=== PATIENT | female | born 1955 | race Caucasian/White ===

== ENCOUNTER 2023-02-06 11:29 | Outpatient (REF) | payer MEDICARE, MEDICAID, SELFPAY | END 2023-02-06 11:30 | disposition home or self-care (01) | LOC: HO.HHCLNP 11:29 | PROVIDERS: Visit Provider Emergency Medicine | DX: R32 Unspecified urinary incontinence (principal) | CPT/HCPCS: 87086 ==

== ENCOUNTER 2023-03-11 18:56 | Inpatient (IN) | payer MEDICARE, MEDICAID, SELFPAY ==
--- OUTSIDE RECORDS SUMMARY | 2023-03-11 18:58 | XMS_ITS | Continuity of Care Document ---
Author Name Unknown Organization [facility] ter Address [address] [place] [id number]- Care Team Providers Care Manager Therapy Name Role Phone Jyoti Paris MD Primary Care Physician Encounter [facility] Date(s): 10/23/19 - 10/23/[address] [address]- [facility] Encounter Diagnosis Diarrhea(Final) - 10/23/19 N&V (nausea and vomiting)(Final) - 10/23/19 Hyponatremia(Final) - 10/23/19 Discharge Disposition: A-D/C Home Attending Physician: Anthony Mejia DO Admitting Physician: Anthony Mejia DO Referring Physician: Not on Staff, Referring MD Allergies, Adverse Reactions, Alerts Substance Reaction Severity Status Dilantin INFLAME LIVER Active Reglan VIOLENCE Active Immunizations Given and Recorded Vaccine Date Status Refusal Reason tetanus/diphtheria/pertussis, acel(Tdap) 05/28/12 Given tetanus/diphtheria/pertussis, acel(Tdap) 08/04/09 Given pneumococcal 23-valent vaccine 1 06/02/09 Given 1Result Comment: [id number] Medications Advair Diskus 250 mcg-50 mcg inhalation powder 1, puffs, Inhalation, 2 times a day, # 1 each, Refills 0, Tot. Refills 0, Maintenance, 07/14/19 10:24:00 EST, Inhaler, Route to Pharmacy Electronically, [id number], [facility] #[id number], 155, cm, 07/14/19 7:33:00 EST,... Start Date: 07/14/19 Status: Ordered chlorproMAZINE 100 mg oral tablet 1 tablet = 100 mg, By Mouth, 2 times a day, # 60 tablet, 0 Refills, Maintenance, 07/14/19 10:27:00 EST, Tablet, [facility] #[id number], 155, cm, 07/14/19 7:33:00 EST, Height, 82, kg, 07/05/19 11:52:00 EST, Dry Weight Start Date: 07/14/19 Status: Ordered Colace sodium 100 mg oral capsule 200 mg, 2, capsule, By Mouth, 2 times a day, PRN, # 20 capsule, Refills 0, Maintenance, for constipation, 07/06/19 15:22:00 EST Start Date: 07/06/19 Status: Ordered D 1000 IU oral tablet 1 tablet = 1,000 International_Units, By Mouth, Daily, # 30 tablet, 0 Refills, Maintenance, 07/14/19 10:27:00 EST, Tablet, [facility] #[id number], 155, cm, 07/14/19 7:33:00 EST, Height, 82, kg, 07/05/19 11:52:00 EST, Dry Weight Start Date: 07/14/19 Status: Ordered famotidine 20 mg oral tablet 20 mg, 1, tablet, By Mouth, 2 times a day, # 60 tablet, Refills 0, Tot. Refills 0, Maintenance, 07/14/19 10:27:00 EST, Route to Pharmacy Electronically, [facility] #[id number], 155, cm, 207:33:00 EST, Height, 82, kg, 07/05/19 11:52:00 EST,... Start Date: 07/14/19 Status: Ordered fenofibrate 48 mg oral tablet 1 capsule = 48 mg, By Mouth, Daily, # 30 capsule, 0 Refills, Maintenance, 07/14/19 10:24:00 EST, Tablet, [facility] #[id number], 155, cm, 07/14/19 7:33:00 EST, Height, 82, kg, 07/05/19 11:52:00 EST, Dry Weight Start Date: 07/14/19 Status: Ordered Glucose Tablets 4 Gm, By Mouth, PRN, # 100 tablet, Refills 5, Maintenance, glucose <70, 07/06/19 15:25:00 EST, Compound Start Date: 07/06/19 Stop Date: 08/05/19 Status: Ordered hydrochlorothiazide 12.5 mg oral tablet 1 tablet = 12.5 mg, By Mouth, Daily, # 30 tablet, 0 Refills, Maintenance, 07/14/19 10:27:00 EST, Tablet, [facility] #[id number], 155, cm, 07/14/19 7:33:00 EST, Height, 82, kg, 07/05/19 11:52:00 EST, Dry Weight Start Date: 07/14/19 Status: Ordered insulin glargine 100 units/mL subcutaneous solution 0.6 mL = 60 units, Subcutaneous Injection, Daily at bedtime, 60 units at bed time, # 18 mL, 0 Refills, Maintenance, 07/14/19 11:13:00 EST, Injection, [facility] #[id number], PLEASE DISREGARD previous Glargine script (55u BID) and use this one ins... Start Date: 07/14/19 Status: Ordered insulin lispro 100 u/ml subcutaneous injection 4-16 units, Subcutaneous Injection, 3 times a day before meals, << Sliding Scale Comments >> 80 - 129 4 units 130 - 179 6 units 180 - 229 8 units 230 - 279 10 units 280 - 329 12 units 330- 379 14 units 380 - 429 16 units <... Start Date: 07/14/19 Status: Ordered Keppra 250 mg oral tablet 1 tablet = 250 mg, By Mouth, 2 times a day, # 60 tablet, 0 Refills, Maintenance, 07/14/19 10:29:00 EST, Tablet, [facility] #[id number], 155, cm, 07/14/19 7:33:00 EST, Height, 82, kg, 07/05/19 11:52:00 EST, Dry Weight Start Date: 07/14/19 Status: Ordered lamotrigine 200 mg oral tablet 1 tablet = 200 mg, By Mouth, Daily at bedtime, # 30 tablet, 0 Refills, Maintenance, 07/14/19 10:29:00 EST, Tablet, [facility] #[id number], 155, cm, 07/14/19 7:33:00 EST, Height, 82, kg, 07/05/1911:52:00 EST, Dry Weight Start Date: 07/14/19 Status: Ordered lisinopril 5 mg oral tablet 5 mg, 1, tablet, By Mouth, Daily, # 30 tablet, Refills 0, Tot. Refills 0, Maintenance, 07/14/19 10:29:00 EST, Route to Pharmacy Electronically, [facility] #[id number], 155, cm, 07/14/19 7:33:00 EST, Height, 82, kg, 07/05/19 11:52:00 EST, Dry Weight Start Date: 07/14/19 Status: Ordered Melatonin Tablet Daily at bedtime, 0 Refills, Maintenance, 10/23/19 17:41:00 EDT Start Date: 10/23/19 Status: Ordered ondansetron 4 mg oral tablet 1 tablet = 4 mg, By Mouth, Every 8 hours, PRN Nausea & Vomiting, # 10 tablet, 0 Refills, Maintenance, 10/23/19 20:05:00 EDT, Tablet, [facility] #[id number], 153, cm, 10/23/19 18:10:00 EDT, Height, 74, kg, 10/23/19 18:10:00 EDT, Dry Weight Start Date: 10/23/19 Status: Ordered prazosin 1 mg oral capsule 1 mg, 1, capsule, By Mouth, Daily at bedtime, # 30 capsule, Refills 0, Tot. Refills 0, Maintenance,07/14/19 10:29:00 EST, Route to Pharmacy Electronically, [facility] #[id number], 155, cm, 07/14/19 7:33:00 EST, Height, 82, kg, 07/05/19 11:52:00... Start Date: 07/14/19 Status: Ordered Senna 8.6 mg oral tablet 17.2 mg, 2, tablet, By Mouth, Daily at bedtime, PRN, # 100 tablet, Refills 0, Maintenance, for constipation, 07/06/19 15:24:00 EST, Tablet Start Date: 07/06/19 Status: Ordered Spiriva HandiHaler 18 mcg inhalation capsule 1 capsule = 18 mcg, Inhalation, Daily, # 30 capsule, 0 Refills, Maintenance, 07/14/19 10:26:00 EST,[facility] #[id number], 155, cm, 07/14/19 7:33:00 EST, Height, 82, kg, 07/05/19 11:52:00 EST, Dry Weight Start Date: 07/14/19 Status: Ordered traZODone 100 mg oral tablet 100 mg, 1, tablet, By Mouth, Daily at bedtime, # 30 tablet, Refills 0, Tot. Refills 0, Maintenance,07/14/19 10:29:00 EST, Route to Pharmacy Electronically, [facility] #[id number], 155, cm, 07/14/19 7:33:00 EST, Height, 82, kg, 07/05/19 11:52:00... Start Date: 07/14/19 Status: Ordered venlafaxine 37.5 mg oral capsule, extended release 37.5 mg, 1, capsule, By Mouth, Daily, # 30 capsule, Refills 0, Tot. Refills 0, Maintenance, 07/14/19 11:21:00 EST, Route to Pharmacy Electronically, [facility] #[id number], 155, cm, 07/14/19 7:33:00 EST, Height, 82, kg, 07/05/19 11:52:00 EST, Dry... Start Date: 07/14/19 Status: Ordered Problem List Condition Effective Dates Status Health Status Inform ant Depression(Confirmed) Active Diabetes mellitus type II(Confirmed) Active GERD - Gastro-esophageal ref lux disease(Confirmed) Active Menopause(Confirmed) Active Post traumatic stress disord er (PTSD)(Confirmed) Active Major depressive disorder, r ecurrent episode, moderate with anxious distress(Confirmed) Active Major depressive disorder, r ecurrent episode, severe, with psychosis(Confirmed) Active Vital Signs Most recent to oldest [Reference Range]: 1 Height 153 cm (10/23/19 5:38 PM) Weight 74 kg (10/23/19 5:38 PM) Oxygen Saturation [94-100 %] 99 % (10/23/19 5:53 PM) Pulse Rate [55-90 bpm] 82 bpm (10/23/19 5:53 PM) Blood Pressure [90-138/55-84 mm Hg] 135/ 73mm Hg (10/23/19 5:53 PM) Respiratory Rate [16-30 br/min] 16 br/mi n (10/23/19 5:53 PM) Temperature [96.8-100.4 DegF] 97.7 DegF (10/23/19 5:53 PM) Mode of Delivery (Oxygen) Room air (10/23/19 5:53 PM) Blood pressure sites Arm, right (10/23/19 5:53 PM) Temperature Route Oral (10/23/19 5:53 PM) Dry Weight 74 kg (10/23/19 5:38 PM) Social History Social History Type Response Smoking Status Current every day yonny jernigan; Other: 5 cigarettes a day, 12 years; entered on: 02/16/15 Sex
[2023-03-11 19:30] VITALS: BP 150/70; PULSE 86; RESP 18; TEMP 36.4; O2SAT 96
[2023-03-11 19:41] LABS: Glucose, Whole Blood 243 mg/dL (60-115)
[2023-03-11 21:30] VITALS: BMI 40.2
--- NOTE | 2023-03-11 22:40 | PC.ADMIT ---
(pt arrived 191403-11-23 transfer from [facility] [place]- pt is entirely Thai speaking. therefore kinyarwanda highwood interpretter Tal is utilized for the admission process. pt is pleasant. she does not know where she is. she is able to recite her name and birthday without difficulty. she knows the year and month. she states that she has had memory problems and has been acting strangely. her son glo stated that she has been wandering in the streets naked. has hx IDDM/ASTHMA/EPILEPSY) pt states she was hospitalized over the summer [facility] for high blood sugars in the s. pt deneies si/hi and feels safe. she ambulates independly with steady gait. visible skin surfaces intact. pt states she smokes 3 cigarettes a day. she is requesting NRT. hx of asthma. pt can become spontaneously SOB. resp effort is regular unlabored. pt denies dysuria. pt signed CV. dr reddy was notified of admission via tiger text.
[2023-03-11] MEDS: traZODone HCL 100 MG TABLET 400 MG PO (23:05)
[2023-03-11] MEDS: chlorproMAZINE HCl 100 MG TABLET PO (23:05)
[2023-03-11] MEDS: QUEtiapine Fumarate 25 MG TABLET PO (23:06)
[2023-03-11] MEDS: Prazosin HCL 1 MG CAPSULE PO (23:06)
[2023-03-11] MEDS: Famotidine 20 MG TABLET PO (23:07)
[2023-03-11] MEDS: Acetaminophen 325 MG TABLET 650 MG PO (23:07)
[2023-03-11] MEDS: levETIRAcetam 250 MG TABLET PO (23:08)
[2023-03-11] MEDS: lamoTRIgine 100 MG TABLET 200 MG PO (23:08)
[2023-03-11] MEDS: Insulin Glargine,Hum.rec.anlog 100 UNIT/ML 10 ML VIAL 60 UNIT SUBCUT (23:09)
[2023-03-12] MEDS: Omeprazole 20 MG CAPSULE.DR PO (06:24)
[2023-03-12 06:30] LABS: Glucose, Whole Blood 156 mg/dL (60-115)
[2023-03-12 08:15] VITALS: BP 106/52; PULSE 73; RESP 16; TEMP 36.1; O2SAT 96
[2023-03-12 08:23] LABS: Alanine Aminotransferase 35 U/L (0-31); Albumin Level 4.1 g/dL (3.5-5.0); Alkaline Phosphatase 125 U/L (39-117); Anion Gap 14 (12-20); Aspartate Amino Transferase 26 U/L (5-31); Bilirubin Total 0.4 mg/dL (0.0-1.0); Blood Urea Nitrogen 17 mg/dL (9-16); Calcium 10.1 mg/dL (8.4-10.2); Carbon Dioxide 26 mmol/L (22-29); Chloride 106 mmol/L (96-108); Cholesterol 232 mg/dL (<200); Creatinine Clr Calc Pharmacy 36.7; Estimated Glomerular Filt Rate 44; Glucose Fasting 146 mg/dL (60-99); HDL Cholesterol 39 mg/dL (>40); LDL Cholesterol Calculated 162 mg/dL (<100); Potassium 4.2 mmol/L (3.3-5.1); Sodium 142 mmol/L (135-145); Total Protein 7.6 g/dL (6.5-8.0); Triglycerides 159 mg/dL (<150)
[2023-03-12 08:38] LABS: Free T4 (Free Thyroxine) 0.88 ng/dL (0.71-1.85); Thyroid Stimulating Hormone 1.45 uIU/mL (0.32-4.0)
[2023-03-12 08:53] LABS: Estimated Average Glucose 177 mg/dL; Hemoglobin A1c % 7.8 % (<6.0)
[2023-03-12 08:56] LABS: Folate 12.1 ng/mL (> or = 4.0); Vitamin B12 467 pg/mL (200-900)
[2023-03-12] MEDS: levETIRAcetam 250 MG TABLET PO ×2 (09:09→20:39)
[2023-03-12] MEDS: chlorproMAZINE HCl 100 MG TABLET PO ×2 (09:09→20:39)
[2023-03-12] MEDS: SITagliptin Phosphate 50 MG TABLET PO (09:09)
[2023-03-12] MEDS: hydroCHLOROthiazide 12.5 MG TABLET PO (09:09)
[2023-03-12] MEDS: Fenofibrate 54 MG TABLET PO (09:09)
[2023-03-12] MEDS: Famotidine 20 MG TABLET PO ×2 (09:10→20:39)
[2023-03-12] MEDS: Cholecalciferol (Vitamin D3) 25 MCG TABLET PO (09:10)
[2023-03-12] MEDS: Venlafaxine HCL 25 MG TABLET 37.5 MG PO (09:10)
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
--- NOTE | 2023-03-12 11:19 | P.CONHOSP_ITS ---
History of Present Illness Data of Consult Service Date: 03/12/23 Primary Care Provider: Unknown Physician HPI Reason for consult: Admission H&P Pt is a 67-year-old [place] African-speaking female with a PMH significant for?unspecified dementia, HTN, HLD, insulin-dependent diabetes type 2, seizure disorder, COPD, and bipolar mixed type with psychotic features who is admitted to [facility] psych unit for increasing depression with visual and auditory hallucinations. Patient apparently had delusions that her stabbed and killed her. Medical consult for admission H&P. ?Patient is [place] African-speaking only; medical claims specialist services utilized. Pt is alert to self, time, and situation, not to place. Patient complains of chronic SOB at baseline, but otherwise has no acute medical complaints at this time. Vital signs stable. Labs reviewed, significant for POC 146. A1C 7.8, mild hyperlipidemia and triglyceridemia. UA from [facility] negative for UTI. Review of Systems 2 Review of Systems: Chronic shortness of breath at baseline Otherwise patient has no acute medical complaints at this time [facility] Social History Household Members: None Housing: Apartment Do you presently have visiting nurse or other home services: Yes Patient Tobacco Use Status: Current everyday Tobacco user Tobacco use type: Cigarette Cigarettes Per Day: 3 Smoked in Last 30 Days: Yes Patient Interested in Nicotine Replacement: Yes Patient Given Instructions on How to Stop Smoking: Yes Date Education Initiated: 03/11/23 Second Hand Smoke Exposure: No Use of substances other than those prescribed or required for medical reasons: No Currently Displaying Signs/Symptoms of Drug Intoxication Withdrawal: No Any prior treatment program specific to substance use: No Have you been hit, kicked, punched, or otherwise hurt by someone within the past year? If so, by whom?: No Do you feel safe in your current relationship?: No Current Relationship Is there a partner from a previous relationship who is making you feel unsafe now?: No Are you made to feel afraid or neglected: No Advance Directives: No Advance Directives Information Provided: Yes Do you have thoughts of harming others: None Do you have a plan to hurt others: No Plan Recently lost weight without trying: No How much weight loss: Not applicable Eating poorly because of decreased appetite: No Nutrition screen score: 0 Patient : No : No service: No Sexual orientation: Straight/Heterosexual Meds Allergies Allergy/AdvReac Type Severity Reaction Status Date / Time metoclopramide [From Reglan] AdvReac Confusion Verified 03/11/23 21:26 phenytoin [From Dilantin] AdvReac Gastrointestinal Verified 03/11/23 21:30 Upset Active Medications: Current Medications Acetaminophen (Acetaminophen 325 Mg Tablet) 650 mg PO Q6H PRN PRN Reason: Headache/Pain Mild Scale (1-3) Last Admin: 03/11/23 23:07 Dose: 650 mg Al Hydroxide/Mg Hydroxide (Magnesium Hydrox/Alum Hydrox 30 Ml Oral.Susp) 30 ml PO Q6H PRN PRN Reason: Heartburn/Nausea Chlorpromazine HCl (Chlorpromazine Hcl 100 Mg Tablet) 100 mg PO BID [facility] Last Admin: 03/12/23 09:09 Dose: 100 mg Docusate Sodium (Docusate Sodium 100 Mg Capsule) 100 mg PO BID PRN PRN Reason: constipation Famotidine (Famotidine 20 Mg Tablet) 20 mg PO BID [facility] Last Admin: 03/12/23 09:10 Dose: 20 mg Fenofibrate (Fenofibrate 54 Mg Tablet) 54 mg PO DAILY [facility] Last Admin: 03/12/23 09:09 Dose: 54 mg Hydrochlorothiazide (Hydrochlorothiazide 12.5 Mg Tablet) 12.5 mg PO DAILY [facility]; Protocol Last Admin: 03/12/23 09:09 Dose: 12.5 mg Insulin Glargine (Insulin Glargine,Hum.Rec.Anlog 100 Unit/Ml 10 Ml Vial) 60 unit SUBCUT BEDTIME [facility] Last Admin: 03/11/23 23:09 Dose: 60 unit Lamotrigine (Lamotrigine 100 Mg Tablet) 200 mg PO BEDTIME [facility] Last Admin: 03/11/23 23:08 Dose: 200 mg Levetiracetam (Levetiracetam 250 Mg Tablet) 250 mg PO BID [facility] Last Admin: 03/12/23 09:09 Dose: 250 mg Magnesium Hydroxide (Milk Of Magnesia 30 Ml Oral.Susp) 30 ml PO DAILY PRN PRN Reason: Constipation Melatonin (Melatonin 3 Mg Tablet) 6 mg PO BEDTIME [facility] Nicotine Polacrilex (Nicotine Polacrilex Lozenge 2 Mg Lozenge) 2 mg BUCCAL Q2H PRN PRN Reason: Nicotine Cravings Omeprazole (Omeprazole 20 Mg Capsule.) 20 mg PO DAILY@0630 [facility] Last Admin: 03/12/23 06:24 Dose: 20 mg Prazosin HCl (Prazosin Hcl 1 Mg Capsule) 1 mg PO BEDTIME [facility]; Protocol Last Admin: 03/11/23 23:06 Dose: 1 mg Quetiapine Fumarate (Quetiapine Fumarate 25 Mg Tablet) 25 mg PO BEDTIME [facility] Last Admin: 03/11/23 23:06 Dose: 25 mg Sitagliptin Phosphate (Sitagliptin Phosphate 50 Mg Tablet) 50 mg PO DAILY [facility] Last Admin: 03/12/23 09:09 Dose: 50 mg Tiotropium [place] (Tiotropium [place] 2.5 Mcg Inhaler) 2 puff INHALE DAILY [facility] Last Admin: 03/12/23 09:08 Dose: 2 puff Trazodone HCl (Trazodone Hcl 100 Mg Tablet) 400 mg PO BEDTIME [facility] Last Admin: 03/11/23 23:05 Dose: 400 mg Venlafaxine HCl (Venlafaxine Hcl 25 Mg Tablet) 37.5 mg PO DAILY [facility] Last Admin: 03/12/23 09:10 Dose: 37.5 mg Vitamin D (Cholecalciferol (Vitamin D3) 25 Mcg Tablet) 25 mcg PO DAILY [facility] Last Admin: 03/12/23 09:10 Dose: 25 mcg Home Medications Medication Instructions Recorded Confirmed Last Taken Type chlorpromazine 100 mg tablet 100 mg PO BID 03/11/23 03/11/23 Unknown History cholecalciferol (vitamin D3) 25 25 mcg PO DAILY 03/11/23 03/11/23 Unknown History mcg (1,000 unit) tablet docusate sodium 100 mg capsule 100 mg PO BID PRN constipation 03/11/23 03/11/23 Unknown History famotidine 20 mg tablet 20 mg PO BID 03/11/23 03/11/23 Unknown History fenofibrate nanocrystallized 48 mg 48 mg PO DAILY 03/11/23 03/11/23 Unknown History tablet hydrochlorothiazide 12.5 mg tablet 12.5 mg PO DAILY 03/11/23 03/11/23 Unknown History insulin glargine 100 unit/mL (3 60 unit subcut BEDTIME 03/11/23 03/11/23 Unknown History mL) subcutaneous pen (Lantus Solostar U-100 Insulin) insulin lispro 100 unit/mL 4 - 16 unit subcut TID 03/11/23 03/11/23 Unknown History subcutaneous pen (Humalog KwikPen (U-100) Insulin) lamotrigine 200 mg tablet 200 mg PO BEDTIME depressive 03/11/23 03/11/23 Unknown History disorder levetiracetam 250 mg tablet 250 mg PO BID 03/11/23 03/11/23 Unknown History melatonin 5 mg tablet 5 mg PO BEDTIME 03/11/23 03/11/23 Unknown History pantoprazole 20 mg tablet,delayed 20 mg PO DAILY 03/11/23 03/11/23 Unknown History release prazosin 1 mg capsule 1 mg PO BEDTIME nightmares 03/11/23 03/11/23 Unknown History quetiapine 25 mg tablet 25 mg PO BEDTIME 03/11/23 03/11/23 Unknown History sitagliptin phosphate 50 mg tablet 50 mg PO DAILY 03/11/23 03/11/23 Unknown History (Januvia) trazodone 100 mg tablet 400 mg PO BEDTIME 03/11/23 03/11/23 Unknown History umeclidinium 62.5 mcg/actuation 1 inh inhalation DAILY 03/11/23 03/11/23 Unknown History blister powder for inhalation (Incruse Ellipta) venlafaxine 37.5 mg tablet 37.5 mg PO DAILY 03/11/23 03/11/23 Unknown History Physical Exam 2 Vital Signs and Narrative: Vital Signs: Last Vital Signs Temp 97 F 03/12/23 08:15 Pulse 73 03/12/23 08:15 Resp 16 03/12/23 08:15 BP 106/52 L 03/12/23 08:15 Pulse Ox 96 03/12/23 08:15 O2 Del Method Room Air 03/12/23 08:15 BMI result Body Mass Index 40.2 General: Alert and oriented to self, time, and situation, not to place. In no acute distress Resp: CTA bilaterally CVS: S1, S2, RRR GI: +BS, NT, no distention Skin: No rash Neuro: Cranial nerves II-XII grossly intact bilaterally. Motor grossly intact bilaterally. Extremities: No edema Psych: Appropriate affect Results Labs 03/12/23 07:57 Labs: Laboratory Results - last 24 hr 03/11/23 03/12/23 03/12/23 19:36 06:25 07:57 Anion Gap 14 Estim Creat Clear Calc 36.7 Estimated GFR 44 POC Glucose 243 H 156 H Fasting Glucose 146 H Estimat Average Glucose Hemoglobin A1c % Calcium 10.1 Total Bilirubin 0.4 AST 26 ALT 35 H Alkaline Phosphatase 125 H Total Protein 7.6 Albumin 4.1 Triglycerides 159 H Cholesterol 232 H LDL Cholesterol, Calc 162 H HDL Cholesterol 39 L Vitamin B12 Folate TSH 1.45 Free T4 0.88 03/12/23 03/12/23 07:57 07:57 Anion Gap Estim Creat Clear Calc Estimated GFR POC Glucose Fasting Glucose Estimat Average Glucose 177 Hemoglobin A1c % 7.8 H Calcium Total Bilirubin AST ALT Alkaline Phosphatase Total Protein Albumin Triglycerides Cholesterol LDL Cholesterol, Calc HDL Cholesterol Vitamin B12 467 Folate 12.1 TSH Free T4 Assessment and Plan (1) Routine history and physical examination of adult: Status: Acute Plan Pt is a 67-year-old [place] African-speaking female with a PMH significant for?unspecified dementia, HTN, HLD, insulin-dependent diabetes type 2, seizure disorder, COPD, and bipolar mixed type with psychotic features who is admitted to [facility] unit for increasing depression with visual and auditory hallucinations. Patient apparently had delusions that her stabbed and killed her. Medical consult for admission H&P. Mood disorder Plan as per psychiatry Insulin-dependent diabetes type 2 Continue home meds, insulin Will place on sliding scale Diabetic diet Seizure disorder Continue levetiracetam HLD Continue home meds HTN Continue home meds GERD Thank you for allowing us to participate in the care of this patient. Signing off at this time. Please let us know if there are any acute complaints or questions. Time Spent With Patient Time: Total time managing care of this patient today ____ minutes.
[2023-03-12 11:36] LABS: Glucose, Whole Blood 215 mg/dL (60-115)
[2023-03-12 16:36] LABS: Glucose, Whole Blood 166 mg/dL (60-115)
[2023-03-12] MEDS: Insulin Lispro 100 UNIT/ML 3 ML VIAL SUBCUT (17:01)
[2023-03-12 19:30] VITALS: BP 106/53; PULSE 82; RESP 16; TEMP 36.2; O2SAT 97
[2023-03-12 20:00] LABS: Glucose, Whole Blood 142 mg/dL (60-115)
[2023-03-12] MEDS: Insulin Glargine,Hum.rec.anlog 100 UNIT/ML 10 ML VIAL 60 UNIT SUBCUT (20:37)
[2023-03-12] MEDS: lamoTRIgine 100 MG TABLET 200 MG PO (20:38)
[2023-03-12] MEDS: Prazosin HCL 1 MG CAPSULE PO (20:38)
[2023-03-12] MEDS: Melatonin 3 MG TABLET 6 MG PO (20:38)
[2023-03-12] MEDS: QUEtiapine Fumarate 25 MG TABLET PO (20:39)
[2023-03-12] MEDS: traZODone HCL 100 MG TABLET 400 MG PO (20:40)
[2023-03-13] MEDS: Omeprazole 20 MG CAPSULE.DR PO (06:18)
[2023-03-13 07:00] VITALS: BMI 39.8
[2023-03-13 07:40] LABS: Glucose, Whole Blood 118 mg/dL (60-115)
[2023-03-13 07:45] VITALS: BP 120/59; PULSE 92; RESP 16; TEMP 36.1; O2SAT 95
[2023-03-13] MEDS: Nicotine 7 MG PATCH.TD24 TRANSDERMA (08:17)
[2023-03-13] MEDS: Venlafaxine HCL 25 MG TABLET 37.5 MG PO (08:17)
[2023-03-13] MEDS: Famotidine 20 MG TABLET PO ×2 (08:18→20:51)
[2023-03-13] MEDS: levETIRAcetam 250 MG TABLET PO ×2 (08:18→20:51)
[2023-03-13] MEDS: chlorproMAZINE HCl 100 MG TABLET PO ×2 (08:18→20:50)
[2023-03-13] MEDS: hydroCHLOROthiazide 12.5 MG TABLET PO (08:18)
[2023-03-13] MEDS: SITagliptin Phosphate 50 MG TABLET PO (08:18)
[2023-03-13] MEDS: Cholecalciferol (Vitamin D3) 25 MCG TABLET PO (08:18)
[2023-03-13] MEDS: Fenofibrate 54 MG TABLET PO (08:18)
[2023-03-13 11:28] LABS: Glucose, Whole Blood 271 mg/dL (60-115)
[2023-03-13] MEDS: Insulin Lispro 100 UNIT/ML 3 ML VIAL SUBCUT ×2 (11:39→20:51)
--- NOTE | 2023-03-13 14:08 | HO.PSYCHPN ---
Subjective Subjective Date of Service: 03/13/23 Reason For Visit: Bipolar I D/O Mixed W/Psychotic Features PTSD Etc Subjective Notes: Conditional Voluntary Interim History: The nursing staff reported that the patient had been compliant with meals and medications, she accepted the flu shot ordered yesterday, no behavioral disturbances noticed since she was admitted. She slept well last night. As per the record she scored 5/30 on her MOCA 5 years ago and she looks pleasantly confused. On interview in Korean, she denied new symptoms, pleasant but very confused. Mental Status Exam Mental Status Exam Patient Appearance: Appropriate Patient Orientation: Person and Situation Level of Consciousness: Awake and Appropriate Patient Behavior: Guarded and Passive Mood Description: Withdrawn Affect Description: Constricted Patient Cognition Impaired: Yes Ability to Follow Directions: Fair Speech Pattern: Clear Hallucinations: None Delusions: Not Present Thought Process: Distracted and Slowed Thinking Thought Content: positive for [place] and positive for Poverty of Content Judgement: Fair Diagnostics Vital Signs (24Hr): Vital Signs - 24 hr 03/12/23 19:30 03/13/23 07:45 Temperature 97.2 F 97 F Pulse Rate 82 92 Respiratory Rate 16 16 Blood Pressure 106/53 L 120/59 L Pulse Oximetry 97 95 Oxygen Delivery Method Room Air Room Air BMI result Body Mass Index 39.8 Labs 03/12/23 07:57 Labs: Laboratory Results - last 48 hr 03/11/23 03/12/23 03/12/23 19:36 06:25 07:57 Sodium 142 Potassium 4.2 Chloride 106 Carbon Dioxide 26 Anion Gap 14 BUN 17 H Creatinine 1.23 Estim Creat Clear Calc 36.7 Estimated GFR 44 POC Glucose 243 H 156 H Fasting Glucose 146 H Estimat Average Glucose 177 Hemoglobin A1c % 7.8 H Calcium 10.1 Total Bilirubin 0.4 AST 26 ALT 35 H Alkaline Phosphatase 125 H Total Protein 7.6 Albumin 4.1 Triglycerides 159 H Cholesterol 232 H LDL Cholesterol, Calc 162 H HDL Cholesterol 39 L Vitamin B12 467 Folate 12.1 TSH 1.45 Free T4 0.88 03/12/23 03/12/23 03/12/23 11:31 16:31 19:52 Sodium Potassium Chloride Carbon Dioxide Anion Gap BUN Creatinine Estim Creat Clear Calc Estimated GFR POC Glucose 215 H 166 H 142 H Fasting Glucose Estimat Average Glucose Hemoglobin A1c % Calcium Total Bilirubin AST ALT Alkaline Phosphatase Total Protein Albumin Triglycerides Cholesterol LDL Cholesterol, Calc HDL Cholesterol Vitamin B12 Folate TSH Free T4 03/13/23 03/13/23 07:36 11:22 Sodium Potassium Chloride Carbon Dioxide Anion Gap BUN Creatinine Estim Creat Clear Calc Estimated GFR POC Glucose 118 H 271 H Fasting Glucose Estimat Average Glucose Hemoglobin A1c % Calcium Total Bilirubin AST ALT Alkaline Phosphatase Total Protein Albumin Triglycerides Cholesterol LDL Cholesterol, Calc HDL Cholesterol Vitamin B12 Folate TSH Free T4 Medications Medications Current Medications Acetaminophen (Acetaminophen 325 Mg Tablet) 650 mg PO Q6H PRN PRN Reason: Headache/Pain Mild Scale (1-3) Last Admin: 03/11/23 23:07 Dose: 650 mg Al Hydroxide/Mg Hydroxide (Magnesium Hydrox/Alum Hydrox 30 Ml Oral.Susp) 30 ml PO Q6H PRN PRN Reason: Heartburn/Nausea Chlorpromazine HCl (Chlorpromazine Hcl 100 Mg Tablet) 100 mg PO BID [facility] Last Admin: 03/13/23 08:18 Dose: 100 mg Dextrose (Dextrose 50 % 25 Gm/50 Ml Syringe) 25 gm IVPUSH Q15M PRN; Protocol PRN Reason: per Hypoglycemia Standing Ord. Docusate Sodium (Docusate Sodium 100 Mg Capsule) 100 mg PO BID PRN PRN Reason: constipation Famotidine (Famotidine 20 Mg Tablet) 20 mg PO BID [facility] Last Admin: 03/13/23 08:18 Dose: 20 mg Fenofibrate (Fenofibrate 54 Mg Tablet) 54 mg PO DAILY [facility] Last Admin: 03/13/23 08:18 Dose: 54 mg Glucose (Glucose Gel 15 Gm Gel..Gram.) 15 gm PO Q15M PRN; Protocol PRN Reason: per Hypoglycemia Standing Ord. Hydrochlorothiazide (Hydrochlorothiazide 12.5 Mg Tablet) 12.5 mg PO DAILY [facility]; Protocol Last Admin: 03/13/23 08:18 Dose: 12.5 mg Insulin Glargine (Insulin Glargine,Hum.Rec.Anlog 100 Unit/Ml 10 Ml Vial) 60 unit SUBCUT BEDTIME [facility] Last Admin: 03/12/23 20:37 Dose: 60 unit Insulin Human Lispro (Insulin Lispro 100 Unit/Ml 3 Ml Vial) 0 unit SUBCUT QIDACHS [facility]; Protocol Last Admin: 03/13/23 11:39 Dose: 6 unit Lamotrigine (Lamotrigine 100 Mg Tablet) 200 mg PO BEDTIME [facility] Last Admin: 03/12/23 20:38 Dose: 200 mg Levetiracetam (Levetiracetam 250 Mg Tablet) 250 mg PO BID [facility] Last Admin: 03/13/23 08:18 Dose: 250 mg Magnesium Hydroxide (Milk Of Magnesia 30 Ml Oral.Susp) 30 ml PO DAILY PRN PRN Reason: Constipation Melatonin (Melatonin 3 Mg Tablet) 6 mg PO BEDTIME [facility] Last Admin: 03/12/23 20:38 Dose: 6 mg Nicotine (Nicotine 7 Mg Patch.Td24) 7 mg TRANSDERMA DAILY [facility] Last Admin: 03/13/23 08:17 Dose: 7 mg Nicotine Polacrilex (Nicotine Polacrilex Lozenge 2 Mg Lozenge) 2 mg BUCCAL Q2H PRN PRN Reason: Nicotine Cravings Omeprazole (Omeprazole 20 Mg Capsule.Dr) 20 mg PO DAILY@0630 [facility] Last Admin: 03/13/23 06:18 Dose: 20 mg Prazosin HCl (Prazosin Hcl 1 Mg Capsule) 1 mg PO BEDTIME [facility]; Protocol Last Admin: 03/12/23 20:38 Dose: 1 mg Quetiapine Fumarate (Quetiapine Fumarate 25 Mg Tablet) 25 mg PO BEDTIME [facility] Last Admin: 03/12/23 20:39 Dose: 25 mg Sitagliptin Phosphate (Sitagliptin Phosphate 50 Mg Tablet) 50 mg PO DAILY [facility] Last Admin: 03/13/23 08:18 Dose: 50 mg Tiotropium [place] (Tiotropium [place] 2.5 Mcg Inhaler) 2 puff INHALE DAILY [facility] Last Admin: 03/13/23 08:18 Dose: 2 puff Trazodone HCl (Trazodone Hcl 100 Mg Tablet) 400 mg PO BEDTIME [facility] Last Admin: 03/12/23 20:40 Dose: 400 mg Venlafaxine HCl (Venlafaxine Hcl 25 Mg Tablet) 37.5 mg PO DAILY [facility] Last Admin: 03/13/23 08:17 Dose: 37.5 mg Vitamin D (Cholecalciferol (Vitamin D3) 25 Mcg Tablet) 25 mcg PO DAILY [facility] Last Admin: 03/13/23 08:18 Dose: 25 mcg Allergies Allergies Allergy/AdvReac Type Severity Reaction Status Date / Time metoclopramide [From Reglan] AdvReac Confusion Verified 03/11/23 21:26 phenytoin [From Dilantin] AdvReac Gastrointestinal Verified 03/11/23 21:30 Upset Assessment & Plan Assessment & Plan (1) Bipolar disorder: Status: Acute Code(s): F31.9 - Bipolar disorder, unspecified (2) Dementia: Status: Acute Code(s): F03.90 - Unspecified dementia, unspecified severity, without behavioral disturbance, psychotic disturbance, mood disturbance, and anxiety (3) Tardive dyskinesia: Status: Acute Code(s): G24.01 - Drug induced subacute dyskinesia (4) Delirium: Status: Acute Code(s): R41.0 - Disorientation, unspecified Plan The patient is an elderly [place] female with a past history of bipolar disorder, seizure disorder, diabetes, high blood pressure and dementia admitted for an episode of delirium with disorganized behavior in the context of a UTI most likely. She was brought from the emergency room since she was found in the street naked and confused. Plan 1. Gather collateral information the patient is a very poor historian but she gave us permission to contact her family. 2. Continue regular medications as per med reconciliation form. 3. Continue with medical workout. 4. At this moment we are not going to increasing antipsychotics and we will try to avoid the use of benzodiazepines to prevent worsening delirium. 5. 15 minute checks Reason for continued inpatient stay Substantial Risk for: inability to function, rapid decompensation and med/psych decompensation Time Spent With Patient Time: Total time managing care of this patient today __20__ minutes.
[2023-03-13 16:40] LABS: Glucose, Whole Blood 131 mg/dL (60-115)
[2023-03-13 18:00] VITALS: BP 105/55; PULSE 82; RESP 18; TEMP 36.9; O2SAT 100
[2023-03-13 20:05] LABS: Glucose, Whole Blood 262 mg/dL (60-115)
[2023-03-13] MEDS: Melatonin 3 MG TABLET 6 MG PO (20:50)
[2023-03-13] MEDS: traZODone HCL 100 MG TABLET 400 MG PO (20:50)
[2023-03-13] MEDS: lamoTRIgine 100 MG TABLET 200 MG PO (20:50)
[2023-03-13] MEDS: QUEtiapine Fumarate 25 MG TABLET PO (20:51)
[2023-03-13] MEDS: Prazosin HCL 1 MG CAPSULE PO (20:51)
[2023-03-13] MEDS: Insulin Glargine,Hum.rec.anlog 100 UNIT/ML 10 ML VIAL 60 UNIT SUBCUT (20:52)
[2023-03-14] MEDS: Omeprazole 20 MG CAPSULE.DR PO (06:31)
[2023-03-14 06:38] LABS: Glucose, Whole Blood 147 mg/dL (60-115)
[2023-03-14 08:00] VITALS: BP 97/57; PULSE 78; RESP 17; TEMP 36.4; O2SAT 97
[2023-03-14] MEDS: SITagliptin Phosphate 50 MG TABLET PO (08:09)
[2023-03-14] MEDS: Fenofibrate 54 MG TABLET PO (08:09)
[2023-03-14] MEDS: chlorproMAZINE HCl 100 MG TABLET PO ×2 (08:09→20:36)
[2023-03-14] MEDS: levETIRAcetam 250 MG TABLET PO ×2 (08:09→20:35)
[2023-03-14] MEDS: Cholecalciferol (Vitamin D3) 25 MCG TABLET PO (08:10)
[2023-03-14] MEDS: Famotidine 20 MG TABLET PO ×2 (08:10→20:36)
[2023-03-14] MEDS: Nicotine 7 MG PATCH.TD24 TRANSDERMA (08:11)
[2023-03-14] MEDS: Venlafaxine HCL 25 MG TABLET 37.5 MG PO (08:20)
[2023-03-14] MEDS: Acetaminophen 325 MG TABLET 650 MG PO (11:04)
--- NOTE | 2023-03-14 11:14 | P.PNPSI_ITS ---
Subjective Subjective Date of Service: 03/14/23 Reason For Visit: Bipolar I D/O Mixed W/Psychotic Features PTSD Etc Subjective Notes: Conditional Voluntary Interim History: The nursing staff reported the patient had been pleasantly confused, easily redirectable cooperative with care compliant with her medications. She slept well last night. The social media director reported that she have called the family and left messages. On interview the patient denies new symptoms she states most of the time in her room no side effects besides her chronic tardive dyskinesia. Mental Status Exam Mental Status Exam Patient Appearance: Appropriate Patient Orientation: Person and Situation Level of Consciousness: Awake and Appropriate Patient Behavior: Guarded and Passive Mood Description: Withdrawn Affect Description: Constricted Patient Cognition Impaired: Yes Ability to Follow Directions: Good Speech Pattern: Clear Hallucinations: None Delusions: Not Present Thought Process: Distracted, Evasive and Slowed Thinking Thought Content: positive for [place], positive for Poverty of Content and positive for Thought Blocking Judgement: Poor Diagnostics Vital Signs (24Hr): Vital Signs - 24 hr 03/13/23 18:00 03/14/23 08:00 Temperature 98.5 F 97.6 F Pulse Rate 82 78 Respiratory Rate 18 17 Blood Pressure 105/55 L 97/57 L Pulse Oximetry 100 97 Oxygen Delivery Method Room Air Room Air BMI result Body Mass Index 39.8 Labs 03/12/23 07:57 Labs: Laboratory Results - last 48 hr 03/12/23 03/12/23 03/12/23 11:31 16:31 19:52 POC Glucose 215 H 166 H 142 H 03/13/23 03/13/23 03/13/23 07:36 11:22 16:31 POC Glucose 118 H 271 H 131 H 03/13/23 03/14/23 19:38 06:33 POC Glucose 262 H 147 H Medications Medications Current Medications Acetaminophen (Acetaminophen 325 Mg Tablet) 650 mg PO Q6H PRN PRN Reason: Headache/Pain Mild Scale (1-3) Last Admin: 03/14/23 11:04 Dose: 650 mg Al Hydroxide/Mg Hydroxide (Magnesium Hydrox/Alum Hydrox 30 Ml Oral.Susp) 30 ml PO Q6H PRN PRN Reason: Heartburn/Nausea Chlorpromazine HCl (Chlorpromazine Hcl 100 Mg Tablet) 100 mg PO BID [facility] Last Admin: 03/14/23 08:09 Dose: 100 mg Dextrose (Dextrose 50 % 25 Gm/50 Ml Syringe) 25 gm IVPUSH Q15M PRN; Protocol PRN Reason: per Hypoglycemia Standing Ord. Docusate Sodium (Docusate Sodium 100 Mg Capsule) 100 mg PO BID PRN PRN Reason: constipation Famotidine (Famotidine 20 Mg Tablet) 20 mg PO BID [facility] Last Admin: 03/14/23 08:10 Dose: 20 mg Fenofibrate (Fenofibrate 54 Mg Tablet) 54 mg PO DAILY [facility] Last Admin: 03/14/23 08:09 Dose: 54 mg Glucose (Glucose Gel 15 Gm Gel..Gram.) 15 gm PO Q15M PRN; Protocol PRN Reason: per Hypoglycemia Standing Ord. Hydrochlorothiazide (Hydrochlorothiazide 12.5 Mg Tablet) 12.5 mg PO DAILY [facility]; Protocol Last Admin: 03/14/23 08:15 Dose: Not Given Insulin Glargine (Insulin Glargine,Hum.Rec.Anlog 100 Unit/Ml 10 Ml Vial) 60 unit SUBCUT BEDTIME [facility] Last Admin: 03/13/23 20:52 Dose: 60 unit Insulin Human Lispro (Insulin Lispro 100 Unit/Ml 3 Ml Vial) 0 unit SUBCUT QIDACHS [facility]; Protocol Last Admin: 03/14/23 08:14 Dose: Not Given Lamotrigine (Lamotrigine 100 Mg Tablet) 200 mg PO BEDTIME [facility] Last Admin: 03/13/23 20:50 Dose: 200 mg Levetiracetam (Levetiracetam 250 Mg Tablet) 250 mg PO BID [facility] Last Admin: 03/14/23 08:09 Dose: 250 mg Magnesium Hydroxide (Milk Of Magnesia 30 Ml Oral.Susp) 30 ml PO DAILY PRN PRN Reason: Constipation Melatonin (Melatonin 3 Mg Tablet) 6 mg PO BEDTIME [facility] Last Admin: 03/13/23 20:50 Dose: 6 mg Nicotine (Nicotine 7 Mg Patch.Td24) 7 mg TRANSDERMA DAILY [facility] Last Admin: 03/14/23 08:11 Dose: 7 mg Nicotine Polacrilex (Nicotine Polacrilex Lozenge 2 Mg Lozenge) 2 mg BUCCAL Q2H PRN PRN Reason: Nicotine Cravings Omeprazole (Omeprazole 20 Mg Capsule.Dr) 20 mg PO DAILY@0630 [facility] Last Admin: 03/14/23 06:31 Dose: 20 mg Prazosin HCl (Prazosin Hcl 1 Mg Capsule) 1 mg PO BEDTIME [facility]; Protocol Last Admin: 03/13/23 20:51 Dose: 1 mg Quetiapine Fumarate (Quetiapine Fumarate 25 Mg Tablet) 25 mg PO BEDTIME [facility] Last Admin: 03/13/23 20:51 Dose: 25 mg Sitagliptin Phosphate (Sitagliptin Phosphate 50 Mg Tablet) 50 mg PO DAILY [facility] Last Admin: 03/14/23 08:09 Dose: 50 mg Tiotropium [place] (Tiotropium [place] 2.5 Mcg Inhaler) 2 puff INHALE DAILY [facility] Last Admin: 03/14/23 08:08 Dose: 2 puff Trazodone HCl (Trazodone Hcl 100 Mg Tablet) 400 mg PO BEDTIME [facility] Last Admin: 03/13/23 20:50 Dose: 400 mg Venlafaxine HCl (Venlafaxine Hcl 25 Mg Tablet) 37.5 mg PO DAILY [facility] Last Admin: 03/14/23 08:20 Dose: 37.5 mg Vitamin D (Cholecalciferol (Vitamin D3) 25 Mcg Tablet) 25 mcg PO DAILY [facility] Last Admin: 03/14/23 08:10 Dose: 25 mcg Allergies Allergies Allergy/AdvReac Type Severity Reaction Status Date / Time metoclopramide [From Reglan] AdvReac Confusion Verified 03/11/23 21:26 phenytoin [From Dilantin] AdvReac Gastrointestinal Verified 03/11/23 21:30 Upset Assessment & Plan Assessment & Plan (1) Bipolar disorder: Status: Acute Code(s): F31.9 - Bipolar disorder, unspecified (2) Dementia: Status: Acute Code(s): F03.90 - Unspecified dementia, unspecified severity, without behavioral disturbance, psychotic disturbance, mood disturbance, and anxiety (3) Tardive dyskinesia: Status: Acute Code(s): G24.01 - Drug induced subacute dyskinesia (4) Delirium: Status: Acute Code(s): R41.0 - Disorientation, unspecified Plan The patient is an elderly [place] female with a past history of bipolar disorder, seizure disorder, diabetes, high blood pressure and dementia admitted for an episode of delirium with disorganized behavior in the context of a UTI most likely. She was brought from the emergency room since she was found in the street naked and confused. Plan 1. Gather collateral information the patient is a very poor historian but she gave us permission to contact her family. 2. Continue regular medications as per med reconciliation form. 3. Continue with medical workout. 4. At this moment we are not going to increasing antipsychotics and we will try to avoid the use of benzodiazepines to prevent worsening delirium. 5. 15 minute checks Reason for continued inpatient stay Substantial Risk for: inability to function, rapid decompensation and med/psych decompensation Time Spent With Patient Time: Total time managing care of this patient today __20__ minutes.
[2023-03-14 11:40] LABS: Glucose, Whole Blood 209 mg/dL (60-115)
[2023-03-14] MEDS: Insulin Lispro 100 UNIT/ML 3 ML VIAL SUBCUT ×3 (11:41→20:35)
[2023-03-14 19:35] VITALS: BP 111/57; PULSE 81; RESP 18; TEMP 36.3; O2SAT 96
[2023-03-14 20:32] LABS: Glucose, Whole Blood 262 mg/dL (60-115)
[2023-03-14] MEDS: Insulin Glargine,Hum.rec.anlog 100 UNIT/ML 10 ML VIAL 60 UNIT SUBCUT (20:35)
[2023-03-14] MEDS: QUEtiapine Fumarate 25 MG TABLET PO (20:35)
[2023-03-14] MEDS: Prazosin HCL 1 MG CAPSULE PO (20:36)
[2023-03-14] MEDS: lamoTRIgine 100 MG TABLET 200 MG PO (20:36)
[2023-03-14] MEDS: traZODone HCL 100 MG TABLET 400 MG PO (20:36)
[2023-03-14] MEDS: Melatonin 3 MG TABLET 6 MG PO (20:36)
[2023-03-15] MEDS: Omeprazole 20 MG CAPSULE.DR PO (06:02)
[2023-03-15 06:52] LABS: Glucose, Whole Blood 103 mg/dL (60-115)
[2023-03-15 07:58] VITALS: BP 96/53; PULSE 71; RESP 18; TEMP 36; O2SAT 97
[2023-03-15 08:54] VITALS: BP 100/57
[2023-03-15] MEDS: levETIRAcetam 250 MG TABLET PO ×2 (09:12→20:24)
[2023-03-15] MEDS: Fenofibrate 54 MG TABLET PO (09:12)
[2023-03-15] MEDS: chlorproMAZINE HCl 100 MG TABLET PO ×2 (09:12→20:23)
[2023-03-15] MEDS: Famotidine 20 MG TABLET PO ×2 (09:12→20:23)
[2023-03-15] MEDS: SITagliptin Phosphate 50 MG TABLET PO (09:12)
[2023-03-15] MEDS: Cholecalciferol (Vitamin D3) 25 MCG TABLET PO (09:12)
[2023-03-15] MEDS: Nicotine 7 MG PATCH.TD24 TRANSDERMA (09:13)
[2023-03-15] MEDS: Venlafaxine HCL 25 MG TABLET 37.5 MG PO (09:13)
--- NOTE | 2023-03-15 09:56 | PC.NURSE ---
Morning blood pressure 96/53 and Maria Esther asymptomatic. She was provided with ice water. Recheck of bp approximately an hour later 100/57 and Maria Esther continued to be asymptomatic. [address] Rosa notified.
[2023-03-15 11:29] LABS: Glucose, Whole Blood 287 mg/dL (60-115)
[2023-03-15] MEDS: Insulin Lispro 100 UNIT/ML 3 ML VIAL SUBCUT ×3 (11:40→21:06)
--- NOTE | 2023-03-15 15:15 | HO.PSYCHPN ---
Subjective Subjective Date of Service: 03/15/23 Reason For Visit: Bipolar I D/O Mixed W/Psychotic Features PTSD Etc Subjective Notes: Conditional Voluntary Interim History: met with patient. Discussed with Nursing. Utilized [employer]-speaking staff for interview. Slept better last night. A little more withdrawn today. Is alert and oriented. Reports having nightmares of her father killing her. However feels safe in the hospital. Does endorse feeling depressed. Denies suicidal thoughts. Sleep has been broken. Blood pressure has been on the lower side and hydrochlorothiazide therefore being held. Has had no symptoms of low blood pressure. Medication Compliance: Yes Side effects from medications: No Attending Groups: Intermittent Review of Systems Acute medical concerns: No Medical Review of Systems: changed (Blood pressure has been on the lower side and hydrochlorothiazide therefore being held. Has had no symptoms of low blood pressure) Mental Status Exam Mental Status Exam Patient Appearance: Appropriate Patient Orientation: Person and Situation Level of Consciousness: Awake and Appropriate Patient Behavior: Guarded and Passive Mood Description: Withdrawn Affect Description: Constricted Patient Cognition Impaired: Yes Ability to Follow Directions: Good Speech Pattern: Clear Hallucinations: None Delusions: Not Present Thought Process: Distracted, Evasive and Slowed Thinking Thought Content: positive for [place], positive for [place] of Content and positive for Thought Blocking Judgement: Poor Diagnostics Vital Signs (24Hr): Vital Signs - 24 hr 03/14/23 19:35 03/15/23 07:58 03/15/23 08:54 Temperature 97.4 F 96.8 F Pulse Rate 81 71 Respiratory Rate 18 18 Blood Pressure 111/57 L 96/53 L 100/57 L Pulse Oximetry 96 97 Oxygen Delivery Method Room Air Room Air BMI result Body Mass Index 39.8 Labs 03/12/23 07:57 Labs: Laboratory Results - last 48 hr 03/13/23 03/13/23 03/14/23 16:31 19:38 06:33 POC Glucose 131 H 262 H 147 H 03/14/23 03/14/23 03/15/23 11:32 20:26 06:37 POC Glucose 209 H 262 H 103 03/15/23 11:24 POC Glucose 287 H Medications Medications Current Medications Acetaminophen (Acetaminophen 325 Mg Tablet) 650 mg PO Q6H PRN PRN Reason: Headache/Pain Mild Scale (1-3) Last Admin: 03/14/23 11:04 Dose: 650 mg Al Hydroxide/Mg Hydroxide (Magnesium Hydrox/Alum Hydrox 30 Ml Oral.Susp) 30 ml PO Q6H PRN PRN Reason: Heartburn/Nausea Chlorpromazine HCl (Chlorpromazine Hcl 100 Mg Tablet) 100 mg PO BID [facility] Last Admin: 03/15/23 09:12 Dose: 100 mg Dextrose (Dextrose 50 % 25 Gm/50 Ml Syringe) 25 gm IVPUSH Q15M PRN; Protocol PRN Reason: per Hypoglycemia Standing Ord. Docusate Sodium (Docusate Sodium 100 Mg Capsule) 100 mg PO BID PRN PRN Reason: constipation Famotidine (Famotidine 20 Mg Tablet) 20 mg PO BID [facility] Last Admin: 03/15/23 09:12 Dose: 20 mg Fenofibrate (Fenofibrate 54 Mg Tablet) 54 mg PO DAILY [facility] Last Admin: 03/15/23 09:12 Dose: 54 mg Glucose (Glucose Gel 15 Gm Gel..Gram.) 15 gm PO Q15M PRN; Protocol PRN Reason: per Hypoglycemia Standing Ord. Hydrochlorothiazide (Hydrochlorothiazide 12.5 Mg Tablet) 12.5 mg PO DAILY [facility]; Protocol Last Admin: 03/15/23 09:18 Dose: Not Given Insulin Glargine (Insulin Glargine,Hum.Rec.Anlog 100 Unit/Ml 10 Ml Vial) 60 unit SUBCUT BEDTIME [facility] Last Admin: 03/14/23 20:35 Dose: 60 unit Insulin Human Lispro (Insulin Lispro 100 Unit/Ml 3 Ml Vial) 0 unit SUBCUT QIDACHS [facility]; Protocol Last Admin: 03/15/23 11:40 Dose: 6 unit Lamotrigine (Lamotrigine 100 Mg Tablet) 200 mg PO BEDTIME [facility] Last Admin: 03/14/23 20:36 Dose: 200 mg Levetiracetam (Levetiracetam 250 Mg Tablet) 250 mg PO BID [facility] Last Admin: 03/15/23 09:12 Dose: 250 mg Magnesium Hydroxide (Milk Of Magnesia 30 Ml Oral.Susp) 30 ml PO DAILY PRN PRN Reason: Constipation Melatonin (Melatonin 3 Mg Tablet) 6 mg PO BEDTIME [facility] Last Admin: 03/14/23 20:36 Dose: 6 mg Nicotine (Nicotine 7 Mg Patch.Td24) 7 mg TRANSDERMA DAILY [facility] Last Admin: 03/15/23 09:13 Dose: 7 mg Nicotine Polacrilex (Nicotine Polacrilex Lozenge 2 Mg Lozenge) 2 mg BUCCAL Q2H PRN PRN Reason: Nicotine Cravings Omeprazole (Omeprazole 20 Mg Capsule.Dr) 20 mg PO DAILY@0630 [facility] Last Admin: 03/15/23 06:02 Dose: 20 mg Prazosin HCl (Prazosin Hcl 1 Mg Capsule) 1 mg PO BEDTIME [facility]; Protocol Last Admin: 03/14/23 20:36 Dose: 1 mg Quetiapine Fumarate (Quetiapine Fumarate 25 Mg Tablet) 25 mg PO BEDTIME [facility] Last Admin: 03/14/23 20:35 Dose: 25 mg Sitagliptin Phosphate (Sitagliptin Phosphate 50 Mg Tablet) 50 mg PO DAILY [facility] Last Admin: 03/15/23 09:12 Dose: 50 mg Tiotropium [place] (Tiotropium [place] 2.5 Mcg Inhaler) 2 puff INHALE DAILY [facility] Last Admin: 03/15/23 09:14 Dose: 2 puff Trazodone HCl (Trazodone Hcl 100 Mg Tablet) 400 mg PO BEDTIME [facility] Last Admin: 03/14/23 20:36 Dose: 400 mg Venlafaxine HCl (Venlafaxine Hcl 25 Mg Tablet) 37.5 mg PO DAILY [facility] Last Admin: 03/15/23 09:13 Dose: 37.5 mg Vitamin D (Cholecalciferol (Vitamin D3) 25 Mcg Tablet) 25 mcg PO DAILY [facility] Last Admin: 03/15/23 09:12 Dose: 25 mcg Allergies Allergies Allergy/AdvReac Type Severity Reaction Status Date / Time metoclopramide [From Reglan] AdvReac Confusion Verified 03/11/23 21:26 phenytoin [From Dilantin] AdvReac Gastrointestinal Verified 03/11/23 21:30 Upset Assessment & Plan Assessment & Plan (1) Bipolar disorder: Status: Acute Code(s): F31.9 - Bipolar disorder, unspecified (2) Dementia: Status: Acute Code(s): F03.90 - Unspecified dementia, unspecified severity, without behavioral disturbance, psychotic disturbance, mood disturbance, and anxiety (3) Tardive dyskinesia: Status: Acute Code(s): G24.01 - Drug induced subacute dyskinesia (4) Delirium: Status: Acute Code(s): R41.0 - Disorientation, unspecified Plan The patient is an elderly Citizen Of [place] female with a past history of bipolar disorder, seizure disorder, diabetes, high blood pressure and dementia admitted for an episode of delirium with disorganized behavior in the context of a UTI most likely. She was brought from the emergency room since she was found in the street naked and confused. Plan 1. Gather collateral information the patient is a very poor historian but she gave us permission to contact her family. 2. Continue regular medications as per med reconciliation form. 3. Continue with medical workout. 4. At this moment we are not going to increasing antipsychotics and we will try to avoid the use of benzodiazepines to prevent worsening delirium. 5. 15 minute checks 03/15/2023: Will increase nighttime Seroquel to 50 mg for poor sleep Reason for continued inpatient stay Substantial Risk for: rapid decompensation Time Spent With Patient Time: Total time managing care of this patient today ____ minutes.
[2023-03-15 16:25] LABS: Glucose, Whole Blood 170 mg/dL (60-115)
[2023-03-15 18:00] VITALS: BP 101/55; PULSE 69; RESP 20; TEMP 36.5; O2SAT 99
[2023-03-15] MEDS: lamoTRIgine 100 MG TABLET 200 MG PO (20:23)
[2023-03-15] MEDS: Melatonin 3 MG TABLET 6 MG PO (20:24)
[2023-03-15] MEDS: Prazosin HCL 1 MG CAPSULE PO (20:24)
[2023-03-15] MEDS: QUEtiapine Fumarate 50 MG TABLET PO (20:25)
[2023-03-15] MEDS: traZODone HCL 100 MG TABLET 400 MG PO (20:25)
[2023-03-15] MEDS: Acetaminophen 325 MG TABLET 650 MG PO (20:26)
[2023-03-15 20:32] LABS: Glucose, Whole Blood 294 mg/dL (60-115)
[2023-03-15] MEDS: Insulin Glargine,Hum.rec.anlog 100 UNIT/ML 10 ML VIAL 60 UNIT SUBCUT (21:03)
[2023-03-16] MEDS: Omeprazole 20 MG CAPSULE.DR PO (06:25)
[2023-03-16 06:34] LABS: Glucose, Whole Blood 135 mg/dL (60-115)
[2023-03-16 08:01] VITALS: BP 101/50; PULSE 71; RESP 16; TEMP 36.2; O2SAT 100
[2023-03-16] MEDS: Nicotine 7 MG PATCH.TD24 TRANSDERMA (09:02)
[2023-03-16] MEDS: chlorproMAZINE HCl 100 MG TABLET PO ×2 (09:03→20:53)
[2023-03-16] MEDS: Famotidine 20 MG TABLET PO ×2 (09:03→20:53)
[2023-03-16] MEDS: levETIRAcetam 250 MG TABLET PO ×2 (09:03→20:54)
[2023-03-16] MEDS: Venlafaxine HCL 25 MG TABLET 37.5 MG PO (09:03)
[2023-03-16] MEDS: SITagliptin Phosphate 50 MG TABLET PO (09:03)
[2023-03-16] MEDS: Fenofibrate 54 MG TABLET PO (09:03)
[2023-03-16] MEDS: Cholecalciferol (Vitamin D3) 25 MCG TABLET PO (09:03)
--- NOTE | 2023-03-16 11:20 | PC.NURSE ---
BP 101/50 at 0801 and Maria Esther was asymptomatic. [address] Rosa notified.
[2023-03-16 11:29] LABS: Glucose, Whole Blood 140 mg/dL (60-115)
--- NOTE | 2023-03-16 15:39 | HO.PSYCHPN ---
Subjective Subjective Date of Service: 03/16/23 Reason For Visit: Bipolar I D/O Mixed W/Psychotic Features PTSD Etc Interim History: In room a lot today sleeping. Feeling depressed. No suicidal thoughts. Feels safe. No agitation. No medication concerns Medication Compliance: Yes Side effects from medications: No Attending Groups: No Review of Systems Acute medical concerns: No Review of Systems Review of Systems unremarkable Mental Status Exam Mental Status Exam Patient Appearance: Appropriate Patient Orientation: Person and Situation Level of Consciousness: Awake and Appropriate Patient Behavior: Guarded and Passive Mood Description: Withdrawn Affect Description: Constricted Patient Cognition Impaired: Yes Ability to Follow Directions: Good Speech Pattern: Clear Diagnostics Vital Signs (24Hr): Vital Signs - 24 hr 03/15/23 18:00 03/16/23 08:01 Temperature 97.7 F 97.1 F Pulse Rate 69 71 Respiratory Rate 20 16 Blood Pressure 101/55 L 101/50 L Pulse Oximetry 99 100 Oxygen Delivery Method Room Air Room Air BMI result Body Mass Index 39.8 Labs 03/12/23 07:57 Labs: Laboratory Results - last 48 hr 03/14/23 03/15/23 03/15/23 20:26 06:37 11:24 POC Glucose 262 H 103 287 H 03/15/23 03/15/23 03/16/23 16:18 20:22 06:24 POC Glucose 170 H 294 H 135 H 03/16/23 11:25 POC Glucose 140 H Medications Medications Current Medications Acetaminophen (Acetaminophen 325 Mg Tablet) 650 mg PO Q6H PRN PRN Reason: Headache/Pain Mild Scale (1-3) Last Admin: 03/15/23 20:26 Dose: 650 mg Al Hydroxide/Mg Hydroxide (Magnesium Hydrox/Alum Hydrox 30 Ml Oral.Susp) 30 ml PO Q6H PRN PRN Reason: Heartburn/Nausea Chlorpromazine HCl (Chlorpromazine Hcl 100 Mg Tablet) 100 mg PO BID [facility] Last Admin: 03/16/23 09:03 Dose: 100 mg Dextrose (Dextrose 50 % 25 Gm/50 Ml Syringe) 25 gm IVPUSH Q15M PRN; Protocol PRN Reason: per Hypoglycemia Standing Ord. Docusate Sodium (Docusate Sodium 100 Mg Capsule) 100 mg PO BID PRN PRN Reason: constipation Famotidine (Famotidine 20 Mg Tablet) 20 mg PO BID [facility] Last Admin: 03/16/23 09:03 Dose: 20 mg Fenofibrate (Fenofibrate 54 Mg Tablet) 54 mg PO DAILY [facility] Last Admin: 03/16/23 09:03 Dose: 54 mg Glucose (Glucose Gel 15 Gm Gel..Gram.) 15 gm PO Q15M PRN; Protocol PRN Reason: per Hypoglycemia Standing Ord. Hydrochlorothiazide (Hydrochlorothiazide 12.5 Mg Tablet) 12.5 mg PO DAILY [facility]; Protocol Last Admin: 03/16/23 09:06 Dose: Not Given Insulin Glargine (Insulin Glargine,Hum.Rec.Anlog 100 Unit/Ml 10 Ml Vial) 60 unit SUBCUT BEDTIME [facility] Last Admin: 03/15/23 21:03 Dose: 60 unit Insulin Human Lispro (Insulin Lispro 100 Unit/Ml 3 Ml Vial) 0 unit SUBCUT QIDACHS [facility]; Protocol Last Admin: 03/16/23 11:27 Dose: Not Given Lamotrigine (Lamotrigine 100 Mg Tablet) 200 mg PO BEDTIME [facility] Last Admin: 03/15/23 20:23 Dose: 200 mg Levetiracetam (Levetiracetam 250 Mg Tablet) 250 mg PO BID [facility] Last Admin: 03/16/23 09:03 Dose: 250 mg Magnesium Hydroxide (Milk Of Magnesia 30 Ml Oral.Susp) 30 ml PO DAILY PRN PRN Reason: Constipation Melatonin (Melatonin 3 Mg Tablet) 6 mg PO BEDTIME [facility] Last Admin: 03/15/23 20:24 Dose: 6 mg Nicotine (Nicotine 7 Mg Patch.Td24) 7 mg TRANSDERMA DAILY [facility] Last Admin: 03/16/23 09:02 Dose: 7 mg Nicotine Polacrilex (Nicotine Polacrilex Lozenge 2 Mg Lozenge) 2 mg BUCCAL Q2H PRN PRN Reason: Nicotine Cravings Omeprazole (Omeprazole 20 Mg Capsule.Dr) 20 mg PO DAILY@0630 [facility] Last Admin: 03/16/23 06:25 Dose: 20 mg Prazosin HCl (Prazosin Hcl 1 Mg Capsule) 1 mg PO BEDTIME [facility]; Protocol Last Admin: 03/15/23 20:24 Dose: 1 mg Quetiapine Fumarate (Quetiapine Fumarate 50 Mg Tablet) 50 mg PO BEDTIME [facility] Last Admin: 03/15/23 20:25 Dose: 50 mg Sitagliptin Phosphate (Sitagliptin Phosphate 50 Mg Tablet) 50 mg PO DAILY [facility] Last Admin: 03/16/23 09:03 Dose: 50 mg Tiotropium [place] (Tiotropium [place] 2.5 Mcg Inhaler) 2 puff INHALE DAILY [facility] Last Admin: 03/16/23 09:02 Dose: 2 puff Trazodone HCl (Trazodone Hcl 100 Mg Tablet) 400 mg PO BEDTIME [facility] Last Admin: 03/15/23 20:25 Dose: 400 mg Venlafaxine HCl (Venlafaxine Hcl 25 Mg Tablet) 37.5 mg PO DAILY [facility] Last Admin: 03/16/23 09:03 Dose: 37.5 mg Vitamin D (Cholecalciferol (Vitamin D3) 25 Mcg Tablet) 25 mcg PO DAILY [facility] Last Admin: 03/16/23 09:03 Dose: 25 mcg Allergies Allergies Allergy/AdvReac Type Severity Reaction Status Date / Time metoclopramide [From Reglan] AdvReac Confusion Verified 03/11/23 21:26 phenytoin [From Dilantin] AdvReac Gastrointestinal Verified 03/11/23 21:30 Upset Assessment & Plan Assessment & Plan (1) Bipolar disorder: Status: Acute Code(s): F31.9 - Bipolar disorder, unspecified (2) Dementia: Status: Acute Code(s): F03.90 - Unspecified dementia, unspecified severity, without behavioral disturbance, psychotic disturbance, mood disturbance, and anxiety (3) Tardive dyskinesia: Status: Acute Code(s): G24.01 - Drug induced subacute dyskinesia (4) Delirium: Status: Acute Code(s): R41.0 - Disorientation, unspecified Plan The patient is an elderly [place] female with a past history of bipolar disorder, seizure disorder, diabetes, high blood pressure and dementia admitted for an episode of delirium with disorganized behavior in the context of a UTI most likely. She was brought from the emergency room since she was found in the street naked and confused. Plan 1. Gather collateral information the patient is a very poor historian but she gave us permission to contact her family. 2. Continue regular medications as per med reconciliation form. 3. Continue with medical workout. 4. At this moment we are not going to increasing antipsychotics and we will try to avoid the use of benzodiazepines to prevent worsening delirium. 5. 15 minute checks 03/15/2023: Will increase nighttime Seroquel to 50 mg for poor sleep 91/0/23: increase nighttime Seroquel to 75 mg Reason for continued inpatient stay Substantial Risk for: inability to function Time Spent With Patient Time: Total time managing care of this patient today ____ minutes.
[2023-03-16 16:39] LABS: Glucose, Whole Blood 112 mg/dL (60-115)
[2023-03-16 18:00] VITALS: BP 103/80; PULSE 77; RESP 17; TEMP 35.9; O2SAT 99
[2023-03-16] MEDS: Acetaminophen 325 MG TABLET 650 MG PO (18:45)
--- NOTE | 2023-03-16 18:47 | PC.NURSE ---
Patient medicated with Tylenol 650 mg at 1847 for headache 04/15.
[2023-03-16] MEDS: lamoTRIgine 100 MG TABLET 200 MG PO (20:53)
[2023-03-16] MEDS: Melatonin 3 MG TABLET 6 MG PO (20:54)
[2023-03-16] MEDS: QUEtiapine Fumarate 25 MG TABLET 75 MG PO (20:55)
[2023-03-16] MEDS: traZODone HCL 100 MG TABLET 400 MG PO (20:55)
[2023-03-16] MEDS: Prazosin HCL 1 MG CAPSULE PO (20:56)
[2023-03-16 21:06] LABS: Glucose, Whole Blood 127 mg/dL (60-115)
[2023-03-16] MEDS: Insulin Glargine,Hum.rec.anlog 100 UNIT/ML 10 ML VIAL 60 UNIT SUBCUT (21:11)
[2023-03-17] MEDS: Omeprazole 20 MG CAPSULE.DR PO (06:39)
[2023-03-17] MEDS: Venlafaxine HCL 25 MG TABLET 37.5 MG PO (08:24)
[2023-03-17 08:25] VITALS: BP 91/52; PULSE 75; RESP 20; TEMP 36.7; O2SAT 95
[2023-03-17] MEDS: Cholecalciferol (Vitamin D3) 25 MCG TABLET PO (08:25)
[2023-03-17] MEDS: Fenofibrate 54 MG TABLET PO (08:26)
[2023-03-17] MEDS: SITagliptin Phosphate 50 MG TABLET PO (08:26)
[2023-03-17] MEDS: Famotidine 20 MG TABLET PO ×2 (08:26→20:20)
[2023-03-17] MEDS: levETIRAcetam 250 MG TABLET PO ×2 (08:26→20:20)
[2023-03-17] MEDS: chlorproMAZINE HCl 100 MG TABLET PO ×2 (08:27→20:20)
[2023-03-17] MEDS: Nicotine 7 MG PATCH.TD24 TRANSDERMA (08:28)
[2023-03-17 11:13] LABS: Glucose, Whole Blood 152 mg/dL (60-115)
[2023-03-17 11:13] LABS: Glucose, Whole Blood 104 mg/dL (60-115)
[2023-03-17] MEDS: Insulin Lispro 100 UNIT/ML 3 ML VIAL SUBCUT ×3 (11:17→20:20)
--- NOTE | 2023-03-17 15:14 | P.PNPSI_ITS ---
Subjective Subjective Date of Service: 03/17/23 Reason For Visit: Bipolar I D/O Mixed W/Psychotic Features PTSD Etc Subjective Notes: Conditional Voluntary Interim History: The nursing staff reported the patient had been common cooperative, quiet. Yesterday her some visited her she has been with a flat affect and slept well. On interview the patient had been on her bed denies new symptoms hypoactive. The social psychologist reported that most likely she could be discharged next week Mental Status Exam Mental Status Exam Patient Appearance: Well Grooomed and Appropriate Patient Orientation: Person and Situation Level of Consciousness: Awake and Appropriate Patient Behavior: Guarded and Passive Mood Description: Withdrawn Affect Description: Constricted Patient Cognition Impaired: Yes Ability to Follow Directions: Good Speech Pattern: Clear Hallucinations: None Delusions: Not Present Thought Process: Distracted and Slowed Thinking Thought Content: positive for [place] and positive for Poverty of Content Judgement: Fair Diagnostics Vital Signs (24Hr): Vital Signs - 24 hr 03/16/23 18:00 03/17/23 08:25 Temperature 96.7 F L 98.1 F Pulse Rate 77 75 Respiratory Rate 17 20 Blood Pressure 103/80 91/52 L Pulse Oximetry 99 95 Oxygen Delivery Method Room Air Room Air BMI result Body Mass Index 39.8 Labs 03/12/23 07:57 Labs: Laboratory Results - last 48 hr 03/15/23 03/15/23 03/16/23 16:18 20:22 06:24 POC Glucose 170 H 294 H 135 H 03/16/23 03/16/23 03/16/23 11:25 16:35 20:50 POC Glucose 140 H 112 127 H 03/17/23 03/17/23 06:44 11:08 POC Glucose 104 152 H Medications Medications Current Medications Acetaminophen (Acetaminophen 325 Mg Tablet) 650 mg PO Q6H PRN PRN Reason: Headache/Pain Mild Scale (1-3) Last Admin: 03/16/23 18:45 Dose: 650 mg Al Hydroxide/Mg Hydroxide (Magnesium Hydrox/Alum Hydrox 30 Ml Oral.Susp) 30 ml PO Q6H PRN PRN Reason: Heartburn/Nausea Chlorpromazine HCl (Chlorpromazine Hcl 100 Mg Tablet) 100 mg PO BID [facility] Last Admin: 03/17/23 08:27 Dose: 100 mg Dextrose (Dextrose 50 % 25 Gm/50 Ml Syringe) 25 gm IVPUSH Q15M PRN; Protocol PRN Reason: per Hypoglycemia Standing Ord. Docusate Sodium (Docusate Sodium 100 Mg Capsule) 100 mg PO BID PRN PRN Reason: constipation Famotidine (Famotidine 20 Mg Tablet) 20 mg PO BID [facility] Last Admin: 03/17/23 08:26 Dose: 20 mg Fenofibrate (Fenofibrate 54 Mg Tablet) 54 mg PO DAILY [facility] Last Admin: 03/17/23 08:26 Dose: 54 mg Glucose (Glucose Gel 15 Gm Gel..Gram.) 15 gm PO Q15M PRN; Protocol PRN Reason: per Hypoglycemia Standing Ord. Hydrochlorothiazide (Hydrochlorothiazide 12.5 Mg Tablet) 12.5 mg PO DAILY [facility]; Protocol Last Admin: 03/17/23 08:27 Dose: Not Given Insulin Glargine (Insulin Glargine,Hum.Rec.Anlog 100 Unit/Ml 10 Ml Vial) 60 unit SUBCUT BEDTIME [facility] Last Admin: 03/16/23 21:11 Dose: 60 unit Insulin Human Lispro (Insulin Lispro 100 Unit/Ml 3 Ml Vial) 0 unit SUBCUT QIDACHS [facility]; Protocol Last Admin: 03/17/23 11:17 Dose: 2 unit Lamotrigine (Lamotrigine 100 Mg Tablet) 200 mg PO BEDTIME [facility] Last Admin: 03/16/23 20:53 Dose: 200 mg Levetiracetam (Levetiracetam 250 Mg Tablet) 250 mg PO BID [facility] Last Admin: 03/17/23 08:26 Dose: 250 mg Magnesium Hydroxide (Milk Of Magnesia 30 Ml Oral.Susp) 30 ml PO DAILY PRN PRN Reason: Constipation Melatonin (Melatonin 3 Mg Tablet) 6 mg PO BEDTIME [facility] Last Admin: 03/16/23 20:54 Dose: 6 mg Nicotine (Nicotine 7 Mg Patch.Td24) 7 mg TRANSDERMA DAILY [facility] Last Admin: 03/17/23 08:28 Dose: 7 mg Nicotine Polacrilex (Nicotine Polacrilex Lozenge 2 Mg Lozenge) 2 mg BUCCAL Q2H PRN PRN Reason: Nicotine Cravings Omeprazole (Omeprazole 20 Mg Capsule.Dr) 20 mg PO DAILY@0630 [facility] Last Admin: 03/17/23 06:39 Dose: 20 mg Prazosin HCl (Prazosin Hcl 1 Mg Capsule) 1 mg PO BEDTIME [facility]; Protocol Last Admin: 03/16/23 20:56 Dose: 1 mg Quetiapine Fumarate (Quetiapine Fumarate 25 Mg Tablet) 75 mg PO BEDTIME [facility] Last Admin: 03/16/23 20:55 Dose: 75 mg Sitagliptin Phosphate (Sitagliptin Phosphate 50 Mg Tablet) 50 mg PO DAILY [facility] Last Admin: 03/17/23 08:26 Dose: 50 mg Tiotropium [place] (Tiotropium [place] 2.5 Mcg Inhaler) 2 puff INHALE DAILY [facility] Last Admin: 03/17/23 08:28 Dose: 2 puff Trazodone HCl (Trazodone Hcl 100 Mg Tablet) 400 mg PO BEDTIME [facility] Last Admin: 03/16/23 20:55 Dose: 400 mg Venlafaxine HCl (Venlafaxine Hcl 25 Mg Tablet) 37.5 mg PO DAILY [facility] Last Admin: 03/17/23 08:24 Dose: 37.5 mg Vitamin D (Cholecalciferol (Vitamin D3) 25 Mcg Tablet) 25 mcg PO DAILY [facility] Last Admin: 03/17/23 08:25 Dose: 25 mcg Allergies Allergies Allergy/AdvReac Type Severity Reaction Status Date / Time metoclopramide [From Reglan] AdvReac Confusion Verified 03/11/23 21:26 phenytoin [From Dilantin] AdvReac Gastrointestinal Verified 03/11/23 21:30 Upset Assessment & Plan Assessment & Plan (1) Bipolar disorder: Status: Acute Code(s): F31.9 - Bipolar disorder, unspecified (2) Dementia: Status: Acute Code(s): F03.90 - Unspecified dementia, unspecified severity, without behavioral disturbance, psychotic disturbance, mood disturbance, and anxiety (3) Tardive dyskinesia: Status: Acute Code(s): G24.01 - Drug induced subacute dyskinesia (4) Delirium: Status: Acute Code(s): R41.0 - Disorientation, unspecified Plan The patient is an elderly [place] female with a past history of bipolar disorder, seizure disorder, diabetes, high blood pressure and dementia admitted for an episode of delirium with disorganized behavior in the context of a UTI most likely. She was brought from the emergency room since she was found in the street naked and confused. Plan 1. Gather collateral information the patient is a very poor historian but she gave us permission to contact her family. 2. Continue regular medications as per med reconciliation form. 3. Continue with medical workout. 4. At this moment we are not going to increasing antipsychotics and we will try to avoid the use of benzodiazepines to prevent worsening delirium. 5. 15 minute checks 6. Seroquel was increased up to 50 mg at night due to poor sleep Reason for continued inpatient stay Substantial Risk for: inability to function, rapid decompensation and med/psych decompensation Time Spent With Patient Time: Total time managing care of this patient today __20__ minutes.
[2023-03-17 16:32] LABS: Glucose, Whole Blood 166 mg/dL (60-115)
[2023-03-17 18:00] VITALS: BP 122/58; PULSE 63; RESP 18; TEMP 36.4; O2SAT 100
[2023-03-17] MEDS: Melatonin 3 MG TABLET 6 MG PO (20:20)
[2023-03-17] MEDS: QUEtiapine Fumarate 25 MG TABLET 75 MG PO (20:20)
[2023-03-17] MEDS: lamoTRIgine 100 MG TABLET 200 MG PO (20:20)
[2023-03-17] MEDS: Prazosin HCL 1 MG CAPSULE PO (20:20)
[2023-03-17] MEDS: traZODone HCL 100 MG TABLET 400 MG PO (20:20)
[2023-03-17] MEDS: Insulin Glargine,Hum.rec.anlog 100 UNIT/ML 10 ML VIAL 60 UNIT SUBCUT (20:21)
[2023-03-18 00:12] LABS: Glucose, Whole Blood 191 mg/dL (60-115)
[2023-03-18] MEDS: Omeprazole 20 MG CAPSULE.DR PO (06:26)
[2023-03-18 06:34] LABS: Glucose, Whole Blood 116 mg/dL (60-115)
[2023-03-18 08:00] VITALS: BP 131/68; PULSE 68; RESP 18; TEMP 36.4; O2SAT 100
[2023-03-18] MEDS: Nicotine 7 MG PATCH.TD24 TRANSDERMA (08:45)
[2023-03-18] MEDS: hydroCHLOROthiazide 12.5 MG TABLET PO (08:47)
[2023-03-18] MEDS: Fenofibrate 54 MG TABLET PO (08:47)
[2023-03-18] MEDS: SITagliptin Phosphate 50 MG TABLET PO (08:47)
[2023-03-18] MEDS: Famotidine 20 MG TABLET PO ×2 (08:47→21:40)
[2023-03-18] MEDS: Cholecalciferol (Vitamin D3) 25 MCG TABLET PO (08:47)
[2023-03-18] MEDS: Venlafaxine HCL 25 MG TABLET 37.5 MG PO (08:47)
[2023-03-18] MEDS: levETIRAcetam 250 MG TABLET PO ×2 (08:47→21:59)
[2023-03-18] MEDS: chlorproMAZINE HCl 100 MG TABLET PO ×2 (08:50→21:39)
[2023-03-18 11:27] LABS: Glucose, Whole Blood 186 mg/dL (60-115)
[2023-03-18] MEDS: Insulin Lispro 100 UNIT/ML 3 ML VIAL SUBCUT ×3 (11:30→21:41)
--- NOTE | 2023-03-18 11:46 | HO.PSYCHPN ---
Subjective Subjective Date of Service: 03/18/23 Reason For Visit: Bipolar I D/O Mixed W/Psychotic Features PTSD Etc Subjective Notes: Conditional Voluntary Interim History: The nursing staff reported the patient stated that she was feeling depressed and anxious 04/15 but later on she could not remember that she complained of depression. She reported nightmares and visual hallucinations but later on she did not remember that she complained of that. The health care social worker has already, acted [facility] and a brother who wants her back with more services. On interview the patient is pleasantly confused, easily redirectable denies active hallucinations she is on treatment for nightmares with prazosin. Mental Status Exam Mental Status Exam Patient Appearance: Appropriate Patient Orientation: Person and Situation Level of Consciousness: Awake and Appropriate Patient Behavior: Appropriate, Guarded and Passive Mood Description: Calm Affect Description: Blunted Patient Cognition Impaired: Yes Ability to Follow Directions: Good Speech Pattern: Clear Hallucinations: None Delusions: Not Present Thought Process: Linear Thought Content: positive for [place] and positive for Circumstantial Judgement: Fair Diagnostics Vital Signs (24Hr): Vital Signs - 24 hr 03/17/23 18:00 03/18/23 08:00 Temperature 97.6 F 97.6 F Pulse Rate 63 68 Respiratory Rate 18 18 Blood Pressure 122/58 L 131/68 Pulse Oximetry 100 100 Oxygen Delivery Method Room Air Room Air BMI result Body Mass Index 39.8 Labs 03/12/23 07:57 Labs: Laboratory Results - last 48 hr 03/16/23 03/16/23 03/17/23 16:35 20:50 06:44 POC Glucose 112 127 H 104 03/17/23 03/17/23 03/17/23 11:08 16:14 19:30 POC Glucose 152 H 166 H 191 H 03/18/23 03/18/23 06:28 11:23 POC Glucose 116 H 186 H Medications Medications Current Medications Acetaminophen (Acetaminophen 325 Mg Tablet) 650 mg PO Q6H PRN PRN Reason: Headache/Pain Mild Scale (1-3) Last Admin: 03/16/23 18:45 Dose: 650 mg Al Hydroxide/Mg Hydroxide (Magnesium Hydrox/Alum Hydrox 30 Ml Oral.Susp) 30 ml PO Q6H PRN PRN Reason: Heartburn/Nausea Chlorpromazine HCl (Chlorpromazine Hcl 100 Mg Tablet) 100 mg PO BID [facility] Last Admin: 03/18/23 08:50 Dose: 100 mg Dextrose (Dextrose 50 % 25 Gm/50 Ml Syringe) 25 gm IVPUSH Q15M PRN; Protocol PRN Reason: per Hypoglycemia Standing Ord. Docusate Sodium (Docusate Sodium 100 Mg Capsule) 100 mg PO BID PRN PRN Reason: constipation Famotidine (Famotidine 20 Mg Tablet) 20 mg PO BID [facility] Last Admin: 03/18/23 08:47 Dose: 20 mg Fenofibrate (Fenofibrate 54 Mg Tablet) 54 mg PO DAILY [facility] Last Admin: 03/18/23 08:47 Dose: 54 mg Glucose (Glucose Gel 15 Gm Gel..Gram.) 15 gm PO Q15M PRN; Protocol PRN Reason: per Hypoglycemia Standing Ord. Hydrochlorothiazide (Hydrochlorothiazide 12.5 Mg Tablet) 12.5 mg PO DAILY [facility]; Protocol Last Admin: 03/18/23 08:47 Dose: 12.5 mg Insulin Glargine (Insulin Glargine,Hum.Rec.Anlog 100 Unit/Ml 10 Ml Vial) 60 unit SUBCUT BEDTIME [facility] Last Admin: 03/17/23 20:21 Dose: 60 unit Insulin Human Lispro (Insulin Lispro 100 Unit/Ml 3 Ml Vial) 0 unit SUBCUT QIDACHS [facility]; Protocol Last Admin: 03/18/23 11:30 Dose: 2 unit Lamotrigine (Lamotrigine 100 Mg Tablet) 200 mg PO BEDTIME [facility] Last Admin: 03/17/23 20:20 Dose: 200 mg Levetiracetam (Levetiracetam 250 Mg Tablet) 250 mg PO BID [facility] Last Admin: 03/18/23 08:47 Dose: 250 mg Magnesium Hydroxide (Milk Of Magnesia 30 Ml Oral.Susp) 30 ml PO DAILY PRN PRN Reason: Constipation Melatonin (Melatonin 3 Mg Tablet) 6 mg PO BEDTIME [facility] Last Admin: 03/17/23 20:20 Dose: 6 mg Nicotine (Nicotine 7 Mg Patch.Td24) 7 mg TRANSDERMA DAILY [facility] Last Admin: 03/18/23 08:45 Dose: 7 mg Nicotine Polacrilex (Nicotine Polacrilex Lozenge 2 Mg Lozenge) 2 mg BUCCAL Q2H PRN PRN Reason: Nicotine Cravings Omeprazole (Omeprazole 20 Mg Capsule.Dr) 20 mg PO DAILY@0630 [facility] Last Admin: 03/18/23 06:26 Dose: 20 mg Prazosin HCl (Prazosin Hcl 1 Mg Capsule) 1 mg PO BEDTIME [facility]; Protocol Last Admin: 03/17/23 20:20 Dose: 1 mg Quetiapine Fumarate (Quetiapine Fumarate 25 Mg Tablet) 75 mg PO BEDTIME [facility] Last Admin: 03/17/23 20:20 Dose: 75 mg Sitagliptin Phosphate (Sitagliptin Phosphate 50 Mg Tablet) 50 mg PO DAILY [facility] Last Admin: 03/18/23 08:47 Dose: 50 mg Tiotropium [place] (Tiotropium [place] 2.5 Mcg Inhaler) 2 puff INHALE DAILY [facility] Last Admin: 03/18/23 08:46 Dose: 2 puff Trazodone HCl (Trazodone Hcl 100 Mg Tablet) 400 mg PO BEDTIME [facility] Last Admin: 03/17/23 20:20 Dose: 400 mg Venlafaxine HCl (Venlafaxine Hcl 25 Mg Tablet) 37.5 mg PO DAILY [facility] Last Admin: 03/18/23 08:47 Dose: 37.5 mg Vitamin D (Cholecalciferol (Vitamin D3) 25 Mcg Tablet) 25 mcg PO DAILY [facility] Last Admin: 03/18/23 08:47 Dose: 25 mcg Allergies Allergies Allergy/AdvReac Type Severity Reaction Status Date / Time metoclopramide [From Reglan] AdvReac Confusion Verified 03/11/23 21:26 phenytoin [From Dilantin] AdvReac Gastrointestinal Verified 03/11/23 21:30 Upset Assessment & Plan Assessment & Plan (1) Bipolar disorder: Status: Acute Code(s): F31.9 - Bipolar disorder, unspecified (2) Dementia: Status: Acute Code(s): F03.90 - Unspecified dementia, unspecified severity, without behavioral disturbance, psychotic disturbance, mood disturbance, and anxiety (3) Tardive dyskinesia: Status: Acute Code(s): G24.01 - Drug induced subacute dyskinesia (4) Delirium: Status: Acute Code(s): R41.0 - Disorientation, unspecified Plan The patient is an elderly [place] female with a past history of bipolar disorder, seizure disorder, diabetes, high blood pressure and dementia admitted for an episode of delirium with disorganized behavior in the context of a UTI most likely. She was brought from the emergency room since she was found in the street naked and confused. Plan 1. Gather collateral information the patient is a very poor historian but she gave us permission to contact her family. 2. Continue regular medications as per med reconciliation form. 3. Continue with medical workout. 4. At this moment we are not going to increasing antipsychotics and we will try to avoid the use of benzodiazepines to prevent worsening delirium. 5. 15 minute checks 6. Seroquel was increased up to 50 mg at night due to poor sleep Reason for continued inpatient stay Substantial Risk for: inability to function, rapid decompensation and med/psych decompensation Time Spent With Patient Time: Total time managing care of this patient today __20__ minutes.
[2023-03-18 16:30] LABS: Glucose, Whole Blood 190 mg/dL (60-115)
[2023-03-18 18:00] VITALS: BP 120/59; PULSE 78; RESP 16; TEMP 36.4; O2SAT 95
[2023-03-18 21:04] LABS: Glucose, Whole Blood 210 mg/dL (60-115)
[2023-03-18] MEDS: Melatonin 3 MG TABLET 6 MG PO (21:39)
[2023-03-18] MEDS: lamoTRIgine 100 MG TABLET 200 MG PO (21:40)
[2023-03-18] MEDS: QUEtiapine Fumarate 25 MG TABLET 75 MG PO (21:40)
[2023-03-18] MEDS: Prazosin HCL 1 MG CAPSULE PO (21:41)
[2023-03-18] MEDS: traZODone HCL 100 MG TABLET 400 MG PO (21:41)
[2023-03-18] MEDS: Insulin Glargine,Hum.rec.anlog 100 UNIT/ML 10 ML VIAL 60 UNIT SUBCUT (21:42)
[2023-03-19] MEDS: Omeprazole 20 MG CAPSULE.DR PO (06:03)
[2023-03-19] MEDS: Acetaminophen 325 MG TABLET 650 MG PO (06:04)
[2023-03-19 06:40] LABS: Glucose, Whole Blood 121 mg/dL (60-115)
[2023-03-19 08:52] VITALS: BP 120/62; PULSE 80; RESP 16; TEMP 36.1; O2SAT 98
[2023-03-19] MEDS: Nicotine 7 MG PATCH.TD24 TRANSDERMA (08:59)
[2023-03-19] MEDS: Cholecalciferol (Vitamin D3) 25 MCG TABLET PO (09:00)
[2023-03-19] MEDS: chlorproMAZINE HCl 100 MG TABLET PO ×2 (09:00→20:32)
[2023-03-19] MEDS: Famotidine 20 MG TABLET PO ×2 (09:00→20:31)
[2023-03-19] MEDS: SITagliptin Phosphate 50 MG TABLET PO (09:00)
[2023-03-19] MEDS: hydroCHLOROthiazide 12.5 MG TABLET PO (09:00)
[2023-03-19] MEDS: levETIRAcetam 250 MG TABLET PO ×2 (09:00→20:31)
[2023-03-19] MEDS: Venlafaxine HCL 25 MG TABLET 37.5 MG PO (09:01)
[2023-03-19] MEDS: Fenofibrate 54 MG TABLET PO (09:01)
[2023-03-19 11:34] LABS: Glucose, Whole Blood 196 mg/dL (60-115)
[2023-03-19] MEDS: Insulin Lispro 100 UNIT/ML 3 ML VIAL SUBCUT ×3 (11:46→20:33)
--- NOTE | 2023-03-19 14:49 | P.PNPSI_ITS ---
Subjective Subjective Date of Service: 03/19/23 Reason For Visit: Bipolar I D/O Mixed W/Psychotic Features PTSD Etc Subjective Notes: Conditional Voluntary Interim History: The nursing staff reported the patient had been compliant with treatment, she was staying in her room most of the time and paranoid but easily redirectable. The social worker assistant reported that she had been enrolled on [facility] and she will have several ancillary services in the community. On interview the patient denies new symptoms she is happy that she is going to be discharged this week. No new symptoms. Mental Status Exam Mental Status Exam Patient Appearance: Appropriate Patient Orientation: Person and Situation Level of Consciousness: Awake Patient Behavior: Guarded and Passive Mood Description: Withdrawn Affect Description: Constricted Patient Cognition Impaired: Yes Ability to Follow Directions: Good Speech Pattern: Clear Hallucinations: None Delusions: Not Present Thought Process: Distracted and Slowed Thinking Thought Content: positive for [place] and positive for Thought Blocking Judgement: Fair Diagnostics Vital Signs (24Hr): Vital Signs - 24 hr 03/18/23 18:00 03/19/23 08:52 Temperature 97.5 F 96.9 F Pulse Rate 78 80 Respiratory Rate 16 16 Blood Pressure 120/59 L 120/62 Pulse Oximetry 95 98 Oxygen Delivery Method Room Air Room Air BMI result Body Mass Index 39.8 Labs 03/12/23 07:57 Labs: Laboratory Results - last 48 hr 03/17/23 03/17/23 03/18/23 16:14 19:30 06:28 POC Glucose 166 H 191 H 116 H 03/18/23 03/18/23 03/18/23 11:23 16:23 20:55 POC Glucose 186 H 190 H 210 H 03/19/23 03/19/23 06:26 11:26 POC Glucose 121 H 196 H Medications Medications Current Medications Acetaminophen (Acetaminophen 325 Mg Tablet) 650 mg PO Q6H PRN PRN Reason: Headache/Pain Mild Scale (1-3) Last Admin: 03/19/23 06:04 Dose: 650 mg Al Hydroxide/Mg Hydroxide (Magnesium Hydrox/Alum Hydrox 30 Ml Oral.Susp) 30 ml PO Q6H PRN PRN Reason: Heartburn/Nausea Chlorpromazine HCl (Chlorpromazine Hcl 100 Mg Tablet) 100 mg PO BID [facility] Last Admin: 03/19/23 09:00 Dose: 100 mg Dextrose (Dextrose 50 % 25 Gm/50 Ml Syringe) 25 gm IVPUSH Q15M PRN; Protocol PRN Reason: per Hypoglycemia Standing Ord. Docusate Sodium (Docusate Sodium 100 Mg Capsule) 100 mg PO BID PRN PRN Reason: constipation Famotidine (Famotidine 20 Mg Tablet) 20 mg PO BID [facility] Last Admin: 03/19/23 09:00 Dose: 20 mg Fenofibrate (Fenofibrate 54 Mg Tablet) 54 mg PO DAILY [facility] Last Admin: 03/19/23 09:01 Dose: 54 mg Glucose (Glucose Gel 15 Gm Gel..Gram.) 15 gm PO Q15M PRN; Protocol PRN Reason: per Hypoglycemia Standing Ord. Hydrochlorothiazide (Hydrochlorothiazide 12.5 Mg Tablet) 12.5 mg PO DAILY [facility]; Protocol Last Admin: 03/19/23 09:00 Dose: 12.5 mg Insulin Glargine (Insulin Glargine,Hum.Rec.Anlog 100 Unit/Ml 10 Ml Vial) 60 unit SUBCUT BEDTIME [facility] Last Admin: 03/18/23 21:42 Dose: 60 unit Insulin Human Lispro (Insulin Lispro 100 Unit/Ml 3 Ml Vial) 0 unit SUBCUT QIDACHS [facility]; Protocol Last Admin: 03/19/23 11:46 Dose: 2 unit Lamotrigine (Lamotrigine 100 Mg Tablet) 200 mg PO BEDTIME [facility] Last Admin: 03/18/23 21:40 Dose: 200 mg Levetiracetam (Levetiracetam 250 Mg Tablet) 250 mg PO BID [facility] Last Admin: 03/19/23 09:00 Dose: 250 mg Magnesium Hydroxide (Milk Of Magnesia 30 Ml Oral.Susp) 30 ml PO DAILY PRN PRN Reason: Constipation Melatonin (Melatonin 3 Mg Tablet) 6 mg PO BEDTIME [facility] Last Admin: 03/18/23 21:39 Dose: 6 mg Nicotine (Nicotine 7 Mg Patch.Td24) 7 mg TRANSDERMA DAILY [facility] Last Admin: 03/19/23 08:59 Dose: 7 mg Nicotine Polacrilex (Nicotine Polacrilex Lozenge 2 Mg Lozenge) 2 mg BUCCAL Q2H PRN PRN Reason: Nicotine Cravings Omeprazole (Omeprazole 20 Mg Capsule.Dr) 20 mg PO DAILY@0630 [facility] Last Admin: 03/19/23 06:03 Dose: 20 mg Prazosin HCl (Prazosin Hcl 1 Mg Capsule) 1 mg PO BEDTIME [facility]; Protocol Last Admin: 03/18/23 21:41 Dose: 1 mg Quetiapine Fumarate (Quetiapine Fumarate 25 Mg Tablet) 75 mg PO BEDTIME [facility] Last Admin: 03/18/23 21:40 Dose: 75 mg Sitagliptin Phosphate (Sitagliptin Phosphate 50 Mg Tablet) 50 mg PO DAILY [facility] Last Admin: 03/19/23 09:00 Dose: 50 mg Tiotropium [place] (Tiotropium [place] 2.5 Mcg Inhaler) 2 puff INHALE DAILY [facility] Last Admin: 03/19/23 08:58 Dose: 2 puff Trazodone HCl (Trazodone Hcl 100 Mg Tablet) 400 mg PO BEDTIME [facility] Last Admin: 03/18/23 21:41 Dose: 400 mg Venlafaxine HCl (Venlafaxine Hcl 25 Mg Tablet) 37.5 mg PO DAILY [facility] Last Admin: 03/19/23 09:01 Dose: 37.5 mg Vitamin D (Cholecalciferol (Vitamin D3) 25 Mcg Tablet) 25 mcg PO DAILY [facility] Last Admin: 03/19/23 09:00 Dose: 25 mcg Allergies Allergies Allergy/AdvReac Type Severity Reaction Status Date / Time metoclopramide [From Reglan] AdvReac Confusion Verified 03/11/23 21:26 phenytoin [From Dilantin] AdvReac Gastrointestinal Verified 03/11/23 21:30 Upset Assessment & Plan Assessment & Plan (1) Bipolar disorder: Status: Acute Code(s): F31.9 - Bipolar disorder, unspecified (2) Dementia: Status: Acute Code(s): F03.90 - Unspecified dementia, unspecified severity, without behavioral disturbance, psychotic disturbance, mood disturbance, and anxiety (3) Tardive dyskinesia: Status: Acute Code(s): G24.01 - Drug induced subacute dyskinesia (4) Delirium: Status: Acute Code(s): R41.0 - Disorientation, unspecified Plan The patient is an elderly [place] female with a past history of bipolar disorder, seizure disorder, diabetes, high blood pressure and dementia admitted for an episode of delirium with disorganized behavior in the context of a UTI most likely. She was brought from the emergency room since she was found in the street naked and confused. Plan 1. Gather collateral information the patient is a very poor historian but she gave us permission to contact her family. 2. Continue regular medications as per med reconciliation form. 3. Continue with medical workout. 4. At this moment we are not going to increasing antipsychotics and we will try to avoid the use of benzodiazepines to prevent worsening delirium. 5. 15 minute checks 6. Seroquel was increased up to 50 mg at night due to poor sleep 7. Start discharge planning, she will be referred to [facility] program with ancillary services in the community. Reason for continued inpatient stay Substantial Risk for: inability to function, rapid decompensation and med/psych decompensation Time Spent With Patient Time: Total time managing care of this patient today __20__ minutes.
[2023-03-19 16:39] LABS: Glucose, Whole Blood 205 mg/dL (60-115)
[2023-03-19 19:35] VITALS: BP 114/59; PULSE 81; RESP 17; TEMP 36; O2SAT 99
[2023-03-19 19:58] LABS: Glucose, Whole Blood 170 mg/dL (60-115)
[2023-03-19] MEDS: lamoTRIgine 100 MG TABLET 200 MG PO (20:31)
[2023-03-19] MEDS: QUEtiapine Fumarate 25 MG TABLET 75 MG PO (20:31)
[2023-03-19] MEDS: Melatonin 3 MG TABLET 6 MG PO (20:31)
[2023-03-19] MEDS: traZODone HCL 100 MG TABLET 400 MG PO (20:32)
[2023-03-19] MEDS: Prazosin HCL 1 MG CAPSULE PO (20:32)
[2023-03-19] MEDS: Insulin Glargine,Hum.rec.anlog 100 UNIT/ML 10 ML VIAL 60 UNIT SUBCUT (20:33)
[2023-03-20] MEDS: Omeprazole 20 MG CAPSULE.DR PO (06:24)
[2023-03-20 06:39] LABS: Glucose, Whole Blood 130 mg/dL (60-115)
[2023-03-20 07:00] VITALS: BMI 39.7
[2023-03-20 07:49] VITALS: BP 128/63; PULSE 93; RESP 18; TEMP 35.9; O2SAT 95
[2023-03-20] MEDS: Acetaminophen 325 MG TABLET 650 MG PO (08:44)
[2023-03-20] MEDS: Cholecalciferol (Vitamin D3) 25 MCG TABLET PO (08:44)
[2023-03-20] MEDS: levETIRAcetam 250 MG TABLET PO ×2 (08:44→20:48)
[2023-03-20] MEDS: chlorproMAZINE HCl 100 MG TABLET PO ×2 (08:44→20:45)
[2023-03-20] MEDS: SITagliptin Phosphate 50 MG TABLET PO (08:44)
[2023-03-20] MEDS: Venlafaxine HCL 25 MG TABLET 37.5 MG PO (08:44)
[2023-03-20] MEDS: Famotidine 20 MG TABLET PO ×2 (08:44→20:45)
[2023-03-20] MEDS: Fenofibrate 54 MG TABLET PO (08:44)
[2023-03-20] MEDS: hydroCHLOROthiazide 12.5 MG TABLET PO (08:44)
[2023-03-20] MEDS: Nicotine 7 MG PATCH.TD24 TRANSDERMA (08:45)
[2023-03-20 11:16] LABS: Glucose, Whole Blood 164 mg/dL (60-115)
--- NOTE | 2023-03-20 11:34 | P.PNPSI_ITS ---
Subjective Subjective Date of Service: 03/20/23 Reason For Visit: Bipolar I D/O Mixed W/Psychotic Features PTSD Etc Subjective Notes: Conditional Voluntary Interim History: The nursing staff reported the patient had been compliant with treatment, she slept poorly last night and needed p.r.n.. She has been pleasant and cooperative, confused. On interview the patient denies new symptoms she is aware that she is going to be discharged tomorrow to her daughter's care. No safety concerns at this moment Mental Status Exam Mental Status Exam Patient Appearance: Well Grooomed and Appropriate Patient Orientation: Person and Situation Level of Consciousness: Awake and Appropriate Patient Behavior: Guarded and Passive Mood Description: Calm Affect Description: Calm Patient Cognition Impaired: Yes Ability to Follow Directions: Good Speech Pattern: Clear Hallucinations: None Delusions: Not Present Thought Process: Distracted Thought Content: positive for [place] and positive for Circumstantial Judgement: Fair Diagnostics Vital Signs (24Hr): Vital Signs - 24 hr 03/19/23 19:35 03/20/23 07:49 Temperature 96.8 F 96.6 F L Pulse Rate 81 93 Respiratory Rate 17 18 Blood Pressure 114/59 L 128/63 Pulse Oximetry 99 95 Oxygen Delivery Method Room Air Room Air BMI result Body Mass Index 39.8 Labs 03/12/23 07:57 Labs: Laboratory Results - last 48 hr 03/18/23 03/18/23 03/19/23 16:23 20:55 06:26 POC Glucose 190 H 210 H 121 H 03/19/23 03/19/23 03/19/23 11:26 16:27 19:51 POC Glucose 196 H 205 H 170 H 03/20/23 03/20/23 06:26 11:08 POC Glucose 130 H 164 H Medications Medications Current Medications Acetaminophen (Acetaminophen 325 Mg Tablet) 650 mg PO Q6H PRN PRN Reason: Headache/Pain Mild Scale (1-3) Last Admin: 03/20/23 08:44 Dose: 650 mg Al Hydroxide/Mg Hydroxide (Magnesium Hydrox/Alum Hydrox 30 Ml Oral.Susp) 30 ml PO Q6H PRN PRN Reason: Heartburn/Nausea Chlorpromazine HCl (Chlorpromazine Hcl 100 Mg Tablet) 100 mg PO BID [facility] Last Admin: 03/20/23 08:44 Dose: 100 mg Dextrose (Dextrose 50 % 25 Gm/50 Ml Syringe) 25 gm IVPUSH Q15M PRN; Protocol PRN Reason: per Hypoglycemia Standing Ord. Docusate Sodium (Docusate Sodium 100 Mg Capsule) 100 mg PO BID PRN PRN Reason: constipation Famotidine (Famotidine 20 Mg Tablet) 20 mg PO BID [facility] Last Admin: 03/20/23 08:44 Dose: 20 mg Fenofibrate (Fenofibrate 54 Mg Tablet) 54 mg PO DAILY [facility] Last Admin: 03/20/23 08:44 Dose: 54 mg Glucose (Glucose Gel 15 Gm Gel..Gram.) 15 gm PO Q15M PRN; Protocol PRN Reason: per Hypoglycemia Standing Ord. Hydrochlorothiazide (Hydrochlorothiazide 12.5 Mg Tablet) 12.5 mg PO DAILY [facility]; Protocol Last Admin: 03/20/23 08:44 Dose: 12.5 mg Insulin Glargine (Insulin Glargine,Hum.Rec.Anlog 100 Unit/Ml 10 Ml Vial) 60 unit SUBCUT BEDTIME [facility] Last Admin: 03/19/23 20:33 Dose: 60 unit Insulin Human Lispro (Insulin Lispro 100 Unit/Ml 3 Ml Vial) 0 unit SUBCUT QIDACHS [facility]; Protocol Last Admin: 03/20/23 07:47 Dose: Not Given Lamotrigine (Lamotrigine 100 Mg Tablet) 200 mg PO BEDTIME [facility] Last Admin: 03/19/23 20:31 Dose: 200 mg Levetiracetam (Levetiracetam 250 Mg Tablet) 250 mg PO BID [facility] Last Admin: 03/20/23 08:44 Dose: 250 mg Magnesium Hydroxide (Milk Of Magnesia 30 Ml Oral.Susp) 30 ml PO DAILY PRN PRN Reason: Constipation Melatonin (Melatonin 3 Mg Tablet) 6 mg PO BEDTIME [facility] Last Admin: 03/19/23 20:31 Dose: 6 mg Nicotine (Nicotine 7 Mg Patch.Td24) 7 mg TRANSDERMA DAILY [facility] Last Admin: 03/20/23 08:45 Dose: 7 mg Nicotine Polacrilex (Nicotine Polacrilex Lozenge 2 Mg Lozenge) 2 mg BUCCAL Q2H PRN PRN Reason: Nicotine Cravings Omeprazole (Omeprazole 20 Mg Capsule.Dr) 20 mg PO DAILY@0630 [facility] Last Admin: 03/20/23 06:24 Dose: 20 mg Prazosin HCl (Prazosin Hcl 1 Mg Capsule) 1 mg PO BEDTIME [facility]; Protocol Last Admin: 03/19/23 20:32 Dose: 1 mg Quetiapine Fumarate (Quetiapine Fumarate 25 Mg Tablet) 75 mg PO BEDTIME [facility] Last Admin: 03/19/23 20:31 Dose: 75 mg Sitagliptin Phosphate (Sitagliptin Phosphate 50 Mg Tablet) 50 mg PO DAILY [facility] Last Admin: 03/20/23 08:44 Dose: 50 mg Tiotropium [place] (Tiotropium [place] 2.5 Mcg Inhaler) 2 puff INHALE DAILY [facility] Last Admin: 03/20/23 08:45 Dose: 2 puff Trazodone HCl (Trazodone Hcl 100 Mg Tablet) 400 mg PO BEDTIME [facility] Last Admin: 03/19/23 20:32 Dose: 400 mg Venlafaxine HCl (Venlafaxine Hcl 25 Mg Tablet) 37.5 mg PO DAILY [facility] Last Admin: 03/20/23 08:44 Dose: 37.5 mg Vitamin D (Cholecalciferol (Vitamin D3) 25 Mcg Tablet) 25 mcg PO DAILY [facility] Last Admin: 03/20/23 08:44 Dose: 25 mcg Allergies Allergies Allergy/AdvReac Type Severity Reaction Status Date / Time metoclopramide [From Reglan] AdvReac Confusion Verified 03/11/23 21:26 phenytoin [From Dilantin] AdvReac Gastrointestinal Verified 03/11/23 21:30 Upset Assessment & Plan Assessment & Plan (1) Bipolar disorder: Status: Acute Code(s): F31.9 - Bipolar disorder, unspecified (2) Dementia: Status: Acute Code(s): F03.90 - Unspecified dementia, unspecified severity, without behavioral disturbance, psychotic disturbance, mood disturbance, and anxiety (3) Tardive dyskinesia: Status: Acute Code(s): G24.01 - Drug induced subacute dyskinesia (4) Delirium: Status: Acute Code(s): R41.0 - Disorientation, unspecified Plan The patient is an elderly [place] female with a past history of bipolar disorder, seizure disorder, diabetes, high blood pressure and dementia admitted for an episode of delirium with disorganized behavior in the context of a UTI most likely. She was brought from the emergency room since she was found in the street naked and confused. Plan 1. Gather collateral information the patient is a very poor historian but she gave us permission to contact her family. 2. Continue regular medications as per med reconciliation form. 3. Continue with medical workout. 4. At this moment we are not going to increasing antipsychotics and we will try to avoid the use of benzodiazepines to prevent worsening delirium. 5. 15 minute checks 6. Seroquel was increased up to 50 mg at night due to poor sleep 7. Start discharge planning, she will be referred to [facility] program with ancillary services in the community. Reason for continued inpatient stay Substantial Risk for: inability to function, rapid decompensation and med/psych decompensation Time Spent With Patient Time: Total time managing care of this patient today __20__ minutes.
[2023-03-20] MEDS: Insulin Lispro 100 UNIT/ML 3 ML VIAL SUBCUT (11:40)
[2023-03-20 16:34] LABS: Glucose, Whole Blood 131 mg/dL (60-115)
[2023-03-20 18:00] VITALS: BP 132/64; PULSE 77; RESP 17; TEMP 36.7; O2SAT 99
[2023-03-20] MEDS: Melatonin 3 MG TABLET 6 MG PO (20:45)
[2023-03-20] MEDS: QUEtiapine Fumarate 25 MG TABLET 75 MG PO (20:46)
[2023-03-20] MEDS: Prazosin HCL 1 MG CAPSULE PO (20:47)
[2023-03-20] MEDS: lamoTRIgine 100 MG TABLET 200 MG PO (20:47)
[2023-03-20] MEDS: traZODone HCL 100 MG TABLET 400 MG PO (20:47)
[2023-03-20] MEDS: Insulin Glargine,Hum.rec.anlog 100 UNIT/ML 10 ML VIAL 60 UNIT SUBCUT (20:48)
[2023-03-20 21:06] LABS: Glucose, Whole Blood 173 mg/dL (60-115)
[2023-03-21] MEDS: Omeprazole 20 MG CAPSULE.DR PO (06:35)
[2023-03-21 06:42] LABS: Glucose, Whole Blood 104 mg/dL (60-115)
[2023-03-21 08:20] VITALS: BP 97/56; PULSE 81; RESP 18; TEMP 36.1; O2SAT 100
[2023-03-21] MEDS: SITagliptin Phosphate 50 MG TABLET PO (08:54)
[2023-03-21] MEDS: Fenofibrate 54 MG TABLET PO (08:54)
[2023-03-21] MEDS: Venlafaxine HCL 25 MG TABLET 37.5 MG PO (08:54)
[2023-03-21] MEDS: levETIRAcetam 250 MG TABLET PO (08:54)
[2023-03-21] MEDS: chlorproMAZINE HCl 100 MG TABLET PO (08:54)
[2023-03-21] MEDS: Cholecalciferol (Vitamin D3) 25 MCG TABLET PO (08:54)
[2023-03-21] MEDS: Acetaminophen 325 MG TABLET 650 MG PO (08:55)
[2023-03-21] MEDS: Nicotine 7 MG PATCH.TD24 TRANSDERMA (08:55)
[2023-03-21] MEDS: Famotidine 20 MG TABLET PO (08:55)
[2023-03-21 11:35] LABS: Glucose, Whole Blood 166 mg/dL (60-115)
[2023-03-21] MEDS: Insulin Lispro 100 UNIT/ML 3 ML VIAL SUBCUT (11:44)
--- NOTE | 2023-03-21 13:37 | P.DS_ITS ---
DS: Providers Provider Date of Service: 03/21/23 Date of admission: 03/11/23 18:56 Date of discharge: 03/21/23 Primary care physician: Unknown Physician Consults: 03/11/23 22:15 Consult to Hospitalist Routine Comment: Consulting Provider: Hospitalist Reason For Exam: OSH admission Attending physician on discharge: Kevin Fan DS: Diagnosis Discharge Diagnosis (1) Bipolar disorder: Status: Acute (2) Dementia: Status: Acute (3) Tardive dyskinesia: Status: Acute (4) Delirium: Status: Acute DS: Medications Discharge Medications Home Medications: Home Medications Medication Instructions Recorded Confirmed chlorpromazine 100 mg tablet 100 mg PO BID 03/11/23 03/11/23 cholecalciferol (vitamin D3) 25 25 mcg PO DAILY 03/11/23 03/11/23 mcg (1,000 unit) tablet docusate sodium 100 mg capsule 100 mg PO BID PRN constipation 03/11/23 03/11/23 famotidine 20 mg tablet 20 mg PO BID 03/11/23 03/11/23 fenofibrate nanocrystallized 48 mg 48 mg PO DAILY 03/11/23 03/11/23 tablet hydrochlorothiazide 12.5 mg tablet 12.5 mg PO DAILY 03/11/23 03/11/23 insulin glargine 100 unit/mL (3 60 unit subcut BEDTIME 03/11/23 03/11/23 mL) subcutaneous pen (Lantus Solostar U-100 Insulin) insulin lispro 100 unit/mL 4 - 16 unit subcut TID 03/11/23 03/11/23 subcutaneous pen (Humalog KwikPen (U-100) Insulin) lamotrigine 200 mg tablet 200 mg PO BEDTIME depressive 03/11/23 03/11/23 disorder levetiracetam 250 mg tablet 250 mg PO BID 03/11/23 03/11/23 melatonin 5 mg tablet 5 mg PO BEDTIME 03/11/23 03/11/23 pantoprazole 20 mg tablet,delayed 20 mg PO DAILY 03/11/23 03/11/23 release prazosin 1 mg capsule 1 mg PO BEDTIME nightmares 03/11/23 03/11/23 quetiapine 25 mg tablet 25 mg PO BEDTIME 03/11/23 03/11/23 sitagliptin phosphate 50 mg tablet 50 mg PO DAILY 03/11/23 03/11/23 (Januvia) trazodone 100 mg tablet 400 mg PO BEDTIME 03/11/23 03/11/23 umeclidinium 62.5 mcg/actuation 1 inh inhalation DAILY 03/11/23 03/11/23 blister powder for inhalation (Incruse Ellipta) venlafaxine 37.5 mg tablet 37.5 mg PO DAILY 03/11/23 03/11/23 Mental Status Exam Mental Status Exam Patient Appearance: Well Grooomed and Appropriate Patient Orientation: Person and Situation Level of Consciousness: Awake and Appropriate Patient Behavior: Guarded and Passive Mood Description: Withdrawn Affect Description: Constricted Patient Cognition Impaired: Yes Ability to Follow Directions: Good Speech Pattern: Clear Hallucinations: None Delusions: Not Present Thought Process: Distracted and Slowed Thinking Thought Content: positive for [place] and positive for Poverty of Content Judgement: Fair Data Data Completed and Pending Completed studies during hospitalization [Text1]: 03/14/23 03/15/23 03/15/23 20:26 06:37 11:24 POC Glucose 262 H 103 287 H 03/15/23 03/15/23 03/16/23 16:18 20:22 06:24 POC Glucose 170 H 294 H 135 H 03/16/23 03/16/23 03/16/23 11:25 16:35 20:50 POC Glucose 140 H 112 127 H 03/17/23 03/17/23 03/17/23 06:44 11:08 16:14 POC Glucose 104 152 H 166 H 03/17/23 03/18/23 03/18/23 19:30 06:28 11:23 POC Glucose 191 H 116 H 186 H 03/18/23 03/18/23 03/19/23 16:23 20:55 06:26 POC Glucose 190 H 210 H 121 H 03/19/23 03/19/23 03/19/23 11:26 16:27 19:51 POC Glucose 196 H 205 H 170 H 03/20/23 03/20/23 03/20/23 06:26 11:08 16:30 POC Glucose 130 H 164 H 131 H 03/20/23 03/21/23 03/21/23 20:51 06:36 11:31 POC Glucose 173 H 104 166 H DS: Summary Hospital Course Hospital Course: The patient is a 67-year-old [place] female, only Lebanese speaking, with a prior history of schizoaffective disorder, dementia and other medical comorbidities referred from another emergency room for exacerbation of psychosis and disorganized behavior. The patient was seen in the street naked confused, unable to take care of herself, referred to the emergency room, assessed by crisis and transferring to this facility for psychiatric stabilization. Please see the HPI of the admission note for further details. On admission, the patient reported on Lebanese that she has dementia and she does not remember very well. Apparently on the emergency room she was diagnosed with a UTI and treated with antibiotics. On admission, she agreed to restart her regular medications. The patient remains most of the time in her room, pleasant, cooperative but confused. She had been very easily redirectable and she had been fully compliant with treatment. She adamantly denies exacerbation of psychotic symptoms or mood disorder. We had several family meetings and the social work faculty member arranged another several ancillary services for discharge. Since the patient did not have any medical problems, safety concerns or exacerbation of psychiatric symptoms, discharge planning was discussed Status at Discharge Cognitive/behavioral status at discharge: Severely impaired at baseline Functional status at discharge: independent ambulation Overall status at discharge: patient is back to baseline Time Spent with Patient Time attestation: Total time managing care of this patient today __20__ minutes. Time spent: Less than 30 minutes Discharge Plan Discharge Anticipated Discharge Date/Time: 03/21/23 16:00 Patient Disposition: Home, Self-Care Discharge Diagnosis: Bipolar disorder Dementia Delirium resolved Referrals: [facility] [Other] - 04/09/23 2:00 pm (You next appointment with Dr Tejeda for psyvchiatry is schedulef for 04/09/23 at 2pm. ) [facility] [Other] - 1 Week (You've been referred to enroll in [facility] program to be eligible for increase in services at home and a day program. [facility] to follow up with you following discharge and will schedule home visit. RN to call to schedule home visit for next week. ) Tahira GOVEA [Other] - 03/22/23 (Your RN visits for twice a day visits for medication and disease warehouse distribution manager to resume at time of discharge. ) Dr Paris [Other] - 1 Week Discharge Medications: New quetiapine 25 mg Tablet 75 mg PO BEDTIME 30 Days Qty: 90 0RF acetaminophen 325 mg Tablet 650 mg PO Q6H PRN (Reason: Headache/Pain Mild Scale (1-3)) Qty: 60 0RF Continued lamotrigine 200 mg tablet 200 mg PO BEDTIME 30 Days Qty: 30 0RF chlorpromazine 100 mg tablet 100 mg PO BID 30 Days Qty: 60 0RF prazosin 1 mg capsule 1 mg PO BEDTIME 30 Days Qty: 30 0RF pantoprazole 20 mg tablet,delayed release (DR/EC) 20 mg PO DAILY 30 Days Qty: 30 0RF famotidine 20 mg tablet 20 mg PO BID 30 Days Qty: 60 0RF levetiracetam 250 mg tablet 250 mg PO BID 30 Days Qty: 60 0RF trazodone 100 mg tablet 400 mg PO BEDTIME 30 Days Qty: 120 0RF venlafaxine 37.5 mg tablet 37.5 mg PO DAILY 30 Days Qty: 30 0RF docusate sodium 100 mg capsule 100 mg PO BID PRN (Reason: constipation) Qty: 60 0RF insulin lispro [Humalog KwikPen Insulin] 100 unit/mL insulin pen 4 - 16 unit subcut TID Qty: 15 0RF fenofibrate nanocrystallized 48 mg tablet 48 mg PO DAILY 30 Days Qty: 30 0RF cholecalciferol (vitamin D3) 25 mcg (1,000 unit) tablet 25 mcg PO DAILY Qty: 30 0RF Januvia 50 mg tablet 50 mg PO DAILY Qty: 30 0RF hydrochlorothiazide 12.5 mg tablet 12.5 mg PO DAILY 30 Days Qty: 30 0RF insulin glargine [Lantus Solostar U-100 Insulin] 100 unit/mL (3 mL) insulin pen 60 unit subcut BEDTIME Qty: 15 0RF melatonin 5 mg tablet 5 mg PO BEDTIME Qty: 30 0RF Incruse Ellipta 62.5 mcg/actuation blister with device 1 inh INHALATION DAILY Qty: 30 0RF Discontinued quetiapine 25 mg tablet 25 mg PO BEDTIME Discharge Orders: Discharge Order (Routine); Ordered 03/21/23 Ordered By: Kevin Fan Diet: Advance to usual diet Activity on Discharge: As tolerated Stand Alone Forms: Patient Portal Discharge page Care Plan Goals: Care plan goals achieved in this admission Health Concerns: Continue treatment with primary care physician and other outpatient providers. Plan of Treatment: Continue medication management again there a clinic. Assessment: The patient is an elderly [place] female, only Lebanese-speaking with a long history of bipolar disorder, dementia, RET dyskinesia and other medical comorbidities admitted for an episode of delirium that resolved. At this moment the patient is at her baseline ready to go back to her home. No safety concerns.
== END 2023-03-21 16:18 | disposition home or self-care (01) | DRG 885 ==
PROVIDERS: Psychiatry & Neurology Psychiatry; Admitting Provider Psychiatry & Neurology Psychiatry; Visit Provider Psychiatry & Neurology Psychiatry
DX: F31.9 Bipolar disorder, unspecified (principal); F05 Delirium due to known physiological condition; F43.10 Post-traumatic stress disorder, unspecified; G24.01 Drug induced subacute dyskinesia; F17.210 Nicotine dependence, cigarettes, uncomplicated; F03.90 Unspecified dementia, unspecified severity, without behavioral disturbance, psychotic disturbance, mood disturbance, and anxiety; I10 Essential (primary) hypertension; E11.9 Type 2 diabetes mellitus without complications; G40.909 Epilepsy, unspecified, not intractable, without status epilepticus; Z23 Encounter for immunization; Z71.6 Tobacco abuse counseling; Z79.4 Long term (current) use of insulin; Z79.899 Other long term (current) drug therapy
CPT/HCPCS: 36415; 80053; 80061; 82607; 82746; 82947; 83036; 84439; 84443; 90686

== ENCOUNTER → 2023-03-11 18:56 | Outpatient (BNV) | payer MEDICARE, MEDICAID, SELFPAY | PROVIDERS: Admitting Provider Psychiatry & Neurology Psychiatry; Visit Provider Student in an Organized Health Care Education/Training Program | DX: R06.02 Shortness of breath (principal); E11.9 Type 2 diabetes mellitus without complications; I10 Essential (primary) hypertension | CPT/HCPCS: 99222 ==

== ENCOUNTER → 2023-03-11 18:56 | Outpatient (BNV) | payer MEDICARE, MEDICAID, SELFPAY | PROVIDERS: Admitting Provider Psychiatry & Neurology Psychiatry; Visit Provider Psychiatry & Neurology Psychiatry | DX: F31.64 Bipolar disorder, current episode mixed, severe, with psychotic features (principal); F03.90 Unspecified dementia, unspecified severity, without behavioral disturbance, psychotic disturbance, mood disturbance, and anxiety; G24.01 Drug induced subacute dyskinesia; R41.0 Disorientation, unspecified | CPT/HCPCS: 90792; 99231; 99232; 99238 ==

== ENCOUNTER 2023-08-11 14:04 | Outpatient (REF) | payer MEDICARE, MEDICAID, SELFPAY ==
[2023-08-11 15:42] LABS: Anion Gap 16 (12-20); Blood Urea Nitrogen 17 mg/dL (9-16); Calcium 10.3 mg/dL (8.4-10.2); Carbon Dioxide 24 mmol/L (22-29); Chloride 102 mmol/L (96-108); Cholesterol 249 mg/dL (<200); Estimated Glomerular Filt Rate 40; Glucose Random 199 mg/dL (60-115); HDL Cholesterol 37 mg/dL (>40); LDL Cholesterol Calculated 175 mg/dL (<100); Potassium 4.2 mmol/L (3.3-5.1); Sodium 138 mmol/L (135-145); Triglycerides 185 mg/dL (<150)
== END 2023-08-11 14:05 | disposition home or self-care (01) ==
LOC: HO.CHCLDS 14:04
PROVIDERS: Visit Provider Internal Medicine
DX: I10 Essential (primary) hypertension (principal); E78.00 Pure hypercholesterolemia, unspecified; N17.9 Acute kidney failure, unspecified
CPT/HCPCS: 36415; 80048; 80061

== ENCOUNTER 2024-08-06 10:47 | Outpatient (REF) | payer MEDICARE, MEDICAID, SELFPAY | END 2024-08-06 10:48 | disposition home or self-care (01) | LOC: HO.LAB 10:47 | PROVIDERS: Visit Provider Nurse Practitioner Adult Health | DX: Z13.1 Encounter for screening for diabetes mellitus (principal); E11.9 Type 2 diabetes mellitus without complications | CPT/HCPCS: 82947; 83036; 99202 ==

== ENCOUNTER 2024-09-03 11:39 | Outpatient (AMB) | payer MEDICARE, MEDICAID, SELFPAY ==
--- NOTE | 2024-09-03 08:54 | A.OFFVIS_ITS ---
Vital Signs 09/03/24 11:46 Height 5 ft Weight 180 lb 12.465 oz BMI 35.3 BP 118/60 Blood Pressure Location Rt brachial Position Sitting Pulse 97 Pulse Source Pulse Oximeter Pulse Oximetry (%) 98 Oxygen Delivery Method Room Air Intake Visit Reasons: T2DM Intake Note: Patient presents today for a follow-up Type 2 Diabetes Mellitus: Last Diabetic eye exam was on: DUE Last Podiatry exam was on: Patient does not see a Color Consultant Most recent HbA1c: 10.2%, 08/06/2024 Random Glucose- 246 mg/dL, Today Robotics Engineer Required: Yes Robotics Engineer Language: Transit Vehicle Inspector Services: Robotics Engineer Offered & Declined Accompanied by: staff Allergies metoclopramide [From Reglan] Adverse Reaction (Verified 08/06/24 11:12) Confusion phenytoin [From Dilantin] Adverse Reaction (Verified 08/06/24 11:12) Gastrointestinal Upset HPI Comments Details: 68 YO female who is seen in for T2DM followup. She was seen as an initial consultation 08/06/2024 at which time a freestyle Jordan 3+ sensor was ordered. She lives in a memory care unit at [facility]. A1C 10.2% 08/06/2024 Initially diagnosed with T2DM: date unknown Current regimen: Lantus 13 units in the am Lantus 46 units at bedtime Januvia 50mg Humalog 12 units tid plus scale 150-199 4 units 200-249 6 units 250-299 8 units 300-349 12 units 350-399 14 units 400-450 16 units metformin xr 500mg daily Checks sugars times per day. Recently many glucose readings in the am have been 100-180 readings later in the day are varied. No readings available at the time of the appt. Will request glucose logs and send patient for blood work. Will contact [facility] to find out progress ingetting FS jordan 3 for this patient Has eyes checked yearly, last eye exam years ago cataract surgery, denies retinopathy. had cataract surgery Has neuropathy, some tingling no pain or cramping has podiatry every 6 months Has nephropathy not on george-arb Last microalbumin 01/2019 <5 eGFR 08/11/23 40 Has HLD, on fenofibrate Last LDL 175 as measured 2018 Denies CAD. Diet: lunch cream of wheat banana lunch ham & cheese sandwich with mashed pot supper sandwich no veg snacks on chocalate cookie Weight: same [facility] Medical History Seizure disorder HTN (hypertension) COPD (chronic obstructive pulmonary disease) Type 2 diabetes mellitus Social History Household Members: None Housing: Apartment Do you presently have visiting nurse or other home services: Yes Patient Tobacco Use Status: Current everyday Tobacco user Tobacco use type: Cigarette Cigarettes Per Day: 3 Second Hand Smoke Exposure: No service: No Sexual orientation: Straight/Heterosexual Physical Exam Vital Signs: Last Vital Signs Pulse 97 09/03/24 11:46 BP 118/60 09/03/24 11:46 Pulse Ox 98 09/03/24 11:46 Oxygen Delivery Method Room Air 09/03/24 11:46 BMI result Body Mass Index 35.3 Const Other: Absence of Cushingoid features. Absence of acromegalic features. Neck exam reveals nl size thyroid about 15 gms. No thyroid nodules palpable. . Heart S1 S2, Reg R/R. No M/R G. Skin exam reveals absence of vitiligo or acanthosis nigricans. No edema Visual exam of foot performed. No ulcerations or open lesions. No inter digit maceration or fissuring. No onychomycosis, no callouses. Sensation intact to monofilament exam. Vibratory sensation is normal with 128 Hz tuning fork. Results Reviewed Results Reviewed: Laboratory Last Values Glucose (Clinic) 246 mg/dL (60-115) H 09/03/24 11:48 Assessment & Plan Assessment & Plan (1) Type 2 diabetes mellitus: Code(s): E11.9 - Type 2 diabetes mellitus without complications Category: Medical Plan: Type 2 diabetic. We will contact [facility] for adjustment of insulin once I receive glucose log. Freestyle Jordan 3 has been ordered for patient. Once freestyle started can assess need to change to Tresiba insulin. Patient does get foot care periodic podiatry at [facility] and staff check feet. Orders: Orders Albumin Level 09/03/24 E11.9 - Type 2 diabetes mellitus without complications Parathyroid Hormone Intact 09/03/24 E11.9 - Type 2 diabetes mellitus without complications Lipid Panel 09/03/24 E11.9 - Type 2 diabetes mellitus without complications Microalbumin, Random (w Creat) 09/03/24 E11.9 - Type 2 diabetes mellitus without complications Creatinine Urine 09/03/24 E11.9 - Type 2 diabetes mellitus without complications Calcium 09/03/24 E11.9 - Type 2 diabetes mellitus without complications Coding Level of Care Code Est Pt Level 4 (86657) Complex EM visit Add On G2211 Diagnoses Type 2 diabetes mellitus E11.9 Time Spent (min) 30 Comment Time spent reviewing labs/provider notes, face to face, chart doc
[2024-09-03 11:46] VITALS: BP 118/60; PULSE 97; O2SAT 98; BMI 35.3
[2024-09-03 11:55] LABS: Glucose, Whole Blood 246 mg/dL (60-115)
--- OUTSIDE RECORDS SUMMARY | 2024-09-03 13:59 | XMS_ITS | Encounter Summary ---
Author Organization [facility] Address [address] [place] [address] Care Team Providers Care Newspaper Publisher Name Role Phone Jyoti Paris MD Primary Care Provider [phone] Reason for Visit * Reason Onset Date Comments Nurse Triage 10/07/2023 Encounter Details Date Type Department Care Team ([facility] st Contact Info) Description 10/07/2023 Telephone [facility] [address], [place] [phone] Jyoti Paris MD [address] [place] [address] Nurse Triage Social History Tobacco Use Types Packs/Day Years Used Date Smoking Tobacco: Every Day Cigarettes Passive Smoke Exposure: Current Smokeless Tobacco: Never Alcohol Use Standard Drinks/Week Comments Defer 0 (1 standard drink = 0.6 oz pur e alcohol) Depression Answer Date Recorded Patient Health Questionnaire-9 Score 0 08/06/2022 Housing Stability Answer Date Recorded What is your housing situation today? Not on genaro e 05/05/[address] you li ve. Do you have problems with any of the following? None of the above 05/05/2023 Food Insecurity Answer Date Recorded Within the past 12 months, y ou worried that your food would run out before you got money to buy more: Sometimes True 2022 Within the past 12 months,th e food you bought just didn't last and you didn't have enough money to get more: Sometimes True 05/05/2023 Transportation Answer Date Recorded In the past 12 months, has l ack of transportation kept you from medical appts, meetings, work or from getting things needed for daily living? No 05/05/2023 Utilities Answer Date Recorded In the past 12 months, has t he electric, gas, oil or water company threatened to shut off services in your home? No 05/05/2023 Depression Answer Date Recorded Patient Health Questionnaire-2 Score 0 08/06/2022 Comments Unknown Sex and Gender Information Value Date Recorded Sex Assigned at Female 05/06/2022 10:17 AM EDT Legal Sex Female 10:17 AM EDT Gender Identity Choose not to disclose 10:17 AM EDT Sexual Orientation Choose not to disclose 2021 10:17 AM EDT documented as of this encounter Miscellaneous Notes * Telephone Encounter - Carol Rachel LPN - 10/07/2023 10:19 AM EDT Telephone call returned to Janae GOVEA who is calling to report consistent elevated BG readings. Per Janae she has received a call prior to triage call from Michelle GAONA Nurse educator who told [facility] that she would review patient and brainstorm for further interventions and call RN back. Team tasked to update PCP on patient status per request of [facility]NA AM and PM BG are elevated daily 292,320. Please follow with Janae at [phone]. Protocol Used: Information Only Call - No Triage (Adult) Protocol-Based Disposition: See in Office or Video Visit within 2 Weeks Override (Final) Disposition: Discuss with PCP and Callback by Nurse Today Override Reason: Nurse judgment Override Notes: Per [facility] managing patient BG Positive Triage Question: * Requesting regular office appointment and adult stable (no new symptoms, not worsening) * All higher-acuity triage questions were negative * Telephone Encounter - Marielle Carlson - 10/07/2023 9:02 AM EDT Symptom: High Blood Sugar of 292 - Caller Reports Outcome: Schedule an urgent appointment (within 1 hour) or talk to a nurse or provider soon Reason: Getting worse The caller accepted this outcome JEFERSON Cardoso would like a call back [phone]. documented in this encounter Plan of Treatment Not on file documented as of this encounter Visit Diagnoses Not on filedocumented in this encounter Additional Health Concerns Assessment Noted Time PHQ-9 Depression Total Score: 0 08/06/19 23 1:19 PM EST documented as of this encounter Care Teams Newspaper Publisher Relationship Specialty Start Date End Date Jyoti Paris MD [address] [place] [id number] PCP - General Internal Medicine 09/12/15 documented as of this encounter
--- OUTSIDE RECORDS SUMMARY | 2024-09-03 13:59 | XMS_ITS | Encounter Summary ---
Author Organization [employer] [facility] Address [address] [facility] [address] [facility] [address] [place] [address] Care Team Providers Care Manager Gift Name Role Phone Jyoti Paris MD Primary Care Provider [phone] Reason for Visit * Reason Onset Date Comments Appointment Request 07/15/2022 Encounter Details Date Type Department Care Team (Late st Contact Info) Description 07/15/2022 Telephone [facility] [address] [place] [address] Jyoti Paris MD [address] [place] [phone] Appointment Request Social History Tobacco Use Types Packs/Day Years Used Date Smoking Tobacco: Never Assessed Comments Unknown Sex and Gender Information Value Date Recorded Sex Assigned at Female 05/06/2022 10:17 AM EDT Legal Sex Female 10:17 AM EDT Gender Identity Choose not to disclose 10:17 AM EDT Sexual Orientation Choose not to disclose 2021 10:17 AM EDT documented as of this encounter Miscellaneous Notes * Telephone Encounter - Loy Adams - 07/15/2022 10:11 AM EST Tc from son requesting to r/s appt 07/15/22 1:45 pm (KOLTON SAMS 06/22[birth year]07[birth year]01. Pneumonia/ Discharge summary in chart.) Please contact son at [phone] documented in this encounter Plan of Treatment Not on file documented as of this encounter Visit Diagnoses Not on filedocumented in this encounter Care Teams Manager Gift Relationship Specialty Start Date End Date Jyoti Paris MD [address] [place] [id number] PCP - General Internal Medicine 09/12/15 documented as of this encounter
--- OUTSIDE RECORDS SUMMARY | 2024-09-03 13:59 | XMS_ITS | Encounter Summary ---
Author Organization [employer] Address [address] [facility] 7t [place] [address] Care Team Providers Care Senior Accounting Specialist Name Role Phone Jyoti Paris MD Primary Care Provider [phone] Encounter Details Date Type Department Care Team (Late st Contact Info) Description 09/06/2022 Orders Only [facility] MED & PEDS [address] [place], [place] [phone] Jyoti Paris MD [address] [place], [place] [phone] Type 2 diabetes mellitus with hyperglycemia, with long-term current use of insulin (CMS/[facility]) Social History Tobacco Use Types Packs/Day Years Used Date Smoking Tobacco: Former Cigarettes Smokeless Tobacco: Never Depression Answer Date Recorded Patient Health Questionnaire-9 Score 0 08/06/2022 Depression Answer Date Recorded Patient Health Questionnaire-2 Score 0 08/06/2022 Comments Unknown Sex and Gender Information Value Date Recorded Sex Assigned at Female 05/06/2022 10:17 AM EDT Legal Sex Female 10:17 AM EDT Gender Identity Choose not to disclose 10:17 AM EDT Sexual Orientation Choose not to disclose 2021 10:17 AM EDT documented as of this encounter Plan of Treatment Not on file documented as of this encounter Procedures Procedure Name Priority Date/Time Associated Diagnosis Comments CULTURE, URINE, ROUTINE Routine 02/06/2023 6:29 AM EDT Type 2 diabetes mellitus with hyperglycemia, with long-term current use of insulin (CMS/HCC) documented in this encounter Results * Culture, Urine, Routine (02/06/2023 6:29 AM EDT) Urine specimen obtained by clean catch procedure / Unknown 02/06/2023 6:29 AM EDT 02/06/2023 11:41 AM EDT Comment:[facility] Narrative [facility] - 02/07/2023 12:58 PM EDT Urine Culture Report Result Urine Culture < 10,000 cfu/ml Specimen Source: Urine clean catch [facility] MICROBIOLOGY - GENERAL ORD ERABLES Final Result [facility] [address] [place] [phone] documented in this encounter Visit Diagnoses Diagnosis Type 2 diabetes mellitus with hyperglycemia, with long-term current use of insulin ([facility]) documented in this encounter Additional Health Concerns Assessment Noted Time PHQ-9 Depression Total Score: 0 08/06/19 23 1:19 PM EST documented as of this encounter Care Teams Senior Accounting Specialist Relationship Specialty Start Date End Date Jyoti Paris MD [address] [place] [phone] PCP - General Internal Medicine 09/12/15 documented as of this encounter
--- OUTSIDE RECORDS SUMMARY | 2024-09-03 13:59 | XMS_ITS | Encounter Summary ---
Author Organization [employer] Address [address] [facility] 7[address] [place] [address] Care Team Providers Care Front Office Attendant Name Role Phone Jyoti Paris MD Primary Care Provider [phone] Encounter Details Date Type Department Care Team ([facility] st Contact Info) Description 09/18/2023 Orders Only [facility] CHC MED & PEDS [address] [place], [place] [phone] Jyoti Paris MD [address] [place], [place] [phone] Simple chronic bronchitis (CMS/HCC) (Primary Dx) Social History Tobacco Use Types Packs/Day Years Used Date Smoking Tobacco: Former Cigarettes Passive Smoke Exposure: Current Smokeless Tobacco: [...] documented as of this encounter Visit Diagnoses Diagnosis Simple chronic bronchitis (CMS/HCC)- Primary Simple chronic bronchitis documented in this encounter Additional Health Concerns Assessment Noted Time PHQ-9 Depression Total Score: 0 08/06/19 23 1:19 PM EST documented as of this encounter Care Teams Front Office Attendant Relationship Specialty Start Date End Date Jyoti Paris MD [address] [place] [phone] PCP - General Internal Medicine 09/12/15 documented as of this encounter
--- OUTSIDE RECORDS SUMMARY | 2024-09-03 13:59 | XMS_ITS | Clinical Summary ---
Author Organization [facility], Address [address] [place] [address] [place] [address] Phone Care Team Providers Care Vice President Of Brand Management Name Role Phone Jyoti Paris MD Primary Care Provider Allergies Active Allergy Reactions Criticality Noted Date Comments Phenytoin 11/22/2021 Medications chlorproPAMIDE (DIABENESE) 100 MG tablet Take 100 mg by mouth 1 (one) time each day with breakfast Active docusate sodium (COLACE) 100 MG capsule Take 100 mg by mouth in the morning and 100 mg in the evening. Active doxycycline (DORYX) 100 MG EC tablet Take 100 mg by mouth in the morning and 100 mg in the evening. Do not crush or chew. Take with a full glass of water and do not lie down for at least 30 minutes after.. Active venlafaxine (EFFEXOR) 37.5 MG tablet Take 37.5 mg by mouth in the morning and 37.5 mg in the evening. Active famotidine (PEPCID) 20 MG tablet Take 20 mg by mouth in the morning and 20 mg in the evening. Active lisinopril 5 MG tablet Take 5 mg by mouth 1 (one) time each day Active prazosin (MINIPRESS) 1 MG capsule Take 1 mg by mouth every night Active Active Problems Problem Noted Date Diagnosed Date Hypertension 11/22/2021 Type 2 diabetes mellitus 11/22/2021 Hyperlipidemia 11/22/2021 Chronic obstructive pulmonary disease 11/22/2021 Stage 3a chronic kidney disease 11/22/2021 Social History Tobacco Use Types Packs/Day Years Used Date Smoking Tobacco: Never Assessed Comments Unknown Sex and Gender Information Value Date Recorded Sex Assigned at Not on file Legal Sex Female 3:03 PM EDT Gender Identity Not on file Sexual Orientation Not on file Plan of Treatment Health Maintenance Due Date Last Done Comments Breast Cancer Screening 1955 Pneumococcal Vaccine: 65+ Ye ars (1 of 2 - PCV) 1962 Colorectal Cancer Screening: Annual FOBT 2005 Colorectal Cancer Screening: Colonoscopy 2005 Colorectal Cancer Screening: Sigmoidoscopy 2005 Diabetes: Hemoglobin A1C 11/22/2021 Diabetes: Ophthalmology Exam 11/22/2021 Diabetes: Pedal Pulse Checked 11/22/2021 Diabetes: Sensory Foot Exam 11/22/2021 Diabetes: Visual Foot Exam 11/22/2021 Influenza Vaccine (#1) 2024 Hepatitis B Vaccine Aged Out No longe r eligible based on patient's age to complete this topic Insurance MEDICARE MEDICAID [place] Care Teams Vice President Of Brand Management Relationship Specialty Start Date End Date Jyoti Paris MD PCP - General Internal Medicine 10/17/21
--- OUTSIDE RECORDS SUMMARY | 2024-09-03 13:59 | XMS_ITS | Encounter Summary ---
Author Organization [facility] Address [address] [place] [address] Care Team Providers Care Grants Director Name Role Phone Jyoti Paris MD Primary Care Provider [phone] Encounter Details Date Type Department Care Team (Late st Contact Info) Description 05/26/2024 Lab Requisition [facility] - Main Lab [address] [facility] [place] [address] Pillo Stapleton MD [address] [place] [phone] Epilepsy, unspecified, not intractable, without status epilepticus (CMS/HCC); Hyperlipidemia, unspecified; Chronic kidney disease, stage 3a (CMS/HCC) Social History Tobacco Use Types Packs/Day Years Used Date Smoking Tobacco: Former Cigarettes Smokeless Tobacco: Never Alcohol Use Standard Drinks/Week Comments Not Asked 0 (1 standard drink = 0.6 oz pur e alcohol) Comments Unknown Sex and Gender Information Value Date Recorded Sex Assigned at Not on file Legal Sex Female 4:39 PM EST Gender Identity Not on file Sexual Orientation Not on file documented as of this encounter Plan of Treatment Not on file documented as of this encounter Procedures Procedure Name Priority Date/Time Associated Diagnosis Comments LIPID PANEL WITH REFLEX TO DIRECT LDL Routine 05/26/2024 5:37 AM EST Epilepsy, unspecified, not intractable, without status epilepticus (CMS/HCC) Hyperlipidemia, unspecified Chronic kidney disease, stage 3a (CMS/HCC) VITAMIN D 25 HYDROXY Routine 05/26/2024 5:37 AM EST Epilepsy, unspecified, not intractable, without status epilepticus (CMS/HCC) Hyperlipidemia, unspecified Chronic kidney disease, stage 3a (CMS/HCC) COMPLETE BLOOD COUNT Routine 05/26/2024 5:37 AM EST Epilepsy, unspecified, not intractable, without status epilepticus (CMS/HCC) Hyperlipidemia, unspecified Chronic kidney disease, stage 3a (CMS/HCC) THYROID STIMULATING HORMONE Routine 05/26/2024 5:37 AM EST Epilepsy, unspecified, not intractable, without status epilepticus (CMS/HCC) Hyperlipidemia, unspecified Chronic kidney disease, stage 3a (CMS/HCC) HEMOGLOBIN A1C Routine 05/26/2024 5:37 AM EST Epilepsy, unspecified, not intractable, without status epilepticus (CMS/HCC) Hyperlipidemia, unspecified Chronic kidney disease, stage 3a (CMS/HCC) COMPREHENSIVE METABOLIC PANEL Routine 05/26/2024 5:37 AM EST Epilepsy, unspecified, not intractable, without status epilepticus (CMS/HCC) Hyperlipidemia, unspecified Chronic kidney disease, stage 3a (CMS/HCC) documented in this encounter Results * (ABNORMAL) Hemoglobin A1c (05/26/2024 5:37 AM EST) Hemoglobin A1C 8.2(H) <6.5 % LAB CHEMISTRY METHOD 05/26/2024 1:05 PM EST [facility] Mean Bld Glu Estim. 189 mg/dL LAB CHEMISTRY METHOD 05/26/2024 1:05 PM EST [facility] Blood Venous blood specimen / Unknown 05/26/2024 5:37 AM EST 05/26/2024 9:53 AM EST us Pillo Stapleton MD LAB BLOOD ORDERABLES Final Res ult [facility] [address] [place] [address], * (ABNORMAL) Complete blood count (05/26/2024 5:37 AM EST) WBC 9.6 4.8 - 10.8 K/[facility] LAB HEMETOLOGY METHOD 05/26/2024 11:34 AM [facility] RBC 4.10 3.80 - 4.80 M/[facility] LAB HEMETOLOGY METHOD 05/26/2024 11:34 AM [facility] Hemoglobin 11.6 11.5 - 16.0 g/dL LAB HEMETOLOGY METHOD 05/26/2024 11:34 AM [facility] Hematocrit 36.8 35.0 - 47.0 % LAB HEMETOLOGY METHOD 05/26/2024 11:34 AM [facility] MCV 89.5 79.0 - 98.0 FL LAB HEMETOLOGY METHOD 05/26/2024 11:34 AM [facility] MCH 28.2 27.0 - 32.0 pcg LAB HEMETOLOGY METHOD 05/26/2024 11:34 AM [facility] MCHC 31.5(L) 32.0 - 37.0 g/dL LAB HEMETOLOGY METHOD 05/26/2024 11:34 AM [facility] RDW 14.3 11.0 - 15.0 % LAB HEMETOLOGY METHOD 05/26/2024 11:34 AM [facility] Platelets 372 130 - 400 K/[facility] HEMETOLOGY METHOD 05/26/2024 11:34 AM [facility] MPV 9.5 7.0 - 11.0 FL LAB HEMETOLOGY METHOD 05/26/2024 11:34 AM [facility] NRBC 0.0 <1.0 % LAB HEMETOLOGY METHOD 05/26/2024 11:34 AM [facility] NRBC Absolute 0.00 <0.10 K/[facility] LAB HEMETOLOGY METHOD 05/26/2024 11:34 AM [facility] Blood Venous blood specimen / Unknown 05/26/2024 5:37 AM EST 05/26/2024 9:53 AM EST Pillo Stapleton MD LAB BLOOD ORDERABLES Final Res ult Performing Organization Address [facility]/ZIP Co de Phone Number [facility] [address] [place] [address], [place] [phone] * (ABNORMAL) Vitamin D 25 hydroxy (05/26/2024 5:37 AM EST) Vit D, 25-Hydroxy 24.1(L) 30.0 - 80.0 ng/mL LAB CHEMISTRY METHOD 05/26/2024 11:46 AM EST [facility] Blood Venous blood specimen / Unknown Venipuncture / Unknown 05/26/2024 5:37 AM EST 05/26/2024 9:53 AM EST Pillo Stapleton MD LAB BLOOD ORDERABLES Final Res ult Performing Organization Address [facility]/ZIP Co de Phone Number [facility] [address] [place] [address], [place] [phone] * Thyroid stimulating hormone (05/26/2024 5:37 AM EST) Pathologist [facility] TSH 1.55 0.40 - 4.00 mcIU/mL LAB CHEMISTRY METHOD 05/26/2024 11:47 AM EST [facility] Blood Venous blood specimen / Unknown Venipuncture / Unknown 05/26/2024 5:37 AM EST 05/26/2024 9:53 AM EST Pillo Stapleton MD LAB BLOOD ORDERABLES Final Res ult Performing Organization Address City/[facility]/ZIP Co de Phone Number [facility] [address] [place] [address], [place] [phone] * Lipid panel with reflex to direct LDL (05/26/2024 5:37 AM EST) Cholesterol 150 0 - 200 mg/dL LAB CHEMISTRY METHOD 05/26/2024 11:47 AM [facility] Triglycerides 147 0 - 150 mg/dL LAB CHEMISTRY METHOD 05/26/2024 11:47 AM [facility] HDL 42 >=40 mg/dL LAB CHEMISTRY METHOD 05/26/2024 11:47 AM [facility] LDL Calculated 79 0 - 100 mg/dL LAB CHEMISTRY METHOD 05/26/2024 11:47 AM [facility] VLDL Cholesterol Kishore 29.4 mg/dL LAB CHEMISTRY METHOD 05/26/2024 11:47 AM [facility] Non HDL Chol. (LDL+VLDL) 108 <145 mg/dL LAB CHEMISTRY METHOD 05/26/2024 11:47 AM [facility] Chol/HDL Ratio 3.6 0.0 - 4.4 LAB CHEMISTRY METHOD 05/26/2024 11:47 AM [facility] Blood Venous blood specimen / Unknown Venipuncture / Unknown 05/26/2024 5:37 AM EST 05/26/2024 9:53 AM EST us Pillo Stapleton MD LAB BLOOD ORDERABLES Final Res ult [facility] [address] [place] [address], * (ABNORMAL) Comprehensive metabolic panel (05/26/2024 5:37 AM EST) Sodium 140 133 - 145 mmol/L LAB CHEMISTRY METHOD 05/26/2024 11:47 AM [facility] Potassium 4.3 3.5 - 5.5 mmol/L LAB CHEMISTRY METHOD 05/26/2024 11:47 AM [facility] Chloride 105 96 - 110 mmol/L LAB CHEMISTRY METHOD 05/26/2024 11:47 AM [facility] CO2 25 21 - 32 mmol/L LAB CHEMISTRY METHOD 05/26/2024 11:47 AM [facility] Anion Gap 10 3 - 11 LAB CHEMISTRY METHOD 05/26/2024 11:47 AM [facility] Glucose 171(H) 70 - 100 mg/dL LAB CHEMISTRY METHOD 05/26/2024 11:47 AM [facility] BUN 15 5 - 25 mg/dL LAB CHEMISTRY METHOD 05/26/2024 11:47 AM [facility] Creatinine 1.02 0.50 - 1.10 mg/dL LAB CHEMISTRY METHOD 05/26/2024 11:47 AM [facility] eGFR 60 >=60 mL/min/1. 73m2 LAB CHEMISTRY METHOD 05/26/2024 11:47 AM [facility] Comment:Calculation based on the??Chronic Kidney Disease Epidemiology Collaboration (CKD-EPI) equation refit??without adjustment for race. BUN/Creatinine Ratio 14.7 LAB CHEMISTRY METHOD 05/26/2024 11:47 AM [facility] Calcium 9.6 8.5 - 10.5 mg/dL LAB CHEMISTRY METHOD 05/26/2024 11:47 AM [facility] AST (SGOT) 37 10 - 42 unit/L LAB CHEMISTRY METHOD 05/26/2024 11:47 AM [facility] ALT (SGPT) 37 10 - 60 unit/L LAB CHEMISTRY METHOD 05/26/2024 11:47 AM [facility] Alkaline Phosphatase 188(H) 42 - 121 unit/L LAB CHEMISTRY METHOD 05/26/2024 11:47 AM [facility] Total Protein 6.9 6.0 - 8.0 g/dL LAB CHEMISTRY METHOD 05/26/2024 11:47 AM [facility] Albumin 3.4 3.2 - 5.0 g/dL LAB CHEMISTRY METHOD 05/26/2024 11:47 AM EST [facility] Total Bilirubin 0.3 0.0 - 1.4 mg/dL LAB CHEMISTRY METHOD 05/26/2024 11:47 AM EST [facility] Blood Venous blood specimen / Unknown Venipuncture / Unknown 05/26/2024 5:37 AM EST 05/26/2024 9:53 AM EST us Pillo Stapleton MD LAB BLOOD ORDERABLES Final Res ult [facility] [address] [place] [address], documented in this encounter Visit Diagnoses Diagnosis Epilepsy, unspecified, not intractable, without status epilepticus (CMS/HCC) Hyperlipidemia, unspecified Chronic kidney disease, stage 3a (CMS/HCC) documented in this encounter Care Teams Grants Director Relationship Specialty Start Date End Date Jyoti Paris MD [address] [place] [address] PCP - General Internal Medicine 01/17/22 documented as of this encounter
--- OUTSIDE RECORDS SUMMARY | 2024-09-03 13:59 | XMS_ITS | Encounter Summary ---
Author Organization [employer] Address [address] [facility] [address] [place] [address] Care Team Providers Care Salt Washer Harvesting Station Name Role Phone Jyoti Paris MD Primary Care Provider [phone] Encounter Details Date Type Department Care Team (Late st Contact Info) Description 09/03/2023 Telephone [facility]IC[facility] [address] [place] [address] Jyoti Paris MD [address] [place] [address] Social History Tobacco Use Types Packs/Day Years [...] documented as of this encounter Care Teams Salt Washer Harvesting Station Relationship Specialty Start Date End Date Jyoti Paris MD [address] [place] [address] PCP - General Internal Medicine 09/12/15 documented as of this encounter
--- OUTSIDE RECORDS SUMMARY | 2024-09-03 13:59 | XMS_ITS | Continuity of Care Document ---
Author Organization [facility] Address [address] [address] Phone Care Team Providers Care Exploration Engineer Name Role Phone Concepcion Bruno NP Unavailable Unavailable Advance Directives Directive Yes / No Effective Date File Name No Information Encounters Encounter Description Practice Location Reason(s) For Visit Diagnoses Date Provider [facility], [address] [address], [place], [place], [id number], [place] tel:[phone] [address] [place] [address] No Information 2022 Damion Javier. [address] [place] [address], [id number], [place]. tel:[phone] Family History Family Member Type Diagnosis Age [...]
--- OUTSIDE RECORDS SUMMARY | 2024-09-03 13:59 | XMS_ITS | Clinical Summary ---
Author Organization [address] [facility] Address [address] [place] [address] Phone Care Team Providers Care Potato Chip Cooker Machine Name Role Phone Jyoti Paris MD Primary Care Provider [phone] Encounters Date Type Department Care Team Description 08/09/2024 Lab Requisition [facility] - Main Lab 299 [facility] [address] [place] [address] Adilson Buchanan MD Type 2 diabetes mellitus without complications (CMS/HCC) from Last 3 Months Surgical History Surgery Date Site/Laterality Comments COLONOSCOPY PROCEDURE: AR COLONOSCOPY STOMA DX INCLUDING COLLJ SPEC SPX; COMMENT: Small polyp, removed, 05/12 Social History Tobacco Use Types Packs/Day Years [...] on file Sexual Orientation Not on file Obstetrics History Last Filed Vital Signs Vital Sign Reading Time Taken Comments Blood Pressure 109/67 01/17/2022 10:54 AM EDT Pulse 80 01/17/2022 10:54 AM EDT Temperature - - Respiratory Rate - - Oxygen Saturation - - Inhaled Oxygen Concentration - - Weight 78.5 kg (173 lb 0.6 oz) 01/17/2022 10:54 AM EDT Height - - Body Mass Index - - Plan of Treatment Health Maintenance Due Date Last Done Comments Breast Cancer Screening 1956 Diabetes: Annual Foot Exam 1966 Diabetes: Annual Retina Eye Exam 1966 Zoster Vaccines (1 of 2) 2006 Pneumococcal Vaccine: 50+ Years (2 of 2 - PCV) 06/02/2010 06/02/2009 RSV Immunization Patients 60+ Years Old (1 - Risk 60-74 years 1-dose series) 2016 Colorectal Cancer Screening: Colonoscopy 06/05/2022 Falls Risk Assessment 06/05/2022 Hepatitis C Screening 06/05/2022 Osteoporosis Screening (Bone Density Screening) 06/05/2022 Social Influencers of Health Screening 06/05/2022 Depression Screening 08/06/2023 08/06/2022 COVID-19 Vaccine (2 - season) 2024 10/12/2020 Influenza Vaccine (#1) 2024 , 06/11/2021, 04/14/2019, Additional history exists Diabetes: Annual Urine Albumin-Creatinine Ratio (uACR) 05/26/2024 Diabetes: Blood Sugar Control Test (HGBA1C) 11/23/2024 05/26/2024, 08/11/2023 Diabetes: Annual GFR (Glomerular Filtration Rate) 08/09/2025 08/09/2024, 05/26/2024 Hypertension/CHF/CAD Annual BMP Blood Test 08/09/2025 08/09/2024, 05/26/2024 DTaP,Tdap,and Td Vaccines (4 - Td or Tdap) 07/09/2027 07/09/2017, 05/28/2012, 08/04/2009 Cholesterol Screening (Lipid Panel) 08/09/2029 08/09/2024, 05/26/2024, 08/11/2023 HIB Vaccines Aged Out No longer eligi ble based on patient's age to complete this topic HPV Vaccines Aged Out No longer eligi ble based on patient's age to complete this topic Hepatitis A Vaccines Aged Out No long er eligible based on patient's age to complete this topic Hepatitis B Vaccines Aged Out No long er eligible based on patient's age to complete this topic IPV Vaccines Aged Out No longer eligi ble based on patient's age to complete this topic MMR Vaccines Aged Out No longer eligi ble based on patient's age to complete this topic Meningococcal ACWY Vaccine Aged Out N o longer eligible based on patient's age to complete this topic Meningococcal B Vacine Aged Out No lo nger eligible based on patient's age to complete this topic RSV Immunization Patients Under 20 months Aged Out No longer eligible based on patient's age to complete this topic Varicella Vaccines Aged Out No longer eligible based on patient's age to complete this topic Procedures Procedure Name Priority Date/Time Associated Diagnosis Comments THYROID STIMULATING HORMONE Routine 08/09/2024 6:09 AM EST Type 2 diabetes mellitus without complications (CMS/HCC) THYROXINE FREE Routine 08/09/2024 6:09 AM EST Type 2 diabetes mellitus without complications (CMS/HCC) LIPID PANEL WITH REFLEX TO DIRECT LDL Routine 08/09/2024 6:09 AM EST Type 2 diabetes mellitus without complications (CMS/HCC) BASIC METABOLIC PANEL Routine 08/09/2024 6:09 AM EST Type 2 diabetes mellitus without complications (CMS/HCC) HEMOGLOBIN A1C Routine 05/26/2024 5:37 AM EST Epilepsy, unspecified, not intractable, without status epilepticus (CMS/HCC) Hyperlipidemia, unspecified Chronic kidney disease, stage 3a (CMS/HCC) from Last 3 Months or Most Recently Relevant to Health Maintenance Results * (ABNORMAL) Lipid panel with reflex to direct LDL (08/09/2024 6:09 AM EST) Cholesterol 140 0 - 200 mg/dL LAB CHEMISTRY METHOD 08/09/2024 1:36 PM [facility] Triglycerides 118 0 - 150 mg/dL LAB CHEMISTRY METHOD 08/09/2024 1:36 PM [facility] HDL 39(L) >=40 mg/dL LAB CHEMISTRY METHOD 08/09/2024 1:36 PM [facility] LDL Calculated 77 0 - 100 mg/dL LAB CHEMISTRY METHOD 08/09/2024 1:36 PM [facility] VLDL Cholesterol Kishore 23.6 mg/dL LAB CHEMISTRY METHOD 08/09/2024 1:36 PM [facility] Non HDL Chol. (LDL+VLDL) 101 <145 mg/dL LAB CHEMISTRY METHOD 08/09/2024 1:36 PM EST [facility] Chol/HDL Ratio 3.6 0.0 - 4.4 LAB CHEMISTRY METHOD 08/09/2024 1:36 PM EST [facility] Blood Venous blood specimen / Unknown Venipuncture / Unknown 08/09/2024 6:09 AM EST 08/09/2024 11:05 AM EST Adilson Buchanan MD LAB BLOOD ORDERABLES Final Resul t [facility] [address] [place] [address], [place] [phone] * Thyroid stimulating hormone (08/09/2024 6:09 AM EST) TSH 1.38 0.40 - 4.00 mcIU/mL LAB CHEMISTRY METHOD 08/09/2024 1:26 PM EST [facility] Blood Venous blood specimen / Unknown Venipuncture / Unknown 08/09/2024 6:09 AM EST 08/09/2024 11:05 AM EST us Adilson Buchanan MD LAB BLOOD ORDERABLES Final Resul t [facility] [address] [place] [address], [place] [phone] * Thyroxine free (08/09/2024 6:09 AM EST) Free T4 0.81 0.70 - 1.80 ng/dL LAB CHEMISTRY METHOD 08/09/2024 1:25 PM EST [facility] Blood Venous blood specimen / Unknown Venipuncture / Unknown 08/09/2024 6:09 AM EST 08/09/2024 11:05 AM EST us Adilson Buchanan MD LAB BLOOD ORDERABLES Final Resul t [facility] [address] [place] [address], [place] [phone] * (ABNORMAL) Basic metabolic panel (08/09/2024 6:09 AM EST) Sodium 138 133 - 145 mmol/L LAB CHEMISTRY METHOD 08/09/2024 1:36 PM [facility] Potassium 4.4 3.5 - 5.5 mmol/L LAB CHEMISTRY METHOD 08/09/2024 1:36 PM [facility] Chloride 104 96 - 110 mmol/L LAB CHEMISTRY METHOD 08/09/2024 1:36 PM [facility] CO2 28 21 - 32 mmol/L LAB CHEMISTRY METHOD 08/09/2024 1:36 PM [facility] Anion Gap 6 3 - 11 LAB CHEMISTRY METHOD 08/09/2024 1:36 PM [facility] Glucose 108(H) 70 - 100 mg/dL LAB CHEMISTRY METHOD 08/09/2024 1:36 PM [facility] BUN 10 5 - 25 mg/dL LAB CHEMISTRY METHOD 08/09/2024 1:36 PM [facility] Creatinine 0.94 0.50 - 1.10 mg/dL LAB CHEMISTRY METHOD 08/09/2024 1:36 PM [facility] eGFR 67 >=60 mL/min/1. 73m2 LAB CHEMISTRY METHOD 08/09/2024 1:36 PM [facility] Comment:Calculation based on the??Chronic Kidney Disease Epidemiology Collaboration (CKD-EPI) equation refit??without adjustment for race. BUN/Creatinine Ratio 10.6 LAB CHEMISTRY METHOD 08/09/2024 1:36 PM [facility] Calcium 9.8 8.5 - 10.5 mg/dL LAB CHEMISTRY METHOD 08/09/2024 1:36 PM [facility] Blood Venous blood specimen / Unknown Venipuncture / Unknown 08/09/2024 6:09 AM EST 08/09/2024 11:05 AM EST us Adilson Buchanan MD LAB BLOOD ORDERABLES Final Resul t Performing Organization Address [facility]/ZIP Co de Phone Number [facility] [address] [place] [address], [place] [phone] * (ABNORMAL) Hemoglobin A1c (05/26/2024 5:37 AM EST) Hemoglobin A1C 8.2(H) <6.5 % LAB CHEMISTRY METHOD 05/26/2024 1:05 PM EST [facility] Mean Bld Glu Estim. 189 mg/dL LAB CHEMISTRY METHOD 05/26/2024 1:05 PM EST [facility] Blood Venous blood specimen / Unknown 05/26/2024 5:37 AM EST 05/26/2024 9:53 AM EST us Pillo Stapleton MD LAB BLOOD ORDERABLES Final Res ult Performing Organization Address City/[facility]/ZIP Co de Phone Number [facility] [address] [place] [address], [place] [phone] from Last 3 Months or Most Recently Relevant to Health Maintenance Insurance [facility] Member Subscriber Plan / Payer (Ef fective 2024-Present) Name:Maria Esther Lindsay Relation to Subscriber:Self Name:Maria Esther Lindsay Payer ID:[id number] Group ID:[id number] Type:Not on file Address: [place] [address] [address] [address] Advance Directives Documents on File Type Date Recorded Patient Parts Control Clerk Expl anation Health Care Decision (hx) 05/22/2021 AD CHEN DIRECTIVE Health Care Decision (hx) 05/22/2021 AD CHEN DIRECTIVE Health Care Decision (hx) 05/22/2021 AD CHEN DIRECTIVE Health Care Decision (hx) 05/22/2021 AD CHEN DIRECTIVE Health Care Decision (hx) 05/22/2021 AD CHEN DIRECTIVE Health Care Decision (hx) 05/22/2021 AD CHEN DIRECTIVE Health Care Decision (hx) 05/22/2021 AD CHEN DIRECTIVE Health Care Decision (hx) 05/22/2021 AD CHEN DIRECTIVE Health Care Decision (hx) 05/22/2021 AD CHEN DIRECTIVE Health Care Decision (hx) 05/22/2021 AD CHEN DIRECTIVE Health Care Decision (hx) 05/22/2021 AD CHEN DIRECTIVE Health Care Decision (hx) 05/22/2021 AD CHEN DIRECTIVE Health Care Decision (hx) 05/22/2021 AD CHEN DIRECTIVE Health Care Decision (hx) 01/25/2015 AD CHEN DIRECTIVE Health Care Decision (hx) 01/25/2015 AD CHEN DIRECTIVE Health Care Decision (hx) 01/25/2015 AD CHEN DIRECTIVE Health Care Decision (hx) 01/25/2015 AD CHEN DIRECTIVE Health Care Decision (hx) 01/25/2015 AD CHEN DIRECTIVE Health Care Decision (hx) 01/25/2015 AD CHEN DIRECTIVE Health Care Decision (hx) 01/25/2015 AD CHEN DIRECTIVE Health Care Decision (hx) 01/25/2015 AD CHEN DIRECTIVE Health Care Decision (hx) 01/25/2015 AD CHEN DIRECTIVE Health Care Decision (hx) 01/25/2015 AD CHEN DIRECTIVE Health Care Decision (hx) 01/25/2015 AD CHEN DIRECTIVE Health Care Decision (hx) 01/25/2015 AD CHEN DIRECTIVE Health Care Decision (hx) 01/25/2015 AD CHEN DIRECTIVE Health Care Decision (hx) 01/25/2015 AD CHEN DIRECTIVE Health Care Decision (hx) 01/25/2015 AD CHEN DIRECTIVE Health Care Decision (hx) 03/31/2014 AD CHEN DIRECTIVE Health Care Decision (hx) 03/31/2014 AD CHEN DIRECTIVE Health Care Decision (hx) 03/31/2014 AD CHEN DIRECTIVE Health Care Decision (hx) 03/31/2014 AD CHEN DIRECTIVE Health Care Decision (hx) 03/31/2014 AD CHEN DIRECTIVE Health Care Decision (hx) 03/31/2014 AD CHEN DIRECTIVE Health Care Decision (hx) 03/31/2014 AD CHEN DIRECTIVE Health Care Decision (hx) 03/31/2014 AD CHEN DIRECTIVE Health Care Decision (hx) 03/31/2014 AD CHEN DIRECTIVE Health Care Decision (hx) 03/31/2014 AD CHEN DIRECTIVE Health Care Decision (hx) 03/31/2014 AD CHEN DIRECTIVE Health Care Decision (hx) 03/31/2014 AD CHEN DIRECTIVE Health Care Decision (hx) 03/31/2014 AD CHEN DIRECTIVE Health Care Decision (hx) 03/31/2014 AD CHEN DIRECTIVE Health Care Decision (hx) 03/31/2014 AD CHEN DIRECTIVE Health Care Decision (hx) 03/29/2014 AD CHEN DIRECTIVE Health Care Decision (hx) 03/29/2014 AD CHEN DIRECTIVE Health Care Decision (hx) 03/29/2014 AD CHEN DIRECTIVE Health Care Decision (hx) 03/29/2014 AD CHEN DIRECTIVE Health Care Decision (hx) 03/29/2014 AD CHEN DIRECTIVE Health Care Decision (hx) 03/29/2014 AD CHEN DIRECTIVE Health Care Decision (hx) 03/29/2014 AD CHEN DIRECTIVE Health Care Decision (hx) 03/29/2014 AD CHEN DIRECTIVE Health Care Decision (hx) 03/29/2014 AD CHEN DIRECTIVE Health Care Decision (hx) 03/29/2014 AD CHEN DIRECTIVE Health Care Decision (hx) 03/29/2014 AD CHEN DIRECTIVE Health Care Decision (hx) 03/29/2014 AD CHEN DIRECTIVE Health Care Decision (hx) 03/29/2014 AD CHEN DIRECTIVE Health Care Decision (hx) 03/29/2014 AD CHEN DIRECTIVE Health Care Decision (hx) 03/29/2014 AD CHEN DIRECTIVE Health Care Decision (hx) 03/25/2014 AD CHEN DIRECTIVE Health Care Decision (hx) 03/25/2014 AD CHEN DIRECTIVE Health Care Decision (hx) 03/25/2014 AD CHEN DIRECTIVE Health Care Decision (hx) 03/25/2014 AD CHEN DIRECTIVE Health Care Decision (hx) 03/25/2014 AD CHEN DIRECTIVE Health Care Decision (hx) 03/25/2014 AD CHEN DIRECTIVE Health Care Decision (hx) 03/25/2014 AD CHEN DIRECTIVE Health Care Decision (hx) 03/25/2014 AD CHEN DIRECTIVE Health Care Decision (hx) 03/25/2014 AD CHEN DIRECTIVE Health Care Decision (hx) 03/25/2014 AD CHEN DIRECTIVE Health Care Decision (hx) 03/25/2014 AD CHEN DIRECTIVE Health Care Decision (hx) 03/25/2014 AD CHEN DIRECTIVE Health Care Decision (hx) 03/25/2014 AD CHEN DIRECTIVE Health Care Decision (hx) 03/25/2014 AD CHEN DIRECTIVE Health Care Decision (hx) 03/25/2014 AD CHEN DIRECTIVE Health Care Decision (hx) 07/01/2009 AD CHEN DIRECTIVE Health Care Decision (hx) 07/01/2009 AD CHEN DIRECTIVE Health Care Decision (hx) 07/01/2009 AD CHEN DIRECTIVE Health Care Decision (hx) 07/01/2009 AD CHEN DIRECTIVE Health Care Decision (hx) 07/01/2009 AD CHEN DIRECTIVE Health Care Decision (hx) 07/01/2009 AD CHEN DIRECTIVE Health Care Decision (hx) 07/01/2009 AD CHEN DIRECTIVE Health Care Decision (hx) 07/01/2009 AD CHEN DIRECTIVE Health Care Decision (hx) 07/01/2009 AD CHEN DIRECTIVE Health Care Decision (hx) 07/01/2009 AD CHEN DIRECTIVE Health Care Decision (hx) 07/01/2009 AD CHEN DIRECTIVE Health Care Decision (hx) 07/01/2009 AD CHEN DIRECTIVE Health Care Decision (hx) 07/01/2009 AD CHEN DIRECTIVE Health Care Decision (hx) 07/01/2009 AD CHEN DIRECTIVE Health Care Decision (hx) 07/01/2009 AD CHEN DIRECTIVE Care Teams Potato Chip Cooker Machine Relationship Specialty Start Date End Date Jyoti Paris MD [address] [place] [address] PCP - General Internal Medicine 01/17/22
--- OUTSIDE RECORDS SUMMARY | 2024-09-03 13:59 | XMS_ITS | Encounter Summary ---
Author Organization [facility] Address [address] [place] [address] Care Team Providers Care Grinder Set Up Operator Gear Tool Name Role Phone Jyoti Paris MD Primary Care Provider [phone] Encounter Details Date Type Department Care Team (Late st Contact Info) Description 08/09/2024 Lab Requisition [facility] - Main Lab [address] [facility] [place] [address] dAilson Buchanan MD [address] [place] [address] Type 2 diabetes mellitus without complications (CMS/HCC) Social History Tobacco Use Types Packs/Day [...] Type 2 diabetes mellitus without complications (CMS/HCC) THYROID STIMULATING HORMONE Routine 08/09/2024 6:09 AM EST Type 2 diabetes mellitus without complications (CMS/HCC) THYROXINE FREE Routine 08/09/2024 6:09 AM EST Type 2 diabetes mellitus without complications (CMS/HCC) BASIC METABOLIC PANEL Routine 08/09/2024 6:09 AM EST Type 2 diabetes mellitus without complications (CMS/HCC) documented in this encounter Results * Thyroid stimulating hormone (08/09/2024 6:09 AM EST) TSH 1.38 0.40 - 4.00 mcIU/mL LAB CHEMISTRY METHOD 08/09/2024 1:26 PM EST [facility] Blood Venous blood specimen / Unknown Venipuncture / Unknown 08/09/2024 6:09 AM EST 08/09/2024 11:05 AM EST us Adilson Buchanan MD LAB BLOOD ORDERABLES Final Resul t Performing Organization Address [facility]/ZIP Co de Phone Number [facility] [address] [place] [address], [place] [phone] * Thyroxine free (08/09/2024 6:09 AM EST) Pathologist [facility] Free T4 0.81 0.70 - 1.80 ng/dL LAB CHEMISTRY METHOD 08/09/2024 1:25 PM EST [facility] Blood Venous blood specimen / Unknown Venipuncture / Unknown 08/09/2024 6:09 AM EST 08/09/2024 11:05 AM EST us Adilson Buchanan MD LAB BLOOD ORDERABLES Final Resul t Performing Organization Address City/[facility]/ZIP Co de Phone Number [facility] [address] [place] [address], [place] [phone] * (ABNORMAL) Lipid panel with reflex to direct LDL (08/09/2024 6:09 AM EST) Pathologist [facility] Cholesterol 140 0 - 200 mg/dL LAB CHEMISTRY METHOD 08/09/2024 1:36 PM EST [facility] Triglycerides 118 0 - 150 mg/dL LAB CHEMISTRY METHOD 08/09/2024 1:36 PM EST [facility] HDL 39(L) >=40 mg/dL LAB CHEMISTRY METHOD 08/09/2024 1:[address] [facility] LDL Calculated 77 0 - 100 mg/dL LAB CHEMISTRY METHOD 08/09/2024 1:[address] [facility] VLDL Cholesterol Kishore 23.6 mg/dL LAB CHEMISTRY METHOD 08/09/2024 1:[address] [facility] Non HDL Chol. (LDL+VLDL) 101 <145 mg/dL LAB CHEMISTRY METHOD 08/09/2024 1:[address] [facility] Chol/HDL Ratio 3.6 0.0 - 4.4 LAB CHEMISTRY METHOD 08/09/2024 1:[address] [facility] Blood Venous blood specimen / Unknown Venipuncture / Unknown 08/09/2024 6:09 AM EST 08/09/2024 11:05 AM EST Adilson Buchanan MD LAB BLOOD ORDERABLES Final Resul t [facility] [address] [place] [address], * (ABNORMAL) Basic metabolic panel (08/09/2024 6:09 AM EST) Sodium 138 133 - 145 mmol/L LAB CHEMISTRY METHOD 08/09/2024 1:[address] [facility] Potassium 4.4 3.5 - 5.5 mmol/L LAB CHEMISTRY METHOD 08/09/2024 1:[address] [facility] Chloride 104 96 - 110 mmol/L LAB CHEMISTRY METHOD 08/09/2024 1:[address] [facility] CO2 28 21 - 32 mmol/L LAB CHEMISTRY METHOD 08/09/2024 1:[address] [facility] Anion Gap 6 3 - 11 LAB CHEMISTRY METHOD 08/09/2024 1:[address] [facility] Glucose 108(H) 70 - 100 mg/dL LAB CHEMISTRY METHOD 08/09/2024 1:36 PM EST [facility] BUN 10 5 - 25 mg/dL LAB CHEMISTRY METHOD 08/09/2024 1:[address] [facility] Creatinine 0.94 0.50 - 1.10 mg/dL LAB CHEMISTRY METHOD 08/09/2024 1:36 PM EST [facility] eGFR 67 >=60 mL/min/1. 73m2 LAB CHEMISTRY METHOD 08/09/2024 1:[address] [facility] Comment:Calculation based on the??Chronic Kidney Disease Epidemiology Collaboration (CKD-EPI) equation refit??without adjustment for race. BUN/Creatinine Ratio 10.6 LAB CHEMISTRY METHOD 08/09/2024 1:[address] [facility] Calcium 9.8 8.5 - 10.5 mg/dL LAB CHEMISTRY METHOD 08/09/2024 1:36 PM EST [facility] Blood Venous blood specimen / Unknown Venipuncture / Unknown 08/09/2024 6:09 AM EST 08/09/2024 11:05 AM EST us Adilson Buchanan MD LAB BLOOD ORDERABLES Final Resul t [facility] [address] [place] [address], documented in this encounter Visit Diagnoses Diagnosis Type 2 diabetes mellitus without complications (CMS/HCC) documented in this encounter Care Teams Grinder Set Up Operator Gear Tool Relationship Specialty Start Date End Date Jyoti Paris MD [address] [place] [address] PCP - General Internal Medicine 01/17/22 documented as of this encounter
--- OUTSIDE RECORDS SUMMARY | 2024-09-03 13:59 | XMS_ITS | Clinical Summary ---
Author Organization [employer] Address [address] [facility] 7t [place] [address] Care Team Providers Care Account Director Name Role Phone Jyoti Paris MD Primary Care Provider [phone]- [phone] Allergies Active Allergy Reactions Criticality Noted Date Comments Metoclopramide 03/25/2023 Other reaction(s): VIOLENCE Phenytoin 10/16/2015 Medications lamoTRIgine (LaMICtal) 200 MG tablet 07/04/20 22 Active FreeStyle lancets USE TO CHECK BLOOD GLUCOSE FOUR TIMES DAILY 05/10/20 22 Active prazosin (Minipress) 1 MG capsule take 1 capsule by oral route every day 04/17/20 22 Active melatonin 5 MG tablet Take 1 tablet by mouth at bedtime. 07/09/19 23 Active cholecalciferol (Vitamin D3) 25 MCG (1000 UT) tabletIndication s:Vitamin D deficiency 25 mcg once a day 30 tablet 11 08/07/19 23 Active senna (Senokot) 8.6 MG tabletIndication s:Constipation, unspecified constipation type Take 1 tablet (8.6 mg) by mouth in the morning. 120 tablet 2 09/24/19 23 Active famotidine (Pepcid) 20 MG tablet TAKE 1 TABLET BY MOUTH TWICE DAILY 60 tablet 11 10/23/19 23 Active HumaLOG KWIKPEN 100 UNIT/ML injection INJECT 4 TO 16 UNITS SUBCUTANEOUSLY THREE TIMES DAILY PER SLIDING SCALE PROTOCOL 15 mL 3 12/28/19 23 Active Continuous Blood Gluc Water Resource Engineer (FreeStyle Jordan 2 [place]) device To use daily 1 each 01/01/20 23 Active Continuous Blood Gluc Sensor (FreeStyle Jordan 2 Sensor) misc To use daily 2 each 11 01/01/20 23 Active B-D ULTRAFINE III SHORT PEN 31G X 8 MM misc USE DIRECTED TO INJECT INSULIN FOUR TIMES DAILY 100 each 11 02/05/20 23 Active FREESTYLE LITE test strip USE 1 BY SKIN ROUTE 4 TIMES EVERY DAY 150 strip 02/05/20 23 Active traZODone (Desyrel) 100 MG tablet Take 4 tablets by mouth at bedtime. 12/14/19 23 Active docusate sodium (Colace) 100 MG capsule TAKE 1 CAPSULE BY MOUTH EVERY MORNING AND EVERY NIGHT AT BEDTIME NEEDED FOR CONSTIPATION 02/25/20 23 Active Incruse Ellipta 62.5 MCG/ACT aerosol powder INHALE 1 PUFF BY MOUTH AT THE SAME TIME EVERY DAY 30 each 3 06/02/20 23 Active chlorproMAZINE (Thorazine) 50 MG tablet Take 1.5 tablets 2 times a day 08/03/19 24 Active QUEtiapine (SEROquel) 100 MG tablet Take 1 tablet by mouth at bedtime. 08/03/19 24 Active venlafaxine XR (Effexor XR) 37.5 MG 24 hr capsule TAKE 1 CAPSULE BY MOUTH EVERY MORNING FOR DEPRESSION 07/06/20 23 Active pantoprazole (ProtoNix) 20 MG EC tablet TAKE 1 TABLET BY MOUTH EVERY DAY 30 tablet 5 08/22/19 24 Active hydroCHLOROthiaz shashank (HYDRODiuril) 12.5 MG tabletIndication s:Benign hypertension TAKE 1 TABLET(12.5 MG) BY MOUTH IN THE MORNING 30 tablet 5 08/22/19 24 Active atorvastatin (Lipitor) 40 MG tabletIndication s:Hypercholester olemia Take 1 tablet (40 mg) by mouth in the morning. 30 tablet 08/14/19 24 Active tiotropium (Spiriva HandiHaler) 18 MCG inhalation capsuleIndicatio ns:Simple chronic bronchitis (CMS/HCC) Place 1 capsule (18 mcg) into inhaler and inhale in the morning. 30 capsule 09/18/19 24 025 Active lidocaine (Xylocaine) 5 % ointmentIndicati ons:Rib pain on right side Apply topically if needed for mild pain. 50 g 09/22/19 24 025 Active nicotine (Nicoderm CQ) 7 MG/24HR patchIndications :Smoking Place 1 patch on the skin 1 (one) time each day at the same time. 30 patch 09/22/19 24 Active nicotine (Nicoderm CQ) 7 MG/24HR patchIndications :Smoking Place 1 patch on the skin 1 (one) time each day at the same time. 30 patch 09/22/19 24 Active linaGLIPtin (Tradjenta) 5 MG tabletIndication s:Type 2 diabetes mellitus with hyperglycemia, with long-term current use of insulin (CMS/HCC) Take 1 tablet (5 mg) by mouth in the morning. 30 tablet 11 10/08/19 24 025 Active gemfibrozil (Lopid) 600 MG tabletIndication s:Hypercholester olemia Take 1 tablet (600 mg) by mouth before breakfast and before evening meal. 60 tablet 11 10/08/19 24 025 Active insulin glargine (Lantus) 100 UNIT/ML injectionIndicat ions:Type 2 diabetes mellitus with hyperglycemia, with long-term current use of insulin (CMS/HCC) Inject 64 Units under the skin in the morning. 18 mL 11 10/30/19 24 025 Active levETIRAcetam (Keppra) 250 MG tabletIndication s:Seizure (CMS/HCC) TAKE 1 TABLET(250 MG) BY MOUTH TWICE DAILY 60 tablet 3 11/10/19 24 Active Ostomy Supplies (Skin Prep [place]) miscIndications: Type 2 diabetes mellitus with hyperglycemia, with long-term current use of insulin (CMS/HCC) To use prior to applying the sensor 2 times a month. 118 mL 11/20/19 24 Active Active Problems Problem Noted Date Diagnosed Date Multiple closed fractures of ribs of right side 09/04/2023 Assessment & Plan (09/04/2023 1:06 PM EST): Reviewed ED note from 08/28, she had multiple R sided rib fractures sp fall from bed. Reports she is getting appropriate pain control with medications rx'ed in this hospital but was given limited supply of oxycodone. Reports pain relief can last from 8-12 hours after dose of med, will send 14 day supply and schedule f/up with PCP to discuss if there is further need for this medication. Discussed addiction potential and side effects of medication. Hypertensive kidney disease, stage III 2 Post-acute COVID-19 syndrome 08/07/2021 Benign hypertension 10/16/2020 Seizure 10/30/2017 Chronic obstructive pulmonary disease 09/12/2015 Diabetes mellitus 09/12/2015 Hypercholesterolemia 09/12/2015 Mood disorder 09/12/2015 Immunizations Name Administration Dates Next Due Influenza injectable quadriv alent IIV4 with preservative 04/14/2019,03/26/2018 Influenza injectable quadriv alent preservative free 03/12/2023,06/11/2021 Influenza, seasonal, injecta ble, preservative free 04/02/2017,03/25/2016 Moderna Covid-19 Vaccine 12+ 10/12/2020 Pneumococcal Polysaccharide PPSV23 06/02/2009 Tdap 07/09/2017,05/28/2012,08/04/2009 Social History Tobacco Use Types Packs/Day Years Used Date Smoking Tobacco: Every Day Cigarettes Passive Smoke Exposure: Current Smokeless Tobacco: Never Tobacco Cessation:Ready to Q uit: Not Asked Alcohol Use Standard Drinks/Week Comments Defer 0 [...] not to disclose 2021 10:17 AM EDT Last Filed Vital Signs Vital Sign Reading Time Taken Comments Blood Pressure 125/72 09/22/2023 10:37 AM EDT Pulse 94 09/22/2023 10:37 AM EDT Temperature 36.2 ??C (97.1 ??F) 09/22/2023 10:37 AM E DT Respiratory Rate 20 09/22/2023 10:37 AM EDT Oxygen Saturation 96% 09/22/2023 10:37 AM EDT Inhaled Oxygen Concentration - - Weight 81.2 kg (179 lb) 09/22/2023 10:37 AM EDT Height 152.4 cm (5') 09/22/2023 10:37 AM EDT Body Mass Index 34.96 09/22/2023 10:37 AM EDT Plan of Treatment Health Maintenance Due Date Last Done Comments CT Colonography 1956 Colonoscopy 1956 Colorectal Cancer Screening 1956 Dental Prophylaxis 1956 FIT DNA/Cologuard 1956 FIT 1956 FOBT 1956 Sigmoidoscopy 1956 Diabetes: Foot Exam 1966 Eye Exam 1966 Alcohol/Substance Use Screening 1968 Hepatitis C Screening 1974 Diabetes: Urine Protein Screening 09/28/1975 Mammogram 1996 Zoster Vaccines (1 of 2) 2006 Pneumococcal Vaccine: 50+ Years (2 of 2 - PCV) 06/02/2010 06/02/2009 RSV Patients and Patients Aged 60 years or older (1 - Risk 60-74 years 1-dose series) 2016 Dental Oral Exam 07/03/2023 12/31/2022 Depression Screening 08/06/2023 08/06/2022, 08/06/19 23 Diabetes: Hemoglobin A1C 11/09/2023 024, 02/05/2023, 11/08/2022, Additional history exists Dental X-Ray: Bitewings 01/02/2024 12/31/2022 SDOH Screening 02/04/2024 02/03/2023 COVID-19 Vaccine ( season) 2024 10/12/2020, 09/15/2020 Influenza Vaccine (#1) 2024 3, 06/11/2021, 04/14/2019, Additional history exists Lipid Panel 08/11/2024 08/11/2023 Tobacco Screening 09/21/2024 09/22/2023 Dental X-Ray: Full Mouth 01/01/2026 12/31/2022 DTaP/Tdap/Td Vaccines (4 - Td or Tdap) 07/09/2027 07/09/2017, 05/28/2012, 08/04/2009 Cervical Cancer Screening Discontinued HPV/Cotest Discontinued 04/22/2017 HIB Vaccines Aged Out No longer eligi [...] patient's age to complete this topic Meningococcal Vaccine Aged Out No ramana rajan eligible based on patient's age to complete this topic Pap Smear Discontinued RSV under 20 months Aged Out No longe r eligible based on patient's age to complete this topic Rotavirus Vaccines Aged Out No longer eligible based on patient's age to complete this topic Procedures Procedure Name Priority Date/Time Associated Diagnosis Comments LIPID PANEL, STANDARD Routine 08/11/2023 2:07 PM EST Benign hypertension Hypercholesterolem ia POCT GLYCATED HEMOGLOBIN, TOTAL Routine 08/11/2023 1:21 PM EST Type 2 diabetes mellitus with hyperglycemia, with long-term current use of insulin ([facility]) INTRAORAL - COMPLETE SERIES OF RADIOGRAPHIC IMAGES Routine 12/31/2022 1:00 PM EDT COMPREHENSIVE ORAL EVALUATION - NEW OR ESTABLISHED PATIENT Routine 12/31/2022 1:00 PM EDT ZZZ HISTORICAL HPV MRNA E6/E7 Routine 04/22/2017 10:50 AM EDT from Last 3 Months or Most Recently Relevant to Health Maintenance Results * (ABNORMAL) Lipid Panel, Standard (08/11/2023 2:07 PM EST) Triglycerides 185(H) <150 mg/dL [facility] Comment:Desirable Triglyceri de: less than 150 mg/dLBorderline High Triglyceride 150-199 mg/dLHigh Triglyceride: 200-499 mg/dLVery High Triglyceride: greater than or equal to 5OO mg/dL Cholesterol 249(H) <200 mg/dL [facility] Comment:Desirable Cholestero l: less than 200 mg/dLBorderline High Cholesterol: 200-239 mg/dLHigh Cholesterol: greater than 239 mg/dL LDL Cholesterol Calculated 175(H) <100 mg/dL [facility] Comment:Desirable LDL: less than 100 mg/dLNear Optimal/Above Optimal LDL: 110- 129 mg/dLBorderline High LDL: 130-159 mg/dLHigh LDL: 160-189 mg/dLVery High LDL: greater than or equal to 190 mg/dL HDL Cholesterol 37(L) >40 mg/dL [facility] Comment:Desirable HDL: great er than 40 mg/dL Note: This HDL assay may give artificially low results in patients with liver disease. Blood Venous blood specimen / Unknown 08/11/2023 2:07 PM EST 08/11/2023 2:47 PM EST us Jyoti Paris MD LAB BLOOD ORDERABLES Final Result [facility] [address] [place] [phone] * (ABNORMAL) POCT A1C (08/11/2023 1:21 PM EST) Hemoglobin A1C 8.7(A) 4.0 - 6.0 % Comment:controls valid QC Media Lot # Comment:[id number] Lot# Expiration Date Comment:03/24/2025 Blood 08/11/2023 1:21 PM EST Jyoti Paris MD POINT OF CARE TEST ENTER/ED IT ORDERABLES Final Result * HPV mRNA E6/E7 (04/22/2017 10:50 AM EDT) HPV mRNA E6/E7 Not Detected NOT DETECTED [facility] Comment: This test was performed using the APTIMA(R) HPV Assay ([employer] This assay detects E6/E7 viral messenger RNA (mRNA) from 14 high-risk HPV types (16,18,31,33,35,39,45,51, 52,56,58,59,66,68). For additional information please refer to: http://education.[employer]/faq/JLD487i0 (This link is being provided for informational/ educational purposes only.) Test Performed by agreement24 [email or web address], [employer] [facility], [address] [place] [address] Marco Antonio Davis M.D., Ph.D., Director of Laboratories , [facility] [id number] Please note: ??Effective 03/18/2016, HPV testing will be performed using [employer]'s APTIMA test which targets mRNA. Detecting mRNA instead of DNA, as in older methods, offers significant improvements in specificity. 04/22/2017 10:5 0 AM EDT us Vanessa Chan CNM HISTORICAL/NON ORDERABLE LABS Final Result [facility] [address] from Last 3 Months or Most Recently Relevant to Health Maintenance Insurance [facility] STANDARD MEDICARE DENTAL-[facility] MEDICAID STAND ADULT Care Teams Account Director Relationship Specialty Start Date End Date Jyoti Paris MD [address] [place] [id number] PCP - General Internal Medicine 09/12/15
--- OUTSIDE RECORDS SUMMARY | 2024-09-03 13:59 | XMS_ITS | Encounter Summary ---
Author Organization [facility] Address [address] [place] [address] Phone Care Team Providers Care Fire Watcher Name Role Phone Jyoti Paris MD Primary Care Provider Encounter Details Date Type Department Care Team (Late st Contact Info) Description 10/17/2021 Documentation Only [facility], [address] [address] Jyoti Paris MD [address] [place], [place] [phone] Social History Tobacco Use Types Packs/Day Years [...] on filedocumented in this encounter Care Teams Fire Watcher Relationship Specialty Start Date End Date Jyoti Paris MD PCP - General Internal Medicine 10/17/21 documented as of this encounter
--- OUTSIDE RECORDS SUMMARY | 2024-09-03 13:59 | XMS_ITS | Encounter Summary ---
Author Organization [employer] Address [address] [facility] [address] 7t [place] [address] Care Team Providers Care Radiological Health Specialist Name Role Phone Jyoti Paris MD Primary Care Provider [phone] Encounter Details Date Type Department Care Team (Latest Contact Info) Description 08/14/2023 Orders Only [facility] MED & PEDS [address] [place], [place] [phone] Jyoti Paris MD [address] [place], [place] [phone] Hypercholesterolemia (Primary Dx) Social History Tobacco Use Types [...] as of this encounter Visit Diagnoses Diagnosis Hypercholesterolemia- Primary Pure hypercholesterolemia documented in this encounter Additional Health Concerns Assessment Noted Time PHQ-9 Depression Total Score: 0 08/06/19 23 1:19 PM EST documented as of this encounter Care Teams Radiological Health Specialist Relationship Specialty Start Date End Date Jyoti Paris MD [address] [place] [id number] PCP - General Internal Medicine 09/12/15 documented as of this encounter
--- OUTSIDE RECORDS SUMMARY | 2024-09-03 13:59 | XMS_ITS | Encounter Summary ---
Author Organization [employer] Address [address] [facility] 7t [place] [address] Care Team Providers Care Four H Club Agent Name Role Phone Jyoti Paris MD Primary Care Provider [phone] Encounter Details Date Type Department Care Team ([facility] st Contact Info) Description 10/28/2023 Orders Only [facility] CHC MED & PEDS [address] [place], [place] [phone] Jyoti Paris MD [address] [place], [place] [phone] Social History Tobacco Use Types Packs/Day Years [...] t he electric, gas, oil or water [employer] threatened to shut off services in your [...] documented as of this encounter Care Teams Four H Club Agent Relationship Specialty Start Date End Date Jyoti Paris MD [address] [place] [phone] PCP - General Internal Medicine 09/12/15 documented as of this encounter
--- OUTSIDE RECORDS SUMMARY | 2024-09-03 13:59 | XMS_ITS | Encounter Summary ---
Author Organization [email or web address] Address [address] [facility] 7t [place] [address] Care Team Providers Care Rn Immunology Name Role Phone Jyoti Paris MD Primary Care Provider [phone] Encounter Details Date Type Department Care Team ([facility] st Contact Info) Description 11/20/2023 Orders Only [facility] MED & PEDS [address] [place], [place] [phone] Jyoti Paris MD [address] [place], [place] [phone] Type 2 diabetes mellitus with hyperglycemia, with long-term current use of insulin ([facility]) (Primary Dx) Social History Tobacco Use Types [...] as of this encounter Visit Diagnoses Diagnosis Type 2 diabetes mellitus with hyperglycemia, with long-term current use of insulin ([facility])- Primary documented in this encounter Additional Health Concerns Assessment Noted Time PHQ-9 Depression Total Score: 0 08/06/19 23 1:19 PM EST documented as of this encounter Care Teams Rn Immunology Relationship Specialty Start Date End Date Jyoti Paris MD [address] [place] [phone] PCP - General Internal Medicine 09/12/15 documented as of this encounter
--- OUTSIDE RECORDS SUMMARY | 2024-09-03 13:59 | XMS_ITS | Encounter Summary ---
Author Organization [employer] [facility] Address [address] [place] [address] 7 [place] [address] Care Team Providers Care Lace Sewer Name Role Phone Jyoti Paris MD Primary Care Provider [phone]- [phone] Reason for Visit * Reason Onset Date Comments Nurse Triage 02/05/2023 Encounter Details Date Type Department Care Team ([facility] st Contact Info) Description 02/05/2023 Telephone [facility] MED & PEDS [address] [place], [place] [phone] Jyoti Paris MD 505 [place] [address] Nurse Triage Social History Tobacco Use Types [...] encounter Miscellaneous Notes * Telephone Encounter - Peg Azar RN - 02/05/2023 12:49 PM EDT Triage call with Graze Ski Maker Id [id number] Pt son FRANCESCA Abel, takes call. Son reports Pt has increased confusion and incontinence of urine. Pt was seen in ED [facility] 01/30-01/31. Pt didn't have a UTI at that time. Pt is unable to hold urine and has become incontinent recently. Neg for burning with urination. Blood sugar this morning was reported as 408 and visiting nurse gave sliding scale insulin as ordered. Son is concerned that Pt could be having UTI with these symptoms. Advised to come to [facility] today to be seen by provider. 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 Pt does have an apt with Dr. Paris coming up 02/13/23 for follow up Ed visit. Protocol Used: Urinary Symptoms (Adult) Protocol-Based Disposition: See in Office or Video Visit Today Positive Triage Question: * Can't control passage of urine (i.e., urinary incontinence) and new-onset (< 2 weeks) or worsening * All higher-acuity triage questions were negative Care Advice Discussed: * Reasons To Call Back - Fever occurs - Pain or burning with urination - Unable to urinate and bladder feels full - You become worse * Telephone Encounter - Marielle Carlson - 02/05/2023 11:55 AM EDT Symptom: Urination Pain Outcome: Schedule a same-day appointment or talk to a nurse or provider today Reason: Caller denied all higher acuity questions The caller accepted this outcome documented in this encounter Plan of Treatment Not on file documented as of this encounter Visit Diagnoses Not on filedocumented in this encounter Additional Health Concerns Assessment Noted Time PHQ-9 Depression Total Score: 0 08/06/19 23 1:19 PM EST documented as of this encounter Care Teams Lace Sewer Relationship Specialty Start Date End Date Jyoti Paris MD [address] [place] [address] PCP - General Internal Medicine 09/12/15 documented as of this encounter
--- OUTSIDE RECORDS SUMMARY | 2024-09-03 13:59 | XMS_ITS | Encounter Summary ---
Author Organization [employer] Address [address] [facility] 7t [place] [address] Care Team Providers Care Customer Support Associate Name Role Phone Jyoti Paris MD Primary Care Provider [phone]- [phone] Reason for Visit * Reason Onset Date Comments Medication Question 10/10/2022 Encounter Details Date Type Department Care Team (Late st Contact Info) Description 10/10/2022 Telephone [facility] [address] [place] [address] Jyoti Paris MD [address] [place] [phone] Medication Question Social History Tobacco Use Types Packs/Day Years [...] encounter Miscellaneous Notes * Telephone Encounter - Rebeca Wilkerson RN - 10/10/2022 2:12 PM EDT Return call placed to [facility] nurse. Spoke with her who states new Rx for colace states 1 tab BIDbut it is suppose to be 2 tabs BID PRN. Please see instructions in [employer]. Will forward message to PCP * Telephone Encounter - Loy Bryan - 10/10/2022 1:49 PM EDT Tc from [facility] requesting a call back regarding pt medication colace 100 mg Please contact [facility] at [phone] documented in this encounter Plan of Treatment Not on file documented as of this encounter Visit Diagnoses Not on filedocumented in this encounter Additional Health Concerns Assessment Noted Time PHQ-9 Depression Total Score: 0 08/06/19 23 1:19 PM EST documented as of this encounter Care Teams Customer Support Associate Relationship Specialty Start Date End Date Jyoti Paris MD [address] [place] [phone] PCP - General Internal Medicine 09/12/15 documented as of this encounter
== END 2024-09-03 16:33 | disposition home or self-care (01) ==
PROVIDERS: Visit Provider Nurse Practitioner Adult Health
DX: E11.9 Type 2 diabetes mellitus without complications (principal)
CPT/HCPCS: 99214; G2211

== ENCOUNTER → 2024-09-03 11:39 | Outpatient (BNVA) | payer OTHER, SELFPAY | PROVIDERS: Visit Provider Nurse Practitioner Adult Health | DX: E11.9 Type 2 diabetes mellitus without complications (principal); Z79.4 Long term (current) use of insulin | CPT/HCPCS: 82947; 99212 ==

== ENCOUNTER 2024-10-12 09:26 | Outpatient (REF) | payer OTHER, SELFPAY ==
--- OUTSIDE RECORDS SUMMARY | 2024-10-12 10:34 | XMS_ITS | Encounter Summary ---
Author Organization [employer] Address [address] [facility] 7t [place] [address] Care Team Providers Care Acoustical Tile Patternmaker Name Role Phone Jyoti Prais MD Primary Care Provider [phone] Encounter Details Date Type Department Care Team ([facility] st Contact Info) Description 10/28/2023 Orders Only [facility] MED & PEDS [address] [place], [place] [phone] Jyoti Paris MD [address] [place], [place] [phone] Social History Tobacco Use Types Packs/Day Years [...] t he electric, gas, oil or water [employer] threatened to shut off services in your [...] documented as of this encounter Care Teams Acoustical Tile Patternmaker Relationship Specialty Start Date End Date Jyoti Paris MD [address] [place] [id number] PCP - General Internal Medicine 09/12/15 documented as of this encounter
--- OUTSIDE RECORDS SUMMARY | 2024-10-12 10:34 | XMS_ITS | Encounter Summary ---
Author Organization [employer] Address [address] [facility] 7t [place] [address] Care Team Providers Care Parts Counter Sales Person Name Role Phone Jyoti Paris MD Primary Care Provider [phone] Encounter Details Date Type Department Care Team ([facility] st Contact Info) Description 11/20/2023 Orders Only [facility] MED & PEDS [address] [place], [place] [phone] Jyoti Paris MD [address] [place], [place] [phone] Type 2 diabetes mellitus with hyperglycemia, with long-term current use of insulin ([facility]) (Primary Dx) Social History Tobacco Use Types [...] hyperglycemia, with long-term current use of insulin ([facility])- Primary documented in this encounter Additional Health Concerns Assessment Noted Time PHQ-9 Depression Total Score: 0 08/06/19 23 1:19 PM EST documented as of this encounter Care Teams Parts Counter Sales Person Relationship Specialty Start Date End Date Jyoti Paris MD [address] [place] [phone] PCP - General Internal Medicine 09/12/15 documented as of this encounter
--- OUTSIDE RECORDS SUMMARY | 2024-10-12 10:34 | XMS_ITS | Encounter Summary ---
Author Organization [employer] Address [address] [facility] 7t [place] [address] Care Team Providers Care Infectious Waste Technician Name Role Phone Jyoti Paris MD Primary Care Provider [phone] Encounter Details Date Type Department Care Team ([facility] st Contact Info) Description 09/18/2023 Orders Only [facility] MED & PEDS [address] [place], [place] [phone] Jyoti Paris MD [address] [place], [place] [phone] Simple chronic bronchitis (CMS/HCC) (Primary Dx) Social [...] documented as of this encounter Care Teams Infectious Waste Technician Relationship Specialty Start Date End Date Jyoti Paris MD [address] [place] [phone] PCP - General Internal Medicine 09/12/15 documented as of this encounter
--- OUTSIDE RECORDS SUMMARY | 2024-10-12 10:34 | XMS_ITS | Encounter Summary ---
Author Organization [employer] Address [address] [facility] 7t [place] [address] Care Team Providers Care Radiologic Technologist Chief Name Role Phone Jyoti Paris MD Primary Care Provider [phone] Reason for Visit * Reason Onset Date Comments Nurse Triage 10/07/2023 Encounter Details Date Type Department Care Team ([facility] st Contact Info) Description 10/07/2023 Telephone [facility] MED & PEDS [address] [place], [place] [phone] Jyoti Paris MD [address] [place] [address] Nurse Triage Social History Tobacco Use Types [...] daily [phone]. Please follow with Janae at [phone]. Protocol Used: Information Only Call - No [...] JEFERSON Cardoso would like a call back [phone]. documented in this encounter Plan of Treatment Not on file documented as of this encounter Visit Diagnoses Not on filedocumented in this encounter Additional Health Concerns Assessment Noted Time PHQ-9 Depression Total Score: 0 08/06/19 23 1:19 PM EST documented as of this encounter Care Teams Radiologic Technologist Chief Relationship Specialty Start Date End Date Jyoti Paris MD [address] [place] [address] PCP - General Internal Medicine 09/12/15 documented as of this encounter
--- OUTSIDE RECORDS SUMMARY | 2024-10-12 10:35 | XMS_ITS | Encounter Summary ---
Author Organization [facility] Address [address] [place] [address] Phone Care Team Providers Care Etiquette Teacher Name Role Phone Jyoti Paris MD Primary Care Provider [phone]- [phone] Encounter Details Date Type Department Care Team (Late st Contact Info) Description 10/17/2021 Documentation Only [facility], [address] [place] [address] Jyoti Paris MD [address] [place], [place] [phone] Social History Tobacco Use Types Packs/Day Years [...] on filedocumented in this encounter Care Teams Etiquette Teacher Relationship Specialty Start Date End Date Jyoti Paris MD PCP - General Internal Medicine 10/17/21 documented as of this encounter
--- OUTSIDE RECORDS SUMMARY | 2024-10-12 10:35 | XMS_ITS | Encounter Summary ---
Author Organization [employer] [facility] Address [address] [facility] [address] [place] [address] Care Team Providers Care Medical Coding Technician Name Role Phone Jyoti Paris MD Primary Care Provider [phone]- [phone] Reason for Visit * Reason Onset Date Comments Appointment Request 07/15/2022 Encounter Details Date Type Department Care Team (Late st Contact Info) Description 07/15/2022 Telephone [facility] MEDICINE [address] [place] [address] Joyti Paris MD [address] [place] [address] [phone] Appointment Request Social History Tobacco Use Types [...] summary in chart.) Please contact son at [phone] documented in this encounter Plan of Treatment Not on file documented as of this encounter Visit Diagnoses Not on filedocumented in this encounter Care Teams Medical Coding Technician Relationship Specialty Start Date End Date Jyoti Paris MD [address] [place] [address] PCP - General Internal Medicine 09/12/15 documented as of this encounter
--- OUTSIDE RECORDS SUMMARY | 2024-10-12 10:35 | XMS_ITS | Encounter Summary ---
Author Organization [employer] Address [address] [facility] 7[address] [place] [address] Care Team Providers Care Charter Coach Driver Name Role Phone Jyoti Paris MD Primary Care Provider [phone]- [phone] Encounter Details Date Type Department Care Team (Late st Contact Info) Description 09/06/2022 Orders Only [facility] MED & PEDS [address] [place], [place] [phone] Jyoti Paris MD [address] [place], [place] [phone] Type 2 diabetes mellitus with hyperglycemia, with long-term current use of insulin (CMS/[facility]) Social History Tobacco Use Types [...] EDT 02/06/2023 11:41 AM EDT Comment:UACC Narrative [facility] - 02/07/2023 12:58 PM EDT Urine Culture Report Result Urine Culture < 10,000 cfu/ml Specimen Source: Urine clean catch Quiana Iglesias ART COORDINATOR LAB MICROBIOLOGY - GENERAL ORD ERABLES Final Result [facility] [address] [place] [address] [phone] documented in this encounter Visit Diagnoses Diagnosis Type 2 diabetes mellitus with hyperglycemia, with long-term current use of insulin ([facility]) documented in this encounter Additional Health Concerns Assessment Noted Time PHQ-9 Depression Total Score: 0 08/06/19 23 1:19 PM EST documented as of this encounter Care Teams Charter Coach Driver Relationship Specialty Start Date End Date Jyoti Paris MD [address] [place] [address] PCP - General Internal Medicine 09/12/15 documented as of this encounter
--- OUTSIDE RECORDS SUMMARY | 2024-10-12 10:35 | XMS_ITS ---
Author Organization [facility] Care Team Providers Care Agents' Records Clerk Name Role Phone Rebeca Ariza Unavailable Unavailable Adilson Buchanan Unavailable Unavailable Kimmie Evangelista Unavailable Unavailable Edmond Palmer Unavailable Unavailable Allergies and adverse reactions Code CodeSystem Substance Reaction Severity StartDate Concern Status 8183 RXNORM Phenytoin Unknown 06/28/2022 active 6915 RXNORM Metoclopramide Unknown 06/28/2022 active Care Team Name Role Address Phone Organization Dates Adilson Buchanan PCP [address] [facility] [address], [place], [address], [facility] (Office): [facility] 06/28/2022 - 07/07/2022 Rebeca Ariza Attending Physician [address] [facility] [address], [place], [address], [place] (Office): [facility] 06/28/2022 - 07/07/2022 Kimmie Evangelista Attending Physician [address] [facility] [address], [place], [address], [place] (Office): [facility] 06/28/2022 - 07/07/2022 Edmond Palmer Attending Physician [address] [place], [address], [facility] (Office): [facility] 06/28/2022 - 07/07/2022 Mental Status Section Date Assessment Total Score Description 07/07/2022 CAM 0 No delirium ind icated 07/04/2022 BIMS 13 cognitively int act CAM 0 No delirium ind icated Problems Problem # Description Date of onset Resolved Date Code CodeSystem Concern Status 1 ACUTE KIDNEY FAILURE, UNSPECIFIED [address] active 2 BIPOLAR DISORDER, UNSPECIFIED [address] active 3 BODY MASS INDEX [BMI]30.0-30.9, ADULT [address] active 4 CHRONIC KIDNEY DISEASE, STAGE 3A [address] active 5 CHRONIC OBSTRUCTIVE PULMONARY DISEASE, UNSPECIFIED [address] active 6 DIFFICULTY IN WALKING, NOT ELSEWHERE CLASSIFIED [address] active 7 DYSPHAGIA, UNSPECIFIED [address] active 8 ESSENTIAL (PRIMARY) HYPERTENSION [address] active 9 FATTY (CHANGE OF) LIVER, NOT ELSEWHERE CLASSIFIED [address] active 10 GASTRO-ESOPHAGEAL REFLUX DISEASE WITHOUT ESOPHAGITIS [address] active 11 HYPERLIPIDEMIA, UNSPECIFIED [address] active 12 HYPO-OSMOLALITY AND HYPONATREMIA [address] active 13 INSOMNIA, UNSPECIFIED [address] active 14 METABOLIC ENCEPHALOPATHY [address] active 15 MUSCLE WEAKNESS (GENERALIZED) [address] active 16 NON-ST ELEVATION (NSTEMI) MYOCARDIAL INFARCTION [address] active 17 OTHER SEIZURES [address] active 18 OTHER TOXIC ENCEPHALOPATHY [address] active 19 PNEUMONIA, UNSPECIFIED ORGANISM [address] active 20 SCHIZOAFFECTIVE DISORDER, BIPOLAR TYPE [address] active 21 SEPSIS, UNSPECIFIED ORGANISM [address] active 22 SPLENOMEGALY, NOT ELSEWHERE CLASSIFIED [address] active 23 TYPE 2 DIABETES MELLITUS WITH OTHER SPECIFIED COMPLICATION [address] active 24 UNSPECIFIED DEMENTIA, UNSPECIFIED SEVERITY, WITH OTHER BEHAVIORAL DISTURBANCE [address] active 25 UNSPECIFIED FALL, SEQUELA [address] active 26 UNSTEADINESS ON FEET [address] active Reason for Referral No Reasons for Referral Entered Social History Social History Observation Description Start Date End Date Code Code System Current Smoking Status Tobacco smoking consumption unknown 587517752 SNOMED CT Sex Assigned At Female 1955 18703-4 [facility] Vital Signs Code Code System Vitals Name Values and Units Timing Information 8310-5 [facility] Body Temperature Value=97.5 Units=?? F 07/07/2022 9279-1 [facility] Respiratory Rate Value=18.0 Units=/m in 07/07/2022 8462-4 [facility] Blood Pressure-Diastolic Value=64 Un its=mmHg 07/07/2022 8480-6 [facility] Blood Pressure-Systolic Hqapz=513 Un its=mmHg 07/07/2022 8867-4 INC Heart rate Value=62.0 Units=/min 07/2022 32753-7 [facility] Pain Level Value=0.0 07/07/2022 2339-0 [facility] Blood Sugar Rwlxs=638.0 Units=mg/dL 07/07/2022 8302-2 LO[facility] Height Value=64.0 Units=Inches 07/05/2022 79368-7 [facility] Weight Meheg=804.6 Units=Lbs 18132-7 [facility] O2 % BldC Oximetry Value=96.0 Units= % 07/03/2022
--- OUTSIDE RECORDS SUMMARY | 2024-10-12 10:35 | XMS_ITS | Continuity of Care Document ---
Author Organization [facility] Address [address] [address] Phone Care Team Providers Care Mechanical Maintenance Foreman Name Role Phone Concepcion Bruno NP Unavailable Unavailable Advance Directives Directive Yes / No Effective Date File Name No Information Encounters Encounter Description Practice Location Reason(s) For Visit Diagnoses Date Provider [facility], [address] [address], [place], [place], [id number], [place] tel:[phone] [address] [place] [address] No Information 2022 Damion Javier. [address] [place] [address], [id number], [place]. tel:[phone] Family History Family Member Type Diagnosis Age At Onset No Information Payers Payer name Insurance type Covered alliance party ID Authoriza tion(s) No Information Social History Type Description Quantity Date Captured Comments Sex Female Smoking Status No Information Chief Complaint And Reason For Visit No Information History Of Present Illness Encounter Date Complaint History Of Prese nt Illness No Information Instructions Date Instruction Additional Infor mation No Information Assessments Type Assessment Date No Information
--- OUTSIDE RECORDS SUMMARY | 2024-10-12 10:35 | XMS_ITS | Clinical Summary ---
Author Organization [employer] Address [address] [facility] 7t [place] [address] Care Team Providers Care Metal Polisher Name Role Phone Jyoti Paris MD Primary Care Provider [phone]- [phone] Allergies Active Allergy Reactions Criticality Noted Date [...] 3 12/28/19 23 Active Continuous Blood Gluc Information Security (FreeStyle [place] 2 [place]) device To use daily 1 each 01/01/20 [...] TABLET BY MOUTH EVERY DAY 30 tablet 08/22/19 24 Active hydroCHLOROthiaz shashank (HYDRODiuril) 12.5 MG tabletIndication s:Benign hypertension TAKE 1 TABLET(12.5 MG) BY MOUTH IN THE MORNING 30 tablet 08/22/19 24 Active atorvastatin (Lipitor) 40 MG tabletIndication s:Hypercholester olemia Take 1 tablet (40 mg) by mouth in the morning. 30 tablet 08/14/19 24 Active tiotropium (Spiriva HandiHaler) 18 MCG inhalation capsuleIndicatio ns:Simple chronic bronchitis (CMS/HCC) Place 1 capsule (18 mcg) into inhaler and inhale in the morning. 30 capsule 09/18/19 24 Active nicotine (Nicoderm CQ) 7 MG/24HR [...] hyperglycemia, with long-term current use of insulin ([facility]) Take 1 tablet (5 mg) by mouth in the morning. 30 tablet 11 10/08/19 24 Active gemfibrozil (Lopid) 600 MG tabletIndication s:Hypercholester olemia Take 1 tablet (600 mg) by mouth before breakfast and before evening meal. 60 tablet 11 10/08/19 24 Active insulin glargine (Lantus) 100 UNIT/ML injectionIndicat ions:Type 2 diabetes mellitus with hyperglycemia, with long-term current use of insulin ([facility]) Inject 64 Units under the skin in the morning. 18 mL 11 10/30/19 24 025 Active levETIRAcetam (Keppra) 250 MG tabletIndication s:Seizure (CMS/[facility]) TAKE 1 TABLET(250 MG) BY MOUTH TWICE DAILY 60 tablet 3 11/10/19 24 Active Ostomy Supplies (Skin Prep [place]) miscIndications: Type 2 diabetes mellitus with hyperglycemia, with long-term current use of insulin ([facility]) To use prior to applying the sensor 2 times a month. 118 mL 11/20/19 24 Active lidocaine (Xylocaine) 5 % ointmentIndicati ons:Rib pain on right side Apply topically if needed for mild pain. 50 g 09/22/19 24 025 Active Problems Problem Noted Date Diagnosed Date [...] hyperglycemia, with long-term current use of insulin ([facility]) INTRAORAL - COMPLETE SERIES OF RADIOGRAPHIC IMAGES Routine 12/31/2022 1:00 PM EDT COMPREHENSIVE ORAL EVALUATION - NEW OR ESTABLISHED PATIENT Routine 12/31/2022 1:00 PM EDT ZZZ HISTORICAL HPV MRNA E6/E7 Routine 04/22/2017 10:50 AM EDT from Last 3 Months or Most Recently Relevant to Health Maintenance Results * (ABNORMAL) Lipid Panel, Standard (08/11/2023 2:07 PM EST) Triglycerides 185(H) <150 mg/dL [facility] Comment:Desirable Triglyceri de: less than 150 mg/dLBorderline High Triglyceride 150-199 mg/dLHigh Triglyceride: 200-499 mg/dLVery High Triglyceride: greater than or equal to 5OO mg/dL Cholesterol 249(H) <200 mg/dL [facility] Comment:Desirable Cholestero l: less than 200 mg/dLBorderline High Cholesterol: 200-239 mg/dLHigh Cholesterol: greater than 239 mg/dL LDL Cholesterol Calculated 175(H) <100 mg/dL [facility] Comment:Desirable LDL: less than 100 mg/dLNear Optimal/Above Optimal LDL: 110- 129 mg/dLBorderline High LDL: 130-159 mg/dLHigh LDL: 160-189 mg/dLVery High LDL: greater than or equal to 190 mg/dL HDL Cholesterol 37(L) >40 mg/dL [facility] Comment:Desirable HDL: great er than 40 mg/dL Note: This HDL assay may give artificially low results in patients with liver disease. Blood Venous blood specimen / Unknown 08/11/2023 2:07 PM EST 08/11/2023 2:47 PM EST Jyoti Paris MD LAB BLOOD ORDERABLES Final Result [facility] [address] [place] [phone] * (ABNORMAL) POCT A1C (08/11/2023 1:21 PM EST) Hemoglobin A1C 8.7(A) 4.0 - 6.0 % Comment:controls valid QC Media Lot # Comment:[id number] Lot# Expiration Date Comment:03/24/2025 Blood 08/11/2023 1:21 PM EST us Jyoti Paris MD POINT OF CARE TEST ENTER/ED IT ORDERABLES Final Result * HPV mRNA E6/E7 (04/22/2017 10:50 AM EDT) HPV mRNA E6/E7 Not Detected NOT DETECTED [facility] Comment: This test was performed using the APTIMA(R) HPV Assay ([employer] This assay detects E6/E7 viral messenger RNA (mRNA) from 14 high-risk HPV types (16,18,31,33,35,39,45,51, 52,56,58,59,66,68). For additional information please refer to: http://education.[employer]/faq/FNV405o3 (This link is being provided for informational/ educational purposes only.) Test Performed by [employer], [facility], [address] [place] [id number] Marco Antonio Davis M.D., Ph.D., Director of Laboratories , [facility] [id number] Please note: ??Effective 03/18/2016, HPV testing will be performed using [employer]'s APTIMA test which targets mRNA. Detecting mRNA instead of DNA, as in older methods, offers significant improvements in specificity. 04/22/2017 10:5 0 AM EDT Vanessa Chan CNM HISTORICAL/NON ORDERABLE LABS Final Result [facility] [address] from Last 3 Months or Most Recently Relevant to Health Maintenance Insurance [facility] STANDARD MEDICARE D[place] AD[place] Care Teams Metal Polisher Relationship Specialty Start Date End Date Jyoti Paris MD [address] [place] [address] PCP - General Internal Medicine 09/12/15
--- OUTSIDE RECORDS SUMMARY | 2024-10-12 10:35 | XMS_ITS | Clinical Summary ---
Author Organization [address] [facility] Address [address] [place] [address] Phone Care Team Providers Care Inspector Hairspring Name Role Phone Jyoti Paris MD Primary Care Provider [phone] [phone] Encounters Date Type Department Care Team Description 08/09/2024 Lab Requisition [facility] - Main Lab [address] [facility] [address] Adilson Buchanan MD Type 2 diabetes mellitus without complications (CMS/HCC) from Last 3 Months Surgical History Surgery Date Site/Laterality Comments COLONOSCOPY PROCEDURE: DE COLONOSCOPY STOMA DX INCLUDING COLLJ SPEC SPX; [...] 2 - PCV) 06/02/2010 06/02/2009 RSV Immunization Adult Patients (1 - Risk 60-74 years 1-dose series) [...] age to complete this topic Meningococcal B Vaccine Aged Out No l onger eligible based on patient's age to complete [...] mg/dL LAB CHEMISTRY METHOD 08/09/2024 1:36 PM [facility] Triglycerides 118 0 - 150 mg/dL LAB CHEMISTRY METHOD 08/09/2024 1:36 PM [facility] HDL 39(L) >=40 mg/dL LAB CHEMISTRY METHOD 08/09/2024 1:36 PM [facility] LDL Calculated 77 0 - 100 mg/dL LAB CHEMISTRY METHOD 08/09/2024 1:36 PM [facility] VLDL Cholesterol Kishore 23.6 mg/dL LAB CHEMISTRY METHOD 08/09/2024 1:36 PM [facility] Non HDL Chol. (LDL+VLDL) 101 <145 mg/dL LAB CHEMISTRY METHOD 08/09/2024 1:36 PM EST [facility] Chol/HDL Ratio 3.6 0.0 - 4.4 LAB CHEMISTRY METHOD 08/09/2024 1:36 PM EST [facility] Blood Venous blood specimen / Unknown Venipuncture / Unknown 08/09/2024 6:09 AM EST 08/09/2024 11:05 AM EST us Adilson Buchanan MD LAB BLOOD ORDERABLES Final Resul t [facility] [address] [place] [address], [place] [phone] * Thyroid stimulating hormone (08/09/2024 6:09 AM EST) TSH 1.38 0.40 - 4.00 mcIU/mL LAB CHEMISTRY METHOD 08/09/2024 1:26 PM EST [facility] Blood Venous blood specimen / Unknown Venipuncture / Unknown 08/09/2024 6:09 AM EST 08/09/2024 11:05 AM EST us Adilson Buchanan MD LAB BLOOD ORDERABLES Final Resul t [facility] [address] [place] [address], [place] [phone] * Thyroxine free (08/09/2024 6:09 AM EST) Free T4 0.81 0.70 - 1.80 ng/dL LAB CHEMISTRY METHOD 08/09/2024 1:25 PM EST [facility] Blood Venous blood specimen / Unknown Venipuncture / Unknown 08/09/2024 6:09 AM EST 08/09/2024 11:05 AM EST us Adilson Buchanan MD LAB BLOOD ORDERABLES Final Resul t [facility] [address] [place] [address], * (ABNORMAL) Basic metabolic panel (08/09/2024 6:09 AM EST) Sodium 138 133 - 145 mmol/L LAB CHEMISTRY METHOD 08/09/2024 1:36 PM EST [facility] Potassium 4.4 3.5 - 5.5 mmol/L LAB CHEMISTRY METHOD 08/09/2024 1:36 PM [facility] Chloride 104 96 - 110 mmol/L LAB CHEMISTRY METHOD 08/09/2024 1:36 PM [facility] CO2 28 21 - 32 mmol/L LAB CHEMISTRY METHOD 08/09/2024 1:36 PM [facility] Anion Gap 6 3 - 11 LAB CHEMISTRY METHOD 08/09/2024 1:36 PM [facility] Glucose 108(H) 70 - 100 mg/dL LAB CHEMISTRY METHOD 08/09/2024 1:36 PM [facility] BUN 10 5 - 25 mg/dL LAB CHEMISTRY METHOD 08/09/2024 1:36 PM [facility] Creatinine 0.94 0.50 - 1.10 mg/dL LAB CHEMISTRY METHOD 08/09/2024 1:36 PM [facility] eGFR 67 >=60 mL/min/1. 73m2 LAB CHEMISTRY METHOD 08/09/2024 1:36 PM [facility] Comment:Calculation based on the??Chronic Kidney Disease Epidemiology Collaboration (CKD-EPI) equation refit??without adjustment for race. BUN/Creatinine Ratio 10.6 LAB CHEMISTRY METHOD 08/09/2024 1:36 PM [facility] Calcium 9.8 8.5 - 10.5 mg/dL LAB CHEMISTRY METHOD 08/09/2024 1:36 PM [facility] Blood Venous blood specimen / Unknown Venipuncture / Unknown 08/09/2024 6:09 AM EST 08/09/2024 11:05 AM EST Adilson Buchanan MD LAB BLOOD ORDERABLES Final Resul t Performing Organization Address [facility]/ZIP Co de Phone Number [facility] [address] [place] [address], [place] [phone] * (ABNORMAL) Hemoglobin A1c (05/26/2024 5:37 AM EST) Hemoglobin A1C 8.2(H) <6.5 % LAB CHEMISTRY METHOD 05/26/2024 1:05 PM EST [facility] Mean Bld Glu Estim. 189 mg/dL LAB CHEMISTRY METHOD 05/26/2024 1:05 PM EST [facility] Blood Venous blood specimen / Unknown 05/26/2024 5:37 AM EST 05/26/2024 9:53 AM EST us Pillo Stapleton MD LAB BLOOD ORDERABLES Final Res ult Performing Organization Address [facility]/ZIP Co de Phone Number [facility] [address] [place] [address], [place] [phone] from Last 3 Months or Most Recently Relevant to Health Maintenance Insurance [facility] Member Subscriber Plan / Payer (Ef fective 2024-Present) Name:Maria Esther Lindsay Relation to Subscriber:Self Name:Maria Esther Lindsay Payer ID:[id number] Group ID:[id number] Type:Not on file Address: [address] [address] [place] [address] Advance Directives Documents on File Type Date Recorded Patient Improvement Nurse Expl anation Health Care Decision (hx) 05/22/2021 [...] (hx) 07/01/2009 AD CHEN DIRECTIVE Care Teams Inspector Hairspring Relationship Specialty Start Date End Date Jyoti Paris MD [address] [place] [address] PCP - General Internal Medicine 01/17/22
--- OUTSIDE RECORDS SUMMARY | 2024-10-12 10:35 | XMS_ITS | Encounter Summary ---
Author Organization [employer] Address [address] [facility] [address] 7t [place] [address] Care Team Providers Care Custodial Engineer Name Role Phone Jyoti Paris MD Primary Care Provider [phone] Encounter Details Date Type Department Care Team (Latest Contact Info) Description 08/14/2023 Orders Only [facility]S [address] [place], [place] [phone] Jyoti Paris MD [address] [place], [place] [phone] Hypercholesterolemia (Primary Dx) Social History Tobacco Use [...] documented as of this encounter Care Teams Custodial Engineer Relationship Specialty Start Date End Date Jyoti Paris MD [address] [place] [address] PCP - General Internal Medicine 09/12/15 documented as of this encounter
--- OUTSIDE RECORDS SUMMARY | 2024-10-12 10:35 | XMS_ITS | Encounter Summary ---
Author Organization [facility] Address [address] [place] [address] Care Team Providers Care Sales Merchandising Specialist Name Role Phone Jyoti Paris MD Primary Care Provider [phone] [phone] Encounter Details Date Type Department Care Team (Late st Contact Info) Description 08/09/2024 Lab Requisition [facility] - Main Lab [address] [facility] [place] [id number] Adilson Buchanan MD [address] [place] [address] Type 2 diabetes mellitus without complications (CMS/HCC) [...] LAB CHEMISTRY METHOD 08/09/2024 1:26 PM EST [facility] Blood Venous blood specimen / Unknown Venipuncture / Unknown 08/09/2024 6:09 AM EST 08/09/2024 11:05 AM EST us Adilson Buchanan MD LAB BLOOD ORDERABLES Final Resul t Performing Organization Address [facility]/ZIP Co de Phone Number [facility] [address] [place] [address], [place] [phone] * Thyroxine free (08/09/2024 6:09 AM EST) Pathologist [facility] Free T4 0.81 0.70 - 1.80 ng/dL LAB CHEMISTRY METHOD 08/09/2024 1:25 PM EST [facility] Blood Venous blood specimen / Unknown Venipuncture / Unknown 08/09/2024 6:09 AM EST 08/09/2024 11:05 AM EST us Adilson Buchanan MD LAB BLOOD ORDERABLES Final Resul t Performing Organization Address City/[facility]/ZIP Co de Phone Number [facility] [address] [place] [address], [place] [phone] * (ABNORMAL) Lipid panel with reflex to direct LDL (08/09/2024 6:09 AM EST) Pathologist [facility] Cholesterol 140 0 - 200 mg/dL LAB CHEMISTRY METHOD 08/09/2024 1:36 PM EST [facility] Triglycerides 118 0 - 150 mg/dL LAB CHEMISTRY METHOD 08/09/2024 1:36 PM EST [facility] HDL 39(L) >=40 mg/dL LAB CHEMISTRY METHOD 08/09/2024 1:36 PM [facility] LDL Calculated 77 0 - 100 mg/dL LAB CHEMISTRY METHOD 08/09/2024 1:36 PM [facility] VLDL Cholesterol Kishore 23.6 mg/dL LAB CHEMISTRY METHOD 08/09/2024 1:36 PM [facility] Non HDL Chol. (LDL+VLDL) 101 <145 mg/dL LAB CHEMISTRY METHOD 08/09/2024 1:36 PM [facility] Chol/HDL Ratio 3.6 0.0 - 4.4 LAB CHEMISTRY METHOD 08/09/2024 1:36 PM [facility] Blood Venous blood specimen / Unknown Venipuncture / Unknown 08/09/2024 6:09 AM EST 08/09/2024 11:05 AM EST Adilson Buchanan MD LAB BLOOD ORDERABLES Final Resul t [facility] [address] [place] [address], * (ABNORMAL) Basic metabolic panel (08/09/2024 6:09 AM EST) Sodium 138 133 - 145 mmol/L LAB CHEMISTRY METHOD 08/09/2024 1:36 PM [facility] Potassium 4.4 3.5 - 5.5 mmol/L LAB CHEMISTRY METHOD 08/09/2024 1:36 PM [facility] Chloride 104 96 - 110 mmol/L LAB CHEMISTRY METHOD 08/09/2024 1:36 PM [facility] CO2 28 21 - 32 mmol/L LAB CHEMISTRY METHOD 08/09/2024 1:36 PM [facility] Anion Gap 6 3 - 11 LAB CHEMISTRY METHOD 08/09/2024 1:36 PM [facility] Glucose 108(H) 70 - 100 mg/dL LAB CHEMISTRY METHOD 08/09/2024 1:36 PM EST [facility] BUN 10 5 - 25 mg/dL LAB CHEMISTRY METHOD 08/09/2024 1:36 PM [facility] Creatinine 0.94 0.50 - 1.10 mg/dL LAB CHEMISTRY METHOD 08/09/2024 1:36 PM EST [facility] eGFR 67 >=60 mL/min/1. 73m2 LAB CHEMISTRY METHOD 08/09/2024 1:36 PM [facility] Comment:Calculation based on the??Chronic Kidney Disease Epidemiology Collaboration (CKD-EPI) equation refit??without adjustment for race. BUN/Creatinine Ratio 10.6 LAB CHEMISTRY METHOD 08/09/2024 1:36 PM [facility] Calcium 9.8 8.5 - 10.5 mg/dL LAB CHEMISTRY METHOD 08/09/2024 1:36 PM EST [facility] Blood Venous blood specimen / Unknown Venipuncture / Unknown 08/09/2024 6:09 AM EST 08/09/2024 11:05 AM EST us Adilson Buchanan MD LAB BLOOD ORDERABLES Final Resul t [facility] [address] [place] [address], documented in this encounter Visit Diagnoses Diagnosis Type 2 diabetes mellitus without complications documented in this encounter Care Teams Sales Merchandising Specialist Relationship Specialty Start Date End Date Jyoti Paris MD [address] [place] [address] PCP - General Internal Medicine 01/17/22 documented as of this encounter
--- OUTSIDE RECORDS SUMMARY | 2024-10-12 10:35 | XMS_ITS | Encounter Summary ---
Author Organization [employer] Address [address] [facility] 7t [place] [address] Care Team Providers Care Police Radio Dispatcher Name Role Phone Jyoti Paris MD Primary Care Provider [phone] Reason for Visit * Reason Onset Date Comments Medication Question 10/10/2022 Encounter Details Date Type Department Care Team (Late st Contact Info) Description 10/10/2022 Telephone [facility] MEDICINE [address] [place] [address] Jyoti Paris MD [address] [place] [address] Medication Question Social History Tobacco Use Types [...] colace 100 mg Please contact Mago at [phone] documented in this encounter Plan of Treatment Not on file documented as of this encounter Visit Diagnoses Not on filedocumented in this encounter Additional Health Concerns Assessment Noted Time PHQ-9 Depression Total Score: 0 08/06/19 23 1:19 PM EST documented as of this encounter Care Teams Police Radio Dispatcher Relationship Specialty Start Date End Date Jyoti Paris MD [address] [place] [address] PCP - General Internal Medicine 09/12/15 documented as of this encounter
--- OUTSIDE RECORDS SUMMARY | 2024-10-12 10:35 | XMS_ITS | Encounter Summary ---
Author Organization [employer] Address [address] [facility] [address] 7t [place] [address] Care Team Providers Care Case Repairer Name Role Phone Jyoti Paris MD Primary Care Provider [phone] Encounter Details Date Type Department Care Team (Late st Contact Info) Description 09/03/2023 Telephone [facility] MEDICINE [address] [place] [address] Jyoti Paris MD [address] [place] [address] Social History Tobacco Use Types Packs/Day Years [...] documented as of this encounter Care Teams Case Repairer Relationship Specialty Start Date End Date Jyoti Paris MD [address] [place] [address] PCP - General Internal Medicine 09/12/15 documented as of this encounter
--- OUTSIDE RECORDS SUMMARY | 2024-10-12 10:35 | XMS_ITS | Encounter Summary ---
Author Organization [employer] [facility] Address [address] [place] [address] 7t [place] [address] Care Team Providers Care Printed Circuit Board Panels Plater Name Role Phone Jyoti Paris MD Primary Care Provider [phone]- [phone] Reason for Visit * Reason Onset Date Comments Nurse Triage 02/05/2023 Encounter Details Date Type Department Care Team ([facility] st Contact Info) Description 02/05/2023 Telephone [facility] CHC MED & PEDS [address] [place], [place] [phone] Jyoti Paris MD [address] [place] [address] Nurse Triage Social History Tobacco Use Types [...] 02/05/2023 12:49 PM EDT Triage call with [employer] Gi Physician Id [id number] Pt son FRANCESCA Abel, takes call. Son reports Pt has increased confusion and incontinence of urine. Pt was seen in ED [facility] 01/30-01/31. Pt didn't have a UTI at that time. Pt is unable to hold urine and has become incontinent recently. Neg for burning with urination. Blood sugar this morning was reported as 408 and visiting nurse gave sliding scale insulin as ordered. Son is concerned that Pt could be having UTI with these symptoms. Advised to come to [facility] today to be seen by provider. Pt AUTOMOTIVE BRAKE TECHNICIAN will assist to [facility]. Pt does have an apt with Dr. [...] documented as of this encounter Care Teams Printed Circuit Board Panels Plater Relationship Specialty Start Date End Date Jyoti Paris MD [address] [address] PCP - General Internal Medicine 09/12/15 documented as of this encounter
--- OUTSIDE RECORDS SUMMARY | 2024-10-12 10:35 | XMS_ITS | Encounter Summary ---
Author Organization [facility] Address [address] [place] [address] Care Team Providers Care Network Operations Project Manager Name Role Phone Jyoti Paris MD Primary Care Provider [phone] [phone] Encounter Details Date Type Department Care Team (Late st Contact Info) Description 05/26/2024 Lab Requisition [facility] - Main Lab [address] [facility] [place] [address] Pillo Stapleton MD [address] [place] [address] Epilepsy, unspecified, not intractable, without status epilepticus [...] LAB CHEMISTRY METHOD 05/26/2024 1:05 PM EST [facility] Mean Bld Glu Estim. 189 mg/dL LAB CHEMISTRY METHOD 05/26/2024 1:05 PM EST [facility] Blood Venous blood specimen / Unknown 05/26/2024 5:37 AM EST 05/26/2024 9:53 AM EST us Pillo Stapleton MD LAB BLOOD ORDERABLES Final Res ult [facility] [address] [place] [address], * (ABNORMAL) Complete blood count (05/26/2024 5:37 AM EST) WBC 9.6 4.8 - 10.8 K/[facility] LAB HEMETOLOGY METHOD 05/26/2024 11:34 AM [facility] RBC 4.10 3.80 - 4.80 M/[facility] LAB HEMETOLOGY METHOD 05/26/2024 11:34 AM [facility] Hemoglobin 11.6 11.5 - 16.0 g/dL LAB HEMETOLOGY METHOD 05/26/2024 11:34 AM [facility] Hematocrit 36.8 35.0 - 47.0 % LAB HEMETOLOGY METHOD 05/26/2024 11:34 AM [facility] MCV 89.5 79.0 - 98.0 FL LAB HEMETOLOGY METHOD 05/26/2024 11:34 AM [facility] MCH 28.2 27.0 - 32.0 pcg LAB HEMETOLOGY METHOD 05/26/2024 11:34 AM [facility] MCHC 31.5(L) 32.0 - 37.0 g/dL LAB HEMETOLOGY METHOD 05/26/2024 11:34 AM [facility] RDW 14.3 11.0 - 15.0 % LAB HEMETOLOGY METHOD 05/26/2024 11:34 AM [facility] Platelets 372 130 - 400 K/[facility] LAB HEMETOLOGY METHOD 05/26/2024 11:34 AM [facility] MPV 9.5 7.0 - 11.0 FL LAB HEMETOLOGY METHOD 05/26/2024 11:34 AM [facility] NRBC 0.0 <1.0 % LAB HEMETOLOGY METHOD 05/26/2024 11:34 AM [facility] NRBC Absolute 0.00 <0.10 K/[facility] LAB HEMETOLOGY METHOD 05/26/2024 11:34 AM [facility] Blood Venous blood specimen / Unknown 05/26/2024 5:37 AM EST 05/26/2024 9:53 AM EST Pillo Stapleton MD LAB BLOOD ORDERABLES Final Res ult Performing Organization Address [facility]/ZIP Co de Phone Number [facility] [address] [place] [address], [place] [phone] * (ABNORMAL) Vitamin D 25 hydroxy (05/26/2024 5:37 AM EST) Vit D, 25-Hydroxy 24.1(L) 30.0 - 80.0 ng/mL LAB CHEMISTRY METHOD 05/26/2024 11:46 AM EST [facility] Blood Venous blood specimen / Unknown Venipuncture / Unknown 05/26/2024 5:37 AM EST 05/26/2024 9:53 AM EST Pillo Stapleton MD LAB BLOOD ORDERABLES Final Res ult Performing Organization Address [facility]/ZIP Co de Phone Number [facility] [address] [place] [address], [place] [phone] * Thyroid stimulating hormone (05/26/2024 5:37 AM EST) Pathologist [facility] TSH 1.55 0.40 - 4.00 mcIU/mL LAB CHEMISTRY METHOD 05/26/2024 11:47 AM EST [facility] Blood Venous blood specimen / Unknown Venipuncture / Unknown 05/26/2024 5:37 AM EST 05/26/2024 9:53 AM EST Pillo Stapleton MD LAB BLOOD ORDERABLES Final Res ult Performing Organization Address City/[facility]/ZIP Co de Phone Number [facility] [address] [place] [address], [place] [phone] * Lipid panel with reflex to direct LDL (05/26/2024 5:37 AM EST) Cholesterol 150 0 - 200 mg/dL LAB CHEMISTRY METHOD 05/26/2024 11:47 AM [facility] Triglycerides 147 0 - 150 mg/dL LAB CHEMISTRY METHOD 05/26/2024 11:47 AM [facility] HDL 42 >=40 mg/dL LAB CHEMISTRY METHOD 05/26/2024 11:47 AM [facility] LDL Calculated 79 0 - 100 mg/dL LAB CHEMISTRY METHOD 05/26/2024 11:47 AM [facility] VLDL Cholesterol Kishore 29.4 mg/dL LAB CHEMISTRY METHOD 05/26/2024 11:47 AM [facility] Non HDL Chol. (LDL+VLDL) 108 <145 mg/dL LAB CHEMISTRY METHOD 05/26/2024 11:47 AM [facility] Chol/HDL Ratio 3.6 0.0 - 4.4 LAB CHEMISTRY METHOD 05/26/2024 11:47 AM [facility] Blood Venous blood specimen / Unknown Venipuncture / Unknown 05/26/2024 5:37 AM EST 05/26/2024 9:53 AM EST us Pillo Stapleton MD LAB BLOOD ORDERABLES Final Res ult [facility] [address] [place] [address], * (ABNORMAL) Comprehensive metabolic panel (05/26/2024 5:37 AM EST) Sodium 140 133 - 145 mmol/L LAB CHEMISTRY METHOD 05/26/2024 11:47 AM [facility] Potassium 4.3 3.5 - 5.5 mmol/L LAB CHEMISTRY METHOD 05/26/2024 11:47 AM [facility] Chloride 105 96 - 110 mmol/L LAB CHEMISTRY METHOD 05/26/2024 11:47 AM [facility] CO2 25 21 - 32 mmol/L LAB CHEMISTRY METHOD 05/26/2024 11:47 AM [facility] Anion Gap 10 3 - 11 LAB CHEMISTRY METHOD 05/26/2024 11:47 AM [facility] Glucose 171(H) 70 - 100 mg/dL LAB CHEMISTRY METHOD 05/26/2024 11:47 AM [facility] BUN 15 5 - 25 mg/dL LAB CHEMISTRY METHOD 05/26/2024 11:47 AM [facility] Creatinine 1.02 0.50 - 1.10 mg/dL LAB CHEMISTRY METHOD 05/26/2024 11:47 AM [facility] eGFR 60 >=60 mL/min/1. 73m2 LAB CHEMISTRY METHOD 05/26/2024 11:47 AM [facility] Comment:Calculation based on the??Chronic Kidney Disease Epidemiology Collaboration (CKD-EPI) equation refit??without adjustment for race. BUN/Creatinine Ratio 14.7 LAB CHEMISTRY METHOD 05/26/2024 11:47 AM [facility] Calcium 9.6 8.5 - 10.5 mg/dL LAB CHEMISTRY METHOD 05/26/2024 11:47 AM [facility] AST (SGOT) 37 10 - 42 unit/L LAB CHEMISTRY METHOD 05/26/2024 11:47 AM [facility] ALT (SGPT) 37 10 - 60 unit/L LAB CHEMISTRY METHOD 05/26/2024 11:47 AM [facility] Alkaline Phosphatase 188(H) 42 - 121 unit/L LAB CHEMISTRY METHOD 05/26/2024 11:47 AM [facility] Total Protein 6.9 6.0 - 8.0 g/dL LAB CHEMISTRY METHOD 05/26/2024 11:47 AM [facility] Albumin 3.4 3.2 - 5.0 g/dL LAB CHEMISTRY METHOD 05/26/2024 11:47 AM EST [facility] Total Bilirubin 0.3 0.0 - 1.4 mg/dL LAB CHEMISTRY METHOD 05/26/2024 11:47 AM EST [facility] Blood Venous blood specimen / Unknown Venipuncture / Unknown 05/26/2024 5:37 AM EST 05/26/2024 9:53 AM EST us Pillo Stapleton MD LAB BLOOD ORDERABLES Final Res ult [facility] [address] [place] [address], documented in this encounter Visit Diagnoses Diagnosis Epilepsy, unspecified, not intractable, without status epilepticus Hyperlipidemia, unspecified Chronic kidney disease, stage 3a (CMS/HCC) documented in this encounter Care Teams Network Operations Project Manager Relationship Specialty Start Date End Date Jyoti Paris MD [address] [place] [address] PCP - General Internal Medicine 01/17/22 documented as of this encounter
--- OUTSIDE RECORDS SUMMARY | 2024-10-12 10:35 | XMS_ITS | Clinical Summary ---
Author Organization [facility], Address [address] [place] [address] [place] [address] Phone Care Team Providers Care Shotgun Shell Assembly Machine Operator Name Role Phone Jyoti Paris MD Primary Care Provider [phone] Allergies Active Allergy Reactions Criticality Noted Date [...] Diabetes: Visual Foot Exam 11/22/2021 Influenza Vaccine (Season Ended) 2025 Hepatitis B Vaccine Aged Out No longe r eligible based on patient's age to complete this topic Insurance MEDICARE MEDICAID [place] Care Teams Shotgun Shell Assembly Machine Operator Relationship Specialty Start Date End Date Jyoti Paris MD PCP - General Internal Medicine 10/17/21
[2024-10-12 11:06] LABS: Parathyroid Hormone Intact 46.6 pg/mL (8.7-77.1)
[2024-10-12 11:14] LABS: Creatinine Urine 74.71 mg/dL; Microalbum/Creatinine Ratio Ur 37.4 ug/mg cr (<30)
[2024-10-12 11:24] LABS: Anion Gap 13 (12-20); Blood Urea Nitrogen 14 mg/dL (9-16); Calcium 9.9 mg/dL (8.4-10.2); Carbon Dioxide 24 mmol/L (22-29); Chloride 103 mmol/L (96-108); Cholesterol 140 mg/dL (<200); Estimated Glomerular Filt Rate 48; Glucose Random 246 mg/dL (60-115); HDL Cholesterol 36 mg/dL (>40); LDL Cholesterol Calculated 76 mg/dL (<100); Potassium 4.1 mmol/L (3.3-5.1); Sodium 136 mmol/L (135-145); Triglycerides 143 mg/dL (<150)
[2024-10-12 11:44] LABS: Free T4 (Free Thyroxine) 0.94 ng/dL (0.71-1.85)
== END 2024-10-12 09:27 | disposition home or self-care (01) ==
LOC: HO.10HDL 09:26
PROVIDERS: Visit Provider Nurse Practitioner Adult Health
DX: E11.9 Type 2 diabetes mellitus without complications (principal)
CPT/HCPCS: 36415; 80048; 80061; 82040; 82043; 82570; 83970; 84439; 84443

== ENCOUNTER 2024-10-28 09:31 | Outpatient (AMB) | payer OTHER, SELFPAY ==
--- NOTE | 2024-10-28 07:39 | A.OFFVIS_ITS ---
Vital Signs 10/28/24 09:33 Height 5 ft Weight 176 lb 5.917 oz BMI 34.4 BP 122/62 Blood Pressure Location Rt brachial Position Sitting Pulse 95 Pulse Source Pulse Oximeter Pulse Oximetry (%) 98 Oxygen Delivery Method Room Air Intake Visit Reasons: T2DM Intake Note: Patient presents today for a follow-up Type 2 Diabetes Mellitus: Last Diabetic eye exam was on: DUE Last Podiatry exam was on: Patient does not see a Hostess Party Sales Representative Most recent HbA1c: 9.2%, 10/28/2024 Random Glucose- 228 mg/dL, Today Wallpaper Hanger Helper Required: Yes Wallpaper Hanger Helper Language: Manager Ent Services: Wallpaper Hanger Helper Offered & Declined Wallpaper Hanger Helper Name: Daughter Accompanied by: Daughter Allergies metoclopramide [From Reglan] Adverse Reaction (Verified 08/06/24 11:12) Confusion phenytoin [From Dilantin] Adverse Reaction (Verified 08/06/24 11:12) Gastrointestinal Upset HPI Comments Details: 69 YO female who is seen in for T2DM followup. She was seen as an initial consultation 08/06/2024 at which time a freestyle Jordan 3+ sensor was ordered. She lives in a memory care unit at [facility]. A1C 10/28/24 %, 10.2% 08/06/2024. Patient was brought in with glucose logs today but she did not have her freestyle reader in order to download this. Initially diagnosed with T2DM: date unknown Current regimen: Lantus 13 units in the am Lantus 46 units at bedtime Januvia 50mg Humalog 12 units before breakfast and dinner humalog 16 units before lunch plus scale before meals and at hs 150-199 4 units 200-249 6 units 250-299 8 units 300-349 12 units 350-399 14 units 400-450 16 units metformin xr 500mg daily Has eyes checked yearly, last eye exam years ago cataract surgery, denies retinopathy. had cataract surgery referral to Ophthalmology ordered Has neuropathy, some tingling no pain or cramping has podiatry every 6 months at [facility] Has nephropathy not on goerge-arb Last microalbumin 01/2019 <5 eGFR 08/11/23 40 07/2024 EGFR 48 microalbumin 28 referral to Nephrology ordered Has HLD, on fenofibrate Last LDL 76 as measured 2024 Denies CAD. Diet: breakfast fruit lunch cream of wheat banana lunch ham & cheese sandwich with mashed pot supper sandwich no veg snacks on chocalate cookie Weight: same COUNT INCLUDES THE [facility] Medical History Seizure disorder HTN (hypertension) COPD (chronic obstructive pulmonary disease) Type 2 diabetes mellitus Social History Household Members: None Housing: Apartment Do you presently have visiting nurse or other home services: Yes Patient Tobacco Use Status: Current everyday Tobacco user Tobacco use type: Cigarette Cigarettes Per Day: 3 Second Hand Smoke Exposure: No service: No Sexual orientation: Straight/Heterosexual Physical Exam Vital Signs: Last Vital Signs Pulse 95 10/28/24 09:33 BP 122/62 10/28/24 09:33 Pulse Ox 98 10/28/24 09:33 Oxygen Delivery Method Room Air 10/28/24 09:33 BMI result Body Mass Index 34.4 Const Other: Absence of Cushingoid features. Absence of acromegalic features. Neck exam reveals nl size thyroid about 15 gms. No thyroid nodules palpable. Heart S1 S2, Reg R/R. No M/R G. Skin exam reveals absence of vitiligo or acanthosis nigricans. Visual exam of foot performed. No ulcerations or open lesions. No inter digit maceration or fissuring. No onychomycosis, + callous left great toe. Sensation intact to monofilament exam. Vibratory diminshed with 128 Hz tuning fork. 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 I did not have the benefit of her freestyle reader today but her glucose readings have improved actually over the last 2 weeks a many readings have been in normal range. Continue same medications but delete Humalog sliding scale at bedtime. Nephropathy with EGFR 47 referred to Nephrology Ophthalmology referral placed I asked her [facility] facility to contact our office if these referrals have not been arranged within 2 weeks I asked [facility] facility of the last day of the month to call with her 30 day glucose average. The last day of the month falls on a weekend they can wait until the next week day. Orders: Orders AMB Hemoglobin A1c Today E11.9 - Type 2 diabetes mellitus without complications Referrals Ophthalmology Referral E11.9 - Type 2 diabetes mellitus without complications Nephrology Referral E11.9 - Type 2 diabetes mellitus without complications Coding Diagnoses Type 2 diabetes mellitus E11.9
[2024-10-28 09:33] VITALS: BP 122/62; PULSE 95; O2SAT 98; BMI 34.4
[2024-10-28 09:43] LABS: Glucose, Whole Blood 228 mg/dL (60-115)
--- OUTSIDE RECORDS SUMMARY | 2024-10-28 10:31 | XMS_ITS | Encounter Summary ---
Author Organization [employer] Address [address] [facility] 7t [place] [address] Care Team Providers Care Switchman Supervisor Name Role Phone Jyoti Paris MD Primary Care Provider [phone] Encounter Details Date Type Department Care Team ([facility] st Contact Info) Description 10/28/2023 Orders Only [facility] CHC MED & PEDS [address] [place], [place] [phone] Jyoti Paris MD [address] [place], [place] [phone] Social History Tobacco Use Types Packs/Day Years [...] t he electric, gas, oil or water [employer] threatened to shut off services in your [...] documented as of this encounter Care Teams Switchman Supervisor Relationship Specialty Start Date End Date Jyoti Paris MD [address] [place] [address] PCP - General Internal Medicine 09/12/15 documented as of this encounter
--- OUTSIDE RECORDS SUMMARY | 2024-10-28 10:31 | XMS_ITS | Encounter Summary ---
Author Organization [employer] Address [address] [facility] 7t [place] [address] Care Team Providers Care Beam Carrier Hauler Pusher Name Role Phone Jyoti Paris MD Primary Care Provider [phone] Encounter Details Date Type Department Care Team ([facility] st Contact Info) Description 11/20/2023 Orders Only [facility] CHC MED & PEDS [address] [place], [place] [phone] Jyoti Paris MD [address] [place], [place] [phone] Type 2 diabetes mellitus with hyperglycemia, with long-term current use of insulin ([facility]) (Primary Dx) Social History Tobacco Use Types [...] hyperglycemia, with long-term current use of insulin ([facility])- Primary documented in this encounter Additional Health Concerns Assessment Noted Time PHQ-9 Depression Total Score: 0 08/06/19 23 1:19 PM EST documented as of this encounter Care Teams Beam Carrier Hauler Pusher Relationship Specialty Start Date End Date Jyoti Paris MD [address] [place] [address] PCP - General Internal Medicine 09/12/15 documented as of this encounter
--- OUTSIDE RECORDS SUMMARY | 2024-10-28 10:31 | XMS_ITS | Encounter Summary ---
Author Organization [employer] Address [address] [facility] 7t [place] [address] Care Team Providers Care Order Department Supervisor Name Role Phone Jyoti Paris MD Primary Care Provider +1 [phone] Reason for Visit * Reason Onset Date Comments Nurse Triage 10/07/2023 Encounter Details Date Type Department Care Team ([facility] st Contact Info) Description 10/07/2023 Telephone [facility] MED & PEDS [address] [place], [place] [phone] Jyoti Paris MD [address] [place] [address] Nurse Triage Social History Tobacco Use Types [...] daily [phone]. Please follow with Janae at [phone]. Protocol Used: Information Only Call - No [...] JEFERSON Cardoso would like a call back [phone]. documented in this encounter Plan of Treatment Not on file documented as of this encounter Visit Diagnoses Not on filedocumented in this encounter Additional Health Concerns Assessment Noted Time PHQ-9 Depression Total Score: 0 08/06/19 23 1:19 PM EST documented as of this encounter Care Teams Order Department Supervisor Relationship Specialty Start Date End Date Jyoti Paris MD [address] [place] [phone] PCP - General Internal Medicine 09/12/15 documented as of this encounter
--- OUTSIDE RECORDS SUMMARY | 2024-10-28 10:31 | XMS_ITS | Encounter Summary ---
Author Organization [facility] Address [address] [place] [address] Care Team Providers Care Printer Machine Name Role Phone Jyoti Paris MD Primary Care Provider +1 -[phone] Encounter Details Date Type Department Care Team (Late st Contact Info) Description 10/17/2024 Lab Requisition [facility] - Main Lab 299 [facility] [place] [address] Adilson Buchanan MD [address] [place] [address] Acute cough Social History Tobacco Use Types Packs/Day Years [...] Procedure Name Priority Date/Time Associated Diagnosis Comments [id number], RSV, FLU A AND B QUALITATIVE RT-PCR, LOCAL REFERENCE LAB Routine 10/16/2024 12:00 AM EDT Acute cough documented in this encounter Results * [id number], RSV, Influenza A and B qualitative RT-PCR (10/16/2024 12:00 AM EDT) SARS COV-2 Not Detected Not Detected LAB MOLECULAR DIAGNOSTICS METHOD 10/17/2024 11:40 AM EDT [facility] Comment: Disclaimer: The manner in which this information is used to guide patient care is the responsibility of the healthcare provider. Testing was performed using the Yidio Alinity m SARS-CoV-2 test. This test has been authorized by FDA under an Emergency Use Authorization (EUA). This test is only authorized for the duration of time the declaration that circumstances exist justifying the authorization of the emergency use of in vitro diagnostic tests for detection of SARS-CoV-2 virus and/or diagnosis of COVID-19 infection under section 564(b)(1) of the Act, 21 U.S.C. 360bbb- 3(b)(1), unless the authorization is terminated or revoked sooner. Fact sheet for Healthcare Providers can be found at: https://www.fda.gov/media/633455/download Fact sheet for Patients can be found at: https://www.fda.gov/media/890990/download Influenza A PCR Not Detected Not Detected LAB MOLECULAR DIAGNOSTICS METHOD 10/17/2024 11:40 AM EDT [facility] Influenza B PCR Not Detected Not Detected LAB MOLECULAR DIAGNOSTICS METHOD 10/17/2024 11:40 AM EDT [facility] RSV PCR Not Detected Not Detected LAB MOLECULAR DIAGNOSTICS METHOD 10/17/2024 11:40 AM EDT [facility] Swab Nasopharyngeal structure / Unknown 10/16/2024 10/17/2024 7:24 AM EDT Adilson Buchanan MD LAB MICROBIOLOGY - GENERAL ORDER MICHELLE Final Result [facility] [address] [place] [address], documented in this encounter Visit Diagnoses Diagnosis Acute cough documented in this encounter Additional Health Concerns Infection Onset Date Last Indicated Resolved Time Respiratory Rule-Out 10/16/2024 10/16/2024 025 11:40 AM EDT documented as of this encounter Care Teams Printer Machine Relationship Specialty Start Date End Date Jyoti Paris MD [address] [place], [place] PCP - General Internal Medicine 01/17/22 documented as of this encounter
--- OUTSIDE RECORDS SUMMARY | 2024-10-28 10:31 | XMS_ITS | Encounter Summary ---
Author Organization [employer] Address 75 [facility] 7t [place] [address] Care Team Providers Care Electric Crane Operator Name Role Phone Jyoti Paris MD Primary Care Provider +1 [phone] Encounter Details Date Type Department Care Team ([facility] st Contact Info) Description 09/18/2023 Orders Only [facility] CHC MED & PEDS [address] [place], [place] [phone] Jyoti Paris MD [address] [place], [place] [phone] Simple chronic bronchitis (CMS/HCC) (Primary Dx) Social [...] documented as of this encounter Care Teams Electric Crane Operator Relationship Specialty Start Date End Date Jyoti Paris MD [address] [place] [address] PCP - General Internal Medicine 09/12/15 documented as of this encounter
--- OUTSIDE RECORDS SUMMARY | 2024-10-28 10:32 | XMS_ITS | Continuity of Care Document ---
Author Organization [facility] Address [address] [address] Phone Care Team Providers Care Membership Manager Name Role Phone Concepcion Bruno NP Unavailable Unavailable Advance Directives Directive Yes / No Effective Date File Name No Information Encounters Encounter Description Practice Location Reason(s) For Visit Diagnoses Date Provider [facility], [address] [address], [place], [place], [id number], [place] tel:[phone] [address] [place] [address] No Information 2022 Damion Javier. [address] [place] [address], [id number], [place]. tel:[phone] Family History Family Member Type Diagnosis Age [...]
--- OUTSIDE RECORDS SUMMARY | 2024-10-28 10:32 | XMS_ITS | Clinical Summary ---
Author Organization [employer] Address [address] [facility] 7t [place] [address] Care Team Providers Care Reinforced Ironworker Name Role Phone Jyoti Paris MD Primary Care Provider [phone]- [phone] Allergies Active Allergy Reactions Criticality Noted Date [...] 3 12/28/19 23 Active Continuous Blood Gluc Bath Mixer (FreeStyle [place] 2 [place]) device To use daily 1 each 01/01/20 [...] hyperglycemia, with long-term current use of insulin ([facility]) Take 1 tablet (5 mg) by mouth in the morning. 30 tablet 11 10/08/19 24 Active gemfibrozil (Lopid) 600 MG tabletIndication s:Hypercholester olemia Take 1 tablet (600 mg) by mouth before breakfast and before evening meal. 60 tablet 11 10/08/19 24 Active insulin glargine (Lantus) 100 UNIT/ML injectionIndicat ions:Type 2 diabetes mellitus with hyperglycemia, with long-term current use of insulin ([facility]) Inject 64 Units under the skin in the morning. 18 mL 11 10/30/19 24 025 Active levETIRAcetam (Keppra) 250 MG tabletIndication s:Seizure (CMS/[facility]) TAKE 1 TABLET(250 MG) BY MOUTH TWICE DAILY 60 tablet 3 11/10/19 24 Active Ostomy Supplies (Skin Prep [place]) miscIndications: Type 2 diabetes mellitus with hyperglycemia, with long-term current use of insulin ([facility]) To use prior to applying the [...] hyperglycemia, with long-term current use of insulin ([facility]) INTRAORAL - COMPLETE SERIES OF RADIOGRAPHIC IMAGES Routine 12/31/2022 1:00 PM EDT COMPREHENSIVE ORAL EVALUATION - NEW OR ESTABLISHED PATIENT Routine 12/31/2022 1:00 PM EDT [facility] HISTORICAL HPV MRNA E6/E7 Routine 04/22/2017 10:50 AM EDT from Last 3 Months or Most Recently Relevant to Health Maintenance Results * (ABNORMAL) Lipid Panel, Standard (08/11/2023 2:07 PM EST) Triglycerides 185(H) <150 mg/dL [facility] Comment:Desirable Triglyceri de: less than 150 mg/dLBorderline High Triglyceride 150-199 mg/dLHigh Triglyceride: 200-499 mg/dLVery High Triglyceride: greater than or equal to 5OO mg/dL Cholesterol 249(H) <200 mg/dL [facility] Comment:Desirable Cholestero l: less than 200 mg/dLBorderline High Cholesterol: 200-239 mg/dLHigh Cholesterol: greater than 239 mg/dL LDL Cholesterol Calculated 175(H) <100 mg/dL [facility] Comment:Desirable LDL: less than 100 mg/dLNear Optimal/Above Optimal LDL: 110- 129 mg/dLBorderline High LDL: 130-159 mg/dLHigh LDL: 160-189 mg/dLVery High LDL: greater than or equal to 190 mg/dL HDL Cholesterol 37(L) >40 mg/dL [facility] Comment:Desirable HDL: great er than 40 mg/dL Note: This HDL assay may give artificially low results in patients with liver disease. Blood Venous blood specimen / Unknown 08/11/2023 2:07 PM EST 08/11/2023 2:47 PM EST us Jyoti Paris MD LAB BLOOD ORDERABLES Final Result [facility] [address] [place] [phone] * (ABNORMAL) POCT A1C (08/11/2023 1:21 PM EST) Pathologist [facility] Hemoglobin A1C 8.7(A) 4.0 - 6.0 % Comment:controls valid QC Media Lot # Comment:[id number] Lot# Expiration Date Comment:03/24/2025 Blood 08/11/2023 1:21 PM EST Jyoti Paris MD POINT OF CARE TEST ENTER/ED IT ORDERABLES Final Result * HPV mRNA E6/E7 (04/22/2017 10:50 AM EDT) HPV mRNA E6/E7 Not Detected NOT DETECTED [facility] Comment: This test was performed using the APTIMA(R) HPV Assay ([employer] This assay detects E6/E7 viral messenger RNA (mRNA) from 14 high-risk HPV types (16,18,31,33,35,39,45,51, 52,56,58,59,66,68). For additional information please refer to: http://education.Tiempo Listo/faq/XWA101k0 (This link is being provided for informational/ educational purposes only.) Test Performed by [employer], [facility], [address] [place] [address] Marco Antonio Davis M.D., Ph.D., Director of Laboratories , [facility] [id number] Please note: ??Effective 03/18/2016, HPV testing will be performed using [employer]'s APTIMA test which targets mRNA. Detecting mRNA instead of DNA, as in older methods, offers significant improvements in specificity. 04/22/2017 10:5 0 AM EDT us Vanessa Chan CNM HISTORICAL/NON ORDERABLE LABS Final Result [facility] Anywhere [address] from Last 3 Months or Most Recently Relevant to Health Maintenance Insurance [facility] STANDARD MEDIC[facility] ADULT Care Teams Reinforced Ironworker Relationship Specialty Start Date End Date Jyoti Paris MD [address] [place] [address] PCP - General Internal Medicine 09/12/15
--- OUTSIDE RECORDS SUMMARY | 2024-10-28 10:32 | XMS_ITS | Encounter Summary ---
Author Organization [employer] Address [address] [place] [address] Care Team Providers Care Flaker Operator Name Role Phone Jyoti Paris MD Primary Care Provider +1 [phone] Encounter Details Date Type Department Care Team (Late st Contact Info) Description 05/26/2024 Lab Requisition [facility] - Main Lab 299 [facility] [place] [address] Pillo Stapleton MD [address] [place] [address] Epilepsy, unspecified, not intractable, without status epilepticus (CMS/HCC V24, CMS/HCC V28); Hyperlipidemia, unspecified; Chronic kidney disease, stage 3a (CMS/HCC V24, CMS/HCC V28) Social History Tobacco Use Types Packs/Day Years [...] LAB CHEMISTRY METHOD 05/26/2024 1:05 PM EST [facility] Mean Bld Glu Estim. 189 mg/dL LAB CHEMISTRY METHOD 05/26/2024 1:05 PM EST [facility] Blood Venous blood specimen / Unknown 05/26/2024 5:37 AM EST 05/26/2024 9:53 AM EST us Pillo Stapleton MD LAB BLOOD ORDERABLES Final Res ult [facility] [address] [place] [address], * (ABNORMAL) Complete blood count (05/26/2024 5:37 AM EST) [facility] WBC 9.6 4.8 - 10.8 K/mcL LAB HEMETOLOGY METHOD 05/26/2024 11:34 AM [facility] RBC 4.10 3.80 - 4.80 M/mcL LAB HEMETOLOGY METHOD 05/26/2024 11:34 AM [facility] Hemoglobin 11.6 11.5 - 16.0 g/dL LAB HEMETOLOGY METHOD 05/26/2024 11:34 AM [facility] Hematocrit 36.8 35.0 - 47.0 % LAB HEMETOLOGY METHOD 05/26/2024 11:34 AM [facility] MCV 89.5 79.0 - 98.0 FL LAB HEMETOLOGY METHOD 05/26/2024 11:34 AM [facility] MCH 28.2 27.0 - 32.0 pcg LAB HEMETOLOGY METHOD 05/26/2024 11:34 AM [facility] MCHC 31.5(L) 32.0 - 37.0 g/dL LAB HEMETOLOGY METHOD 05/26/2024 11:34 AM [facility] RDW 14.3 11.0 - 15.0 % LAB HEMETOLOGY METHOD 05/26/2024 11:34 AM [facility] Platelets 372 130 - 400 K/mcL LAB HEMETOLOGY METHOD 05/26/2024 11:34 AM [facility] MPV 9.5 7.0 - 11.0 FL LAB HEMETOLOGY METHOD 05/26/2024 11:34 AM [facility] NRBC 0.0 <1.0 % LAB HEMETOLOGY METHOD 05/26/2024 11:34 AM [facility] NRBC Absolute 0.00 <0.10 K/mcL LAB HEMETOLOGY METHOD 05/26/2024 11:34 AM EST [facility] Blood Venous blood specimen / Unknown 05/26/2024 5:37 AM EST 05/26/2024 9:53 AM EST Pillo Stapleton MD LAB BLOOD ORDERABLES Final Res ult Performing Organization Address City/[facility]/ZIP Co de Phone Number [facility] [address] [place] [address], [place] [phone] * (ABNORMAL) Vitamin D 25 hydroxy (05/26/2024 5:37 AM EST) Vit D, 25-Hydroxy 24.1(L) 30.0 - 80.0 ng/mL LAB CHEMISTRY METHOD 05/26/2024 11:46 AM EST [facility] Blood Venous blood specimen / Unknown Venipuncture / Unknown 05/26/2024 5:37 AM EST 05/26/2024 9:53 AM EST Pillo Stapleton MD LAB BLOOD ORDERABLES Final Res ult Performing Organization Address [facility]/[employer]UST Co de Phone Number [facility] [address] [place] [address], [place] [phone] * Thyroid stimulating hormone (05/26/2024 5:37 AM EST) TSH 1.55 0.40 - 4.00 mcIU/mL LAB CHEMISTRY METHOD 05/26/2024 11:47 AM EST [facility] Blood Venous blood specimen / Unknown Venipuncture / Unknown 05/26/2024 5:37 AM EST 05/26/2024 9:53 AM EST Pillo Stapleton MD LAB BLOOD ORDERABLES Final Res ult Performing Organization Address City/[facility]/ZIP Co de Phone Number [facility] [address] [place] [address], [place] [phone] * Lipid panel with reflex to direct LDL (05/26/2024 5:37 AM EST) Cholesterol 150 0 - 200 mg/dL LAB CHEMISTRY METHOD 05/26/2024 11:47 AM [facility] Triglycerides 147 0 - 150 mg/dL LAB CHEMISTRY METHOD 05/26/2024 11:47 AM [facility] HDL 42 >=40 mg/dL LAB CHEMISTRY METHOD 05/26/2024 11:47 AM [facility] LDL Calculated 79 0 - 100 mg/dL LAB CHEMISTRY METHOD 05/26/2024 11:47 AM [facility] VLDL Cholesterol Kishore 29.4 mg/dL LAB CHEMISTRY METHOD 05/26/2024 11:47 AM [facility] Non HDL Chol. (LDL+VLDL) 108 <145 mg/dL LAB CHEMISTRY METHOD 05/26/2024 11:47 AM [facility] Chol/HDL Ratio 3.6 0.0 - 4.4 LAB CHEMISTRY METHOD 05/26/2024 11:47 AM [facility] Blood Venous blood specimen / Unknown Venipuncture / Unknown 05/26/2024 5:37 AM EST 05/26/2024 9:53 AM EST us Pillo Stapleton MD LAB BLOOD ORDERABLES Final Res ult [facility] [address] [place] [address], [place] [phone] * (ABNORMAL) Comprehensive metabolic panel (05/26/2024 5:37 AM EST) Pathologist [facility] Sodium 140 133 - 145 mmol/L LAB CHEMISTRY METHOD 05/26/2024 11:47 AM [facility] Potassium 4.3 3.5 - 5.5 mmol/L LAB CHEMISTRY METHOD 05/26/2024 11:47 AM [facility] Chloride 105 96 - 110 mmol/L LAB CHEMISTRY METHOD 05/26/2024 11:47 AM [facility] CO2 25 21 - 32 mmol/L LAB CHEMISTRY METHOD 05/26/2024 11:47 AM [facility] Anion Gap 10 3 - 11 LAB CHEMISTRY METHOD 05/26/2024 11:47 AM [facility] Glucose 171(H) 70 - 100 mg/dL LAB CHEMISTRY METHOD 05/26/2024 11:47 AM [facility] BUN 15 5 - 25 mg/dL LAB CHEMISTRY METHOD 05/26/2024 11:47 AM [facility] Creatinine 1.02 0.50 - 1.10 mg/dL LAB CHEMISTRY METHOD 05/26/2024 11:47 AM [facility] eGFR 60 >=60 mL/min/1. 73m2 LAB CHEMISTRY METHOD 05/26/2024 11:47 AM [facility] Comment:Calculation based on the??Chronic Kidney Disease Epidemiology Collaboration (CKD-EPI) equation refit??without adjustment for race. BUN/Creatinine Ratio 14.7 LAB CHEMISTRY METHOD 05/26/2024 11:47 AM [facility] Calcium 9.6 8.5 - 10.5 mg/dL LAB CHEMISTRY METHOD 05/26/2024 11:47 AM [facility] AST (SGOT) 37 10 - 42 unit/L LAB CHEMISTRY METHOD 05/26/2024 11:47 AM [facility] ALT (SGPT) 37 10 - 60 unit/L LAB CHEMISTRY METHOD 05/26/2024 11:47 AM [facility] Alkaline Phosphatase 188(H) 42 - 121 unit/L LAB CHEMISTRY METHOD 05/26/2024 11:47 AM [facility] Total Protein 6.9 6.0 - 8.0 g/dL LAB CHEMISTRY METHOD 05/26/2024 11:47 AM EST [facility] Albumin 3.4 3.2 - 5.0 g/dL LAB CHEMISTRY METHOD 05/26/2024 11:47 AM EST [facility] Total Bilirubin 0.3 0.0 - 1.4 mg/dL LAB CHEMISTRY METHOD 05/26/2024 11:47 AM EST [facility] Blood Venous blood specimen / Unknown Venipuncture / Unknown 05/26/2024 5:37 AM EST 05/26/2024 9:53 AM EST us Pillo Stapleton MD LAB BLOOD ORDERABLES Final Res ult [facility] [address] [place] [address], documented in this encounter Visit Diagnoses Diagnosis Epilepsy, unspecified, not intractable, without status epilepticus (CMS/[facility] V24, CMS/[facility] V28) Hyperlipidemia, unspecified Chronic kidney disease, stage 3a (CMS/HCC V24, CMS/[facility] V28) documented in this encounter Additional Health Concerns Infection Onset Date Last Indicated Resolved Time Respiratory Rule-Out 10/16/2024 10/16/2024 025 11:40 AM EDT documented as of this encounter Care Teams Flaker Operator Relationship Specialty Start Date End Date Jyoti Paris MD [address] [place] [address] PCP - General Internal Medicine 01/17/22 documented as of this encounter
--- OUTSIDE RECORDS SUMMARY | 2024-10-28 10:32 | XMS_ITS | Encounter Summary ---
Author Organization [employer] [facility] Address [address] [facility] 7t [place] [address] Care Team Providers Care Double Ending Machine Operator Name Role Phone Jyoti Paris MD Primary Care Provider +1- [phone] Reason for Visit * Reason Onset Date Comments Appointment Request 07/15/2022 Encounter Details Date Type Department Care Team (Late st Contact Info) Description 07/15/2022 Telephone [facility] MEDICINE [address] [place] [address] Jyoti Paris MD [address] [place] [address] [phone] Appointment Request Social History Tobacco Use Types [...] summary in chart.) Please contact son at [phone] documented in this encounter Plan of Treatment Not on file documented as of this encounter Visit Diagnoses Not on filedocumented in this encounter Care Teams Double Ending Machine Operator Relationship Specialty Start Date End Date Jyoti Paris MD [address] [place] [address] PCP - General Internal Medicine 09/12/15 documented as of this encounter
--- OUTSIDE RECORDS SUMMARY | 2024-10-28 10:32 | XMS_ITS | Encounter Summary ---
Author Organization [employer] Address [address] [facility] [address] [place] [address] Care Team Providers Care Oracle Application Consultant Name Role Phone Jyoti Paris MD Primary Care Provider +1 [phone] Encounter Details Date Type Department Care Team (Late st Contact Info) Description 09/03/2023 Telephone [facility] [address] [place] [address] Jyoti Paris MD [address] [place] [address] Social History Tobacco Use Types Packs/Day Years [...] documented as of this encounter Care Teams Oracle Application Consultant Relationship Specialty Start Date End Date Jyoti Paris MD [address] [place] [address] PCP - General Internal Medicine 09/12/15 documented as of this encounter
--- OUTSIDE RECORDS SUMMARY | 2024-10-28 10:32 | XMS_ITS | Clinical Summary ---
Author Organization [facility], Address [address] [place] [address] [place] [address] Phone Care Team Providers Care Pipe Organ Mechanic Name Role Phone Jyoti Paris MD Primary [...] Comments Breast Cancer Screening 1955 Pneumococcal Vaccine: 50+ Ye ars (1 of 2 - PCV) 09/28/1975 Colorectal Cancer Screening: Annual FOBT 2005 Colorectal Cancer Screening: Colonoscopy 2005 Colorectal Cancer Screening: Sigmoidoscopy 2005 Diabetes: Hemoglobin A1C 11/22/2021 Diabetes: Ophthalmology Exam 11/22/2021 Diabetes: Pedal Pulse Checked 11/22/2021 Diabetes: Sensory Foot Exam 11/22/2021 Diabetes: Visual Foot Exam 11/22/2021 Influenza Vaccine (Season Ended) 2025 Hepatitis B Vaccine Aged Out No longe r eligible based on patient's age to complete this topic Insurance Medicare Medicaid [place] Care Teams Pipe Organ Mechanic Relationship Specialty Start Date End Date Jyoti Paris MD PCP - General Internal Medicine 10/17/21
--- OUTSIDE RECORDS SUMMARY | 2024-10-28 10:32 | XMS_ITS | Encounter Summary ---
Author Organization [employer] Address [address] [facility] 7t [place] [address] Care Team Providers Care Sales Account Leader Name Role Phone Jyoti Paris MD Primary Care Provider [phone]- [phone] Reason for Visit * Reason Onset Date Comments Medication Question 10/10/2022 Encounter Details Date Type Department Care Team (Late st Contact Info) Description 10/10/2022 Telephone [facility] MEDICINE [address] [place] [address] Jyoti Paris MD [address] [place] [phone] Medication Question Social History Tobacco Use Types [...] colace 100 mg Please contact Mago at [phone] documented in this encounter Plan of Treatment Not on file documented as of this encounter Visit Diagnoses Not on filedocumented in this encounter Additional Health Concerns Assessment Noted Time PHQ-9 Depression Total Score: 0 08/06/19 23 1:19 PM EST documented as of this encounter Care Teams Sales Account Leader Relationship Specialty Start Date End Date Jyoti Pairs MD [address] [place] [phone] PCP - General Internal Medicine 09/12/15 documented as of this encounter
--- OUTSIDE RECORDS SUMMARY | 2024-10-28 10:32 | XMS_ITS | Encounter Summary ---
Author Organization [employer] Address [address] [facility] [address] [place] [address] Care Team Providers Care Load Test Mechanic Name Role Phone Jyoti Paris MD Primary Care Provider +1 [phone] Encounter Details Date Type Department Care Team (Latest Contact Info) Description 08/14/2023 Orders Only [facility]S [address] [place], [place] [phone] Jyoti Paris MD [address] [place], [place] [phone] Hypercholesterolemia (Primary Dx) Social History Tobacco Use [...] documented as of this encounter Care Teams Load Test Mechanic Relationship Specialty Start Date End Date Jyoti Paris MD [address] [place] [address] PCP - General Internal Medicine 09/12/15 documented as of this encounter
--- OUTSIDE RECORDS SUMMARY | 2024-10-28 10:32 | XMS_ITS | Clinical Summary ---
Author Organization 299 [facility] Address [address] [place] [address] Phone Care Team Providers Care Computational Chemist Name Role Phone Jyoti Paris MD Primary Care Provider [phone] [phone] Encounters Date Type Department Care Team Description 10/17/2024 Lab Requisition [facility] Main Lab [address] [place] [phone] Adilson Buchanan MD Acute cough 08/09/2024 Lab Requisition [facility] Lab [address] [place] [phone] Adilson Buchanan MD Type 2 diabetes mellitus without complications (CMS/HCC V24, CMS/[facility] V28) from Last 3 Months Surgical History Surgery Date Site/Laterality Comments COLONOSCOPY PROCEDURE: WA COLONOSCOPY STOMA DX INCLUDING COLLJ SPEC SPX; [...] 06/05/2022 Depression Screening 08/06/2023 08/06/2022 COVID-19 Vaccine ( - season) 2024 10/12/2020 Diabetes: Annual Urine Albumin-Creatinine Ratio (uACR) 05/26/2024 Diabetes: Blood Sugar Control Test (HGBA1C) 11/23/2024 05/26/2024, 08/11/2023 Influenza Vaccine (Season Ended) 2025 03/12/2023, 06/11/2021, 04/14/2019, Additional history exists Diabetes: Annual GFR (Glomerular Filtration Rate) 08/09/2025 [...] Procedure Name Priority Date/Time Associated Diagnosis Comments [id number], RSV, FLU A AND B QUALITATIVE RT-PCR, LOCAL REFERENCE LAB Routine 10/16/2024 12:00 AM EDT Acute cough THYROID STIMULATING HORMONE Routine 08/09/2024 6:09 AM [...] Recently Relevant to Health Maintenance Results * [id number], RSV, Influenza A and B qualitative RT-PCR (10/16/2024 12:00 AM EDT) SARS COV-2 Not Detected Not Detected LAB MOLECULAR DIAGNOSTICS METHOD 10/17/2024 11:40 AM EDT [facility] Comment: Disclaimer: The manner in which this information is used to guide patient care is the responsibility of the healthcare provider. Testing was performed using the Kessler Alinity m SARS-CoV-2 test. This test has [...] for Healthcare Providers can be found at: https://www.fda.gov/media/744423/download Fact sheet for Patients can be found at: https://www.fda.gov/media/178022/download Influenza A PCR Not Detected Not Detected LAB MOLECULAR DIAGNOSTICS METHOD 10/17/2024 11:40 AM EDT [facility] Influenza B PCR Not Detected Not Detected LAB MOLECULAR DIAGNOSTICS METHOD 10/17/2024 11:40 AM EDT [facility] RSV PCR Not Detected Not Detected LAB MOLECULAR DIAGNOSTICS METHOD 10/17/2024 11:40 AM EDT [facility] Swab Nasopharyngeal structure / Unknown 10/16/2024 10/17/2024 7:24 AM EDT Adilson Buchanan MD LAB MICROBIOLOGY - GENERAL ORDER MICHELLE Final Result [facility] [address] [place] [address], * (ABNORMAL) Lipid panel with reflex to direct LDL (08/09/2024 6:09 AM EST) Cholesterol 140 0 - 200 mg/dL LAB CHEMISTRY METHOD 08/09/2024 1:36 PM EST [facility] Triglycerides 118 0 - 150 mg/dL LAB CHEMISTRY METHOD 08/09/2024 1:36 PM EST [facility] HDL 39(L) >=40 mg/dL LAB CHEMISTRY METHOD 08/09/2024 1:36 PM [facility] LDL Calculated 77 0 - 100 mg/dL LAB CHEMISTRY METHOD 08/09/2024 1:36 PM [facility] VLDL Cholesterol Kishore 23.6 mg/dL LAB CHEMISTRY METHOD 08/09/2024 1:36 PM [facility] Non HDL Chol. (LDL+VLDL) 101 <145 mg/dL LAB CHEMISTRY METHOD 08/09/2024 1:36 PM [facility] Chol/HDL Ratio 3.6 0.0 - 4.4 LAB CHEMISTRY METHOD 08/09/2024 1:36 PM [facility] Blood Venous blood specimen / Unknown Venipuncture / Unknown 08/09/2024 6:09 AM EST 08/09/2024 11:05 AM EST Adilson Buchanan MD LAB BLOOD ORDERABLES Final Resul t Performing Organization Address City/[facility]/ZIP Co de Phone Number [facility] [address] [place] [address], [place] [phone] * Thyroid stimulating hormone (08/09/2024 6:09 AM EST) TSH 1.38 0.40 - 4.00 mcIU/mL LAB CHEMISTRY METHOD 08/09/2024 1:26 PM [facility] Blood Venous blood specimen / Unknown Venipuncture / Unknown 08/09/2024 6:09 AM EST 08/09/2024 11:05 AM EST us Adilson Buchanan MD LAB BLOOD ORDERABLES Final Resul t [facility] [address] [place] [address], [place] [phone] * Thyroxine free (08/09/2024 6:09 AM EST) Free T4 0.81 0.70 - 1.80 ng/dL LAB CHEMISTRY METHOD 08/09/2024 1:25 PM [facility] Blood Venous blood specimen / Unknown Venipuncture / Unknown 08/09/2024 6:09 AM EST 08/09/2024 11:05 AM EST us Adilson Buchanan MD LAB BLOOD ORDERABLES Final Resul t [facility] [address] [place] [address], [place] [phone] * (ABNORMAL) Basic metabolic panel (08/09/2024 6:09 AM EST) Sodium 138 133 - 145 mmol/L LAB CHEMISTRY METHOD 08/09/2024 1:36 PM [facility] Potassium 4.4 3.5 - 5.5 mmol/L LAB CHEMISTRY METHOD 08/09/2024 1:36 PM [facility] Chloride 104 96 - 110 mmol/L LAB CHEMISTRY METHOD 08/09/2024 1:36 PM [facility] CO2 28 21 - 32 mmol/L LAB CHEMISTRY METHOD 08/09/2024 1:36 PM [facility] Anion Gap 6 3 - 11 LAB CHEMISTRY METHOD 08/09/2024 1:36 PM [facility] Glucose 108(H) 70 - 100 mg/dL LAB CHEMISTRY METHOD 08/09/2024 1:36 PM [facility] BUN 10 5 - 25 mg/dL LAB CHEMISTRY METHOD 08/09/2024 1:36 PM [facility] Creatinine 0.94 0.50 - 1.10 mg/dL LAB CHEMISTRY METHOD 08/09/2024 1:36 PM [facility] eGFR 67 >=60 mL/min/1. 73m2 LAB CHEMISTRY METHOD 08/09/2024 1:36 PM [facility] Comment:Calculation based on the??Chronic Kidney Disease Epidemiology Collaboration (CKD-EPI) equation refit??without adjustment for race. BUN/Creatinine Ratio 10.6 LAB CHEMISTRY METHOD 08/09/2024 1:36 PM EST [facility] Calcium 9.8 8.5 - 10.5 mg/dL LAB CHEMISTRY METHOD 08/09/2024 1:36 PM EST [facility] Blood Venous blood specimen / Unknown Venipuncture / Unknown 08/09/2024 6:09 AM EST 08/09/2024 11:05 AM EST us Adilson Buchanan MD LAB BLOOD ORDERABLES Final Resul t Performing Organization Address [facility] Co de Phone Number [facility] [address] [place] [address], [place] [phone] * (ABNORMAL) Hemoglobin A1c (05/26/2024 5:37 AM EST) Hemoglobin A1C 8.2(H) <6.5 % LAB CHEMISTRY METHOD 05/26/2024 1:05 PM EST [facility] Mean Bld Glu Estim. 189 mg/dL LAB CHEMISTRY METHOD 05/26/2024 1:05 PM EST [facility] Blood Venous blood specimen / Unknown 05/26/2024 5:37 AM EST 05/26/2024 9:53 AM EST Pillo Stapleton MD LAB BLOOD ORDERABLES Final Res ult Performing Organization Address [facility]/ZIP Co de Phone Number [facility] [address] [place] [address], [place] [phone] from Last 3 Months or Most Recently Relevant to Health Maintenance Insurance [facility] Member Subscriber Plan / Payer (Ef fective 2024-Present) Name:Maria Esther Lindsay Relation to Subscriber:Self Name:Maria Esther Lindsay Payer ID:[id number] Group ID:[id number] Type:Not on file Address: [place] [address] [address] [id number] Advance Directives Documents on File Type Date Recorded Patient Assistant Family Teacher Expl anation Health Care Decision (hx) 05/22/2021 [...] (hx) 07/01/2009 AD CHEN DIRECTIVE Care Teams Computational Chemist Relationship Specialty Start Date End Date Jyoti Paris MD [address] [place] [address] PCP - General Internal Medicine 7/14/22
--- OUTSIDE RECORDS SUMMARY | 2024-10-28 10:32 | XMS_ITS | Encounter Summary ---
Author Organization [facility] Address [address] [place] [address] Care Team Providers Care Ceo Na Name Role Phone Jyoti Paris MD Primary Care Provider [phone] Encounter Details Date Type Department Care Team (Late st Contact Info) Description 08/09/[address] [facility] - Main Lab [address] [facility] [place] [address] Adilson Buchanan MD [address] [place] [address] Type 2 diabetes mellitus without complications (CMS/HCC V24, CMS/HCC V28) Social History Tobacco [...] LAB CHEMISTRY METHOD 08/09/2024 1:26 PM EST [facility] Blood Venous blood specimen / Unknown Venipuncture / Unknown 08/09/2024 6:09 AM EST 08/09/2024 11:05 AM EST us Adilson Buchanan MD LAB BLOOD ORDERABLES Final Resul t Performing Organization Address [facility]/ZIP Co de Phone Number [facility] [address] [place] [address], * Thyroxine free (08/09/2024 6:09 AM EST) Free T4 0.81 0.70 - 1.80 ng/dL LAB CHEMISTRY METHOD 08/09/2024 1:25 PM EST [facility] Blood Venous blood specimen / Unknown Venipuncture / Unknown 08/09/2024 6:09 AM EST 08/09/2024 11:05 AM EST us Adilson Buchanan MD LAB BLOOD ORDERABLES Final Resul t [facility] [address] [place] [address], [place] [phone] * (ABNORMAL) Lipid panel with reflex to direct LDL (08/09/2024 6:09 AM EST) Cholesterol 140 0 - 200 mg/dL LAB CHEMISTRY METHOD 08/09/2024 1:36 PM EST [facility] Triglycerides 118 0 - 150 mg/dL LAB CHEMISTRY METHOD 08/09/2024 1:36 PM [facility] HDL 39(L) >=40 mg/dL LAB CHEMISTRY METHOD 08/09/2024 1:36 PM [facility] LDL Calculated 77 0 - 100 mg/dL LAB CHEMISTRY METHOD 08/09/2024 1:36 PM [facility] VLDL Cholesterol Kishore 23.6 mg/dL LAB CHEMISTRY METHOD 08/09/2024 1:36 PM [facility] Non HDL Chol. (LDL+VLDL) 101 <145 mg/dL LAB CHEMISTRY METHOD 08/09/2024 1:36 PM [facility] Chol/HDL Ratio 3.6 0.0 - 4.4 LAB CHEMISTRY METHOD 08/09/2024 1:36 PM [facility] Blood Venous blood specimen / Unknown Venipuncture / Unknown 08/09/2024 6:09 AM EST 08/09/2024 11:05 AM EST us Adilson Buchanan MD LAB BLOOD ORDERABLES Final Resul t [facility] [address] [place] [address], * (ABNORMAL) Basic metabolic panel (08/09/2024 6:09 AM EST) Sodium 138 133 - 145 mmol/L LAB CHEMISTRY METHOD 08/09/2024 1:36 PM [facility] Potassium 4.4 3.5 - 5.5 mmol/L LAB CHEMISTRY METHOD 08/09/2024 1:36 PM [facility] Chloride 104 96 - 110 mmol/L LAB CHEMISTRY METHOD 08/09/2024 1:36 PM [facility] CO2 28 21 - 32 mmol/L LAB CHEMISTRY METHOD 08/09/2024 1:36 PM [facility] Anion Gap 6 3 - 11 LAB CHEMISTRY METHOD 08/09/2024 1:36 PM [facility] Glucose 108(H) 70 - 100 mg/dL LAB CHEMISTRY METHOD 08/09/2024 1:36 PM [facility] BUN 10 5 - 25 mg/dL LAB CHEMISTRY METHOD 08/09/2024 1:36 PM [facility] Creatinine 0.94 0.50 - 1.10 mg/dL LAB CHEMISTRY METHOD 08/09/2024 1:36 PM [facility] eGFR 67 >=60 mL/min/1. 73m2 LAB CHEMISTRY METHOD 08/09/2024 1:36 PM [facility] Comment:Calculation based on the??Chronic Kidney Disease Epidemiology Collaboration (CKD-EPI) equation refit??without adjustment for race. BUN/Creatinine Ratio 10.6 LAB CHEMISTRY METHOD 08/09/2024 1:36 PM [facility] Calcium 9.8 8.5 - 10.5 mg/dL LAB CHEMISTRY METHOD 08/09/2024 1:36 PM [facility] Blood Venous blood specimen / Unknown Venipuncture / Unknown 08/09/2024 6:09 AM EST 08/09/2024 11:05 AM EST us Adilson Buchanan MD LAB BLOOD ORDERABLES Final Resul t [facility] [address] [place] [address], documented in this encounter Visit Diagnoses Diagnosis Type 2 diabetes mellitus without complications (CMS/HCC V24, CMS/HCC V28) documented in this encounter Additional Health Concerns Infection Onset Date Last Indicated Resolved Time Respiratory Rule-Out 10/16/2024 10/16/2024 025 11:40 AM EDT documented as of this encounter Care Teams Ceo Na Relationship Specialty Start Date End Date Jyoti Paris MD [address] [place] [address] PCP - General Internal Medicine 01/17/22 documented as of this encounter
--- OUTSIDE RECORDS SUMMARY | 2024-10-28 10:32 | XMS_ITS | Encounter Summary ---
Author Organization [employer] Address [address] [facility] 7[address] [place] [address] Care Team Providers Care Public Service Administrator Name Role Phone Jyoti Paris MD Primary Care Provider [phone]- [phone] Encounter Details Date Type Department Care Team (Late st Contact Info) Description 09/06/2022 Orders Only [facility] [address] [place], [place] [phone] Jyoti Paris MD [address] [place], [place] [phone] Type 2 diabetes mellitus with hyperglycemia, with long-term current use of insulin (CMS/[facility]) Social History Tobacco Use Types Packs/Day Years [...] EDT 02/06/2023 11:41 AM EDT Comment:UACC Narrative [facility] - 02/07/2023 12:58 PM EDT Urine Culture Report Result Urine Culture < 10,000 cfu/ml Specimen Source: Urine clean catch Quiana Iglesias POCKET MARKER LAB MICROBIOLOGY - GENERAL ORD ERABLES Final Result [facility] [address] [place] [phone] [phone] documented in this encounter Visit Diagnoses Diagnosis Type 2 diabetes mellitus with hyperglycemia, with long-term current use of insulin ([facility]) documented in this encounter Additional Health Concerns Assessment Noted Time PHQ-9 Depression Total Score: 0 08/06/19 23 1:19 PM EST documented as of this encounter Care Teams Public Service Administrator Relationship Specialty Start Date End Date Jyoti Paris MD [address] [place] [id number] PCP - General Internal Medicine 09/12/15 documented as of this encounter
--- OUTSIDE RECORDS SUMMARY | 2024-10-28 10:32 | XMS_ITS | Encounter Summary ---
Author Organization [employer] [facility] Address [address] [place] [address] 7 [place] [address] Care Team Providers Care Technical Sme Name Role Phone Jyoti Paris MD Primary Care Provider [phone]- [phone] Reason for Visit * Reason Onset Date Comments Nurse Triage 02/05/2023 Encounter Details Date Type Department Care Team ([facility] st Contact Info) Description 02/05/2023 Telephone [facility] PEDS [address] [place], [place] [phone] Jyoti Paris MD [address] [place] [address] Nurse Triage Social History Tobacco Use Types [...] 02/05/2023 12:49 PM EDT Triage call with [employer] Lay Out Inspector Id [id number] Pt son FRANCESCA Abel, takes call. Son reports Pt has increased confusion and incontinence of urine. Pt was seen in ED [facility] 01/30-01/31. Pt didn't have a UTI at that time. Pt is unable to hold urine and has become incontinent recently. Neg for burning with urination. Blood sugar this morning was reported as 408 and visiting nurse gave sliding scale insulin as ordered. Son is concerned that Pt could be having UTI with these symptoms. Advised to come to [facility] today to be seen by provider. 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 Pt does have an apt with Dr. [...] documented as of this encounter Care Teams Technical Sme Relationship Specialty Start Date End Date Jyoti Paris MD [address] [place] [address] PCP - General Internal Medicine 09/12/15 documented as of this encounter
--- OUTSIDE RECORDS SUMMARY | 2024-10-28 10:32 | XMS_ITS | Encounter Summary ---
Author Organization [facility] Address [address] [place] [address] Phone Care Team Providers Care Catch Basin Cleaner Name Role Phone Jyoti Paris MD Primary Care Provider Encounter Details Date Type Department Care Team (Late st Contact Info) Description 10/17/2021 Documentation Only [facility] [place], [address] [place] [address] Jyoti Paris MD [address] [place], [place] [phone] Social History Tobacco Use Types Packs/Day Years [...] on filedocumented in this encounter Care Teams Catch Basin Cleaner Relationship Specialty Start Date End Date Jyoti Paris MD PCP - General Internal Medicine 10/17/21 documented as of this encounter
== END 2024-10-28 09:59 | disposition home or self-care (01) ==
LOC: HO.ENCR 09:32
PROVIDERS: Visit Provider Nurse Practitioner Adult Health
DX: E11.9 Type 2 diabetes mellitus without complications (principal)

== ENCOUNTER → 2024-10-28 09:31 | Outpatient (BNVA) | payer OTHER, SELFPAY | PROVIDERS: Visit Provider Nurse Practitioner Adult Health | DX: E11.9 Type 2 diabetes mellitus without complications (principal); Z79.84 Long term (current) use of oral hypoglycemic drugs; Z79.4 Long term (current) use of insulin | CPT/HCPCS: 82947; 83036; 99212 ==

== ENCOUNTER 2024-11-08 09:54 | Outpatient (AMB) | payer OTHER, SELFPAY ==
--- NOTE | 2024-11-08 10:14 | HO.NEPHOV_ITS ---
Vital Signs 11/08/24 10:15 Height 5 ft Weight 180 lb BMI 35.2 BP 110/60 Blood Pressure Location Rt brachial Position Sitting Pulse 78 Pulse Source Pulse Oximeter Pulse Oximetry (%) 97 Oxygen Delivery Method Room Air Intake Visit Reasons: INP:Type 2 DM without complications/ Conf Tester Compressed Gases Required: No Accompanied by: Son Allergies metoclopramide [From Reglan] Adverse Reaction (Verified 11/08/24 10:17) Confusion phenytoin [From Dilantin] Adverse Reaction (Verified 11/08/24 10:17) Gastrointestinal Upset Medication List - Last Reviewed 11/08/24 by Kimmie Mejia [place] acetaminophen 650 mg (2 x 325 mg) PO Q6H PRN atorvastatin 40 mg PO DAILY blood-glucose sensor (Cambridge CompaniesStyle Jordan 3 Plus Sensor device) continous use reapply every 15 days chlorpromazine 100 mg PO BID 30 days cholecalciferol (vitamin D3) 25 mcg PO DAILY docusate sodium 100 mg PO BID PRN famotidine 20 mg PO BID 30 days fenofibrate nanocrystallized 48 mg PO DAILY 30 days FreeStyle Jordan 3 Highland (blood-glucose,park activities coordinator,cont) for use with freestyle sensor NS gabapentin 100 mg PO TID hydrochlorothiazide 12.5 mg PO DAILY 30 days insulin glargine (Lantus Solostar U-100 Insulin) 13 units subcut BEDTIME insulin lispro (Humalog KwikPen (U-100) Insulin) 12 units subcut TID lamotrigine 200 mg PO BEDTIME 30 days levetiracetam 250 mg PO BID 30 days melatonin 5 mg PO BEDTIME pantoprazole 20 mg PO DAILY 30 days prazosin 1 mg PO BEDTIME 30 days quetiapine 100 mg PO BEDTIME sitagliptin phosphate (Januvia) 50 mg PO DAILY trazodone 400 mg (4 x 100 mg) PO BEDTIME 30 days umeclidinium 62.5 mcg/actuation (Incruse Ellipta) 1 inh inhalation DAILY venlafaxine 37.5 mg PO DAILY 30 days Do you need a note to return to daycare/school/sports/work: No HPI Comments Details: Maria Esther is a pleasant middle-aged woman referred for evaluation of chronic kidney disease and proteinuria She has a longstanding history of diabetes mellitus. She was initially on oral medications currently she is on insulin as well. Blood sugar has been suboptimal. She was found to have microalbuminuria and hence this referral. The serum creatinine has been between 1.1 and 1.24 mg/dL with a EGFR of around 40-48 mL/minute for the past few years. She has been on hydrochlorothiazide 12.5 mg. She is not on any DAVID inhibitors or ARB at this time. She has a history of bipolar disorder, tardive dyskinesia. History of COPD from smoking. She is accompanied by her son. Currently she is in a long-term care/rehab facility [facility] Medical History Seizure disorder HTN (hypertension) COPD (chronic obstructive pulmonary disease) Type 2 diabetes mellitus Social History Household Members: None Housing: Apartment Do you presently have visiting nurse or other home services: Yes Patient Tobacco Use Status: Current everyday Tobacco user Tobacco use type: Cigarette Cigarettes Per Day: 3 Second Hand Smoke Exposure: No service: No Sexual orientation: Straight/Heterosexual Review of Systems Const Denies fever(s) and Denies weight loss Card Denies chest pain Resp Denies cough and Denies hemoptysis GI Denies abdominal pain, Denies diarrhea and Denies nausea Musc Denies back pain Neuro Denies focal weakness Physical Exam Vital Signs: Last Vital Signs Pulse 78 11/08/24 10:15 BP 110/60 11/08/24 10:15 Pulse Ox 97 11/08/24 10:15 Oxygen Delivery Method Room Air 11/08/24 10:15 BMI result Body Mass Index 35.2 Comfortable Neck supple no JVD. Lungs entry equal no rales. Heart S1-S2 heard no gallop or rub. Abdomen soft nontender. Neuro alert awake oriented. No asterixis. Few involuntary movements including lip-smacking. No tremors Extremities no edema. Results Reviewed Nephrology Results: Sodium 136 mmol/L (135-145) 10/12/24 Potassium 4.1 mmol/L (3.3-5.1) 10/12/24 Chloride 103 mmol/L (96-108) 10/12/24 Carbon Dioxide 24 mmol/L (22-29) 10/12/24 BUN 14 mg/dL (9-16) 10/12/24 Creatinine 1.12 mg/dL (0.5-1.4) 10/12/24 Calcium 9.9 mg/dL (8.4-10.2) 10/12/24 PTH Intact 46.6 pg/mL (8.7-77.1) 10/12/24 Urine Creatinine 74.71 mg/dL 10/12/24 Assessment & Plan Assessment & Plan (1) CKD (chronic kidney disease): Code(s): N18.9 - Chronic kidney disease, unspecified Category: Medical (2) COPD (chronic obstructive pulmonary disease): Code(s): J44.9 - Chronic obstructive pulmonary disease, unspecified Category: Medical (3) Type 2 diabetes mellitus: Code(s): E11.9 - Type 2 diabetes mellitus without complications Category: Medical (4) Bipolar disorder: Code(s): F31.9 - Bipolar disorder, unspecified Category: Medical Plan Maria Esther is a middle-aged woman with a longstanding history of diabetes mellitus. She has stage III B CKD with a serum creatinine between 1.1 and 1.24 mg/dL and EGFR between 45 and 48 mL/minute most likely due to underlying diabetic kidney disease. Microalbuminuria is also secondary to underlying diabetic kidney disease. She is on low-dose of hydrochlorothiazide. Blood pressure is well controlled and rather on the low side. She could have a component of hypoperfusion. Other possibilities including obstructive uropathy seem unlikely based on the clinical picture. No reason to believe that she has any active glomerular nephritis or interstitial disease at this time. Recommendations Discontinue hydrochlorothiazide for now. Recheck renal panel and urine protein creatinine ratio in the next few weeks. Obtain renal ultrasonogram to assess echogenicity of kidneys Given the history of microalbuminuria she will benefit from an DAVID inhibitor or ARB. She would also benefit from an SGLT2 inhibitor. Goal is to maintain hemoglobin A1c less than 7% Maintain blood pressure less than 120/80. Continue to avoid nephrotoxic agents including NSAIDs. Encouraged her to stay on low-sodium diet and increase p.o. fluid intake. She returned to the office in the next few weeks after the above workup is completed. Orders: Orders Basic Metabolic Panel 2 Months Feng Will MD I10 - Essential (primary) hypertension, N18.9 - Chronic kidney disease, unspecified UA and rflx microscopic 2 Months Feng Will MD I10 - Essential (primary) hypertension, N18.9 - Chronic kidney disease, unspecified Total Protein Urine Random 2 Months Feng Will MD I10 - Essential (primary) hypertension, N18.9 - Chronic kidney disease, unspecified Creatinine Urine 2 Months Feng Will MD I10 - Essential (primary) hypertension, N18.9 - Chronic kidney disease, unspecified US renal BI Today Feng Will MD N18.9 - Chronic kidney disease, unspecified Medications: Changed From quetiapine 75 mg (3 x 25 mg) PO BEDTIME 30 days 90 tabs 0RF To quetiapine 100 mg PO BEDTIME Kevin Fan MD Coding Level of Care Code New Pt Level 4 (01440) Diagnoses CKD (chronic kidney disease) N18.9 COPD (chronic obstructive pulmonary disease) J44.9 Type 2 diabetes mellitus E11.9 Bipolar disorder F31.9
[2024-11-08 10:15] VITALS: BP 110/60; PULSE 78; O2SAT 97; BMI 35.2
--- OUTSIDE RECORDS SUMMARY | 2024-11-08 11:03 | XMS_ITS | Encounter Summary ---
Author Organization [employer] Address [address] [place] [address] Care Team Providers Care Supervisor Carbon Electrodes Name Role Phone Jyoti Paris MD Primary Care Provider [phone] [phone] Encounter Details Date Type Department Care Team (Late st Contact Info) Description 09/03/2023 Telephone [facility] [address] [place] [address] Jyoti Paris MD [address] [place], [place] [phone] Social History Tobacco Use Types Packs/Day Years [...] documented as of this encounter Care Teams Supervisor Carbon Electrodes Relationship Specialty Start Date End Date Jyoti Paris MD [address] [place] [address] PCP - General Internal Medicine 09/12/15 documented as of this encounter
--- OUTSIDE RECORDS SUMMARY | 2024-11-08 11:03 | XMS_ITS | Encounter Summary ---
Author Organization [employer] Address [address] [place] [address] Care Team Providers Care Textile Designer Name Role Phone Jyoti Paris MD Primary Care Provider [phone] [phone] Encounter Details Date Type Department Care Team (Late st Contact Info) Description 05/26/2024 Lab Requisition [facility] - Main Lab [address] [facility] [place] [address] Pillo Stapleton MD [address] [place] [address] Epilepsy, unspecified, not intractable, without status epilepticus [...] LAB CHEMISTRY METHOD 05/26/2024 1:05 PM EST [facility] Mean Bld Glu Estim. 189 mg/dL LAB CHEMISTRY METHOD 05/26/2024 1:05 PM EST [facility] LAB Blood Venous blood specimen / Unknown 05/26/2024 5:37 AM EST 05/26/2024 9:53 AM EST us Pillo Stapleton MD LAB BLOOD ORDERABLES Final Res ult [facility] LAB [address] [place] [address], * (ABNORMAL) Complete blood count (05/26/2024 5:37 AM EST) [facility] WBC 9.6 4.8 - 10.8 K/mcL LAB HEMETOLOGY METHOD 05/26/2024 11:34 AM [facility] RBC 4.10 3.80 - 4.80 M/mcL LAB HEMETOLOGY METHOD 05/26/2024 11:34 AM [facility] Hemoglobin 11.6 11.5 - 16.0 g/dL LAB HEMETOLOGY METHOD 05/26/2024 11:34 AM [facility] LAB Hematocrit 36.8 35.0 - 47.0 % LAB HEMETOLOGY METHOD 05/26/2024 11:34 AM [facility] LAB MCV 89.5 79.0 - 98.0 FL LAB HEMETOLOGY METHOD 05/26/2024 11:34 AM [facility] LAB MCH 28.2 27.0 - 32.0 pcg LAB HEMETOLOGY METHOD 05/26/2024 11:34 AM [facility] LAB MCHC 31.5(L) 32.0 - 37.0 g/dL LAB HEMETOLOGY METHOD 05/26/2024 11:34 AM [facility] RDW 14.3 11.0 - 15.0 % LAB HEMETOLOGY METHOD 05/26/2024 11:34 AM [facility] Platelets 372 130 - 400 K/mcL LAB HEMETOLOGY METHOD 05/26/2024 11:34 AM [facility] LAB MPV 9.5 7.0 - 11.0 FL LAB HEMETOLOGY METHOD 05/26/2024 11:34 AM [facility] NRBC 0.0 <1.0 % LAB HEMETOLOGY METHOD 05/26/2024 11:34 AM [facility] NRBC Absolute 0.00 <0.10 K/mcL LAB HEMETOLOGY METHOD 05/26/2024 11:34 AM EST [facility] Blood Venous blood specimen / Unknown 05/26/2024 5:37 AM EST 05/26/2024 9:53 AM EST Pillo Stapleton MD LAB BLOOD ORDERABLES Final Res ult Performing Organization Address City/[facility]/ZIP Co de Phone Number [facility] [address] [place] [address], [place] [phone] * (ABNORMAL) Vitamin D 25 hydroxy (05/26/2024 5:37 AM EST) Vit D, 25-Hydroxy 24.1(L) 30.0 - 80.0 ng/mL LAB CHEMISTRY METHOD 05/26/2024 11:46 AM EST [facility] Blood Venous blood specimen / Unknown Venipuncture / Unknown 05/26/2024 5:37 AM EST 05/26/2024 9:53 AM EST Pillo Stapleton MD LAB BLOOD ORDERABLES Final Res ult Performing Organization Address [facility] Co de Phone Number [facility] [address] [place] [address], [place] [phone] * Thyroid stimulating hormone (05/26/2024 5:37 AM EST) TSH 1.55 0.40 - 4.00 mcIU/mL LAB CHEMISTRY METHOD 05/26/2024 11:47 AM EST [facility] Blood Venous blood specimen / Unknown Venipuncture / Unknown 05/26/2024 5:37 AM EST 05/26/2024 9:53 AM EST Pillo Stapleton MD LAB BLOOD ORDERABLES Final Res ult Performing Organization Address City/[facility]/ZIP Co de Phone Number [facility] [address] [place] [address], [place] [phone] * Lipid panel with reflex to direct LDL (05/26/2024 5:37 AM EST) Cholesterol 150 0 - 200 mg/dL LAB CHEMISTRY METHOD 05/26/2024 11:47 AM [facility] Triglycerides 147 0 - 150 mg/dL LAB CHEMISTRY METHOD 05/26/2024 11:47 AM [facility] HDL 42 >=40 mg/dL LAB CHEMISTRY METHOD 05/26/2024 11:47 AM [facility] LDL Calculated 79 0 - 100 mg/dL LAB CHEMISTRY METHOD 05/26/2024 11:47 AM [facility] VLDL Cholesterol Kishore 29.4 mg/dL LAB CHEMISTRY METHOD 05/26/2024 11:47 AM [facility] Non HDL Chol. (LDL+VLDL) 108 <145 mg/dL LAB CHEMISTRY METHOD 05/26/2024 11:47 AM [facility] Chol/HDL Ratio 3.6 0.0 - 4.4 LAB CHEMISTRY METHOD 05/26/2024 11:47 AM [facility] Blood Venous blood specimen / Unknown Venipuncture / Unknown 05/26/2024 5:37 AM EST 05/26/2024 9:53 AM EST us Pillo Stapleton MD LAB BLOOD ORDERABLES Final Res ult [facility] [address] [place] [address], [place] [phone] * (ABNORMAL) Comprehensive metabolic panel (05/26/2024 5:37 AM EST) Pathologist [facility] Sodium 140 133 - 145 mmol/L LAB CHEMISTRY METHOD 05/26/2024 11:47 AM [facility] Potassium 4.3 3.5 - 5.5 mmol/L LAB CHEMISTRY METHOD 05/26/2024 11:47 AM [facility] Chloride 105 96 - 110 mmol/L LAB CHEMISTRY METHOD 05/26/2024 11:47 AM [facility] CO2 25 21 - 32 mmol/L LAB CHEMISTRY METHOD 05/26/2024 11:47 AM [facility] Anion Gap 10 3 - 11 LAB CHEMISTRY METHOD 05/26/2024 11:47 AM [facility] Glucose 171(H) 70 - 100 mg/dL LAB CHEMISTRY METHOD 05/26/2024 11:47 AM [facility] BUN 15 5 - 25 mg/dL LAB CHEMISTRY METHOD 05/26/2024 11:47 AM [facility] Creatinine 1.02 0.50 - 1.10 mg/dL LAB CHEMISTRY METHOD 05/26/2024 11:47 AM [facility] eGFR 60 >=60 mL/min/1. 73m2 LAB CHEMISTRY METHOD 05/26/2024 11:47 AM [facility] LAB Comment:Calculation based on the??Chronic Kidney Disease Epidemiology Collaboration (CKD-EPI) equation refit??without adjustment for race. BUN/Creatinine Ratio 14.7 LAB CHEMISTRY METHOD 05/26/2024 11:47 AM [facility] Calcium 9.6 8.5 - 10.5 mg/dL LAB CHEMISTRY METHOD 05/26/2024 11:47 AM [facility] AST (SGOT) 37 10 - 42 unit/L LAB CHEMISTRY METHOD 05/26/2024 11:47 AM [facility] ALT (SGPT) 37 10 - 60 unit/L LAB CHEMISTRY METHOD 05/26/2024 11:47 AM [facility] Alkaline Phosphatase 188(H) 42 - 121 unit/L LAB CHEMISTRY METHOD 05/26/2024 11:47 AM [facility] Total Protein 6.9 6.0 - 8.0 g/dL LAB CHEMISTRY METHOD 05/26/2024 11:47 AM EST [facility] Albumin 3.4 3.2 - 5.0 g/dL LAB CHEMISTRY METHOD 05/26/2024 11:47 AM EST [facility] Total Bilirubin 0.3 0.0 - 1.4 mg/dL LAB CHEMISTRY METHOD 05/26/2024 11:47 AM EST [facility] Blood Venous blood specimen / Unknown Venipuncture / Unknown 05/26/2024 5:37 AM EST 05/26/2024 9:53 AM EST us Pillo Stapleton MD LAB BLOOD ORDERABLES Final Res ult [facility] ([facility] [address] [place] [address], documented in this encounter Visit Diagnoses Diagnosis Epilepsy, unspecified, not intractable, without status epilepticus (CMS/[facility] V24, CMS/[facility] V28) Hyperlipidemia, unspecified Chronic kidney disease, stage 3a (CMS/HCC V24, CMS/[facility] V28) documented in this encounter Additional Health Concerns Infection Onset Date Last Indicated Resolved Time Respiratory Rule-Out 10/16/2024 10/16/2024 025 11:40 AM EDT documented as of this encounter Care Teams Textile Designer Relationship Specialty Start Date End Date Jyoti Paris MD [address] [place] [address] PCP - General Internal Medicine 01/17/22 documented as of this encounter
--- OUTSIDE RECORDS SUMMARY | 2024-11-08 11:03 | XMS_ITS | Encounter Summary ---
Author Organization [employer] Address [address] [facility] 7t [place] [address] Care Team Providers Care Children'S Choir Director Name Role Phone Jyoti Paris MD Primary Care Provider [phone] [phone] Encounter Details Date Type Department Care Team ([facility] st Contact Info) Description 09/18/2023 Orders Only [facility] CHC MED & PEDS [address] [place], [place] [phone] Jyoti Paris MD [address] [place], [place] [phone] Simple chronic bronchitis (CMS/HCC) (Primary Dx) Social [...] documented as of this encounter Care Teams Children'S Choir Director Relationship Specialty Start Date End Date Jyoti Paris MD [address] [place] [address] PCP - General Internal Medicine 09/12/15 documented as of this encounter
--- OUTSIDE RECORDS SUMMARY | 2024-11-08 11:03 | XMS_ITS | Encounter Summary ---
Author Organization [facility] Address [address] [place] [address] Care Team Providers Care Television Antenna Installer Name Role Phone Jyoti Paris MD Primary Care Provider +1 [phone] Encounter Details Date Type Department Care Team (Late st Contact Info) Description 08/09/2024 Lab Requisition [facility] - Main Lab [address] [facility] [place] [address] Adilson Buchanan MD [address] [place] [address] Type 2 diabetes mellitus without complications (CMS/HCC [...] LAB CHEMISTRY METHOD 08/09/2024 1:26 PM EST [facility] Blood Venous blood specimen / Unknown Venipuncture / Unknown 08/09/2024 6:09 AM EST 08/09/2024 11:05 AM EST us Adilson Buchanan MD LAB BLOOD ORDERABLES Final Resul t Performing Organization Address [facility]/ZIP Co de Phone Number [facility] [address] [place] [address], * Thyroxine free (08/09/2024 6:09 AM EST) Free T4 0.81 0.70 - 1.80 ng/dL LAB CHEMISTRY METHOD 08/09/2024 1:25 PM EST [facility] Blood Venous blood specimen / Unknown Venipuncture / Unknown 08/09/2024 6:09 AM EST 08/09/2024 11:05 AM EST us Adilson Buchanan MD LAB BLOOD ORDERABLES Final Resul t [facility] [address] [place] [address], [place] [phone] * (ABNORMAL) Lipid panel with reflex to direct LDL (08/09/2024 6:09 AM EST) Cholesterol 140 0 - 200 mg/dL LAB CHEMISTRY METHOD 08/09/2024 1:36 PM EST [facility] Triglycerides 118 0 - 150 mg/dL LAB CHEMISTRY METHOD 08/09/2024 1:36 PM [facility] HDL 39(L) >=40 mg/dL LAB CHEMISTRY METHOD 08/09/2024 1:36 PM [facility] LDL Calculated 77 0 - 100 mg/dL LAB CHEMISTRY METHOD 08/09/2024 1:36 PM [facility] VLDL Cholesterol Kishore 23.6 mg/dL LAB CHEMISTRY METHOD 08/09/2024 1:36 PM [facility] Non HDL Chol. (LDL+VLDL) 101 <145 mg/dL LAB CHEMISTRY METHOD 08/09/2024 1:36 PM [facility] Chol/HDL Ratio 3.6 0.0 - 4.4 LAB CHEMISTRY METHOD 08/09/2024 1:36 PM [facility] Blood Venous blood specimen / Unknown Venipuncture / Unknown 08/09/2024 6:09 AM EST 08/09/2024 11:05 AM EST us Adilson Buchanan MD LAB BLOOD ORDERABLES Final Resul t [facility] [address] [place] [address], * (ABNORMAL) Basic metabolic panel (08/09/2024 6:09 AM EST) Sodium 138 133 - 145 mmol/L LAB CHEMISTRY METHOD 08/09/2024 1:36 PM [facility] Potassium 4.4 3.5 - 5.5 mmol/L LAB CHEMISTRY METHOD 08/09/2024 1:36 PM [facility] Chloride 104 96 - 110 mmol/L LAB CHEMISTRY METHOD 08/09/2024 1:36 PM [facility] CO2 28 21 - 32 mmol/L LAB CHEMISTRY METHOD 08/09/2024 1:36 PM [facility] Anion Gap 6 3 - 11 LAB CHEMISTRY METHOD 08/09/2024 1:36 PM [facility] Glucose 108(H) 70 - 100 mg/dL LAB CHEMISTRY METHOD 08/09/2024 1:36 PM [facility] BUN 10 5 - 25 mg/dL LAB CHEMISTRY METHOD 08/09/2024 1:36 PM [facility] Creatinine 0.94 0.50 - 1.10 mg/dL LAB CHEMISTRY METHOD 08/09/2024 1:36 PM [facility] eGFR 67 >=60 mL/min/1. 73m2 LAB CHEMISTRY METHOD 08/09/2024 1:36 PM [facility] Comment:Calculation based on the??Chronic Kidney Disease Epidemiology Collaboration (CKD-EPI) equation refit??without adjustment for race. BUN/Creatinine Ratio 10.6 LAB CHEMISTRY METHOD 08/09/2024 1:36 PM [facility] Calcium 9.8 8.5 - 10.5 mg/dL LAB CHEMISTRY METHOD 08/09/2024 1:36 PM [facility] Blood Venous blood specimen / Unknown Venipuncture / Unknown 08/09/2024 6:09 AM EST 08/09/2024 11:05 AM EST us Adilson Buchanan MD LAB BLOOD ORDERABLES Final Resul t [facility] [address] [place] [address], documented in this encounter Visit Diagnoses Diagnosis Type 2 diabetes mellitus without complications (CMS/HCC V24, CMS/HCC V28) documented in this encounter Additional Health Concerns Infection Onset Date Last Indicated Resolved Time Respiratory Rule-Out 10/16/2024 10/16/2024 025 11:40 AM EDT documented as of this encounter Care Teams Television Antenna Installer Relationship Specialty Start Date End Date Jyoti Paris MD [address] [place] [address] PCP - General Internal Medicine 01/17/22 documented as of this encounter
--- OUTSIDE RECORDS SUMMARY | 2024-11-08 11:03 | XMS_ITS | Clinical Summary ---
Author Organization [address] [facility] Address [address] [place] [address] Phone Care Team Providers Care Apprentice Funeral Director Name Role Phone Jyoti Paris MD Primary Care Provider +1 [phone] Encounters Date Type Department Care Team Description 10/17/2024 Lab Requisition [facility] - Main Lab [address] [facility] [place] [id number] Adilson Buchanan MD Acute cough from Last 3 Months Surgical History Surgery Date Site/Laterality Comments COLONOSCOPY PROCEDURE: OR COLONOSCOPY STOMA DX INCLUDING COLLJ SPEC SPX; [...] COVID-19 Vaccine (2 - season) 2024 10/12/2020 Diabetes: Annual Urine [...] Procedure Name Priority Date/Time Associated Diagnosis Comments [id number], RSV, FLU A AND B QUALITATIVE RT-PCR, LOCAL REFERENCE LAB Routine 10/16/2024 12:00 AM EDT Acute cough BASIC METABOLIC PANEL Routine 08/09/2024 6:09 AM [...] Recently Relevant to Health Maintenance Results * [id number], RSV, Influenza A and B qualitative RT-PCR (10/16/2024 12:00 AM EDT) SARS COV-2 Not Detected Not Detected LAB MOLECULAR DIAGNOSTICS METHOD 10/17/2024 11:[address] [facility] Comment: Disclaimer: The manner in which this information is used to guide patient care is the responsibility of the healthcare provider. Testing was performed using the Eight19 Alinity m SARS-CoV-2 test. This test has [...] for Healthcare Providers can be found at: https://www.fda.gov/media/119151/download Fact sheet for Patients can be found at: https://www.fda.gov/media/731526/download Influenza A PCR Not Detected Not Detected LAB MOLECULAR DIAGNOSTICS METHOD 10/17/2024 11:40 AM EDT [facility] Influenza B PCR Not Detected Not Detected LAB MOLECULAR DIAGNOSTICS METHOD 10/17/2024 11:40 AM EDT [facility] RSV PCR Not Detected Not Detected LAB MOLECULAR DIAGNOSTICS METHOD 10/17/2024 11:40 AM EDT [facility] Swab Nasopharyngeal structure / Unknown 10/16/2024 10/17/2024 7:24 AM EDT Adilson Buchanan MD LAB MICROBIOLOGY - GENERAL ORDER MICHELLE Final Result [facility] [address] [place] [address], [place] [phone] * (ABNORMAL) Lipid panel with reflex to direct LDL (08/09/2024 6:09 AM EST) Cholesterol 140 0 - 200 mg/dL LAB CHEMISTRY METHOD 08/09/2024 1:36 PM [facility] Triglycerides 118 0 - 150 mg/dL LAB CHEMISTRY METHOD 08/09/2024 1:36 PM [facility] HDL 39(L) >=40 mg/dL LAB CHEMISTRY METHOD 08/09/2024 1:36 PM [facility] LDL Calculated 77 0 - 100 mg/dL LAB CHEMISTRY METHOD 08/09/2024 1:36 PM [facility] VLDL Cholesterol Kishore 23.6 mg/dL LAB CHEMISTRY METHOD 08/09/2024 1:36 PM [facility] Non HDL Chol. (LDL+VLDL) 101 <145 mg/dL LAB CHEMISTRY METHOD 08/09/2024 1:36 PM [facility] Chol/HDL Ratio 3.6 0.0 - 4.4 LAB CHEMISTRY METHOD 08/09/2024 1:36 PM [facility] Blood Venous blood specimen / Unknown Venipuncture / Unknown 08/09/2024 6:09 AM EST 08/09/2024 11:05 AM EST us Adilson Buchanan MD LAB BLOOD ORDERABLES Final Resul t [facility] [address] [place] [address], [place] [phone] * (ABNORMAL) Basic metabolic panel (08/09/2024 6:09 AM EST) Sodium 138 133 - 145 mmol/L LAB CHEMISTRY METHOD 08/09/2024 1:36 PM [facility] Potassium 4.4 3.5 - 5.5 mmol/L LAB CHEMISTRY METHOD 08/09/2024 1:36 PM [facility] Chloride 104 96 - 110 mmol/L LAB CHEMISTRY METHOD 08/09/2024 1:36 PM [facility] CO2 28 21 - 32 mmol/L LAB CHEMISTRY METHOD 08/09/2024 1:36 PM [facility] Anion Gap 6 3 - 11 LAB CHEMISTRY METHOD 08/09/2024 1:36 PM [facility] Glucose 108(H) 70 - 100 mg/dL LAB CHEMISTRY METHOD 08/09/2024 1:36 PM [facility] BUN 10 5 - 25 mg/dL LAB CHEMISTRY METHOD 08/09/2024 1:36 PM [facility] Creatinine 0.94 0.50 - 1.10 mg/dL LAB CHEMISTRY METHOD 08/09/2024 1:36 PM [facility] eGFR 67 >=60 mL/min/1. 73m2 LAB CHEMISTRY METHOD 08/09/2024 1:36 PM [facility] Comment:Calculation based on the??Chronic Kidney Disease Epidemiology Collaboration (CKD-EPI) equation refit??without adjustment for race. BUN/Creatinine Ratio 10.6 LAB CHEMISTRY METHOD 08/09/2024 1:36 PM EST [facility] Calcium 9.8 8.5 - 10.5 mg/dL LAB CHEMISTRY METHOD 08/09/2024 1:36 PM EST [facility] Blood Venous blood specimen / Unknown Venipuncture / Unknown 08/09/2024 6:09 AM EST 08/09/2024 11:05 AM EST us Adilson Buchanan MD LAB BLOOD ORDERABLES Final Resul t Performing Organization Address [facility]/ZIP Co de Phone Number [facility] [address] [place] [address], [place] [phone] * (ABNORMAL) Hemoglobin A1c (05/26/2024 5:37 AM EST) Hemoglobin A1C 8.2(H) <6.5 % LAB CHEMISTRY METHOD 05/26/2024 1:05 PM EST [facility] Mean Bld Glu Estim. 189 mg/dL LAB CHEMISTRY METHOD 05/26/2024 1:05 PM [facility] Blood Venous blood specimen / Unknown 05/26/2024 5:37 AM EST 05/26/2024 9:53 AM EST Pillo Stapleton MD LAB BLOOD ORDERABLES Final Res ult Performing Organization Address [facility]/ZIP Co de Phone Number [facility] [address] [place] [address], [place] [phone] from Last 3 Months or Most Recently Relevant to Health Maintenance Insurance [facility] Member Subscriber Plan / Payer (Ef fective 2024-Present) Name:Maria Esther Lindsay Relation to Subscriber:Self Name:Maria Esther Lindsay Payer ID:[id number] Group ID:[id number] Type:Not on file Address: [place] [address] [place] [phone] Advance Directives Documents on File Type Date Recorded Patient Women'S Activities Adviser Expl anation Health Care Decision (hx) 05/22/2021 [...] (hx) 07/01/2009 AD CHEN DIRECTIVE Care Teams Apprentice Funeral Director Relationship Specialty Start Date End Date Jyoti Paris MD [address] [place] [address] PCP - General Internal Medicine 01/17/22
--- OUTSIDE RECORDS SUMMARY | 2024-11-08 11:03 | XMS_ITS | Clinical Summary ---
Author Organization [facility], Address [address] [place] [address] [place] [address] Phone Care Team Providers Care Science Technician Name Role Phone Jyoti Paris MD [...] topic Insurance Medicare Medicaid [place] Care Teams Science Technician Relationship Specialty Start Date End Date Jyoti Paris MD PCP - General Internal Medicine 10/17/21
--- OUTSIDE RECORDS SUMMARY | 2024-11-08 11:03 | XMS_ITS | Continuity of Care Document ---
Author Organization [facility] Address [address] [address] Phone Care Team Providers Care Slicing Machine Operator Name Role Phone Concepcion Bruno NP Unavailable Unavailable Advance Directives Directive Yes / No Effective Date File Name No Information Encounters Encounter Description Practice Location Reason(s) For Visit Diagnoses Date Provider [facility], [address] [address], [place], [place], [id number], [place] tel:[phone] [address] [place] [address] No Information 2022 Damion Javier. [address] [place] [address], [id number], [place]. tel:[phone] Family History Family Member Type Diagnosis Age [...]
--- OUTSIDE RECORDS SUMMARY | 2024-11-08 11:03 | XMS_ITS | Encounter Summary ---
Author Organization [employer] [facility] Address [address] [facility] [address] [place] [address] Care Team Providers Care Activities Volunteer Name Role Phone Jyoti Paris MD Primary Care Provider [phone] Reason for Visit * Reason Onset Date Comments Appointment Request 07/15/2022 Encounter Details Date Type Department Care Team (Late st Contact Info) Description 07/15/2022 Telephone [facility] [address] [place] [address] Jyoti Paris MD [address] [place] [phone] Appointment Request Social History Tobacco Use Types [...] summary in chart.) Please contact son at [phone] documented in this encounter Plan of Treatment Not on file documented as of this encounter Visit Diagnoses Not on filedocumented in this encounter Care Teams Activities Volunteer Relationship Specialty Start Date End Date Jyoti Paris MD [address] [place] [id number] PCP - General Internal Medicine 09/12/15 documented as of this encounter
--- OUTSIDE RECORDS SUMMARY | 2024-11-08 11:03 | XMS_ITS | Encounter Summary ---
Author Organization [employer] Address [address] [facility] 7t [place] [address] Care Team Providers Care Pigs Feet Finisher Name Role Phone Jyoti Paris MD Primary Care Provider [phone] Reason for Visit * Reason Onset Date Comments Nurse Triage 10/07/2023 Encounter Details Date Type Department Care Team ([facility] st Contact Info) Description 10/07/2023 Telephone [facility] CHC MED & PEDS [address] [place], [place] [phone] Jyoti Paris MD [address] [place] [address] Nurse Triage Social History Tobacco Use Types [...] daily [phone]. Please follow with Janae at [phone]. Protocol Used: Information Only Call - No [...] JEFERSON Cardoso would like a call back [phone]. documented in this encounter Plan of Treatment Not on file documented as of this encounter Visit Diagnoses Not on filedocumented in this encounter Additional Health Concerns Assessment Noted Time PHQ-9 Depression Total Score: 0 08/06/19 23 1:19 PM EST documented as of this encounter Care Teams Pigs Feet Finisher Relationship Specialty Start Date End Date Jyoti Paris MD [address] [place] [address] PCP - General Internal Medicine 09/12/15 documented as of this encounter
--- OUTSIDE RECORDS SUMMARY | 2024-11-08 11:03 | XMS_ITS | Encounter Summary ---
Author Organization [employer] [facility] Address [address] [place] [address] 7 [place] [address] Care Team Providers Care Customer Management Specialist Name Role Phone Jyoti Paris MD Primary Care Provider +1- [phone] Reason for Visit * Reason Onset Date Comments Nurse Triage 02/05/2023 Encounter Details Date Type Department Care Team ([facility] st Contact Info) Description 02/05/2023 Telephone [facility] CHC MED & PEDS [address] [place], [place] [phone] Jyoti Paris MD 505 [place] [address] Nurse Triage Social History Tobacco Use Types [...] 02/05/2023 12:49 PM EDT Triage call with [employer] She[place] Id [id number] Pt son FRANCESCA Abel, takes call. Son reports Pt has increased confusion and incontinence of urine. Pt was seen in ED [facility] 01/30-01[facility]31. Pt didn't have a UTI at that time. Pt is unable to hold urine and has become incontinent recently. Neg for burning with urination. Blood sugar this morning was reported as 408 and visiting nurse gave sliding scale insulin as ordered. Son is concerned that Pt could be having UTI with these symptoms. Advised to come to [facility] today to be seen by provider. Pt LEATHER GOODS II ASSEMBLER will assist to [facility]. Pt does have an apt with [...] as of this encounter Care Teams Customer Management Specialist Relationship Specialty Start Date End Date Jyoti Paris MD [address] [place] [address] PCP - General Internal Medicine 09/12/15 documented as of this encounter
--- OUTSIDE RECORDS SUMMARY | 2024-11-08 11:03 | XMS_ITS | Encounter Summary ---
Author Organization [facility] Address [address] [place] [address] Phone Care Team Providers Care Outdoor Adventure Guides Name Role Phone Jyoti Paris MD Primary Care Provider +1- [phone] Encounter Details Date Type Department Care Team (Late st Contact Info) Description 10/17/2021 Documentation Only [facility], [address] [place] [address] Jyoti Paris MD [address] [place], [place] [phone] Social History Tobacco Use Types Packs/Day Years [...] on filedocumented in this encounter Care Teams Outdoor Adventure Guides Relationship Specialty Start Date End Date Jyoti Paris MD PCP - General Internal Medicine 10/17/21 documented as of this encounter
--- OUTSIDE RECORDS SUMMARY | 2024-11-08 11:03 | XMS_ITS | Encounter Summary ---
Author Organization [employer] Address [address] [facility] 7t [place] [address] Care Team Providers Care Carbon Cleaner Name Role Phone Jyoti Paris MD Primary Care Provider +1 [phone] Encounter Details Date Type Department Care Team ([facility] st Contact Info) Description 11/20/2023 Orders Only [facility] CHC MED & PEDS 505 [place], [place] [phone] Jyoti Paris MD 505 [place], [place] [phone] Type 2 diabetes mellitus with hyperglycemia, with long-term current use of insulin ([facility]) (Primary Dx) Social History Tobacco Use Types [...] hyperglycemia, with long-term current use of insulin ([facility])- Primary documented in this encounter Additional Health Concerns Assessment Noted Time PHQ-9 Depression Total Score: 0 08/06/19 23 1:19 PM EST documented as of this encounter Care Teams Carbon Cleaner Relationship Specialty Start Date End Date Jyoti Paris MD [address] [place] [address] PCP - General Internal Medicine 09/12/15 documented as of this encounter
--- OUTSIDE RECORDS SUMMARY | 2024-11-08 11:03 | XMS_ITS | Encounter Summary ---
Author Organization [facility] Address [address] [place] [address] Care Team Providers Care Corporate Sales Representative Name Role Phone Jyoti Paris MD Primary Care Provider +1 [phone] Encounter Details Date Type Department Care Team (Late st Contact Info) Description 10/17/2024 Lab Requisition [facility] - Main Lab [address] [facility] [place] [address] Adilson Buchanan MD [address] [place] [address] Acute cough Social History Tobacco Use Types [...] Procedure Name Priority Date/Time Associated Diagnosis Comments [id number], RSV, FLU A AND B QUALITATIVE RT-PCR, LOCAL REFERENCE LAB Routine 10/16/2024 12:00 AM EDT Acute cough documented in this encounter Results * [id number], RSV, Influenza A and B qualitative RT-PCR (10/16/2024 12:00 AM EDT) SARS COV-2 Not Detected Not Detected LAB MOLECULAR DIAGNOSTICS METHOD 10/17/2024 11:40 AM EDT [facility] Comment: Disclaimer: The manner in which this information is used to guide patient care is the responsibility of the healthcare provider. Testing was performed using the [employer] Alinity m SARS-CoV-2 test. This test has [...] for Healthcare Providers can be found at: https://www.fda.gov/media/757035/download Fact sheet for Patients can be found at: https://www.fda.gov/media/384470/download Influenza A PCR Not Detected Not Detected LAB MOLECULAR DIAGNOSTICS METHOD 10/17/2024 11:40 AM EDT [facility] Influenza B PCR Not Detected Not Detected LAB MOLECULAR DIAGNOSTICS METHOD 10/17/2024 11:40 AM EDT [facility] RSV PCR Not Detected Not Detected LAB MOLECULAR DIAGNOSTICS METHOD 10/17/2024 11:40 AM EDT [facility] Swab Nasopharyngeal structure / Unknown 10/16/2024 10/17/2024 7:24 AM EDT Adilson Buchanan MD LAB MICROBIOLOGY - GENERAL ORDER MICHELLE Final Result [facility] [address] [place] [address], documented in this encounter Visit Diagnoses Diagnosis Acute cough documented in this encounter Additional Health Concerns Infection Onset Date Last Indicated Resolved Time Respiratory Rule-Out 10/16/2024 10/16/2024 025 11:40 AM EDT documented as of this encounter Care Teams Corporate Sales Representative Relationship Specialty Start Date End Date Jyoti Paris MD [address] [place], [place] PCP - General Internal Medicine 01/17/22 documented as of this encounter
--- OUTSIDE RECORDS SUMMARY | 2024-11-08 11:03 | XMS_ITS | Encounter Summary ---
Author Organization [employer] Address [address] [facility] 7t [place] [address] Care Team Providers Care Ground Water Contractor Name Role Phone Jyoti Paris MD Primary Care Provider +1- [phone] Reason for Visit * Reason Onset Date Comments Medication Question 10/10/2022 Encounter Details Date Type Department Care Team (Late st Contact Info) Description 10/10/2022 Telephone [facility] [address] [place] [address] Jyoti Paris MD [address] [place] [address] Medication Question Social History Tobacco Use Types [...] message to PCP * Telephone Encounter - Oly Bryan - 10/10/2022 1:49 PM EDT Tc from [facility] requesting a call back regarding pt medication colace 100 mg Please contact [facility] at [phone] documented in this encounter Plan of Treatment Not on file documented as of this encounter Visit Diagnoses Not on filedocumented in this encounter Additional Health Concerns Assessment Noted Time PHQ-9 Depression Total Score: 0 08/06/19 23 1:19 PM EST documented as of this encounter Care Teams Ground Water Contractor Relationship Specialty Start Date End Date Jyoit Paris MD [address] [place] [address] PCP - General Internal Medicine 09/12/15 documented as of this encounter
--- OUTSIDE RECORDS SUMMARY | 2024-11-08 11:03 | XMS_ITS | Clinical Summary ---
Author Organization [employer] Address 75 [facility] 7t [place] [address] Care Team Providers Care Keysmith Name Role Phone Jyoti Paris MD Primary Care Provider [phone]- [phone] Allergies Active Allergy Reactions Criticality Noted Date [...] 3 12/28/19 23 Active Continuous Blood Gluc Production Line Manager (FreeStyle [place] 2 [place]) device To use daily 1 each 01/01/20 [...] hyperglycemia, with long-term current use of insulin ([facility]) Take 1 tablet (5 mg) by mouth in the morning. 30 tablet 11 10/08/19 24 Active gemfibrozil (Lopid) 600 MG tabletIndication s:Hypercholester olemia Take 1 tablet (600 mg) by mouth before breakfast and before evening meal. 60 tablet 11 10/08/19 24 Active insulin glargine (Lantus) 100 UNIT/ML injectionIndicat ions:Type 2 diabetes mellitus with hyperglycemia, with long-term current use of insulin ([facility]) Inject 64 Units under the skin in the morning. 18 mL 11 10/30/19 24 Active levETIRAcetam (Keppra) 250 MG tabletIndication s:Seizure (CMS/HCC) TAKE 1 TABLET(250 MG) BY MOUTH TWICE DAILY 60 tablet 3 11/10/19 24 Active Ostomy Supplies (Skin Prep [place]) miscIndications: Type 2 diabetes mellitus with hyperglycemia, with long-term current use of insulin ([facility]) To use prior to applying the sensor [...] 12/31/2022 Depression Screening 08/06/2023 08/06/2022, 08/06/19 23 Dental X-Ray: Bitewings 01/02/2024 12/31/2022 SDOH Screening 02/04/2024 02/03/2023 COVID-19 Vaccine ( season) 2024 10/12/2020, 09/15/2020 Influenza Vaccine (#1) 2024 3, 06/11/2021, 04/14/2019, Additional history exists Lipid Panel 08/11/2024 08/11/2023 Diabetes: Hemoglobin A1C 08/26/202405/26/2 024, 08/11/2023, 02/05/2023, Additional history exists Tobacco Screening 09/21/2024 09/22/2023 Dental X-Ray: Full [...] hyperglycemia, with long-term current use of insulin ([facility]) INTRAORAL - COMPLETE SERIES OF RADIOGRAPHIC IMAGES Routine 12/31/2022 1:00 PM EDT COMPREHENSIVE ORAL EVALUATION - NEW OR ESTABLISHED PATIENT Routine 12/31/2022 1:00 PM EDT [facility] HISTORICAL HPV MRNA E6/E7 Routine 04/22/2017 10:50 AM EDT from Last 3 Months or Most Recently Relevant to Health Maintenance Results * (ABNORMAL) Lipid Panel, Standard (08/11/2023 2:07 PM EST) Triglycerides 185(H) <150 mg/dL [facility] Comment:Desirable Triglyceri de: less than 150 mg/dLBorderline High Triglyceride 150-199 mg/dLHigh Triglyceride: 200-499 mg/dLVery High Triglyceride: greater than or equal to 5OO mg/dL Cholesterol 249(H) <200 mg/dL [facility] Comment:Desirable Cholestero l: less than 200 mg/dLBorderline High Cholesterol: 200-239 mg/dLHigh Cholesterol: greater than 239 mg/dL LDL Cholesterol Calculated 175(H) <100 mg/dL [facility] Comment:Desirable LDL: less than 100 mg/dLNear Optimal/Above Optimal LDL: 110- 129 mg/dLBorderline High LDL: 130-159 mg/dLHigh LDL: 160-189 mg/dLVery High LDL: greater than or equal to 190 mg/dL HDL Cholesterol 37(L) >40 mg/dL [facility] Comment:Desirable HDL: great er than 40 mg/dL Note: This HDL assay may give artificially low results in patients with liver disease. Blood Venous blood specimen / Unknown 08/11/2023 2:07 PM EST 08/11/2023 2:47 PM EST us Jyoti Paris MD LAB BLOOD ORDERABLES Final Result [facility] [address] [place] [phone] * (ABNORMAL) POCT A1C (08/11/2023 1:21 PM EST) Pathologist [facility] Hemoglobin A1C 8.7(A) 4.0 - 6.0 % Comment:controls valid QC Media Lot # Comment:[id number] Lot# Expiration Date Comment:03/24/2025 Blood 08/11/2023 1:21 PM EST Jyoti Paris MD POINT OF CARE TEST ENTER/ED IT ORDERABLES Final Result * HPV mRNA E6/E7 (04/22/2017 10:50 AM EDT) HPV mRNA E6/E7 Not Detected NOT DETECTED [facility] Comment: This test was performed using the APTIMA(R) HPV Assay ([employer] This assay detects E6/E7 viral messenger RNA (mRNA) from 14 high-risk HPV types (16,18,31,33,35,39,45,51, 52,56,58,59,66,68). For additional information please refer to: http://education.InformedDNA/faq/ISX369t2 (This link is being provided for informational/ educational purposes only.) Test Performed by [facility], [facility], [address] [place] [address] Marco Antonio Davis M.D., Ph.D., Director of Laboratories , [facility] [id number] Please note: ??Effective 03/18/2016, HPV testing will be performed using [employer]'s APTIMA test which targets mRNA. Detecting mRNA instead of DNA, as in older methods, offers significant improvements in specificity. 04/22/2017 10:5 0 AM EDT us Vanessa Chan CNM HISTORICAL/NON ORDERABLE LABS Final Result [facility] Anywhere [address] from Last 3 Months or Most Recently Relevant to Health Maintenance Insurance [facility] STANDARD MEDICARE [facility] STAND ADULT Care Teams Keysmith Relationship Specialty Start Date End Date Jyoti Paris MD [address] [place] [address] PCP - General Internal Medicine 09/12/15
--- OUTSIDE RECORDS SUMMARY | 2024-11-08 11:03 | XMS_ITS | Encounter Summary ---
Author Organization [employer] Address 75 [facility] 7t [place] [address] Care Team Providers Care Distributor Cleaner Name Role Phone Jyoti Paris MD Primary Care Provider +1- [phone] Encounter Details Date Type Department Care Team (Late st Contact Info) Description 09/06/2022 Orders Only [facility] CHC MED & PEDS [address] [place], [place] [phone] Jyoti Paris MD 505 [place], [place] [phone] Type 2 diabetes mellitus with hyperglycemia, with long-term current use of insulin ([facility]) Social History Tobacco Use Types Packs/Day [...] EDT 02/06/2023 11:41 AM EDT Comment:UACC Narrative [facility] - 02/07/2023 12:58 PM EDT Urine Culture Report Result Urine Culture < 10,000 cfu/ml Specimen Source: Urine clean catch Quiana Iglesias PHOTO GRAPHICS LIBRARIAN LAB MICROBIOLOGY - GENERAL ORD ERABLES Final Result [facility] [address] [place] [phone] documented in this encounter Visit Diagnoses Diagnosis Type 2 diabetes mellitus with hyperglycemia, with long-term current use of insulin ([facility]) documented in this encounter Additional Health Concerns Assessment Noted Time PHQ-9 Depression Total Score: 0 08/06/19 23 1:19 PM EST documented as of this encounter Care Teams Distributor Cleaner Relationship Specialty Start Date End Date Jyoti Paris MD [address] [place] [address] PCP - General Internal Medicine 09/12/15 documented as of this encounter
--- OUTSIDE RECORDS SUMMARY | 2024-11-08 11:03 | XMS_ITS | Encounter Summary ---
Author Organization [employer] Address [address] [facility] [address] 7t [place] [address] Care Team Providers Care Esthetician Makeup Artist Name Role Phone Jyoti Paris MD Primary Care Provider +1 [phone] Encounter Details Date Type Department Care Team (Latest Contact Info) Description 08/14/2023 Orders Only [facility] CHC MED & PEDS [address] [place], [place] [phone] Jyoti Paris MD [address] [place], [place] [phone] Hypercholesterolemia (Primary Dx) Social History Tobacco Use [...] documented as of this encounter Care Teams Esthetician Makeup Artist Relationship Specialty Start Date End Date Jyoti Paris MD [address] [place] [address] PCP - General Internal Medicine 09/12/15 documented as of this encounter
--- OUTSIDE RECORDS SUMMARY | 2024-11-08 11:03 | XMS_ITS | Encounter Summary ---
Author Organization [employer] Address [address] [facility] 7t [place] [address] Care Team Providers Care Sisal Operator Name Role Phone Jyoti Paris MD Primary Care Provider +1 [phone] Encounter Details Date Type Department Care Team ([facility] st Contact Info) Description 10/28/2023 Orders Only [facility] CHC MED & PEDS 505 [place], [place] [phone] Jyoti Paris MD 505 [place], [place] [phone] Social History Tobacco Use Types Packs/Day Years [...] t he electric, gas, oil or water [employer] threatened to shut off services in your [...] documented as of this encounter Care Teams Sisal Operator Relationship Specialty Start Date End Date Jyoti Paris MD [address] [place] [address] PCP - General Internal Medicine 09/12/15 documented as of this encounter
== END 2024-11-08 10:43 | disposition home or self-care (01) ==
LOC: HO.HKA 09:54
PROVIDERS: Referring Provider Nurse Practitioner Adult Health; Visit Provider Internal Medicine Hypertension Specialist
DX: N18.9 Chronic kidney disease, unspecified (principal); J44.9 Chronic obstructive pulmonary disease, unspecified; E11.9 Type 2 diabetes mellitus without complications; F31.9 Bipolar disorder, unspecified
CPT/HCPCS: 99204

== ENCOUNTER → 2024-11-08 09:54 | Outpatient (BNVA) | payer OTHER, SELFPAY | PROVIDERS: Referring Provider Nurse Practitioner Adult Health; Visit Provider Internal Medicine Hypertension Specialist | DX: E11.22 Type 2 diabetes mellitus with diabetic chronic kidney disease (principal); N18.9 Chronic kidney disease, unspecified; J44.9 Chronic obstructive pulmonary disease, unspecified; F31.9 Bipolar disorder, unspecified | CPT/HCPCS: 99202 ==

== ENCOUNTER 2024-12-09 10:01 | Outpatient (REF) | payer OTHER, SELFPAY ==
--- NOTE | ~2024-12-09 | US_ITS ---
EXAMINATION: US KIDNEY BILATERAL HISTORY: N18.9 - Chronic kidney disease, unspecified TECHNIQUE: Real-time grayscale ultrasound imaging of the kidneys was performed and images were reviewed. COMPARISON: There are no prior studies available for comparison. FINDINGS: Right kidney: The right kidney measures 10.9 x 4.8 x 4.7 cm. There is a hypertrophied column of Jefry . Renal parenchymal echotexture and thickness are otherwise normal. There are no masses. There is no hydronephrosis or renal calculi. Left Kidney: The left kidney measures 12.2 x 4.4 x 4.3 cm. Renal parenchymal echotexture and thickness are normal. There are no masses. There is no hydronephrosis or renal calculi. US/US renal BI IMPRESSION: Unremarkable renal ultrasound. Electronically signed by: Louis Gonzales MD 12/09/2024 12:22 PM EDT
--- OUTSIDE RECORDS SUMMARY | 2024-12-09 11:34 | XMS_ITS | Encounter Summary ---
Author Organization [employer] Address [address] [facility] 7 [place] [address] Care Team Providers Care Dining Room Hostess Name Role Phone Jyoti Paris MD Primary Care Provider +1 [phone] Reason for Visit * Reason Onset Date Comments Nurse Triage 10/07/2023 Encounter Details Date Type Department Care Team ([facility] st Contact Info) Description 10/07/2023 Telephone [facility] CHC MED & PEDS 505 [place], [place] [phone] Jyoti Paris MD [address] [place] [address] Nurse Triage Social History Tobacco Use Types [...] daily [phone]. Please follow with Janae at [phone]. Protocol Used: Information Only Call - No [...] JEFERSON Cardoso would like a call back [phone]. documented in this encounter Plan of Treatment Not on file documented as of this encounter Visit Diagnoses Not on filedocumented in this encounter Additional Health Concerns Assessment Noted Time PHQ-9 Depression Total Score: 0 08/06/19 23 1:19 PM EST documented as of this encounter Care Teams Dining Room Hostess Relationship Specialty Start Date End Date Jyoti Paris MD [address] [place] [phone] PCP - General Internal Medicine 09/12/15 documented as of this encounter
== END 2024-12-09 10:02 | disposition home or self-care (01) ==
LOC: HO.US 10:01
PROVIDERS: Visit Provider Internal Medicine Hypertension Specialist
DX: N18.9 Chronic kidney disease, unspecified (principal)
CPT/HCPCS: 76775

== ENCOUNTER → 2024-12-09 10:09 | Outpatient (BNV) | payer OTHER, SELFPAY | PROVIDERS: Visit Provider Radiology Diagnostic Radiology | DX: N18.9 Chronic kidney disease, unspecified (principal) | CPT/HCPCS: 76775 ==

== ENCOUNTER 2025-01-06 13:55 | Outpatient (AMB) | payer OTHER, SELFPAY ==
--- OUTSIDE RECORDS SUMMARY | 2023-06-12 07:02 | XMS_ITS | Continuity of Care Document ---
Author Organization [facility] Address [address] [address] Phone Care Team Providers Care Tour Production Supervisor Name Role Phone Concepcion Bruno NP Unavailable Unavailable Advance Directives Directive Yes / No Effective Date File Name No Information Encounters Encounter Description Practice Location Reason(s) For Visit Diagnoses Date Provider [facility], [address] [address], [place], [place], [id number], [place] tel:[phone] [address] [place] [address] No Information 2022 Damion Javier. [address] [place] [address], [id number], [place]. tel:[phone] Family History Family Member Type Diagnosis Age [...]
--- OUTSIDE RECORDS SUMMARY | 2025-01-06 13:59 | XMS_ITS | Clinical Summary ---
Author Organization [facility], Address [address] [place] [address] [place] [address] Phone Care Team Providers Care Instructional Technology Specialist Name Role Phone Jyoti Paris MD [...] topic Insurance Medicare Medicaid [place] Care Teams Instructional Technology Specialist Relationship Specialty Start Date End Date Jyoti Paris MD PCP - General Internal Medicine 10/17/21
--- OUTSIDE RECORDS SUMMARY | 2025-01-06 13:59 | XMS_ITS | Encounter Summary ---
Author Organization [employer] Address [address] [facility] 7t [place] [address] Care Team Providers Care Repairer Welding Equipment Name Role Phone Jyoti Paris MD Primary Care Provider +1 [phone] Reason for Visit * Reason Onset Date Comments Nurse Triage 10/07/2023 Encounter Details Date Type Department Care Team ([facility] st Contact Info) Description 10/07/2023 Telephone [facility] CHC MED & PEDS [address] [place], [place] [phone] Jyoti Paris MD 505 [place] [address] Nurse Triage Social History Tobacco Use Types [...] daily [phone]. Please follow with Janae at [phone]. Protocol Used: Information Only Call - No [...] JEFERSON Cardoso would like a call back [phone]. documented in this encounter Plan of Treatment Not on file documented as of this encounter Visit Diagnoses Not on filedocumented in this encounter Additional Health Concerns Assessment Noted Time PHQ-9 Depression Total Score: 0 08/06/19 23 1:19 PM EST documented as of this encounter Care Teams Repairer Welding Equipment Relationship Specialty Start Date End Date Jyoti Paris MD [address] [place] [address] PCP - General Internal Medicine 09/12/15 documented as of this encounter
--- NOTE | 2025-01-06 14:01 | HO.NEPHOV_ITS ---
Vital Signs 01/06/25 14:02 Height 5 ft Weight 172 lb BMI 33.6 BP 110/54 L Blood Pressure Location Lt brachial Position Sitting Pulse 80 Pulse Source Pulse Oximeter Pulse Oximetry (%) 97 Oxygen Delivery Method Room Air Intake Visit Reasons: 2 MO FU-Conf w/program director strategic account management Personal Computer Network Analyst Required: No Accompanied by: Son Allergies metoclopramide (From Reglan) Adverse Reaction (Verified 01/06/25 14:02) Confusion phenytoin (From Dilantin) Adverse Reaction (Verified 01/06/25 14:02) Gastrointestinal Upset HPI Comments Details: Maria Esther is a pleasant middle-aged woman referred for evaluation of chronic kidney disease and proteinuria She has a longstanding history of diabetes mellitus. She was initially on oral medications currently she is on insulin as well. Blood sugar has been suboptimal. She was found to have microalbuminuria and hence this referral. The serum creatinine has been between 1.1 and 1.24 mg/dL with a EGFR of around 40-48 mL/minute for the past few years. She has been on hydrochlorothiazide 12.5 mg. She is not on any DAVID inhibitors or ARB at this time. She has a history of bipolar disorder, tardive dyskinesia. History of COPD from smoking. She is accompanied by her son. Currently she is in a long-term care/rehab facility [facility] Medical History Seizure disorder HTN (hypertension) COPD (chronic obstructive pulmonary disease) Type 2 diabetes mellitus Social History Household Members: None Housing: Apartment Do you presently have visiting nurse or other home services: Yes Patient Tobacco Use Status: Current everyday Tobacco user Tobacco use type: Cigarette Cigarettes Per Day: 3 Second Hand Smoke Exposure: No service: No Sexual orientation: Straight/Heterosexual Physical Exam Vital Signs: Last Vital Signs Pulse 80 01/06/25 14:02 BP 110/54 L 01/06/25 14:02 Pulse Ox 97 01/06/25 14:02 Oxygen Delivery Method Room Air 01/06/25 14:02 BMI result Body Mass Index 33.6 Comfortable Neck supple no JVD. Lungs entry equal no rales. Heart S1-S2 heard no gallop or rub. Abdomen soft nontender. Neuro alert awake oriented. No asterixis. Few involuntary movements including lip-smacking. No tremors Extremities no edema. Results Reviewed Results Reviewed: USG - normal Nephrology Results: Sodium, (135-145) 136 mmol/L 10/12/24 Potassium, (3.3-5.1) 4.1 mmol/L 10/12/24 Chloride, (96-108) 103 mmol/L 10/12/24 Carbon Dioxide, (22-29) 24 mmol/L 10/12/24 BUN, (9-16) 14 mg/dL 10/12/24 Creatinine, (0.5-1.4) 1.12 mg/dL 10/12/24 Calcium, (8.4-10.2) 9.9 mg/dL 10/12/24 PTH Intact, (8.7-77.1) 46.6 pg/mL 10/12/24 Urine Creatinine 74.71 mg/dL 10/12/24 Renal US 12/09/24 Assessment & Plan Assessment & Plan (1) CKD (chronic kidney disease): Code(s): N18.9 - Chronic kidney disease, unspecified Category: Medical (2) COPD (chronic obstructive pulmonary disease): Code(s): J44.9 - Chronic obstructive pulmonary disease, unspecified Category: Medical (3) Type 2 diabetes mellitus: Code(s): E11.9 - Type 2 diabetes mellitus without complications Category: Medical (4) Bipolar disorder: Code(s): F31.9 - Bipolar disorder, unspecified Category: Medical Plan Maria Esther is a middle-aged woman with a longstanding history of diabetes mellitus. Mild CKD Cr is down from 1.2 to 0.9 Microalbuminuria is also secondary to underlying diabetic kidney disease. Recommendations Discontinue hydrochlorothiazide for now. Add Lisinopril 10 mg QD She would also benefit from an SGLT2 inhibitor. Goal is to maintain hemoglobin A1c less than 7% Maintain blood pressure less than 120/80. Continue to avoid nephrotoxic agents including NSAIDs. Encouraged her to stay on low-sodium diet and increase p.o. fluid intake. Coding Level of Care Code Est Pt Level 4 (36982) Diagnoses CKD (chronic kidney disease) N18.9 COPD (chronic obstructive pulmonary disease) J44.9 Type 2 diabetes mellitus E11.9 Bipolar disorder F31.9
[2025-01-06 14:02] VITALS: BP 110/54; PULSE 80; O2SAT 97; BMI 33.6
== END 2025-01-06 14:11 | disposition home or self-care (01) ==
LOC: HO.HKA 13:56
PROVIDERS: Visit Provider Internal Medicine Hypertension Specialist
DX: N18.9 Chronic kidney disease, unspecified (principal); J44.9 Chronic obstructive pulmonary disease, unspecified; E11.9 Type 2 diabetes mellitus without complications; F31.9 Bipolar disorder, unspecified
CPT/HCPCS: 99214

== ENCOUNTER → 2025-01-06 13:55 | Outpatient (BNVA) | payer OTHER, SELFPAY | PROVIDERS: Visit Provider Internal Medicine Hypertension Specialist | DX: N18.1 Chronic kidney disease, stage 1 (principal); J44.9 Chronic obstructive pulmonary disease, unspecified; E11.9 Type 2 diabetes mellitus without complications; F31.9 Bipolar disorder, unspecified | CPT/HCPCS: 99212 ==

== ENCOUNTER 2025-02-01 07:49 | Outpatient (AMB) | payer OTHER, SELFPAY ==
--- OUTSIDE RECORDS SUMMARY | 2023-06-12 07:02 | XMS_ITS | Continuity of Care Document ---
Author Organization [facility] Address [address] [address] Phone Care Team Providers Care Pt Escort Name Role Phone Concepcion Bruno NP Unavailable Unavailable Advance Directives Directive Yes / No Effective Date File Name No Information Encounters Encounter Description Practice Location Reason(s) For Visit Diagnoses Date Provider [facility], [address] [address], [place], [place], [id number], [place] tel:[phone] [address] [place] [address] No Information 2022 Damion Javier. [address] [place] [address], [id number], [place]. tel:[phone] Family History Family Member Type Diagnosis Age [...]
--- NOTE | 2025-02-01 07:50 | A.OFFVIS_ITS ---
Vital Signs 02/01/25 07:51 Height 5 ft Weight 174 lb 6.17 oz BMI 34.1 BP 110/52 L Blood Pressure Location Lt brachial Position Sitting Pulse 80 Pulse Source Pulse Oximeter Pulse Oximetry (%) 95 Oxygen Delivery Method Room Air Intake Visit Reasons: T2DM Intake Note: Patient present today to follow up on Type 2 Diabetes Mellitus. Last seen by Maren Schulz on 10/28/24. Last Diabetic Eye exam: It's been about 6 years. Last Podiatry Visit: 08/2024 Random Glucose: 238 mg/dl HgA1C: 8.7% Production Broaching Machine Operator Required: Yes Production Broaching Machine Operator Language: Sas Developer Analyst Services: Production Broaching Machine Operator Offered & Declined Production Broaching Machine Operator Name: Daughter Accompanied by: FASTENER TECHNOLOGIST Allergies metoclopramide (From Reglan) Adverse Reaction (Verified 02/01/25 07:57) Confusion phenytoin (From Dilantin) Adverse Reaction (Verified 02/01/25 07:57) Gastrointestinal Upset Medication List - Last Reconciled 02/01/25 by Louis Francisco MD acetaminophen 975 mg PO BID PRN atorvastatin 40 mg PO DAILY blood-glucose sensor (FreeStyle Jordan 3 Plus Sensor device) continous use reapply every 15 days chlorpromazine 50 mg PO BEDTIME cholecalciferol (vitamin D3) 25 mcg PO DAILY docusate sodium 100 mg PO BID PRN dulaglutide (Trulicity) mg subcut fluticasone furoate-vilanterol 100-25 mcg/dose (Breo Ellipta) 1 inh inhalation Q24H FreeStyle Jordan 3 [place] (blood-glucose,laboratory inspector,cont) for use with freestyle sensor NS gabapentin 100 mg PO TID gemfibrozil 600 mg PO BID guaifenesin (Tussin) 200 mg PO Q4H PRN insulin glargine (Lantus Solostar U-100 Insulin) 30 units subcut BEDTIME insulin lispro (Humalog KwikPen (U-100) Insulin) 12 units subcut TID ipratropium-albuterol 0.5 mg-3 mg(2.5 mg base)/3 mL mL inhalation lamotrigine 200 mg PO BID levetiracetam 250 mg PO BID 30 days lidocaine 4% 1 patch topical DAILY PRN melatonin 6 mg PO BEDTIME PRN metformin 850 mg PO BID nystatin 1 appl topical DAILY polyethylene glycol 3350 17 grams PO DAILY quetiapine 100 mg PO BEDTIME sennosides (senna) 8.6 mg PO BID simethicone 80 mg PO TID-QID PRN trazodone 50 mg PO BEDTIME venlafaxine 37.5 mg PO DAILY 30 days HPI Comments Details: 69 YO female who is seen in for T2DM followup. She was seen as an initial consultation 08/06/2024 by Maren Sloan NP at which time a SupplyHogyle Jordan 3+ sensor was ordered. She lives in a memory care unit at [facility]. A1C 10/28/24 %, 10.2% 08/06/2024. Patient was brought in with glucose logs today but she did not have her freestyle reader in order to download this. Initially diagnosed with T2DM: date unknown Current regimen: Lantus 8 units in the am Lantus 30 units at bedtime Trulicity 1.5 mg Qwkly Humalog 12 units before breakfast and dinner (not given according to med sheet ) humalog 16 units before lunch ( not given according to med sheet ) plus scale before meals and at hs ( looks like only scale is given ) 150-199 4 units 200-249 6 units 250-299 8 units 300-349 12 units 350-399 14 units 400-450 16 units metformin xr 500mg daily Unfortunately, patient did not bring her log book or glucometer or sensor to follow up appointment Has eyes checked yearly, last eye exam years ago cataract surgery, denies retinopathy. had cataract surgery was referral to Ophthalmology ordered Has neuropathy, some tingling no pain or cramping has podiatry every 6 months at [facility] Has nephropathy not on george-arb Last microalbumin 01/2019 <5 eGFR 08/11/23 40 07/2024 EGFR 48 microalbumin 28 referral to Nephrology ordered Has HLD, on fenofibrate Last LDL 76 as measured 2024 Denies CAD. [facility] Medical History Seizure disorder HTN (hypertension) COPD (chronic obstructive pulmonary disease) Type 2 diabetes mellitus Social History Household Members: None Housing: Apartment Do you presently have visiting nurse or other home services: Yes Patient Tobacco Use Status: Current everyday Tobacco user Tobacco use type: Cigarette Cigarettes Per Day: 3 Second Hand Smoke Exposure: No service: No Sexual orientation: Straight/Heterosexual Physical Exam Vital Signs: Last Vital Signs Pulse 80 02/01/25 07:51 BP 110/52 L 02/01/25 07:51 Pulse Ox 95 02/01/25 07:51 Oxygen Delivery Method Room Air 02/01/25 07:51 BMI result Body Mass Index 34.1 Absence of Cushingoid features. Absence of acromegalic features. Neck exam reveals nl size thyroid about 15 gms. No thyroid nodules palpable. No carotid bruits present. Lungs CTA. Heart S1 S2, Reg R/R. No M/R/ G. Skin exam reveals absence of vitiligo or acanthosis nigricans. Abdominal exam reveals Soft NT/ND with NA BS. No organomegaly present. Const Other: Absence of Cushingoid features. Absence of acromegalic features. Neck exam reveals nl size thyroid about 15 gms. No thyroid nodules palpable. Heart S1 S2, Reg R/R. No M/R G. Skin exam reveals absence of vitiligo or acanthosis nigricans. Visual exam of foot performed. No ulcerations or open lesions. No inter digit maceration or fissuring. No onychomycosis, + callous left great toe. Sensation intact to monofilament exam. Vibratory diminshed with 128 Hz tuning fork. Neck Other: . Extrem Other: Visual exam of foot performed. No ulcerations or open lesions. No onchomycosis, no callouses.Pulses 2 + distally Sensation intact to monofilament exam. Vibratory sensation sensed is intact with 128 Hz tuning fork Results AMB Hemoglobin A1c AMB Hemoglobin A1c 8.7 % Last Edit by JAYESH Aguero on 02/01/25 08:13 Results Reviewed Results Reviewed: Laboratory Last Values Glucose (Clinic) 238 mg/dL (60-115) H 02/01/25 07:59 Assessment & Plan Assessment & Plan (1) Type 2 diabetes mellitus: Code(s): E11.9 - Type 2 diabetes mellitus without complications Category: Medical Plan: This is a 69-year-old female with a history of type 2 diabetes currently being treated on basal-bolus insulin, metformin and Trulicity with poor glycemic control and known micovascular complications namely neuropathy and CKD Plan is to talk to the patient about making sure she brings the sensor to follow up appointments. Will instruct half-way to give base prandial insulin in addition to scale. Because there was no data available, can not make adjustments to her regimen. Considering her psychosocial limitations, tight control may not be able to be achieved and goal A1c is around 7-7.5. Will have patient see inclusion paraeducator and will have her follow up with primary care diabetes team Orders: Orders AMB Hemoglobin A1c Today E11.9 - Type 2 diabetes mellitus without complications, Z13.9 - Encounter for screening, unspecified Coding Level of Care Code Est Pt Level 4 (62891) Diagnoses Type 2 diabetes mellitus E11.9
[2025-02-01 07:51] VITALS: BP 110/52; PULSE 80; O2SAT 95; BMI 34.1
--- OUTSIDE RECORDS SUMMARY | 2025-02-01 07:51 | XMS_ITS | Clinical Summary ---
Author Organization [facility], Address [address] [place] [address] [place] [address] Phone Care Team Providers Care Mobile Lounge Driver Name Role Phone Jyoti Paris MD [...] Visual Foot Exam 11/22/2021 Influenza Vaccine (#1) 2025 Hepatitis B Vaccine Aged Out No longe r eligible based on patient's age to complete this topic Insurance Medicare Medicaid [place] Care Teams Mobile Lounge Driver Relationship Specialty Start Date End Date Jyoti Paris MD PCP - General Internal Medicine 10/17/21
--- OUTSIDE RECORDS SUMMARY | 2025-02-01 07:51 | XMS_ITS | Encounter Summary ---
Author Organization [facility] [address] Address [address] [place] [address] Care Team Providers Care Plasterer Maintenance Name Role Phone Jyoti Paris MD Primary Care Provider [phone] Encounter Details Date Type Department Care Team (Late st Contact Info) Description 10/17/[address] [facility] [address] [facility] [place] [address] Adilson Buchanan MD [address] [place] [address] Acute cough Social History Tobacco Use Types [...] Procedure Name Priority Date/Time Associated Diagnosis Comments [id number], RSV, FLU A AND B QUALITATIVE RT-PCR, LOCAL REFERENCE LAB Routine 10/16/2024 12:00 AM EDT Acute cough documented in this encounter Results * [id number], RSV, Influenza A and B qualitative RT-PCR (10/16/2024 12:00 AM EDT) SARS COV-2 Not Detected Not Detected LAB MOLECULAR DIAGNOSTICS METHOD 10/17/2024 11:40 AM EDT [facility] Comment: Disclaimer: The manner in which this information is used to guide patient care is the responsibility of the healthcare provider. Testing was performed using the [employer] Al[employer] m SARS-CoV-2 test. This test has [...] for Healthcare Providers can be found at: https://www.fda.gov/media/680940/download Fact sheet for Patients can be found at: https://www.fda.gov/media/342588/download Influenza A PCR Not Detected Not Detected LAB MOLECULAR DIAGNOSTICS METHOD 10/17/2024 11:[address] [facility] Influenza B PCR Not Detected Not Detected LAB MOLECULAR DIAGNOSTICS METHOD 10/17/2024 11:[address] [facility] RSV PCR Not Detected Not Detected LAB MOLECULAR DIAGNOSTICS METHOD 10/17/2024 11:[address] [facility] Swab Nasopharyngeal structure / Unknown 10/16/2024 10/17/2024 7:24 AM EDT Adilson Buchanan MD LAB MICROBIOLOGY - GENERAL ORDER MICHELLE Final Result [facility] [address] [place] [address], documented in this encounter Visit Diagnoses Diagnosis Acute cough documented in this encounter Additional Health Concerns Infection Onset Date Last Indicated Resolved Time Respiratory Rule-Out 10/16/2024 10/16/2024 025 11:40 AM EDT Respiratory Rule-Out 12/04/2024 12/03/2024 025 3:17 PM EDT documented as of this encounter Care Teams Plasterer Maintenance Relationship Specialty Start Date End Date Jyoti Paris MD [address] [place], [place] PCP - General Internal Medicine 01/17/22 documented as of this encounter
--- OUTSIDE RECORDS SUMMARY | 2025-02-01 07:51 | XMS_ITS | Encounter Summary ---
Author Organization [facility] Address [address] [place] [address] Care Team Providers Care Network Support Name Role Phone Jyoti Paris MD Primary Care Provider [phone] Reason for Visit * Reason Onset Date Comments Nurse Triage 10/07/2023 Encounter Details Date Type Department Care Team ([facility] st Contact Info) Description 10/07/2023 Telephone [facility] [address] [place], [place] [phone] Jyoti Paris MD [address] [place] [address] Nurse Triage Social History Tobacco Use Types [...] daily [phone]. Please follow with Janae at [phone]. Protocol Used: Information Only Call - No [...] JEFERSON Cardoso would like a call back [phone]. documented in this encounter Plan of Treatment Not on file documented as of this encounter Visit Diagnoses Not on filedocumented in this encounter Additional Health Concerns Assessment Noted Time PHQ-9 Depression Total Score: 0 08/06/19 23 1:19 PM EST documented as of this encounter Care Teams Network Support Relationship Specialty Start Date End Date Jyoti Paris MD [address] [place] [id number] PCP - General Internal Medicine 09/12/15 documented as of this encounter
[2025-02-01 08:04] LABS: Glucose, Whole Blood 238 mg/dL (60-115)
== END 2025-02-01 08:34 | disposition home or self-care (01) ==
LOC: HO.ENCR 07:49
PROVIDERS: Visit Provider Internal Medicine Endocrinology, Diabetes & Metabolism
DX: Z13.9 Encounter for screening, unspecified (principal); E11.9 Type 2 diabetes mellitus without complications
CPT/HCPCS: 99214

== ENCOUNTER → 2025-02-01 07:49 | Outpatient (BNVA) | payer OTHER, SELFPAY | PROVIDERS: Visit Provider Internal Medicine Endocrinology, Diabetes & Metabolism | DX: E11.9 Type 2 diabetes mellitus without complications (principal) | CPT/HCPCS: 82947; 83036; 99212 ==

== ENCOUNTER 2025-04-05 08:19 | Outpatient (AMB) | payer OTHER, SELFPAY ==
--- OUTSIDE RECORDS SUMMARY | 2023-06-12 07:02 | XMS_ITS | Continuity of Care Document ---
Author Organization [facility] Address [address] [address] Phone Care Team Providers Care Extractor Plant Operator Name Role Phone Concepcion Bruno NP Unavailable Unavailable Advance Directives Directive Yes / No Effective Date File Name No Information Encounters Encounter Description Practice Location Reason(s) For Visit Diagnoses Date Provider [facility], [address] [address], [place], [place], [id number], [place] tel:[phone] [address] [place] [address] No Information 2022 Damion Javier. [address] [place] [address], [id number], [place]. tel:[phone] Family History Family Member Type Diagnosis Age At Onset No Information Payers Payer name Insurance type Covered democrat ID Authoriza tion(s) No Information Social History Type Description Quantity Date Captured Comments Sex Female Smoking Status No Information Chief Complaint And Reason For Visit No Information History Of Present Illness Encounter Date Complaint History Of Prese nt Illness No Information Instructions Date Instruction Additional Infor mation No Information Assessments Type Assessment Date No Information
--- NOTE | 2025-04-05 08:21 | MHC.OFFVIS ---
Vital Signs 04/05/25 08:23 Height 5 ft Weight 174 lb 13.225 oz BMI 34.1 BP 130/56 L Blood Pressure Location Rt brachial Position Sitting Pulse 85 Pulse Source Pulse Oximeter Pulse Oximetry (%) 98 Oxygen Delivery Method Room Air Intake Visit Reasons: T2DM Intake Note: Patient present today to follow up on Type 2 Diabetes Mellitus. Last Diabetic Eye exam: 7 months Last Podiatry Visit: 08/2024 Random Glucose: 379 mg/dl HgA1C: 8.7% 02/01/2025 Field Identification Specialist Required: No Accompanied by: Employee Allergies metoclopramide (From Reglan) Adverse Reaction (Verified 04/05/25 08:24) Confusion phenytoin (From Dilantin) Adverse Reaction (Verified 04/05/25 08:24) Gastrointestinal Upset Medication List - Last Reconciled 04/05/25 by CORNELIO Pepe acetaminophen 975 mg PO BID PRN atorvastatin 40 mg PO DAILY blood-glucose sensor (FreeStyle Jordan 3 Plus Sensor device) continous use reapply every 15 days chlorpromazine 50 mg PO BEDTIME cholecalciferol (vitamin D3) 25 mcg PO DAILY docusate sodium 100 mg PO BID PRN dulaglutide (Trulicity) 3 mg (0.5 mL) subcut QWEEK fluticasone furoate-vilanterol 100-25 mcg/dose (Breo Ellipta) 1 inh inhalation Q24H FreeStyle Jordan 3 [place] (blood-glucose,hims coder,cont) for use with freestyle sensor NS gabapentin 100 mg PO TID gemfibrozil 600 mg PO BID guaifenesin (Tussin) 200 mg PO Q4H PRN insulin glargine (Lantus Solostar U-100 Insulin) subcutaneously bedtime; insulin lispro (Humalog KwikPen (U-100) Insulin) subcutaneously 3 times a day; with meals, per sliding scale 150-199 4 units 200-249 6 units 250-299 8 units 300-349 12 units 350-399 14 units 400-450 16 units ipratropium-albuterol 0.5 mg-3 mg(2.5 mg base)/3 mL mL inhalation lamotrigine 200 mg PO BID levetiracetam 250 mg PO BID 30 days lidocaine 4% 1 patch topical DAILY PRN melatonin 6 mg PO BEDTIME PRN metformin 850 mg PO BID nystatin 1 appl topical DAILY polyethylene glycol 3350 17 grams PO DAILY quetiapine 100 mg PO BEDTIME sennosides (senna) 8.6 mg PO BID simethicone 80 mg PO TID-QID PRN trazodone 50 mg PO BEDTIME venlafaxine 37.5 mg PO DAILY 30 days HPI Comments Details: This is a 69-year-old female with a past medical history of chronic kidney disease, seizures, hypertension, COPD, type 2 diabetes, bipolar disorder, tardive dyskinesia and dementia presenting for diabetic management. This is my 1st visit with the patient. She was last seen by my colleague, Dr. Francisco, on 02/01/2025. She is here with a CHECKMAN, Brittney. Declined brick off bearer. She lives in the memory care unit at [facility]. Hemoglobin A1c 8.7% 02/01/2025 POC 379. Denies symptoms of hyperglycemia. She ate a sugary breakfast this morning. She is using the Jordan 3 plus, but the sensor fell off yesterday. Current regimen: Trulicity 1.5mg weekly, Lantus 11 units qam and Lantus 30 units at bedtime, metformin 850 mg b.i.d., Humalog sliding scale: 150-199 4 units 200-249 6 units 250-299 8 units 300-349 12 units 350-399 14 units 400-450 16 units Complications: Neuropathy, nephropathy, seen by nephrology January 2025 Hypolgycemia: reports 1 episode within the past month the other night, blood sugar was 64, treated with a peanut butter sandwich. Gets shaky with lows. She has a prescription for glucose gel. Hyperglycemia: No symptoms ROS: Constitutional: No unexplained weight loss, weakness, fevers, fatigue. Eyes: No vision changes, blurry vision, double vision Respiratory: No shortness of breath Cardiovascular: No chest pain Gastrointestinal: No nausea, vomiting or abdominal pain. Genitourinary: No dysuria, hematuria, urinary frequency. Neurologic: No headache, dizziness, syncope Endocrine: No cold or heat intolerance. No polyuria or polydipsia. .Physical exam: Constitutional: Alert, in no distress. Eyes: Pupils are equal, round and reactive to light. Extraocular muscles intact. Neck: Supple, Full range of motion. No lymphadenopathy. No palpable thyroid masses. Respiratory: Clear to auscultation. Cardiovascular: S1 S2 regular. No murmurs Right foot: Warm and well perfused. No clubbing, cyanosis or edema. Intact DP pulse. Decreased vibratory sensation. Intact sensation to monofilament. No open wounds. Left foot: Warm and well perfused. No clubbing, cyanosis or edema. Intact DP pulse. Decreased vibratory sensation. Intact sensation to monofilament. No open wounds. [facility] Medical History (Updated 04/05/25 @ 09:08 by CORNELIO Pepe) Type II diabetes with ad terminal makeup operator use of insulin Seizure disorder HTN (hypertension) COPD (chronic obstructive pulmonary disease) Type 2 diabetes mellitus Social History Household Members: None Housing: Apartment Do you presently have visiting nurse or other home services: Yes Patient Tobacco Use Status: Current everyday Tobacco user Tobacco use type: Cigarette Cigarettes Per Day: 3 Second Hand Smoke Exposure: No service: No Sexual orientation: Straight/Heterosexual Physical Exam Vital Signs: Last Vital Signs Pulse 85 04/05/25 08:23 BP 130/56 L 04/05/25 08:23 Pulse Ox 98 04/05/25 08:23 Oxygen Delivery Method Room Air 04/05/25 08:23 BMI result Body Mass Index 34.1 Results Reviewed Results Reviewed: Laboratory Tests 10/12/24 02/01/25 09:36 08:03 Creatinine 1.12 Estimated GFR 48 Hgb A1c (Clinic) 8.7 H Triglycerides 143 Cholesterol 140 LDL Cholesterol, Calc 76 HDL Cholesterol 36 L TSH 1.90 Urine Creatinine 74.71 Urine Microalbumin 28.0 Microalb/Creat Ratio 37.4 H Assessment & Plan Assessment & Plan (1) Type II diabetes with ad terminal makeup operator use of insulin: Code(s): E11.9 - Type 2 diabetes mellitus without complications; Z79.4 - director long term care (current) use of insulin Category: Medical Qualifiers: Diabetes mellitus complication status: with neurologic complications Diabetes mellitus complication detail: with polyneuropathy Qualified Code(s): E11.42 - Type 2 diabetes mellitus with diabetic polyneuropathy; Z79.4 - director long term care (current) use of insulin (2) Dementia: Code(s): F03.90 - Unspecified dementia, unspecified severity, without behavioral disturbance, psychotic disturbance, mood disturbance, and anxiety Category: Medical (3) CKD (chronic kidney disease): Code(s): N18.9 - Chronic kidney disease, unspecified Category: Medical Qualifiers: Chronic kidney disease stage 3 subtype: stage 3a (GFR 45-59) Chronic kidney disease stage: stage 3 (moderate) Qualified Code(s): N18.31 - Chronic kidney disease, stage 3a Plan In summary this is a 69-year-old female with uncontrolled type 2 diabetes with complications. Target of less than 7% may be unrealistic given dementia and dietary limitations. Target A1c less than 8% is reasonable. Diabetic diet is reviewed. Discussed referral to tool and die machinist. Reviewed the complications of uncontrolled type 2 diabetes. I stressed the importance of bringing the glucometer to all of her appointments so we can make decisions about her treatment plan. I wrote this down on her paperwork for the nursing staff to review. Increase Trulicity to 3 mg weekly. Start this 1 week after your last dose of Trulicity 1.5 mg. Written instructions given. Continue Lantus 11 units every morning and 30 units at bedtime. Continue metformin 850 mg twice daily. Continue Humalog sliding scale: 150-199 4 units 200-249 6 units 250-299 8 units 300-349 12 units 350-399 14 units 400-450 16 units Reviewed treatment of hypoglycemia. Follow up in 1 month. Orders: Orders Creatinine Today E11.9 - Type 2 diabetes mellitus without complications Vitamin B12 Today Z91.89 - Other specified personal risk factors, not elsewhere classified Medications: New dulaglutide (Trulicity) Replaces Trulicity 1.5 weekly. 3 mg (0.5 mL) subcut QWEEK 2 mL 5RF Refilled blood-glucose sensor (FreeStyle Jordan 3 Plus Sensor device) continous use reapply every 15 days 2 ea 11RF Coding Level of Care Code Est Pt Level 4 (94731) Complex EM visit Add On G2211 Diagnoses Type 2 diabetes mellitus with diabetic polyneuropathy, with long-term current use of insulin E11.42; Z79.4 Diabetes mellitus complication status: with neurologic complications Diabetes mellitus complication detail: with polyneuropathy Dementia F03.90 Stage 3a chronic kidney disease N18.31 Chronic kidney disease stage 3 subtype: stage 3a (GFR 45-59) Chronic kidney disease stage: stage 3 (moderate)
[2025-04-05 08:23] VITALS: BP 130/56; PULSE 85; O2SAT 98; BMI 34.1
--- OUTSIDE RECORDS SUMMARY | 2025-04-05 08:33 | XMS_ITS | Encounter Summary ---
Author Organization [employer] Address [address] [facility] 7t [place] [address] Care Team Providers Care Emergency Department Director Name Role Phone Jyoti Paris MD Primary Care Provider +1 [phone] Encounter Details Date Type Department Care Team ([facility] st Contact Info) Description 09/18/2023 Orders Only [facility] CHC MED & PEDS [address] [place], [place] [phone] Jyoti Paris MD 505 [place], [place] [phone] Simple chronic bronchitis (CMS/HCC) (Primary Dx) Social [...] encounter Visit Diagnoses Diagnosis Simple chronic bronchitis (CMS/HCC) (HCC)- Primary Simple chronic bronchitis documented in this encounter Additional Health Concerns Assessment Noted Time PHQ-9 Depression Total Score: 0 08/06/19 23 1:19 PM EST documented as of this encounter Care Teams Emergency Department Director Relationship Specialty Start Date End Date Jyoti Paris MD [address] [place] [address] PCP - General Internal Medicine 09/12/15 documented as of this encounter
--- OUTSIDE RECORDS SUMMARY | 2025-04-05 08:33 | XMS_ITS | Encounter Summary ---
Author Organization [employer] Address [address] [facility] 7t [place] [address] Care Team Providers Care Fire Extinguisher Installer Name Role Phone Jyoti Paris MD Primary Care Provider [phone] [phone] Reason for Visit * Reason Onset Date Comments Nurse Triage 10/07/2023 Encounter Details Date Type Department Care Team ([facility] st Contact Info) Description 10/07/2023 Telephone C CHC MED & PEDS 505 [place], [place] [phone] Jyoti Paris MD 505 [place] [address] Nurse Triage Social History Tobacco Use Types [...] daily [phone]. Please follow with Janae at [phone]. Protocol Used: Information Only Call - No [...] JEFERSON Cardoso would like a call back [phone]. documented in this encounter Plan of Treatment Not on file documented as of this encounter Visit Diagnoses Not on filedocumented in this encounter Additional Health Concerns Assessment Noted Time PHQ-9 Depression Total Score: 0 08/06/19 23 1:19 PM EST documented as of this encounter Care Teams Fire Extinguisher Installer Relationship Specialty Start Date End Date Jyoti Paris MD [address] [place] [address] PCP - General Internal Medicine 09/12/15 documented as of this encounter
--- OUTSIDE RECORDS SUMMARY | 2025-04-05 08:34 | XMS_ITS | Encounter Summary ---
Author Organization [employer] Address [address] [facility] 7t [place] [address] Care Team Providers Care Electronic Semiconductor Processor Name Role Phone Jyoti Paris MD Primary Care Provider [phone] [phone] Encounter Details Date Type Department Care Team (Latest Contact Info) Description 08/14/2023 Orders Only [facility] CHC MED & PEDS 505 [place], [place] [phone] Jyoti Paris MD [address] [place], [place] [phone] Hypercholesterolemia (Primary Dx) Social History Tobacco Use [...] documented as of this encounter Care Teams Electronic Semiconductor Processor Relationship Specialty Start Date End Date Jyoti Paris MD [address] [place] [address] PCP - General Internal Medicine 09/12/15 documented as of this encounter
--- OUTSIDE RECORDS SUMMARY | 2025-04-05 08:34 | XMS_ITS | Encounter Summary ---
Author Organization [employer] Address [address] [facility] 7t [place] [address] Care Team Providers Care Service Counter Cashier Name Role Phone Jyoti Paris MD Primary Care Provider [phone] [phone] Encounter Details Date Type Department Care Team ([facility] st Contact Info) Description 11/20/2023 Orders Only [facility] CHC MED & PEDS 505 [place], [place] [phone] Jyoti Paris MD 505 [place], [place] [phone] Type 2 diabetes mellitus with hyperglycemia, with long-term current use of insulin ([facility]) (Primary Dx) Social History [...] hyperglycemia, with long-term current use of insulin (HCC)- Primary documented in this encounter Additional Health Concerns Assessment Noted Time PHQ-9 Depression Total Score: 0 08/06/19 23 1:19 PM EST documented as of this encounter Care Teams Service Counter Cashier Relationship Specialty Start Date End Date Jyoti Paris MD [address] [place] [address] PCP - General Internal Medicine 09/12/15 documented as of this encounter
--- OUTSIDE RECORDS SUMMARY | 2025-04-05 08:34 | XMS_ITS | Encounter Summary ---
Author Organization [employer] Address [address] [facility] 7t [place] [address] Care Team Providers Care Sewing Techniques Demonstrator Name Role Phone Jyoti Paris MD Primary Care Provider [phone] [phone] Encounter Details Date Type Department Care Team ([facility] st Contact Info) Description 10/28/2023 Orders Only [facility] CHC MED & PEDS 505 [place], [place] [phone] Jyoti Paris MD 505 [place], [place] [phone] Social History Tobacco Use Types Packs/Day Years [...] the past 12 months, has t he [employer] gas, oil or water company threatened to [...] documented as of this encounter Care Teams Sewing Techniques Demonstrator Relationship Specialty Start Date End Date Jyoti Paris MD 505 [place] [address] PCP - General Internal Medicine 09/12/15 documented as of this encounter
--- OUTSIDE RECORDS SUMMARY | 2025-04-05 08:34 | XMS_ITS | Clinical Summary ---
Author Organization [facility], Address [address] [place] [address] [place] [address] Phone Care Team Providers Care College Athlete Name Role Phone Jyoti Paris MD Primary Care Provider [phone] Allergies Active Allergy Reactions Criticality Noted Date [...] topic Insurance Medicare Medicaid [place] Care Teams College Athlete Relationship Specialty Start Date End Date Jyoti Paris MD PCP - General Internal Medicine 10/17/21
--- OUTSIDE RECORDS SUMMARY | 2025-04-05 08:34 | XMS_ITS | Encounter Summary ---
Author Organization [employer] Address [address] [place] [address] [place] [address] Care Team Providers Care Quality Assurance Manager Name Role Phone Jyoti Paris MD Primary Care Provider [phone]- [phone] Reason for Visit * Reason Onset Date Comments Nurse Triage 02/05/2023 Encounter Details Date Type Department Care Team ([facility] st Contact Info) Description 02/05/2023 Telephone [facility] CHC MED & PEDS 505 [place], [place] [phone] Jyoti Paris MD 505 [place] [address] Nurse Triage Social History Tobacco Use Types [...] 02/05/2023 12:49 PM EDT Triage call with [employer] Industrial Technology Teacher Id [id number] Pt son FRANCESCA Abel, takes call. Son reports Pt has increased confusion and incontinence of urine. Pt was seen in ED [facility] 01/30-01/31. Pt didn't have a UTI at that time. Pt is unable to hold urine and has become incontinent recently. Neg for burning with urination. Blood sugar this morning was reported as 408 and visiting nurse gave sliding scale insulin as ordered. Son is concerned that Pt could be having UTI with these symptoms. Advised to come to [facility] today to be seen by provider. Pt VOCATIONAL REHAB CONSULTANT will assist to [facility]. Pt does have an apt with Dr. [...] documented as of this encounter Care Teams Quality Assurance Manager Relationship Specialty Start Date End Date Jyoti Paris MD [address] [place] [address] PCP - General Internal Medicine 09/12/15 documented as of this encounter
[2025-04-05 08:35] LABS: Glucose, Whole Blood 379 mg/dL (60-115)
--- OUTSIDE RECORDS SUMMARY | 2025-04-05 08:35 | XMS_ITS | Encounter Summary ---
Author Organization [employer] Address 75 [facility] 7t [place] [address] Care Team Providers Care Head Soft Sugar Operator Name Role Phone Jyoti Paris MD Primary Care Provider [phone]- [phone] Reason for Visit * Reason Onset Date Comments Medication Question 10/10/2022 Encounter Details Date Type Department Care Team (Late st Contact Info) Description 10/10/2022 Telephone [facility] MEDICINE [address] [place] [address] Jyoti Paris MD [address] [place] [address] Medication Question Social History Tobacco Use Types [...] colace 100 mg Please contact Mago at [phone] documented in this encounter Plan of Treatment Not on file documented as of this encounter Visit Diagnoses Not on filedocumented in this encounter Additional Health Concerns Assessment Noted Time PHQ-9 Depression Total Score: 0 08/06/19 23 1:19 PM EST documented as of this encounter Care Teams Head Soft Sugar Operator Relationship Specialty Start Date End Date Jyoti Paris MD [address] [place] [address] PCP - General Internal Medicine 09/12/15 documented as of this encounter
--- OUTSIDE RECORDS SUMMARY | 2025-04-05 08:35 | XMS_ITS | Encounter Summary ---
Author Organization [employer] Address [address] [facility] 7t [place] [address] Care Team Providers Care Broomcorn Grader Name Role Phone Jyoti Paris MD Primary Care Provider [phone] [phone] Encounter Details Date Type Department Care Team (Late st Contact Info) Description 09/03/2023 Telephone [facility] MEDICINE 230 [place] [address] Jyoti Paris MD 505 [place] [address] Social History Tobacco Use Types Packs/Day Years [...] documented as of this encounter Care Teams Broomcorn Grader Relationship Specialty Start Date End Date Jyoti Paris MD 505 [place] [address] PCP - General Internal Medicine 09/12/15 documented as of this encounter
--- OUTSIDE RECORDS SUMMARY | 2025-04-05 08:35 | XMS_ITS | Clinical Summary ---
Author Organization [employer] Address 75 [facility] 7t [place] [address] Care Team Providers Care Solution Lead Name Role Phone Jyoti Paris MD Primary Care Provider [phone]- [phone] Allergies Active Allergy Reactions Criticality Noted Date [...] 3 12/28/19 23 Active Continuous Blood Gluc Technical Photographer (FreeStyle Jordan 2 [place]) device To use daily 1 each 01/01/20 23 Active Continuous Blood Gluc Sensor (FreeStyle Jordan 2 Sensor) misc To use daily 2 each 01/01/20 23 Active B-D ULTRAFINE III SHORT [...] MCG inhalation capsuleIndicatio ns:Simple chronic bronchitis (CMS/HCC) (HCC) Place 1 capsule (18 mcg) into inhaler [...] day at the same time. 30 patch 03/18/20 24 Active linaGLIPtin (Tradjenta) 5 MG tabletIndication s:Type 2 diabetes mellitus with hyperglycemia, with long-term current use of insulin ([facility]) Take 1 tablet (5 mg) by mouth in the morning. 30 tablet 11 10/08/19 24 Active gemfibrozil (Lopid) 600 MG tabletIndication s:Hypercholester olemia Take 1 tablet (600 mg) by mouth before breakfast and before evening meal. 60 tablet 11 10/08/19 24 Active insulin glargine (Lantus) 100 UNIT/ML injectionIndicat ions:Type 2 diabetes mellitus with hyperglycemia, with long-term current use of insulin ([facility]) Inject 64 Units under the skin in the morning. 18 mL 11 10/30/19 24 Active levETIRAcetam (Keppra) 250 MG tabletIndication s:Seizure ([facility]) ([facility]) TAKE 1 TABLET(250 MG) BY MOUTH TWICE DAILY 60 tablet 3 11/10/19 24 Active Ostomy Supplies (Skin Prep [place]) miscIndications: Type 2 diabetes mellitus with hyperglycemia, with long-term current use of insulin ([facility]) To use prior to applying the sensor [...] of medication. Hypertensive kidney disease, stage III ([facility]) 10/10/2021 Post-acute COVID-19 syndrome 08/07/2021 Benign hypertension 10/16/2020 Seizure ([facility]) 10/30/2017 Chronic obstructive pulmonary disease 09/12/2015 Diabetes mellitus 09/12/2015 Hypercholesterolemia 09/12/2015 Mood disorder 09/12/2015 Immunizations Immunization Administration Dates Next Due Influenza injectable quadriv [...] 94 09/22/2023 10:37 AM EDT Temperature 36.2 C (97.1 F) 09/22/2023 10:37 AM EDT Respiratory Rate 20 09/22/2023 10:37 AM EDT [...] 07/03/2023 12/31/2022 Depression Screening 08/06/2023 08/06/2022, 08/06/19 Dental X-Ray: Bitewings 01/02/2024 12/31/2022 SDOH Screening 02/04/2024 02/03/2023 Lipid Panel 08/11/2024 08/11/2023 Tobacco Screening 09/21/2024 09/22/2023 Diabetes: Hemoglobin A1C 02/23/2025 025, 08/11/2023, 02/05/2023, Additional history exists COVID-19 Vaccine ( season) 2025 10/12/2020, 09/15/2020 Influenza Vaccine (#1) 2025 3, 06/11/2021, 04/14/2019, Additional history exists Dental X-Ray: Full Mouth 01/01/2026 12/31/2022 DTaP/Tdap/Td [...] long-term current use of insulin ([facility]) INTRAORAL - COMPLETE SERIES OF RADIOGRAPHIC IMAGES Routine 12/31/2022 1:00 PM EDT COMPREHENSIVE ORAL EVALUATION - NEW OR ESTABLISHED PATIENT Routine 12/31/2022 1:00 PM EDT ZZZ HISTORICAL HPV MRNA E6/E7 Routine 04/22/2017 10:50 AM EDT from Last 3 Months or Most Recently Relevant to Health Maintenance Results * (ABNORMAL) Lipid Panel, Standard (08/11/2023 2:07 PM EST) Triglycerides 185(H) <150 mg/dL [facility] Comment:Desirable Triglyceri de: less than 150 mg/dLBorderline High Triglyceride 150-199 mg/dLHigh Triglyceride: 200-499 mg/dLVery High Triglyceride: greater than or equal to 5OO mg/dL Cholesterol 249(H) <200 mg/dL [facility] Comment:Desirable Cholestero l: less than 200 mg/dLBorderline High Cholesterol: 200-239 mg/dLHigh Cholesterol: greater than 239 mg/dL LDL Cholesterol Calculated 175(H) <100 mg/dL [facility] Comment:Desirable LDL: less than 100 mg/dLNear Optimal/Above Optimal LDL: 110- 129 mg/dLBorderline High LDL: 130-159 mg/dLHigh LDL: 160-189 mg/dLVery High LDL: greater than or equal to 190 mg/dL HDL Cholesterol 37(L) >40 mg/dL [facility] Comment:Desirable HDL: great er than 40 mg/dL Note: This HDL assay may give artificially low results in patients with liver disease. Blood Venous blood specimen / Unknown 08/11/2023 2:07 PM EST 08/11/2023 2:47 PM EST Jyoti Paris MD LAB BLOOD ORDERABLES Final Result [facility] [address] [place] [phone] * (ABNORMAL) POCT A1C (08/11/2023 1:21 PM EST) Pathologist [facility] Hemoglobin A1C 8.7(A) 4.0 - 6.0 % Comment:controls valid QC Media Lot # Comment:[id number] Lot# Expiration Date Comment:03/24/2025 Blood 08/11/2023 1:21 PM EST Jyoti Paris MD POINT OF CARE TEST ENTER/ED IT ORDERABLES Final Result * HPV mRNA E6/E7 (04/22/2017 10:50 AM EDT) Pathologist [facility] HPV mRNA E6/E7 Not Detected NOT DETECTED [facility] Comment: This test was performed using the APTIMA(R) HPV Assay ([employer] This assay detects E6/E7 viral messenger RNA (mRNA) from 14 high-risk HPV types (16,18,31,33,35,39,45,51, 52,56,58,59,66,68). For additional information please refer to: http://education.Amplidata/faq/KRW179o7 (This link is being provided for informational/ educational purposes only.) Test Performed by [employer], [employer] [facility], [address] [place] [phone] Marco Antonio Davis M.D., Ph.D., Director of Laboratories , [facility] [id number] Please note: Effective 03/18/2016, HPV testing will be performed using [employer]'s APTIMA test which targets mRNA. Detecting mRNA instead of DNA, as in older methods, offers significant improvements in specificity. 04/22/2017 10:5 0 AM EDT us Vanessa Chan CNM HISTORICAL/NON ORDERABLE LABS Final Result [facility] [address] from Last 3 Months or Most Recently Relevant to Health Maintenance Insurance [facility] STANDARD MEDICARE [place] STAND AD[place] Care Teams Solution Lead Relationship Specialty Start Date End Date Jyoti Paris MD [address] [place] [phone] PCP - General Internal Medicine 09/12/15
--- OUTSIDE RECORDS SUMMARY | 2025-04-05 08:35 | XMS_ITS | Encounter Summary ---
Author Organization [employer] Address [address] [place] [address] 7t [place] [address] Care Team Providers Care Hand Splitter Name Role Phone Jyoti Paris MD Primary Care Provider [phone]- [phone] Encounter Details Date Type Department Care Team (Late st Contact Info) Description 09/06/2022 Orders Only [facility] CHC MED & PEDS 505 [place], [place] [phone] Jyoti Paris MD 505 [place], [place] [phone] Type 2 diabetes mellitus with hyperglycemia, with long-term current use of insulin ([facility]) Social History Tobacco Use Types [...] EDT 02/06/2023 11:41 AM EDT Comment:UACC Narrative [facility] - 02/07/2023 12:58 PM EDT Urine Culture Report Result Urine Culture < 10,000 cfu/ml Specimen Source: Urine clean catch Quiana Iglesias TELEVISION ENGINEERING TEACHER LAB MICROBIOLOGY - GENERAL ORD ERABLES Final Result [facility] [address] [place] [phone] documented in this encounter Visit Diagnoses Diagnosis Type 2 diabetes mellitus with hyperglycemia, with long-term current use of insulin (HCC) documented in this encounter Additional Health Concerns Assessment Noted Time PHQ-9 Depression Total Score: 0 08/06/19 23 1:19 PM EST documented as of this encounter Care Teams Hand Splitter Relationship Specialty Start Date End Date Jyoti Paris MD [address] [place] [phone] PCP - General Internal Medicine 09/12/15 documented as of this encounter
--- OUTSIDE RECORDS SUMMARY | 2025-04-05 08:35 | XMS_ITS | Encounter Summary ---
Author Organization [employer] Address 75 [facility] 7 [place] [address] Care Team Providers Care Spa Host Name Role Phone Jyoti Paris MD Primary Care Provider +1- [phone] Reason for Visit * Reason Onset Date Comments Appointment Request 07/15/2022 Encounter Details Date Type Department Care Team (Late st Contact Info) Description 07/15/2022 Telephone [facility] MEDICINE [address] [place] [address] Jyoti Paris MD [address] [place] [address] [phone] Appointment Request Social History Tobacco Use Types [...] summary in chart.) Please contact son at [phone] documented in this encounter Plan of Treatment Not on file documented as of this encounter Visit Diagnoses Not on filedocumented in this encounter Care Teams Spa Host Relationship Specialty Start Date End Date Beauzile, Thevenin, MD [address] [place] [phone] PCP - General Internal Medicine 09/12/15 documented as of this encounter
--- OUTSIDE RECORDS SUMMARY | 2025-04-05 08:35 | XMS_ITS | Encounter Summary ---
Author Organization [facility] Address [address] [place] [address] Phone Care Team Providers Care Physician'S Aide Name Role Phone Jyoti Paris MD Primary Care Provider [phone] Encounter Details Date Type Department Care Team (Late st Contact Info) Description 10/17/2021 Documentation Only [facility], [address] [facility] [place] [address] Jyoti Paris MD [address] [place], [place] [phone] Social History Tobacco Use Types Packs/Day Years [...] on filedocumented in this encounter Care Teams Physician'S Aide Relationship Specialty Start Date End Date Jyoti Paris MD PCP - General Internal Medicine 10/17/21 documented as of this encounter
== END 2025-04-05 09:05 | disposition home or self-care (01) ==
LOC: HO.ENCR 08:20
PROVIDERS: Visit Provider Physician Assistant Medical
DX: E11.42 Type 2 diabetes mellitus with diabetic polyneuropathy (principal); Z79.4 Long term (current) use of insulin; F03.90 Unspecified dementia, unspecified severity, without behavioral disturbance, psychotic disturbance, mood disturbance, and anxiety; N18.31 Chronic kidney disease, stage 3a

== ENCOUNTER → 2025-04-05 08:19 | Outpatient (BNVA) | payer OTHER, SELFPAY | PROVIDERS: Visit Provider Physician Assistant Medical | DX: E11.42 Type 2 diabetes mellitus with diabetic polyneuropathy (principal); Z79.4 Long term (current) use of insulin; N18.31 Chronic kidney disease, stage 3a; F03.90 Unspecified dementia, unspecified severity, without behavioral disturbance, psychotic disturbance, mood disturbance, and anxiety | CPT/HCPCS: 82947; 99212 ==

== ENCOUNTER 2025-04-05 09:08 | Outpatient (REF) | payer OTHER, SELFPAY ==
[2025-04-05 11:31] LABS: Estimated Glomerular Filt Rate > 60
[2025-04-05 12:31] LABS: Vitamin B12 429 pg/mL (200-900)
== END 2025-04-05 09:09 | disposition home or self-care (01) ==
LOC: HO.10HDL 09:08
PROVIDERS: Visit Provider Physician Assistant Medical
DX: E11.9 Type 2 diabetes mellitus without complications (principal); Z91.89 Other specified personal risk factors, not elsewhere classified
CPT/HCPCS: 36415; 82565; 82607

== ENCOUNTER 2025-05-03 08:22 | Outpatient (AMB) | payer OTHER, SELFPAY ==
--- OUTSIDE RECORDS SUMMARY | 2023-06-12 07:02 | XMS_ITS | Continuity of Care Document ---
Author Organization On license of [facility] Address [address] [address] Phone Care Team Providers Care Cadmium Liquor Maker Name Role Phone Concepcion Bruno NP Unavailable Unavailable Advance Directives Directive Yes / No Effective Date File Name No Information Encounters Encounter Description Practice Location Reason(s) For Visit Diagnoses Date Provider [facility] of [facility], [address] [address], [place], [place], [id number], [place] tel:[phone] [address] [place] [address] No Information 2022 Damion Javier. [address] [place] [address], [id number], [place]. tel:[phone] Family History Family Member Type Diagnosis Age At Onset No Information Payers Payer name Insurance type Covered green party ID Authoriza tion(s) No Information Social History Type Description Quantity Date Captured Comments Sex Female Smoking Status No Information Chief Complaint And Reason For Visit No Information History Of Present Illness Encounter Date Complaint History Of Prese nt Illness No Information Instructions Date Instruction Additional Infor mation No Information Assessments Type Assessment Date No Information
[2025-05-03 08:31] VITALS: BP 110/52; PULSE 82; O2SAT 96; BMI 33.5
--- NOTE | 2025-05-03 08:31 | A.OFFVIS_ITS ---
Vital Signs 05/03/25 08:31 Height 5 ft Weight 171 lb 4.787 oz BMI 33.5 BP 110/52 L Blood Pressure Location Lt brachial Position Sitting Pulse 82 Pulse Source Pulse Oximeter Pulse Oximetry (%) 96 Oxygen Delivery Method Room Air Intake Visit Reasons: Type II Diabetes Intake Note: Patient present today to follow up on Type 2 Diabetes Mellitus. Last Diabetic Eye exam: Last exam was about 8 months ago. Last Podiatry Visit: 08/2024 Random Glucose: 221 mg/dl HgA1C: 8.0% Thresher Broomcorn Required: Yes Thresher Broomcorn Language: Supervisor Veneer Services: Thresher Broomcorn Offered & Declined Accompanied by: milk house worker Allergies metoclopramide (From Reglan) Adverse Reaction (Verified 05/03/25 08:37) Confusion phenytoin (From Dilantin) Adverse Reaction (Verified 05/03/25 08:37) Gastrointestinal Upset Medication List - Last Reconciled 05/03/25 by CORNELIO Pepe acetaminophen 975 mg PO BID PRN atorvastatin 40 mg PO DAILY blood-glucose sensor (FreeStyle Jordan 3 Plus Sensor device) continous use reapply every 15 days chlorpromazine 50 mg PO BEDTIME cholecalciferol (vitamin D3) 25 mcg PO DAILY docusate sodium 100 mg PO BID PRN dulaglutide (Trulicity) 3 mg (0.5 mL) subcut QWEEK famotidine 20 mg PO BID fluticasone furoate-vilanterol 100-25 mcg/dose (Breo Ellipta) 1 inh inhalation Q24H FreeStyle Jordan 3 [place] (blood-glucose,security administrator,cont) for use with freestyle sensor NS gabapentin 100 mg PO TID gemfibrozil 600 mg PO BID guaifenesin (Tussin) 200 mg PO Q4H PRN insulin glargine (Lantus Solostar U-100 Insulin) subcutaneously bedtime; insulin lispro (Humalog KwikPen (U-100) Insulin) subcutaneously 3 times a day; with meals, per sliding scale 150-199 4 units 200-249 6 units 250-299 8 units 300-349 12 units 350-399 14 units 400-450 16 units ipratropium-albuterol 0.5 mg-3 mg(2.5 mg base)/3 mL mL inhalation lamotrigine 200 mg PO BID levetiracetam 250 mg PO BID 30 days lidocaine 4% 1 patch topical DAILY PRN loperamide 2 mg PO QID PRN melatonin 6 mg PO BEDTIME PRN metformin 850 mg PO BID nystatin 1 appl topical DAILY polyethylene glycol 3350 17 grams PO DAILY quetiapine 100 mg PO BEDTIME sennosides (senna) 8.6 mg PO BID simethicone 80 mg PO TID-QID PRN trazodone 50 mg PO BEDTIME venlafaxine 37.5 mg PO DAILY 30 days HPI Comments Details: This is a 69-year-old female with a past medical history of chronic kidney disease, seizures, hypertension, COPD, type 2 diabetes, bipolar disorder, tardive dyskinesia and dementia presenting for diabetic management. She is here with a OFFSET PRESS ASSISTANTIris. Declined web software engineer. She lives in the memory care unit at [facility]. Hemoglobin A1c 8.0% 05/03/25. I reviewed the patient's CGM data for the past 14 days Average glucose 154 mg/dL G MO 7% Very high 3% High 19% Target range 78% 0% hypoglycemia My interpretation is the patient has blood sugars within target range the majority of the day with some occasional episodes of nocturnal and postprandial hyperglycemia. Trulicity to 3 mg weekly. Lantus 11 units every morning and 30 units at bedtime. Metformin 850 mg twice daily. Humalog sliding scale: 150-199 4 units 200-249 6 units 250-299 8 units 300-349 12 units 350-399 14 units 400-450 16 units Complications: Neuropathy, nephropathy, seen by nephrology January 2025 Hypolgycemia: reports 1 episode within the past month the other night, blood sugar was 64, treated with a peanut butter sandwich. Gets shaky with lows. Hyperglycemia: No symptoms ROS: Constitutional: No unexplained weight loss, weakness, fevers, fatigue. Eyes: No vision changes, blurry vision, double vision Respiratory: No shortness of breath Cardiovascular: No chest pain Gastrointestinal: No nausea, vomiting or abdominal pain. Genitourinary: No dysuria, hematuria, urinary frequency. Neurologic: No headache, dizziness, syncope Endocrine: No cold or heat intolerance. No polyuria or polydipsia. .Physical exam: Constitutional: Alert, in no distress. Eyes: Pupils are equal, round and reactive to light. Extraocular muscles intact. Neck: Supple, Full range of motion. No lymphadenopathy. No palpable thyroid masses. Respiratory: Clear to auscultation. Cardiovascular: S1 S2 regular. No murmurs Extremities: No edema [facility] Medical History (Updated 04/05/25 @ 09:08 by CORNELIO Pepe) Type II diabetes with middle or intermediate school principal use of insulin Seizure disorder HTN (hypertension) COPD (chronic obstructive pulmonary disease) Type 2 diabetes mellitus Social History Household Members: None Housing: Apartment Do you presently have visiting nurse or other home services: Yes Patient Tobacco Use Status: Current everyday Tobacco user Tobacco use type: Cigarette Cigarettes Per Day: 3 Second Hand Smoke Exposure: No service: No Sexual orientation: Straight/Heterosexual Physical Exam Vital Signs: Last Vital Signs Pulse 82 05/03/25 08:31 BP 110/52 L 05/03/25 08:31 Pulse Ox 96 05/03/25 08:31 Oxygen Delivery Method Room Air 05/03/25 08:31 BMI result Body Mass Index 33.5 Office Procedures Glucose Monitoring Details Details: see [facility] [address] - Glucose monitoring, continuous-physician I&R Procedure code (CPT) selection complete Results AMB Hemoglobin A1c AMB Hemoglobin A1c 8.0 % Last Edit by JAYESH Aguero on 05/03/25 08:57 Results Reviewed Results Reviewed: Laboratory Last Values Glucose (Clinic) 221 mg/dL (60-115) H 05/03/25 08:41 Laboratory Tests 10/12/24 02/01/25 09:36 08:03 Creatinine 1.12 Estimated GFR 48 Hgb A1c (Clinic) 8.7 H Triglycerides 143 Cholesterol 140 LDL Cholesterol, Calc 76 HDL Cholesterol 36 L TSH 1.90 Urine Creatinine 74.71 Urine Microalbumin 28.0 Microalb/Creat Ratio 37.4 H Laboratory Tests 04/05/25 09:10 Creatinine 0.90 Estimated GFR > 60 Vitamin B12 429 Assessment & Plan Assessment & Plan (1) Type II diabetes with senior living use of insulin: Code(s): E11.9 - Type 2 diabetes mellitus without complications; Z79.4 - continuous churn buttermaker (current) use of insulin Category: Medical Qualifiers: Diabetes mellitus complication status: with neurologic complications Diabetes mellitus complication detail: with polyneuropathy Qualified Code(s): E11.42 - Type 2 diabetes mellitus with diabetic polyneuropathy; Z79.4 - continuous churn buttermaker (current) use of insulin (2) Dementia: Code(s): F03.90 - Unspecified dementia, unspecified severity, without behavioral disturbance, psychotic disturbance, mood disturbance, and anxiety Category: Medical (3) CKD (chronic kidney disease): Code(s): N18.9 - Chronic kidney disease, unspecified Category: Medical Qualifiers: Chronic kidney disease stage: stage 3 (moderate) Chronic kidney disease stage 3 subtype: stage 3a (GFR 45-59) Qualified Code(s): N18.31 - Chronic kidney disease, stage 3a Plan In summary this is a 69-year-old female with type 2 diabetes. This is controlled (target less than 8% given dementia and bipolar). Reviewed the complications of uncontrolled type 2 diabetes. I stressed the importance of bringing the glucometer to all of her appointments so we can make decisions about her treatment plan. Continue Trulicity to 3 mg weekly. Continue Lantus 11 units every morning and 30 units at bedtime. Continue metformin 850 mg twice daily. Continue Humalog sliding scale: 150-199 4 units 200-249 6 units 250-299 8 units 300-349 12 units 350-399 14 units 400-450 16 units Reviewed treatment of hypoglycemia. Refilled dextrose gel. Written instructions provided. Follow up in 3 months. Orders: Orders AMB Glucose Monitoring Today E11.9 - Type 2 diabetes mellitus without complications AMB Hemoglobin A1c Today E11.42 - Type 2 diabetes mellitus with diabetic polyneuropathy, Z13.9 - Encounter for screening, unspecified, Z79.4 - continuous churn buttermaker (current) use of insulin Medications: New dextrose (TRUEplus Glucose) until symptoms of low blood sugar are controlled and blood sugar is over 70 15 grams (32 mL) PO Q15M PRN 128 mL 5RF hypoglycemia (blood sugar under 70) Refilled blood-glucose sensor (FreeStyle Jordan 3 Plus Sensor device) continous use reapply every 15 days 2 ea 11RF Patient Instructions: Continue current medication regimen: Trulicity to 3 mg weekly. Lantus 11 units every morning and 30 units at bedtime. Metformin 850 mg twice daily. Humalog sliding scale: 150-199 4 units 200-249 6 units 250-299 8 units 300-349 12 units 350-399 14 units 400-450 16 units If you experience low blood sugar (under 70), treat this by eating a chewable fruit candy like skittles or jelly beans (about 8 pieces), 4 ounces (1/2 cup) of fruit juice (not diet), 1 tablespoon of honey or 1 pack of dextrose gel. If your blood sugar is under 50, take double the amount of one of the above. Recheck your blood sugar in 15 minutes. Repeat these steps if necessary. Coding Level of Care Code Est Pt Level 4 (06373) Diagnoses Type 2 diabetes mellitus with diabetic polyneuropathy, with long-term current use of insulin E11.42; Z79.4 Diabetes mellitus complication status: with neurologic complications Diabetes mellitus complication detail: with polyneuropathy Dementia F03.90 Stage 3a chronic kidney disease N18.31 Chronic kidney disease stage: stage 3 (moderate) Chronic kidney disease stage 3 subtype: stage 3a (GFR 45-59) CPT Codes Details - CPT: 15435 - Glucose monitoring, continuous-physician I&R ([id number])
[2025-05-03 08:46] LABS: Glucose, Whole Blood 221 mg/dL (60-115)
--- OUTSIDE RECORDS SUMMARY | 2025-05-03 08:57 | XMS_ITS | Clinical Summary ---
Author Organization [facility], Address [address] [place] [address] [place] [address] Phone Care Team Providers Care Manager Finance Name Role Phone Jyoti Paris MD Primary [...] topic Insurance Medicare Medicaid [place] Care Teams Manager Finance Relationship Specialty Start Date End Date Jyoti Paris MD PCP - General Internal Medicine 10/17/21
--- OUTSIDE RECORDS SUMMARY | 2025-05-03 08:57 | XMS_ITS | Encounter Summary ---
Author Organization [email or web address] Address [address] [facility] 7t [place] [address] Care Team Providers Care Tire Builder Heavy Service Name Role Phone Jyoti Paris MD Primary Care Provider [phone] Encounter Details Date Type Department Care Team ([facility] st Contact Info) Description 09/18/2023 Orders Only [facility] CHC MED & PEDS [address] [place], [place] [phone] Jyoti Paris MD 505 [place], [place] [phone] Simple chronic bronchitis (CMS/HCC) (Primary Dx) Social [...] documented as of this encounter Care Teams Tire Builder Heavy Service Relationship Specialty Start Date End Date Jyoti Paris MD [address] [place] [id number] PCP - General Internal Medicine 09/12/15 documented as of this encounter
--- OUTSIDE RECORDS SUMMARY | 2025-05-03 08:57 | XMS_ITS | Clinical Summary ---
Author Organization [email or web address] Address [address] [place] [address] 7t [place] [address] Care Team Providers Care Web Engineer Name Role Phone Jyoti Paris MD Primary Care Provider [phone]- [phone] Allergies Active Allergy Reactions Criticality Noted Date [...] 3 12/28/19 23 Active Continuous Blood Gluc Digester Capper (FreeStyle Jordan 2 [place]) device To use daily 1 each 01/01/20 [...] with long-term current use of insulin (HCC) Take 1 tablet (5 mg) by mouth in the morning. 30 tablet 11 10/08/19 24 Active gemfibrozil (Lopid) 600 MG tabletIndication s:Hypercholester olemia Take 1 tablet (600 mg) by mouth before breakfast and before evening meal. 60 tablet 11 10/08/19 24 Active insulin glargine (Lantus) 100 UNIT/ML injectionIndicat ions:Type 2 diabetes mellitus with hyperglycemia, with long-term current use of insulin ([facility]) Inject 64 Units under the skin in the morning. 18 mL 11 10/30/19 24 Active levETIRAcetam (Keppra) 250 MG tabletIndication s:Seizure (CMS/[facility]) (HCC) TAKE 1 TABLET(250 MG) BY MOUTH TWICE DAILY 60 tablet 3 11/10/19 24 Active Ostomy Supplies (Skin Prep [place]) miscIndications: Type 2 diabetes mellitus with hyperglycemia, with long-term current use of insulin ([facility]) To use prior to applying [...] of medication. Hypertensive kidney disease, stage III (CMS/[facility]) 10/10/2021 Post-acute COVID-19 syndrome 08/07/2021 Benign hypertension 10/16/2020 Seizure ([facility]/HCC) 10/30/2017 Chronic obstructive pulmonary disease 09/12/2015 Diabetes mellitus 09/12/2015 Hypercholesterolemia 09/12/2015 Mood disorder 09/12/2015 Encounters Date Type Department Care Team Description 04/13/2025 Patient Outreach [facility] MEDICINE [address] [place] [phone] Jyoti Paris MD Medicare Annual Wellness Visit Initial (Annual wellness visit unscheduled) from Last 3 Months Immunizations Immunization Administration Dates Next Due Influenza [...] hyperglycemia, with long-term current use of insulin ([facility]) INTRAORAL - COMPLETE SERIES OF RADIOGRAPHIC IMAGES Routine 12/31/2022 1:00 PM EDT COMPREHENSIVE ORAL EVALUATION - NEW OR ESTABLISHED PATIENT Routine 12/31/2022 1:00 PM EDT [facility] HISTORICAL HPV MRNA E6/E7 Routine 04/22/2017 10:50 AM EDT from Last 3 Months or Most Recently Relevant to Health Maintenance Results * (ABNORMAL) Lipid Panel, Standard (08/11/2023 2:07 PM EST) Triglycerides 185(H) <150 mg/dL [facility] Comment:Desirable Triglyceri de: less than 150 mg/dLBorderline High Triglyceride 150-199 mg/dLHigh Triglyceride: 200-499 mg/dLVery High Triglyceride: greater than or equal to 5OO mg/dL Cholesterol 249(H) <200 mg/dL [facility] Comment:Desirable Cholestero l: less than 200 mg/dLBorderline High Cholesterol: 200-239 mg/dLHigh Cholesterol: greater than 239 mg/dL LDL Cholesterol Calculated 175(H) <100 mg/dL [facility] Comment:Desirable LDL: less than 100 mg/dLNear Optimal/Above Optimal LDL: 110- 129 mg/dLBorderline High LDL: 130-159 mg/dLHigh LDL: 160-189 mg/dLVery High LDL: greater than or equal to 190 mg/dL HDL Cholesterol 37(L) >40 mg/dL [facility] Comment:Desirable HDL: great er than 40 mg/dL Note: This HDL assay may give artificially low results in patients with liver disease. Blood Venous blood specimen / Unknown 08/11/2023 2:07 PM EST 08/11/2023 2:47 PM EST Jyoti aPris MD LAB BLOOD ORDERABLES Final Result [facility] [address] [place] [phone] * (ABNORMAL) POCT A1C (08/11/2023 1:21 PM EST) Hemoglobin A1C 8.7(A) 4.0 - 6.0 % Comment:controls valid QC Media Lot # Comment:[id number] Lot# Expiration Date Comment:03/24/2025 Blood 08/11/2023 1:21 PM EST us Jyoti Paris MD POINT OF CARE TEST ENTER/ED IT ORDERABLES Final Result * HPV mRNA E6/E7 (04/22/2017 10:50 AM EDT) HPV mRNA E6/E7 Not Detected NOT DETECTED [facility] Comment: This test was performed using the APTIMA(R) HPV Assay ([employer] This assay detects E6/E7 viral messenger RNA (mRNA) from 14 high-risk HPV types (16,18,31,33,35,39,45,51, 52,56,58,59,66,68). For additional information please refer to: http://education.Phantom Pay/faq/WCT463f8 (This link is being provided for informational/ educational purposes only.) Test Performed by [facility], [address] [place] [address] Marco Antonio Davis M.D., Ph.D., Director of Laboratories , [place] [id number] Please note: Effective 03/18/2016, HPV testing will be performed using [employer]'s APTIMA test which targets mRNA. Detecting mRNA instead of DNA, as in older methods, offers significant improvements in specificity. 04/22/2017 10:5 0 AM EDT Vanessa Chan CNM HISTORICAL/NON ORDERABLE LABS Final Result [facility] [address] from Last 3 Months or Most Recently Relevant to Health Maintenance Insurance [facility] STANDARD MEDICARE [place]AND AD[place] Care Teams Web Engineer Relationship Specialty Start Date End Date Jyoti Paris MD [address] [place] [phone] PCP - General Internal Medicine 09/12/15
--- OUTSIDE RECORDS SUMMARY | 2025-05-03 08:57 | XMS_ITS | Encounter Summary ---
Author Organization [employer] Address [address] [facility] 7t [place] [address] Care Team Providers Care Cadd Manager Name Role Phone Jyoti Paris MD Primary Care Provider [phone] Encounter Details Date Type Department Care Team (Latest Contact Info) Description 08/14/2023 Orders Only [facility] CHC MED & PEDS [address] [place], [place] [phone] Jyoti Paris MD 505 [place], [place] [phone] Hypercholesterolemia (Primary Dx) Social History Tobacco Use [...] documented as of this encounter Care Teams Cadd Manager Relationship Specialty Start Date End Date Jyoti Paris MD [address] [place] [address] PCP - General Internal Medicine 09/12/15 documented as of this encounter
--- OUTSIDE RECORDS SUMMARY | 2025-05-03 08:57 | XMS_ITS | Encounter Summary ---
Author Organization [facility] Address [address] [place] [address] Phone Care Team Providers Care Janitor Custodian Name Role Phone Jyoti Paris MD Primary Care Provider Encounter Details Date Type Department Care Team (Late st Contact Info) Description 10/17/2021 Documentation Only [facility], [address] [facility] [place] [address] Jyoti Paris MD [address] [place], [place] [phone] Social History Tobacco Use Types Packs/Day Years [...] on filedocumented in this encounter Care Teams Janitor Custodian Relationship Specialty Start Date End Date Jyoti Paris MD PCP - General Internal Medicine 10/17/21 documented as of this encounter
--- OUTSIDE RECORDS SUMMARY | 2025-05-03 08:57 | XMS_ITS | Encounter Summary ---
Author Organization [employer] Address [address] [facility] 7t [place] [address] Care Team Providers Care Theatrical Agent Name Role Phone Jyoti Paris MD Primary Care Provider [phone] Reason for Visit * Reason Onset Date Comments Nurse Triage 10/07/2023 Encounter Details Date Type Department Care Team ([facility] st Contact Info) Description 10/07/2023 Telephone [facility] CHC MED & PEDS [address] [place], [place] [phone] Jyoti Paris MD 505 [place] [address] Nurse Triage Social History Tobacco Use Types [...] daily 292,320. Please follow with Janae at [phone]. Protocol Used: Information Only Call - No [...] JEFERSON Cardoso would like a call back [phone]. documented in this encounter Plan of Treatment Not on file documented as of this encounter Visit Diagnoses Not on filedocumented in this encounter Additional Health Concerns Assessment Noted Time PHQ-9 Depression Total Score: 0 08/06/19 23 1:19 PM EST documented as of this encounter Care Teams Theatrical Agent Relationship Specialty Start Date End Date Jyoti Paris MD [address] [place] [address] PCP - General Internal Medicine 09/12/15 documented as of this encounter
--- OUTSIDE RECORDS SUMMARY | 2025-05-03 08:57 | XMS_ITS | Encounter Summary ---
Author Organization [employer] Address [address] [facility] 7t [place] [address] Care Team Providers Care Social Media Strategist Name Role Phone Jyoti Paris MD Primary Care Provider [phone] Encounter Details Date Type Department Care Team ([facility] st Contact Info) Description 11/20/2023 Orders Only [facility] CHC MED & PEDS [address] [place], [place] [phone] Jyoti Paris MD 505 [place], [place] [phone] Type 2 diabetes mellitus with hyperglycemia, with long-term current use of insulin ([facility]) (Primary Dx) Social History Tobacco Use [...] documented as of this encounter Care Teams Social Media Strategist Relationship Specialty Start Date End Date Jyoti Paris MD [address] [place] [address] PCP - General Internal Medicine 09/12/15 documented as of this encounter
--- OUTSIDE RECORDS SUMMARY | 2025-05-03 08:57 | XMS_ITS | Encounter Summary ---
Author Organization [employer] Address [address] [place] [address] [place] [address] Care Team Providers Care Functional Tester Typewriters Name Role Phone Jyoti Paris MD Primary Care Provider [phone]- [phone] Reason for Visit * Reason Onset Date Comments Nurse Triage 02/05/2023 Encounter Details Date Type Department Care Team ([facility] st Contact Info) Description 02/05/2023 Telephone [facility] CHC MED & PEDS [address] [place], [place] [phone] Jyoti Paris MD [address] [place] [address] Nurse Triage Social History Tobacco Use Types [...] 02/05/2023 12:49 PM EDT Triage call with [employer] Pocket Operator Id [id number] Pt son FRANCESCA Abel, takes call. Son [...] with these symptoms. Advised to come to [facility] today to be seen by provider. Pt RESEARCH MANAGEMENT ASSOCIATE will assist to [facility]. Pt does have an apt [...] documented as of this encounter Care Teams Functional Tester Typewriters Relationship Specialty Start Date End Date Jyoti Paris MD [address] [place] [id number] PCP - General Internal Medicine 09/12/15 documented as of this encounter
--- OUTSIDE RECORDS SUMMARY | 2025-05-03 08:57 | XMS_ITS | Encounter Summary ---
Author Organization [employer] Address [address] [facility] 7t [place] [address] Care Team Providers Care Conductor Pullman Name Role Phone Jyoti Paris MD Primary Care Provider [phone] [phone] Encounter Details Date Type Department Care Team ([facility] st Contact Info) Description 10/28/2023 Orders Only [facility] CHC MED & PEDS [address] [place], [place] [phone] Jyoti Paris MD [address] [place], [place] [phone] Social History Tobacco Use Types Packs/Day Years [...] the past 12 months, has t he [employer], gas, oil or water company threatened to [...] documented as of this encounter Care Teams Conductor Pullman Relationship Specialty Start Date End Date Jyoti Paris MD [address] [place] [address] PCP - General Internal Medicine 09/12/15 documented as of this encounter
--- OUTSIDE RECORDS SUMMARY | 2025-05-03 08:57 | XMS_ITS | Encounter Summary ---
Author Organization [employer] Address [address] [place] [address] Care Team Providers Care General Scrap Worker Name Role Phone Jyoti Paris MD Primary Care Provider [phone]- [phone] Reason for Visit * Reason Onset Date Comments Appointment Request 07/15/2022 Encounter Details Date Type Department Care Team (Late st Contact Info) Description 07/15/2022 Telephone [facility] MEDICINE [address] [place] [address] Jyoti Paris MD [address] [place] [phone] Appointment Request Social History Tobacco Use Types [...] summary in chart.) Please contact son at [phone] documented in this encounter Plan of Treatment Not on file documented as of this encounter Visit Diagnoses Not on filedocumented in this encounter Care Teams General Scrap Worker Relationship Specialty Start Date End Date Beauzile, Thevenin, MD [address] [place] [id number] PCP - General Internal Medicine 09/12/15 documented as of this encounter
--- OUTSIDE RECORDS SUMMARY | 2025-05-03 08:58 | XMS_ITS | Encounter Summary ---
Author Organization [employer] Address [address] [place] [address] [address] [place] [address] Care Team Providers Care Mining Detail Draftsperson Name Role Phone Jyoti Paris MD Primary Care Provider [phone] Encounter Details Date Type Department Care Team ([facility] st Contact Info) Description 09/06/2022 Orders Only [facility] [address] [place], [place] [phone] Jyoti Paris MD [address] [place], [place] [id number] Type 2 diabetes mellitus with hyperglycemia, with [...] EDT 02/06/2023 11:41 AM EDT Comment:[facility]ACC Narrative [facility] - 02/07/2023 12:58 PM EDT Urine Culture Report Result Urine Culture < 10,000 cfu/ml Specimen Source: Urine clean catch Quiana Iglesias LOGISTICS CLERK LAB MICROBIOLOGY - GENERAL ORD ERABLES Final Result [facility] [address] [place] [address] [phone] documented in this encounter Visit Diagnoses Diagnosis Type 2 diabetes mellitus with hyperglycemia, with long-term current use of insulin (HCC) documented in this encounter Additional Health Concerns Assessment Noted Time PHQ-9 Depression Total Score: 0 08/06/19 23 1:19 PM EST documented as of this encounter Care Teams Mining Detail Draftsperson Relationship Specialty Start Date End Date Jyoti Paris MD [address] [place] [id number] PCP - General Internal Medicine 09/12/15 documented as of this encounter
--- OUTSIDE RECORDS SUMMARY | 2025-05-03 08:58 | XMS_ITS | Encounter Summary ---
Author Organization [employer] Address [address] [place] [address] Care Team Providers Care Case Resolution Specialist Name Role Phone Jyoti Paris MD Primary Care Provider [phone] Encounter Details Date Type Department Care Team (Late st Contact Info) Description 09/03/2023 Telephone [facility] MED[facility]INE [address] [place] [address] Jyoti Paris MD [address] [place] [address] Social History Tobacco Use Types Packs/Day Years [...] as of this encounter Care Teams Case Resolution Specialist Relationship Specialty Start Date End Date Jyoti Paris MD [address] [place] [phone] PCP - General Internal Medicine 09/12/15 documented as of this encounter
--- OUTSIDE RECORDS SUMMARY | 2025-05-03 08:58 | XMS_ITS | Encounter Summary ---
Author Organization [email or web address] Address [address] [place] [address] Care Team Providers Care Pastry Baker Name Role Phone Jyoti Paris MD Primary Care Provider [phone]- [phone] Reason for Visit * Reason Onset Date Comments Medication Question 10/10/2022 Encounter Details Date Type Department Care Team (Late st Contact Info) Description 10/10/[address] [facility] MEDICINE [address] [place] [address] Jyoti Paris MD [address] [place] [id number] Medication Question Social History Tobacco Use Types [...] colace 100 mg Please contact Mago at [phone] documented in this encounter Plan of Treatment Not on file documented as of this encounter Visit Diagnoses Not on filedocumented in this encounter Additional Health Concerns Assessment Noted Time PHQ-9 Depression Total Score: 0 08/06/19 23 1:19 PM EST documented as of this encounter Care Teams Pastry Baker Relationship Specialty Start Date End Date Jyoti Paris MD [address] [place] [phone] PCP - General Internal Medicine 09/12/15 documented as of this encounter
== END 2025-05-03 09:03 | disposition home or self-care (01) ==
LOC: HO.ENCR 08:22
PROVIDERS: Visit Provider Physician Assistant Medical
DX: E11.42 Type 2 diabetes mellitus with diabetic polyneuropathy (principal); Z79.4 Long term (current) use of insulin; F03.90 Unspecified dementia, unspecified severity, without behavioral disturbance, psychotic disturbance, mood disturbance, and anxiety; N18.31 Chronic kidney disease, stage 3a; Z13.9 Encounter for screening, unspecified

== ENCOUNTER → 2025-05-03 08:22 | Outpatient (BNVA) | payer OTHER, SELFPAY | PROVIDERS: Visit Provider Physician Assistant Medical | DX: E11.42 Type 2 diabetes mellitus with diabetic polyneuropathy (principal); I12.9 Hypertensive chronic kidney disease with stage 1 through stage 4 chronic kidney disease, or unspecified chronic kidney disease; E11.22 Type 2 diabetes mellitus with diabetic chronic kidney disease; N18.31 Chronic kidney disease, stage 3a; E11.49 Type 2 diabetes mellitus with other diabetic neurological complication; F03.90 Unspecified dementia, unspecified severity, without behavioral disturbance, psychotic disturbance, mood disturbance, and anxiety; G40.909 Epilepsy, unspecified, not intractable, without status epilepticus; J44.9 Chronic obstructive pulmonary disease, unspecified; G24.01 Drug induced subacute dyskinesia; F31.9 Bipolar disorder, unspecified; F17.210 Nicotine dependence, cigarettes, uncomplicated; Z79.4 Long term (current) use of insulin; Z79.85 Long-term (current) use of injectable non-insulin antidiabetic drugs | CPT/HCPCS: 82947; 83036; 99212 ==